=== PATIENT | female | born 1955 | race Caucasian/White ===

== ENCOUNTER 2016-03-04 11:29 | Inpatient (IN) | payer MEDICARE, OTHER ==
[~2016-03-04] VITALS: Ht 144.8 cm; Wt 62.1 kg
[2016-03-04 11:33] VITALS: BP 142/86; PULSE 102; RESP 16; TEMP 98.1; O2SAT 97
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
[2016-03-04 12:07] LABS: AUTOMATED NEUTROPHIL # 2.7 TH/MM3 (1.8-7.7); BASOPHIL % 0.4 % (0.0-2.0); HEMATOCRIT 38.4 % (35.0-46.0); HEMO FLAGS DIFF FINAL; LYMPH % 33.8 % (9.0-44.0); LYMPHOCYTE # 1.6 TH/MM3 (1.0-4.8); MEAN CELL VOLUME 91.9 FL (80.0-100.0); MEAN CORPUSCULAR HGB CONC 33.7 % (32.0-36.0); MONO % 7.6 % (0.0-8.0); NEUT % 58.2 % (16.0-70.0); PLATELET COUNT 196 TH/MM3 (150-450); RED BLOOD COUNT 4.17 MIL/MM3 (4.00-5.30); RED CELL DISTRIBUTION WIDTH 13.5 % (11.6-17.2); WHITE BLOOD COUNT 4.7 TH/MM3 (4.0-11.0)
[2016-03-04 12:24] LABS: ALKALINE PHOSPHATASE 87 U/L (45-117); TOTAL BILIRUBIN ADULT 0.2 MG/DL (0.2-1.0)
[2016-03-04 12:31] LABS: ALT (GPT) 26 U/L (10-53); ANION GAP 7 MEQ/L (5-15); AST (GOT) 25 U/L (15-37); BICARBONATE 27.6 MEQ/L (21.0-32.0); BLOOD UREA NITROGEN 15 MG/DL (7-18); CHLORIDE 107 MEQ/L (98-107); GLOMERULAR FILTRATION RATE 66 ML/MIN (>89); POTASSIUM 4.3 MEQ/L (3.5-5.1); SODIUM (NA) 142 MEQ/L (136-145)
[2016-03-04 12:53] LABS: BACTERIA, URINE RARE /hpf; BLOOD, URINE NEG (NEG); GLUCOSE,URINE NEG (NEG); KETONE, URINE TRACE mg/dL (NEG); MUCUS URINE FEW /lpf (OCC); NITRITE,URINE NEG (NEG); URINE COLOR YELLOW (YELLW/STRAW)
[2016-03-04 12:54] LABS: COMMENT (UR) CATH-CULTURE IND; CULTURE IF INDICATED CATH CULTURE IND
[2016-03-04 13:03] LABS: AMPHETAMINE, URINE NEG (NEG); BARBITURATES, URINE NEG (NEG); COCAINE, URINE NEG (NEG)
[2016-03-04] MEDS ORDERED: HALO100P IM (13:39)
[2016-03-04] MEDS ORDERED: [UNRECOGNIZED DRUG - CODE] PO (13:39)
[2016-03-04] MEDS ORDERED: ASPI81TA81 (13:39)
[2016-03-04] MEDS ORDERED: BUSP10TA PO (13:39)
[2016-03-04] MEDS ORDERED: BENZ1TAB PO (13:39)
[2016-03-04] MEDS ORDERED: CLOZ200T PO (13:39)
[2016-03-04] MEDS ORDERED: LEVO.1 PO (13:39)
[2016-03-04] MEDS ORDERED: FENO1TAB46 PO (13:39)
[2016-03-04] MEDS ORDERED: DUCO5TAB PO (13:39)
[2016-03-04] MEDS ORDERED: DILA100C PO (13:39)
[2016-03-04] MEDS ORDERED: VALP250S2 PO (13:39)
[2016-03-04] MEDS ORDERED: NAPR250T PO (13:39)
[2016-03-04] MEDS ORDERED: MIRA33504 PO (13:39)
[2016-03-04] MEDS ORDERED: CALC500T42 PO (13:39)
[2016-03-04] MEDS ORDERED: HALOPERIDOL LACTATE 5 MG/ML AMP IM PRN (16:00)
[2016-03-04] MEDS ORDERED: HALOPERIDOL 5 MG TAB PO ONE (16:00)
[2016-03-04] MEDS ORDERED: MAGNESIUM HYDROXIDE SUSP 30 ML CUP PO PRN (16:30)
[2016-03-04] MEDS ORDERED: ACETAMINOPHEN 325 MG TAB PO PRN (16:30)
[2016-03-04] MEDS ORDERED: ALUMINUM/MAGNESIUM/SIMETH 30 ML CUP PO PRN (16:30)
[2016-03-04 16:44] VITALS: BP 119/93; PULSE 100; RESP 18; TEMP 97.5; O2SAT 98
[2016-03-04] MEDS: LORazepam 2 MG/ML VIAL IM PRN (17:38)
[2016-03-05 05:41] VITALS: BP 103/55; PULSE 84; RESP 16; TEMP 97.4; O2SAT 95
[2016-03-05 07:57] LABS: ANION GAP 10 MEQ/L (5-15); BICARBONATE 26.2 MEQ/L (21.0-32.0); BLOOD UREA NITROGEN 10 MG/DL (7-18); CHLORIDE 103 MEQ/L (98-107); GLOMERULAR FILTRATION RATE 67 ML/MIN (>89); POTASSIUM 3.7 MEQ/L (3.5-5.1); SODIUM (NA) 139 MEQ/L (136-145)
[2016-03-05 07:59] LABS: HDL CHOLESTEROL 97.3 MG/DL (40.0-60.0); LDL CHOLESTEROL 62 MG/DL (0-99)
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
[2016-03-05] MEDS: NICOTINE 21 MG/24 HR PATCH T-DERMAL SCH (09:00)
[2016-03-05] MEDS ORDERED: INFLUENZA VIRUS VACCINE (QUADRIVALENT) 0.5 ML SYR IM ONE (10:00)
[2016-03-05 11:06] LABS: HEMOGLOBIN A1a 1.1 %; HEMOGLOBIN A1b 0.9 %; HEMOGLOBIN F 1.1 %; HEMOGLOBIN P3 3.7 %
[2016-03-05 17:47] VITALS: BP 124/60; PULSE 88; RESP 18; TEMP 97.6; O2SAT 96
[2016-03-06 05:49] VITALS: BP 112/61; PULSE 83; RESP 16; TEMP 97.6; O2SAT 97
[2016-03-06] MEDS: NICOTINE 21 MG/24 HR PATCH T-DERMAL SCH (09:00)
[2016-03-06] MEDS: LORazepam 1 MG TAB PO PRN (11:08)
[2016-03-06] MEDS ORDERED: MAGNESIUM HYDROXIDE SUSP 30 ML CUP PO PRN (12:00)
--- NOTE | 2016-03-06 12:07 | HHI.PYPN ---
Subjective Remarks Patient discussed with treatment team, patient seen on unit, with nurse Jamilah, chart reviewed, admitting orders reviewed and adjusted, med reconciliation adjusted. Patient continues anxious nervous somewhat vigilant and paranoid. Patient does deny suicidality, patient appears to be responding to internal stimuli, those vague about any auditory hallucinations. For now we'll continue medications as per the med reconciliation, will check Depakote and Dilantin blood levels in the a.m. Also have medical service consult with this patient Review of Systems Other No change since 03/04 Objective Alert: Yes [place]: Person, Place, Date Mood: Anxious, Depressed Affect: Labile, Restricted Memory Intact: Comment Hallucinations: Other Delusions: Yes Delusion Type: Paranoid (vague) Suicidal: Ideation (denies) Homicidal: Ideation (denies) Insight/Judgement poor Labs Date/Time Procedure Status Source Growth 03/04/16 12:45 Urine Culture - Final Complete Urine Catheterized Urine NO GROWTH IN 48 HOURS. Vitals/IOs Vital Signs Date Time Temp Pulse Resp B/P Pulse Ox O2 Delivery O2 Flow Rate FiO2 03/06/16 05:49 97.6 83 16 112/61 97 Intake and Output 03/05/16 03/05/16 03/06/16 08:00 16:00 00:00 Intake Total 360 ml Balance 360 ml Assessment & Plan Problem List: (1) Bipolar disorder ICD Code: F31.9 Assessment & Plan Estimated LOS: days patient continues depressed somewhat psychotic, compliant medications. At this time I feel patient continues to meet criteria for involuntary psychiatric hospitalization but also feel she has capacity to sign for medications Justification for Cont. Inpt. At this time patient was severely decompensate at a lower level of care Discharge Planning To be determine Request HC Surrog/Guard Advoc?: No Problem Qualifiers (1) Bipolar disorder: Qualified Code: F31.9 - Bipolar affective disorder, current episode manic, current episode severity unspecified Ezequiel Grayson MD Mar 06, 2016 12:07
[2016-03-06] MEDS ORDERED: HALOPERIDOL DECANOATE 50 MG/ML VIAL IM SCH (13:00)
[2016-03-06] MEDS ORDERED: BISACODYL EC 5 MG TABEC PO PRN (13:00)
[2016-03-06] MEDS: POLYETHYLENE GLYCOL 17 GM PKG PO SCH ×2 (15:07→15:23)
[2016-03-06] MEDS: CALCIUM CARBONATE 1.25 GM (CA 500 MG) TAB PO SCH ×2 (15:08→21:09)
[2016-03-06] MEDS: FENOFIBRATE 48 MG TAB PO SCH (15:08)
[2016-03-06] MEDS: VALPROIC ACID SYRUP 250 MG/5 ML UDC PO SCH ×2 (15:08→21:09)
[2016-03-06] MEDS: busPIRone HCL 10 MG TAB PO SCH ×2 (15:09→21:09)
[2016-03-06] MEDS: cloZAPine 100 MG TAB PO SCH ×2 (15:09→21:10)
[2016-03-06] MEDS: PHENYTOIN SODIUM 100 MG CAP PO SCH ×2 (15:20→18:51)
--- NOTE | 2016-03-06 16:07 | PD.CONS ---
[facility] By [facility] Reason for Consult Assist in management of medical condition including hypothyroidism and epilepsy Primary Care Physician Unknown Diagnoses: History of Present Illness This is a pleasant 60-year-old female patient with a past medical history which includes bipolar disorder, seizure disorder, hypothyroidism. Patient is currently inpatient psychiatric center. We have been consulted for assistance with medical management included hypothyroidism as well as epilepsy. Patient reports anxiety. Patient also reports nasal congestion. Patient feels as though it has possibly allergies has been present for 3-5 days reports it is worse when she is trying to eat. Denies fevers chills cough congestion shortness of breath chest pain nausea vomiting diarrhea or constipation. Review of Systems Constitutional: DENIES: Fever, Chills Respiratory: DENIES: Shortness of breath Cardiovascular: DENIES: Chest pain Gastrointestinal: DENIES: Abdominal pain Psychiatric: COMPLAINS OF: Anxiety Other All other systems reviewed and negative except as mentioned in history of present illness Past Family Social History Allergies: Coded Allergies: Codeine (Verified Allergy, Unknown, 03/04/16) Past Medical History bipolar disorder, seizure disorder, hypothyroidism Past Surgical History ALPHONSO/BSO, epilepsy, multiple eye operations to repair strabismus Reported Medications Naproxen 250 Mg Tab 250 Mg PO BID Dilantin (Phenytoin Extended) 100 Mg Cap 100 Mg PO TID Restoril (Temazepam) 22.5 Mg Cap 22.5 Mg PO HS PRN Haldol Decanoate Inj (Haloperidol Decanoate) 100 Mg/Ml Inj 100 Mg IM ONCE Miralax Powder (Polyethylene Glycol 3350 Powder) 17 Gm Powd 17 Gm PO DAILY Mix and dissolve one measuring cap-ful (17 grams) in water or juice. Ducodyl DR (Bisacodyl) 5 Mg Tabdr 5 Mg PO DAILY PRN Aspir-81 (Aspirin) 81 Mg Tabdr Benztropine (Benztropine Mesylate) 1 Mg Tab 1 Mg PO BID Clozapine 200 Mg Tab 200 Mg PO BID Calcium 500 Mg Tab 1,000 Mg PO BID Synthroid (Levothyroxine Sodium) 100 Mcg Tab 100 Mcg PO DAILY Valproic Acid Liq 250 Mg/5 Ml Syp 250 Mg PO BID Fenofibrate 40 Mg Tab 40 Mg PO DAILY Buspirone (Buspirone HCl) 10 Mg Tab 10 Mg PO BID Family History Mother had macular degeneration denies family medical history including hypertension diabetes mellitus CAD or cancer Social History Patient currently lives in a care home denies EtOH use or tobacco abuse Physical Exam Vital Signs Vital Signs Date Time Temp Pulse Resp B/P Pulse Ox O2 Delivery O2 Flow Rate FiO2 03/06/16 05:49 97.6 83 16 112/61 97 03/05/16 17:47 97.6 88 18 124/60 96 Physical Exam GENERAL: This is a well-nourished, well-developed patient, initially anxious but appears to be in no acute distress. SKIN: No rashes, ecchymoses or lesions. Cool and dry. Generalized thinning skin HEAD: Atraumatic. Normocephalic. No temporal or scalp tenderness. EYES: Extraocular motions intact. No scleral icterus. No injection or drainage. ENT: Right naris initially congested. Throat without erythema, tonsillar hypertrophy or exudate. Uvula midline. Airway patent. NECK: Trachea midline. No JVD or lymphadenopathy. Supple, nontender, no meningeal signs. CARDIOVASCULAR: Regular rate and rhythm without murmurs, gallops, or rubs. RESPIRATORY: Clear to auscultation. Breath sounds equal bilaterally. No wheezes , rales, or rhonchi. GASTROINTESTINAL: Abdomen soft, non-tender, nondistended. No hepato-splenomegaly , or palpable masses. No guarding. MUSCULOSKELETAL: Extremities without clubbing, cyanosis, or edema. No joint tenderness, effusion, or edema noted. No calf tenderness. Negative Homans sign bilaterally. NEUROLOGICAL: Awake and alert. Motor and sensory grossly within normal limits. 4 -5 out of 5 muscle strength in all muscle groups. Normal speech. Laboratory Date/Time Procedure Status Source Growth 03/04/16 12:45 Urine Culture - Final Complete Urine Catheterized Urine NO GROWTH IN 48 HOURS. Result Diagram: 03/04/16 1155 03/05/16 0704 Assessment and Plan Assessment and Plan This is a pleasant 60-year-old female patient with a past medical history which includes bipolar disorder, seizure disorder, hypothyroidism. Patient is currently inpatient psychiatric center. We have been consulted for assistance with medical management included hypothyroidism as well as epilepsy. Patient reports anxiety. Patient also reports nasal congestion. Patient feels as though it has possibly allergies has been present for 3-5 days reports it is worse when she is trying to eat. Bipolar disorder to be managed by psychiatric team Hypothyroidism continue her Synthroid will check TSH and T4 in a.m. Seizure disorder/epilepsy continue valproic acid level therapeutic at 66 Seizure precautions Nasal congestion possibly allergic Medrol Dosepak continue to monitor DVT prophylaxis patient is ambulatory Discussed with patient and RN Written by Bisi Koch, acting as scribe for Dr. Talavera on 03/06/16 at 16:05. The documentation accurately reflects the work performed [id number] by me on 03/06/16 at 16:05. Bisi Koch Mar 06, 2016 16:07 Altagracia Talavera MD Mar 06, 2016 16:54
[2016-03-06 18:52] VITALS: BP_SYST 147; BP_SYST 151; BP_SYST 172; BP_DIAS 73; BP_DIAS 75; PULSE 67
[2016-03-06 19:55] VITALS: BP 105/53; PULSE 90; RESP 16; TEMP 98; O2SAT 95
[2016-03-06] MEDS ORDERED: methylPREDNISolone 4 MG TAB PO SCH (21:00)
[2016-03-06] MEDS: BENZTROPINE MESYLATE 1 MG TAB PO SCH (21:09)
[2016-03-07 05:45] VITALS: BP 106/66; PULSE 87; RESP 16; TEMP 98.3; O2SAT 97
[2016-03-07] MEDS: LEVOTHYROXINE SODIUM 100 MCG TAB PO SCH (06:50)
[2016-03-07 08:47] LABS: ALT (GPT) 27 U/L (10-53); ANION GAP 7 MEQ/L (5-15); AST (GOT) 20 U/L (15-37); BICARBONATE 28.9 MEQ/L (21.0-32.0); BLOOD UREA NITROGEN 17 MG/DL (7-18); CHLORIDE 106 MEQ/L (98-107); GLOMERULAR FILTRATION RATE 87 ML/MIN (>89); POTASSIUM 4.3 MEQ/L (3.5-5.1); SODIUM (NA) 142 MEQ/L (136-145)
[2016-03-07 08:56] LABS: ALKALINE PHOSPHATASE 94 U/L (45-117); FREE T4 0.73 NG/DL (0.76-1.46); TOTAL BILIRUBIN ADULT 0.2 MG/DL (0.2-1.0)
[2016-03-07] MEDS: VALPROIC ACID SYRUP 250 MG/5 ML UDC PO SCH ×3 (09:00→20:51)
[2016-03-07] MEDS: NICOTINE 21 MG/24 HR PATCH T-DERMAL SCH (09:00)
--- NOTE | 2016-03-07 11:05 | HHI.PYPN ---
Subjective Remarks Patient seen in day room with nurse Jamilah, patient markedly vigilant paranoid stating she feels staff and evening are "conspiring against me". Patient also quite somatic stating problems with her legs with her breathing with her appetite. She also is complaining about her roommate being irritable and wanting to be moved to another room. Dilantin level drawn this morning is 11.4, Depakote level is 11. Will increase Depakote to 250 mg a.m. 500 mg at bedtime check a blood level after 3 days Review of Systems Other No change since 03/04 Objective Alert: Yes [place]: Person, Place, Date Mood: Anxious, Depressed Affect: Labile, Restricted Memory Intact: Comment Hallucinations: Other Delusions: Yes Delusion Type: Paranoid (vague) Suicidal: Ideation (denies) Homicidal: Ideation (denies) Insight/Judgement Very poor Labs Test 03/06/16 03/07/16 18:05 06:53 Carbamazepine (Tegretol) Level LESS THAN 0.5 MCG/ML Sodium Level 142 MEQ/L Potassium Level 4.3 MEQ/L Chloride Level 106 MEQ/L Carbon Dioxide Level 28.9 MEQ/L Anion Gap 7 MEQ/L Blood Urea Nitrogen 17 MG/DL Creatinine 0.69 MG/DL Estimat Glomerular Filtration 87 ML/MIN Rate Random Glucose 78 MG/DL Calcium Level 9.5 MG/DL Total Bilirubin 0.2 MG/DL Aspartate Amino Transf 20 U/L (AST/SGOT) Alanine Aminotransferase 27 U/L (ALT/SGPT) Alkaline Phosphatase 94 U/L Total Protein 6.7 GM/DL Albumin 3.5 GM/DL Free Thyroxine 0.73 NG/DL Thyroid Stimulating Hormone 4.280 uIU/ML 3rd Gen Phenytoin (Dilantin) Level 11.4 MCG/ML Valproic Acid (Depakene) Level 11 MCG/ML Date/Time Procedure Status Source Growth 03/04/16 12:45 Urine Culture - Final Complete Urine Catheterized Urine NO GROWTH IN 48 HOURS. Vitals/IOs Vital Signs Date Time Temp Pulse Resp B/P Pulse Ox O2 Delivery O2 Flow Rate FiO2 03/07/16 05:45 98.3 87 16 106/66 97 Intake and Output 03/06/16 03/06/16 03/07/16 08:00 16:00 00:00 Intake Total 120 ml 1320 ml 1680 ml Balance 120 ml 1320 ml 1680 ml Assessment & Plan Problem List: (1) Bipolar disorder ICD Code: F31.9 Assessment & Plan Estimated LOS: days patient continues quite psychotic paranoid and delusional Along with pain quite somatic. Please see medication changes above Justification for Cont. Inpt. The continues to be in need for close observation to regulate higher risk psychotropic medications Discharge Planning To be determined Request HC Surrog/Guard Advoc?: No Problem Qualifiers (1) Bipolar disorder: Qualified Code: F31.9 - Bipolar affective disorder, current episode manic, current episode severity unspecified Ezequiel Grayson MD Mar 07, 2016 11:05
[2016-03-07] MEDS: FENOFIBRATE 48 MG TAB PO SCH (11:14)
[2016-03-07] MEDS: CALCIUM CARBONATE 1.25 GM (CA 500 MG) TAB PO SCH ×2 (11:15→20:50)
[2016-03-07] MEDS: busPIRone HCL 10 MG TAB PO SCH ×2 (11:16→20:51)
[2016-03-07] MEDS: BENZTROPINE MESYLATE 1 MG TAB PO SCH ×2 (11:16→20:50)
[2016-03-07] MEDS: PHENYTOIN SODIUM 100 MG CAP PO SCH ×3 (11:16→17:32)
[2016-03-07] MEDS: cloZAPine 100 MG TAB PO SCH ×2 (11:17→20:50)
[2016-03-07] MEDS: methylPREDNISolone 4 MG TAB PO SCH ×2 (11:17→12:00)
--- NOTE | 2016-03-07 14:27 | HHI.PR ---
Subjective Remarks Assist in management of medical condition including hypothyroidism and epilepsy Patient evaluated as inpatient psychiatric tear Patient offers no medical complaints. Patient appears paranoid. Does not appear to be in acute distress Objective Vitals Vital Signs Date Time Temp Pulse Resp B/P Pulse Ox O2 Delivery O2 Flow Rate FiO2 03/07/16 05:45 98.3 87 16 106/66 97 03/06/16 19:55 98.0 90 16 105/53 95 03/06/16 18:52 67 151/75 147/73 172/75 I/O 03/06/16 03/06/16 03/06/16 03/07/16 03/07/16 03/07/16 07:00 15:00 23:00 07:00 15:00 23:00 Intake Total 480 ml 1320 ml 1680 ml 0 ml 960 ml Balance 480 ml 1320 ml 1680 ml 0 ml 960 ml Intake Oral 480 ml 1320 ml 1680 ml 0 ml 960 ml # Voids 2 3 4 2 2 # Bowel Movements 0 0 Result Diagram: 03/04/16 1155 03/07/16 0653 Objective Remarks GENERAL: This is a well-nourished, well-developed patient, initially anxious but appears to be in no acute distress. SKIN: No rashes, ecchymoses or lesions. Cool and dry. Generalized thinning skin HEAD: Atraumatic. Normocephalic. No temporal or scalp tenderness. EYES: Extraocular motions intact. No scleral icterus. No injection or drainage. ENT: . Bilateral nares appear clear Throat without erythema, tonsillar hypertrophy or exudate. Uvula midline. Airway patent. NECK: Trachea midline. No JVD or lymphadenopathy. Supple, nontender, no meningeal signs. CARDIOVASCULAR: Regular rate and rhythm without murmurs, gallops, or rubs. RESPIRATORY: Clear to auscultation. Breath sounds equal bilaterally. No wheezes , rales, or rhonchi. GASTROINTESTINAL: Abdomen soft, non-tender, nondistended. No guarding. MUSCULOSKELETAL: Extremities without clubbing, cyanosis, or edema. No joint tenderness, effusion, or edema noted. No calf tenderness. Negative Homans sign bilaterally. NEUROLOGICAL: Awake and alert. Motor and sensory grossly within normal limits. 4 -5 out of 5 muscle strength in all muscle groups. Normal speech. Psychological: Patient does appear paranoid A/P Assessment and Plan This is a 60-year-old female patient with a past medical history which includes bipolar disorder, seizure disorder, hypothyroidism. Patient is currently inpatient psychiatric center. We have been consulted for assistance with medical management included hypothyroidism as well as epilepsy. Patient reports anxiety. Patient also reports nasal congestion. Patient feels as though it has possibly allergies has been present for 3-5 days reports it is worse when she is trying to eat. Bipolar disorder to be managed by psychiatric team Hypothyroidism continue her Synthroid Seizure disorder/epilepsy continue valproic acid and Dilantin Seizure precautions Nasal congestion possibly allergic- improved Medrol Dosepak started patient noted to have worsening psychosis today will DC Medrol DVT prophylaxis patient is ambulatory Discussed with patient and RN Patient does appear medically stable at this time we will sign off if patient's condition worsens or if further assistance is needed please reconsult. Written by Bisi Koch, acting as scribe for Dr. Duran on 03/07/16 at 14:26. The documentation accurately reflects the work performed [id number] by me on 03/07/16 at 1426 Bisi Koch Mar 07, 2016 14:27 Wagner Duran MD Mar 07, 2016 15:31
[2016-03-07] MEDS: LORazepam 1 MG TAB PO PRN (18:38)
[2016-03-07 19:40] VITALS: BP 148/98; PULSE 95; RESP 17; TEMP 98.1
[2016-03-07] MEDS ORDERED: methylPREDNISolone 4 MG TAB PO SCH (21:00)
[2016-03-08 06:02] VITALS: BP 105/59; PULSE 93; RESP 16; TEMP 98.1; O2SAT 95
[2016-03-08] MEDS: LEVOTHYROXINE SODIUM 100 MCG TAB PO SCH (06:33)
[2016-03-08] MEDS ORDERED: methylPREDNISolone 4 MG TAB PO SCH (08:00)
[2016-03-08] MEDS: POLYETHYLENE GLYCOL 17 GM PKG PO SCH (08:57)
[2016-03-08] MEDS: cloZAPine 100 MG TAB PO SCH ×2 (08:57→21:19)
[2016-03-08] MEDS: busPIRone HCL 10 MG TAB PO SCH ×2 (08:57→21:20)
[2016-03-08] MEDS: PHENYTOIN SODIUM 100 MG CAP PO SCH ×3 (08:57→17:00)
[2016-03-08] MEDS: BENZTROPINE MESYLATE 1 MG TAB PO SCH ×2 (08:57→21:20)
[2016-03-08] MEDS: FENOFIBRATE 48 MG TAB PO SCH (08:58)
[2016-03-08] MEDS: VALPROIC ACID SYRUP 250 MG/5 ML UDC PO SCH ×2 (08:58→21:20)
[2016-03-08] MEDS: CALCIUM CARBONATE 1.25 GM (CA 500 MG) TAB PO SCH ×2 (09:00→21:20)
[2016-03-08] MEDS: NICOTINE 21 MG/24 HR PATCH T-DERMAL SCH (09:00)
--- NOTE | 2016-03-08 13:16 | HHI.PYPN ---
Subjective Remarks Patient seen in day room today with floor staff, patient continues markedly disorganized and paranoid of focusing on her roommate and on staff plotting against her, and her unwillingness to use the commode in her room. Patient compliant medication Review of Systems Other No change since 03/04 Objective Alert: Yes [place]: Person, Place, Date Mood: Anxious, Depressed Affect: Labile, Restricted Memory Intact: Comment Hallucinations: Other Delusions: Yes Delusion Type: Paranoid (vague) Suicidal: Ideation (denies) Homicidal: Ideation (denies) Insight/Judgement Very poor Labs Date/Time Procedure Status Source Growth 03/04/16 12:45 Urine Culture - Final Complete Urine Catheterized Urine NO GROWTH IN 48 HOURS. Vitals/IOs Vital Signs Date Time Temp Pulse Resp B/P Pulse Ox O2 Delivery O2 Flow Rate FiO2 03/08/16 06:02 98.1 93 16 105/59 95 Intake and Output 03/07/16 03/07/16 03/08/16 08:00 16:00 00:00 Intake Total 0 ml 960 ml 600 ml Balance 0 ml 960 ml 600 ml Assessment & Plan Problem List: (1) Bipolar disorder ICD Code: F31.9 Assessment & Plan Estimated LOS: days is delusional, psychotic, and intrusive. For now continue treatment Justification for Cont. Inpt. Patient with severely decompensated at a lower level of care Discharge Planning To be determined Request HC Surrog/Guard Advoc?: No Problem Qualifiers (1) Bipolar disorder: Qualified Code: F31.9 - Bipolar affective disorder, current episode manic, current episode severity unspecified Ezequiel Grayson MD Mar 08, 2016 13:16
[2016-03-08] MEDS: LORazepam 1 MG TAB PO PRN (17:00)
[2016-03-08 18:00] VITALS: BP 123/69; PULSE 80; RESP 17; TEMP 98.3; O2SAT 96
[2016-03-09] MEDS: LORazepam 2 MG/ML VIAL IM PRN (00:50)
[2016-03-09] MEDS: LEVOTHYROXINE SODIUM 100 MCG TAB PO SCH (05:56)
[2016-03-09 06:00] VITALS: BP 129/65; PULSE 89; RESP 16; TEMP 97.6; O2SAT 99
[2016-03-09] MEDS ORDERED: methylPREDNISolone 4 MG TAB PO SCH (08:00)
[2016-03-09] MEDS: NICOTINE 21 MG/24 HR PATCH T-DERMAL SCH (09:00)
[2016-03-09] MEDS: POLYETHYLENE GLYCOL 17 GM PKG PO SCH (09:59)
[2016-03-09] MEDS: FENOFIBRATE 48 MG TAB PO SCH (09:59)
[2016-03-09] MEDS: VALPROIC ACID SYRUP 250 MG/5 ML UDC PO SCH ×2 (10:00→20:39)
[2016-03-09] MEDS: BENZTROPINE MESYLATE 1 MG TAB PO SCH ×2 (10:00→20:39)
[2016-03-09] MEDS: cloZAPine 100 MG TAB PO SCH ×2 (10:00→20:40)
[2016-03-09] MEDS: PHENYTOIN SODIUM 100 MG CAP PO SCH ×3 (10:01→17:11)
[2016-03-09] MEDS: busPIRone HCL 10 MG TAB PO SCH ×2 (10:01→20:39)
[2016-03-09] MEDS: CALCIUM CARBONATE 1.25 GM (CA 500 MG) TAB PO SCH ×2 (10:04→20:39)
--- NOTE | 2016-03-09 12:08 | HHI.PYPN ---
Subjective Remarks Patient seen in [employer] court with her [employer] act [employer], patient retained by Judge Marie, patient continues quite hyper verbal tangential circumstantial and disorganized. Showing very little insight into the whole process. Patient compliant medications. Awaiting Depakote blood level tomorrow. Patient compliant medications Review of Systems Other No change since 03/04 Objective Alert: Yes [place]: Person, Place, Date Mood: Anxious, Depressed Affect: Labile, Restricted Memory Intact: Comment Hallucinations: Other Delusions: Yes Delusion Type: Paranoid (vague) Suicidal: Ideation (denies) Homicidal: Ideation (denies) Insight/Judgement Very poor Labs Date/Time Procedure Status Source Growth 03/04/16 12:45 Urine Culture - Final Complete Urine Catheterized Urine NO GROWTH IN 48 HOURS. Vitals/IOs Vital Signs Date Time Temp Pulse Resp B/P Pulse Ox O2 Delivery O2 Flow Rate FiO2 03/09/16 06:00 97.6 89 16 129/65 99 Intake and Output 03/08/16 03/08/16 03/09/16 08:00 16:00 00:00 Intake Total 0 ml 1320 ml 1080 ml Balance 0 ml 1320 ml 1080 ml Assessment & Plan Problem List: (1) Bipolar disorder ICD Code: F31.9 Assessment & Plan Patient remains hyperverbal, manic with rapid pressured speech, retained by Jj Marie in [employer] court. Awaiting Depakote blood level tomorrow Justification for Cont. Inpt. At this time the patient would severely decompensated a lower level of care Discharge Planning To be determined Request HC Surrog/Guard Advoc?: No Problem Qualifiers (1) Bipolar disorder: Qualified Code: F31.9 - Bipolar affective disorder, current episode manic, current episode severity unspecified Ezequiel Grayson MD Mar 09, 2016 12:08
[2016-03-09] MEDS: LORazepam 1 MG TAB PO PRN (17:11)
[2016-03-09 18:22] VITALS: BP 116/67; PULSE 102; RESP 16; TEMP 98.1; O2SAT 97
[2016-03-09 21:40] VITALS: BP 128/64; PULSE 95; RESP 16; TEMP 98; O2SAT 98
[2016-03-09 22:40] VITALS: BP 100/54; PULSE 85; RESP 16; TEMP 98; O2SAT 97
[2016-03-10 02:33] VITALS: BP 100/62; PULSE 85; RESP 14; TEMP 98; O2SAT 97
[2016-03-10] MEDS: LEVOTHYROXINE SODIUM 100 MCG TAB PO SCH (05:20)
[2016-03-10 05:49] VITALS: BP 127/56; PULSE 85; RESP 16; TEMP 97.7; O2SAT 97
[2016-03-10] MEDS ORDERED: methylPREDNISolone 4 MG TAB PO SCH (08:00)
[2016-03-10] MEDS: NICOTINE 21 MG/24 HR PATCH T-DERMAL SCH (09:00)
[2016-03-10] MEDS: CALCIUM CARBONATE 1.25 GM (CA 500 MG) TAB PO SCH ×2 (09:16→21:19)
[2016-03-10] MEDS: VALPROIC ACID SYRUP 250 MG/5 ML UDC PO SCH ×2 (09:17→21:20)
[2016-03-10] MEDS: busPIRone HCL 10 MG TAB PO SCH ×2 (09:17→21:19)
[2016-03-10] MEDS: PHENYTOIN SODIUM 100 MG CAP PO SCH ×3 (09:17→18:23)
[2016-03-10] MEDS: cloZAPine 100 MG TAB PO SCH ×2 (09:17→21:19)
[2016-03-10] MEDS: BENZTROPINE MESYLATE 1 MG TAB PO SCH ×2 (09:17→21:19)
[2016-03-10] MEDS: FENOFIBRATE 48 MG TAB PO SCH (09:17)
[2016-03-10] MEDS: POLYETHYLENE GLYCOL 17 GM PKG PO SCH (09:18)
[2016-03-10 10:29] VITALS: BP 123/58; PULSE 94; RESP 17; TEMP 97.9; O2SAT 98
--- NOTE | 2016-03-10 13:18 | HHI.PYPN ---
Subjective Remarks Patient seen in [place] with nurse Naz, patient continues hyper verbal paranoid with conspiratorial content, also complains still of urinary frequency and incontinence. Is a negative urine with culture done approximately 03/04. Will repeat UA today. Patient is Depakote level this a.m. is 22 on 250 mg a.m. 500 mg at bedtime. Will increase Depakote to 52 mg a.m. 500 mg at bedtime get Depakote level on 03/14. She also continues to be intrusive with other patients following them down the [place] showed little respect for personal space Review of Systems Other No change since 03/04 Objective Alert: Yes [place]: Person, Place, Date Mood: Anxious, Depressed Affect: Labile, Restricted Memory Intact: Comment Hallucinations: Other Delusions: Yes Delusion Type: Paranoid (vague) Suicidal: Ideation (denies) Homicidal: Ideation (denies) Insight/Judgement Very poor Labs Test 03/10/16 05:49 Valproic Acid (Depakene) Level 22 MCG/ML Vitals/IOs Vital Signs Date Time Temp Pulse Resp B/P Pulse Ox O2 Delivery O2 Flow Rate FiO2 03/10/16 10:29 97.9 94 17 123/58 98 Intake and Output 03/09/16 03/09/16 03/09/16 07:59 15:59 23:59 Intake Total 1320 ml 240 ml Balance 1320 ml 240 ml Assessment & Plan Problem List: (1) Bipolar disorder ICD Code: F31.9 Assessment & Plan Estimated LOS: days patient continues somewhat manic intrusive paranoid, she medication changes above will also check UA Justification for Cont. Inpt. At this and the patient was originally decompensate at a lower level of care Discharge Planning To be determined Request HC Surrog/Guard Advoc?: No Problem Qualifiers (1) Bipolar disorder: Qualified Code: F31.9 - Bipolar affective disorder, current episode manic, current episode severity unspecified Ezequiel Grayson MD Mar 10, 2016 13:17
[2016-03-10 13:57] VITALS: BP 135/78; PULSE 102; RESP 18; O2SAT 97
[2016-03-10] MEDS: LORazepam 1 MG TAB PO PRN (15:08)
[2016-03-10] MEDS: HALOPERIDOL 5 MG TAB PO PRN (15:23)
[2016-03-10 19:35] VITALS: BP 121/64; PULSE 80; RESP 16; TEMP 98.3; O2SAT 100
[2016-03-11 05:42] VITALS: BP 140/75; PULSE 86; RESP 16; TEMP 97.5; O2SAT 97
[2016-03-11] MEDS: LEVOTHYROXINE SODIUM 100 MCG TAB PO SCH (05:51)
[2016-03-11] MEDS ORDERED: methylPREDNISolone 4 MG TAB PO SCH (08:00)
[2016-03-11] MEDS: VALPROIC ACID SYRUP 250 MG/5 ML UDC PO SCH ×2 (09:00→20:44)
[2016-03-11] MEDS: NICOTINE 21 MG/24 HR PATCH T-DERMAL SCH (09:00)
[2016-03-11] MEDS: BENZTROPINE MESYLATE 1 MG TAB PO SCH ×2 (09:01→20:45)
[2016-03-11] MEDS: CALCIUM CARBONATE 1.25 GM (CA 500 MG) TAB PO SCH ×2 (09:01→20:45)
[2016-03-11] MEDS: cloZAPine 100 MG TAB PO SCH ×2 (09:02→20:44)
[2016-03-11] MEDS: PHENYTOIN SODIUM 100 MG CAP PO SCH ×3 (09:03→17:24)
[2016-03-11] MEDS: busPIRone HCL 10 MG TAB PO SCH ×2 (09:03→20:45)
[2016-03-11] MEDS: POLYETHYLENE GLYCOL 17 GM PKG PO SCH (09:03)
[2016-03-11] MEDS: FENOFIBRATE 48 MG TAB PO SCH (09:03)
[2016-03-11] MEDS: HALOPERIDOL 5 MG TAB PO PRN (15:05)
--- NOTE | 2016-03-11 16:39 | HHI.PYPN ---
Subjective Remarks Patient seen in dayroom with floor staff, patient continues disorganized with delusions related to consider her conspiracy theories. Also some focus on cleanliness in her room and in the bathrooms in her need for a room change and possible admission to a medical floor. Patient compliant with her medication Review of Systems Other No somatic complaints today Objective Alert: Yes [place]: Person, Place, Date Mood: Anxious, Depressed Affect: Labile, Restricted Memory Intact: Comment Hallucinations: Other Delusions: Yes Delusion Type: Paranoid (vague) Suicidal: Ideation (denies) Homicidal: Ideation (denies) Insight/Judgement Very poor Vitals/IOs Vital Signs Date Time Temp Pulse Resp B/P Pulse Ox O2 Delivery O2 Flow Rate FiO2 03/11/16 05:42 97.5 86 16 140/75 97 Intake and Output 03/10/16 03/10/16 03/11/16 08:00 16:00 00:00 Intake Total 480 ml 1800 ml 840 ml Balance 480 ml 1800 ml 840 ml Assessment & Plan Problem List: (1) Bipolar disorder ICD Code: F31.9 Assessment & Plan Estimated LOS: days patient continues psychotic intrusive, compliant medications, for now continue treatment and observation Justification for Cont. Inpt. At this time patient would severely decompensate and placed in a lower level of care Discharge Planning To be determined Request HC Surrog/Guard Advoc?: No Problem Qualifiers (1) Bipolar disorder: Qualified Code: F31.9 - Bipolar affective disorder, current episode manic, current episode severity unspecified Ezequiel Grayson MD Mar 11, 2016 16:39
[2016-03-11 19:43] VITALS: BP 136/67; PULSE 105; RESP 16; TEMP 96.8; O2SAT 96
[2016-03-11] MEDS: LORazepam 1 MG TAB PO PRN (21:25)
[2016-03-11] MEDS: diphenhydrAMINE HCL 50 MG CAP PO PRN (23:33)
[2016-03-12] MEDS: LEVOTHYROXINE SODIUM 100 MCG TAB PO SCH (06:07)
[2016-03-12 06:24] VITALS: BP 117/58; PULSE 91; RESP 18; TEMP 96.9
[2016-03-12] MEDS: ACETAMINOPHEN 325 MG TAB PO PRN ×2 (06:40→16:50)
[2016-03-12] MEDS: VALPROIC ACID SYRUP 250 MG/5 ML UDC PO SCH ×3 (09:00→21:21)
[2016-03-12] MEDS: POLYETHYLENE GLYCOL 17 GM PKG PO SCH ×2 (09:00→09:31)
[2016-03-12] MEDS: NICOTINE 21 MG/24 HR PATCH T-DERMAL SCH (09:00)
[2016-03-12] MEDS: PHENYTOIN SODIUM 100 MG CAP PO SCH ×3 (09:30→18:36)
[2016-03-12] MEDS: CALCIUM CARBONATE 1.25 GM (CA 500 MG) TAB PO SCH ×2 (09:30→21:16)
[2016-03-12] MEDS: busPIRone HCL 10 MG TAB PO SCH ×2 (09:30→21:16)
[2016-03-12] MEDS: BENZTROPINE MESYLATE 1 MG TAB PO SCH ×2 (09:31→21:17)
[2016-03-12] MEDS: FENOFIBRATE 48 MG TAB PO SCH (09:31)
[2016-03-12] MEDS: cloZAPine 100 MG TAB PO SCH ×2 (09:31→21:16)
[2016-03-12] MEDS: LORazepam 1 MG TAB PO PRN (09:50)
[2016-03-12 11:09] VITALS: BP 117/59; PULSE 100
--- NOTE | 2016-03-12 13:07 | HHI.PYPN ---
Subjective Remarks Patient was seen and case discussed with nursing. Patient was hyperverbal and elevated this morning and got 1 mg of Ativan during this interview she is sleeping not a good historian. Per nursing she has been compliant with her medications. Objective Alert: Yes [employer]: Person, Place, Date Mood: Anxious, Depressed Affect: Labile, Restricted Memory Intact: Comment Hallucinations: Other Delusions: Yes Delusion Type: Paranoid (vague) Suicidal: Ideation (denies) Homicidal: Ideation (denies) Insight/Judgement poor Vitals/IOs Vital Signs Date Time Temp Pulse Resp B/P Pulse Ox O2 Delivery O2 Flow Rate FiO2 03/12/16 11:09 100 117/59 03/12/16 06:24 96.9 18 03/11/16 19:43 96 Intake and Output 03/11/16 03/11/16 03/12/16 08:00 16:00 00:00 Intake Total 360 ml 240 ml 720 ml Output Total 4 ml Balance 356 ml 240 ml 720 ml Assessment & Plan Problem List: (1) Bipolar disorder ICD Code: F31.9 Assessment & Plan Continue current treatment plan Justification for Cont. Inpt. Patient will decompensate in a less restrictive setting Request HC Surrog/Guard Advoc?: No Problem Qualifiers (1) Bipolar disorder: Qualified Code: F31.9 - Bipolar affective disorder, current episode manic, current episode severity unspecified Cuate Flynn DO Mar 12, 2016 13:07
[2016-03-12 19:19] VITALS: BP 120/61; PULSE 88; RESP 17; TEMP 97.4; O2SAT 96
[2016-03-13] MEDS: LEVOTHYROXINE SODIUM 100 MCG TAB PO SCH (06:00)
[2016-03-13 06:14] VITALS: BP 125/60; PULSE 60; RESP 18; TEMP 98; O2SAT 97
[2016-03-13] MEDS: POLYETHYLENE GLYCOL 17 GM PKG PO SCH (09:00)
[2016-03-13] MEDS: NICOTINE 21 MG/24 HR PATCH T-DERMAL SCH (09:00)
[2016-03-13] MEDS: FENOFIBRATE 48 MG TAB PO SCH (10:05)
[2016-03-13] MEDS: busPIRone HCL 10 MG TAB PO SCH ×2 (10:06→21:52)
[2016-03-13] MEDS: BENZTROPINE MESYLATE 1 MG TAB PO SCH ×2 (10:06→21:51)
[2016-03-13] MEDS: CALCIUM CARBONATE 1.25 GM (CA 500 MG) TAB PO SCH ×2 (10:06→21:52)
[2016-03-13] MEDS: VALPROIC ACID SYRUP 250 MG/5 ML UDC PO SCH ×2 (10:06→21:52)
[2016-03-13] MEDS: cloZAPine 100 MG TAB PO SCH ×2 (10:06→21:51)
[2016-03-13] MEDS: PHENYTOIN SODIUM 100 MG CAP PO SCH ×3 (10:07→18:00)
--- NOTE | 2016-03-13 15:15 | HHI.PYPN ---
Subjective Remarks Patient Chio discussed with treatment team, continue notices increased aggressive [id number] behaviors towards evening though she is compliant with medications. She continues with flight of ideas and markedly intrusive. Will add Haldol 5 mg by mouth twice a day to the regimen Review of Systems Other No symmetric complaints today Objective Alert: Yes [place]: Person, Place, Date Mood: Anxious, Depressed Affect: Labile, Restricted Memory Intact: Comment Hallucinations: Other Delusions: Yes Delusion Type: Paranoid (vague) Suicidal: Ideation (denies) Homicidal: Ideation (denies) Insight/Judgement Very poor Vitals/IOs Vital Signs Date Time Temp Pulse Resp B/P Pulse Ox O2 Delivery O2 Flow Rate FiO2 03/13/16 06:14 98.0 60 18 125/60 97 Intake and Output 03/12/16 03/12/16 03/13/16 08:00 16:00 00:00 Intake Total 120 ml 600 ml Balance 120 ml 600 ml Assessment & Plan Problem List: (1) Bipolar disorder ICD Code: F31.9 Assessment & Plan Estimated LOS: days patient remained psychotic manic intrusive quite labile will add oral Haldol to the regimen Justification for Cont. Inpt. Patient would significantly decompensated at a lower level of care Discharge Planning To be determined Request HC Surrog/Guard Advoc?: No Problem Qualifiers (1) Bipolar disorder: Qualified Code: F31.9 - Bipolar affective disorder, current episode manic, current episode severity unspecified Ezequiel Grayson MD Mar 13, 2016 15:15
[2016-03-13] MEDS: HALOPERIDOL 5 MG TAB PO PRN (15:22)
[2016-03-13] MEDS ORDERED: LORazepam 2 MG/ML VIAL IM ONE (18:30)
[2016-03-13 19:51] VITALS: BP 118/61; PULSE 102; RESP 18; TEMP 97.5; O2SAT 97
[2016-03-13] MEDS: HALOPERIDOL 5 MG TAB PO SCH (21:52)
[2016-03-14 04:23] VITALS: BP 111/67; PULSE 94; RESP 16; TEMP 97.5; O2SAT 94
[2016-03-14] MEDS: LEVOTHYROXINE SODIUM 100 MCG TAB PO SCH (06:10)
--- NOTE | 2016-03-14 08:33 | HHI.PYPN ---
Subjective Remarks Patient seen in day room with nurse aNz, chart review, Depakote level 23 drawn this a.m. on 500 mg twice a day. Will increase to 500 mg a.m. 750 mg p.m. check a blood level on 03/17. Patient continues markedly disorganized somewhat intrusive labile with pressured speech markedly tangential circumstantial. Review of Systems Other No somatic complaints today Objective Alert: Yes [place]: Person, Place, Date Mood: Anxious, Depressed Affect: Labile, Restricted Memory Intact: Comment Hallucinations: Other Delusions: Yes Delusion Type: Paranoid (vague) Suicidal: Ideation (denies) Homicidal: Ideation (denies) Insight/Judgement Very poor Labs Test 03/14/16 06:52 Valproic Acid (Depakene) Level 23 MCG/ML Vitals/IOs Vital Signs Date Time Temp Pulse Resp B/P Pulse Ox O2 Delivery O2 Flow Rate FiO2 03/14/16 04:23 97.5 94 16 111/67 94 Intake and Output 03/13/16 03/13/16 03/14/16 08:00 16:00 00:00 Intake Total 120 ml 960 ml Balance 120 ml 960 ml Assessment & Plan Problem List: (1) Bipolar disorder ICD Code: F31.9 Assessment & Plan Estimated LOS: days patient continues intrusive with rapid pressured speech markedly circumstantial. She Depakote adjustment above Justification for Cont. Inpt. At this time patient was severely decompensated placed a lower level of care Discharge Planning To be determined Request HC Surrog/Guard Advoc?: No Problem Qualifiers (1) Bipolar disorder: Qualified Code: F31.9 - Bipolar affective disorder, current episode manic, current episode severity unspecified Ezequiel Grayson MD Mar 14, 2016 08:33
[2016-03-14] MEDS: NICOTINE 21 MG/24 HR PATCH T-DERMAL SCH (09:00)
[2016-03-14] MEDS: POLYETHYLENE GLYCOL 17 GM PKG PO SCH (09:16)
[2016-03-14] MEDS: CALCIUM CARBONATE 1.25 GM (CA 500 MG) TAB PO SCH ×2 (09:17→20:43)
[2016-03-14] MEDS: PHENYTOIN SODIUM 100 MG CAP PO SCH ×3 (09:17→17:10)
[2016-03-14] MEDS: busPIRone HCL 10 MG TAB PO SCH ×2 (09:17→20:43)
[2016-03-14] MEDS: cloZAPine 100 MG TAB PO SCH ×2 (09:17→20:43)
[2016-03-14] MEDS: VALPROIC ACID SYRUP 250 MG/5 ML UDC PO SCH ×2 (09:17→20:43)
[2016-03-14] MEDS: LORazepam 1 MG TAB PO PRN (09:17)
[2016-03-14] MEDS: FENOFIBRATE 48 MG TAB PO SCH (09:17)
[2016-03-14] MEDS: hydrOXYzine HCL 50 MG TAB PO PRN (09:17)
[2016-03-14] MEDS: HALOPERIDOL 5 MG TAB PO SCH ×2 (09:17→20:43)
[2016-03-14] MEDS: BENZTROPINE MESYLATE 1 MG TAB PO SCH ×2 (09:18→20:43)
[2016-03-14 20:11] VITALS: BP 142/62; PULSE 106; RESP 17; TEMP 97.4; O2SAT 96
[2016-03-15] MEDS: LEVOTHYROXINE SODIUM 100 MCG TAB PO SCH (05:54)
[2016-03-15 06:27] VITALS: BP 121/70; PULSE 90; RESP 18; TEMP 97.9; O2SAT 98
--- NOTE | 2016-03-15 08:53 | HHI.PYPN ---
Subjective Remarks Patient seen in day room with nurse Jamilah, chart review, patient continues to ramble hyperverbal very disorganized tangential and circumstantial. Saying she wants to go back to [facility]. Patient compliant medication. For now continue treatment Review of Systems Other No new somatic complaints today Objective Alert: Yes [place]: Person, Place, Date Mood: Anxious, Depressed Affect: Labile, Restricted Memory Intact: Comment Hallucinations: Other Delusions: Yes Delusion Type: Paranoid (vague) Suicidal: Ideation (denies) Homicidal: Ideation (denies) Insight/Judgement Poor Vitals/IOs Vital Signs Date Time Temp Pulse Resp B/P Pulse Ox O2 Delivery O2 Flow Rate FiO2 03/15/16 06:27 97.9 90 18 121/70 98 Intake and Output 03/14/16 03/14/16 03/14/16 07:59 15:59 23:59 Intake Total 360 ml 840 ml 1200 ml Balance 360 ml 840 ml 1200 ml Assessment & Plan Problem List: (1) Bipolar disorder ICD Code: F31.9 Assessment & Plan Estimated LOS: days patient continues disorganized confused psychotic features , compliant medications, for now continue treatment Justification for Cont. Inpt. At this time the patient it's really decompensate if placed in a lower level of care Discharge Planning To be determined Request HC Surrog/Guard Advoc?: No Problem Qualifiers (1) Bipolar disorder: Qualified Code: F31.9 - Bipolar affective disorder, current episode manic, current episode severity unspecified Ezequiel Grayson MD Mar 15, 2016 08:53
[2016-03-15] MEDS: POLYETHYLENE GLYCOL 17 GM PKG PO SCH (09:00)
[2016-03-15] MEDS: NICOTINE 21 MG/24 HR PATCH T-DERMAL SCH (09:00)
[2016-03-15] MEDS: HALOPERIDOL 5 MG TAB PO SCH ×2 (10:12→21:32)
[2016-03-15] MEDS: BENZTROPINE MESYLATE 1 MG TAB PO SCH ×2 (10:12→21:32)
[2016-03-15] MEDS: PHENYTOIN SODIUM 100 MG CAP PO SCH ×3 (10:12→17:33)
[2016-03-15] MEDS: cloZAPine 100 MG TAB PO SCH ×2 (10:12→21:32)
[2016-03-15] MEDS: CALCIUM CARBONATE 1.25 GM (CA 500 MG) TAB PO SCH ×2 (10:12→21:32)
[2016-03-15] MEDS: VALPROIC ACID SYRUP 250 MG/5 ML UDC PO SCH ×2 (10:13→21:32)
[2016-03-15] MEDS: FENOFIBRATE 48 MG TAB PO SCH (10:13)
[2016-03-15] MEDS: busPIRone HCL 10 MG TAB PO SCH ×2 (10:13→21:32)
[2016-03-15] MEDS: LORazepam 2 MG/ML VIAL IM PRN (12:29)
[2016-03-15 19:46] VITALS: BP 139/72; PULSE 122; RESP 17; TEMP 98; O2SAT 100
[2016-03-16] MEDS: TEMAZEPAM 7.5 MG CAP PO PRN (02:01)
[2016-03-16 06:00] VITALS: BP 114/60; PULSE 96; RESP 16; TEMP 98.4; O2SAT 93
[2016-03-16] MEDS: LEVOTHYROXINE SODIUM 100 MCG TAB PO SCH (06:01)
[2016-03-16] MEDS: busPIRone HCL 10 MG TAB PO SCH ×2 (08:36→20:31)
[2016-03-16] MEDS: POLYETHYLENE GLYCOL 17 GM PKG PO SCH (08:36)
[2016-03-16] MEDS: BENZTROPINE MESYLATE 1 MG TAB PO SCH ×2 (08:36→20:00)
[2016-03-16] MEDS: VALPROIC ACID SYRUP 250 MG/5 ML UDC PO SCH ×2 (08:36→20:30)
[2016-03-16] MEDS: HALOPERIDOL 5 MG TAB PO SCH ×2 (08:36→20:31)
[2016-03-16] MEDS: FENOFIBRATE 48 MG TAB PO SCH (08:37)
[2016-03-16] MEDS: cloZAPine 100 MG TAB PO SCH ×2 (08:37→20:31)
[2016-03-16] MEDS: CALCIUM CARBONATE 1.25 GM (CA 500 MG) TAB PO SCH ×2 (08:37→20:31)
[2016-03-16] MEDS: PHENYTOIN SODIUM 100 MG CAP PO SCH ×3 (08:43→17:39)
[2016-03-16] MEDS: NICOTINE 21 MG/24 HR PATCH T-DERMAL SCH (09:00)
[2016-03-16 12:15] VITALS: BP 118/80; PULSE 99; RESP 20; TEMP 98.2; O2SAT 98
--- NOTE | 2016-03-16 12:30 | HHI.PYPN ---
Subjective Remarks Nurse Hardik and Rachel went to patient's room to see today, patient was in her room sitting in wheelchair naked, she got up complaining of her bed being soaked with urine. She then walked towards us slipped on what appears to be urine on the floor that we did not initially notice. Patient fell backward on her buttocks and hit her head. There is no loss of consciousness shins. We are ordering a CT of the head and x-rays of the pelvis and both further observe her per protocol patient otherwise compliant medications continues disorganized. Review of Systems Other No change in review of symptoms Objective Alert: Yes [place]: Person, Place, Date Mood: Anxious, Depressed Affect: Labile, Restricted Memory Intact: Comment Hallucinations: Other Delusions: Yes Delusion Type: Paranoid (vague) Suicidal: Ideation (denies) Homicidal: Ideation (denies) Insight/Judgement Very poor Vitals/IOs Vital Signs Date Time Temp Pulse Resp B/P Pulse Ox O2 Delivery O2 Flow Rate FiO2 03/16/16 06:00 98.4 96 16 114/60 93 Intake and Output 03/15/16 03/15/16 03/16/16 08:00 16:00 00:00 Intake Total 0 ml 720 ml 1080 ml Balance 0 ml 720 ml 1080 ml Assessment & Plan Problem List: (1) Bipolar disorder ICD Code: F31.9 Assessment & Plan Estimated LOS: days patient continues psychotic labile and disorganized. Did slip and fall in her room was no loss of consciousness. No lacerations. We are having CT of the head and neck to the pelvis them and will monitor Justification for Cont. Inpt. At this time patient with severely decompensated placed in a lower level of care Discharge Planning To be determined Request HC Surrog/Guard Advoc?: No Problem Qualifiers (1) Bipolar disorder: Qualified Code: F31.9 - Bipolar affective disorder, current episode manic, current episode severity unspecified Ezequiel Grayson MD Mar 16, 2016 12:29
--- NOTE | 2016-03-16 13:04 | RADRPT ---
EXAM DATE/TIME: 03/16/2016 12:47 [facility] COMPARISON: No previous studies available for comparison. INDICATIONS : Trauma; fell and hit back of head. RADIATION DOSE: 56.35 CTDIvol (mGy) MEDICAL HISTORY : None SURGICAL HISTORY : None. ENCOUNTER: Initial ACUITY: 1 day PAIN SCALE: 3/10 LOCATION: occipital TECHNIQUE: Multiple contiguous axial images were obtained of the head. Using automated exposure control and adj ustment of the mA and/or kV according to patient size, radiation dose was kept as low as reasonably a chievable to obtain optimal diagnostic quality images. FINDINGS: CEREBRUM: There is mild cerebral atrophy. Ventricles are normal in size with asymmetric enlargement of the righ t temporal horn. No evidence of midline shift, mass lesion, hemorrhage or acute infarction. No extr a-axial fluid collections are seen. POSTERIOR FOSSA: The cerebellum and brainstem demonstrate no acute finding. The 4th ventricle is midline. The cerebe llopontine angle is unremarkable. EXTRACRANIAL: Visualized sinuses are clear. SKULL: The calvaria is intact. No evidence of skull fracture. CONCLUSION: 1. No acute intracranial abnormality is identified. 2. Asymmetric enlargement of the right temporal horn from an uncertain etiology. However, this is not an acute finding. Ezequiel Bergeron MD on March 16, 2016 at 13:00 Board Certified Radiologist. This report was verified electronically.
[2016-03-16 13:29] VITALS: BP 124/74; PULSE 98; RESP 20; TEMP 98.2; O2SAT 97
--- NOTE | 2016-03-16 13:31 | RADRPT ---
EXAM DATE/TIME: 03/16/2016 12:58 [facility] COMPARISON: No previous studies available for comparison. INDICATIONS : Fell backwards and hit pelvis and head MEDICAL HISTORY : schizophrenia SURGICAL HISTORY : unobtainable ENCOUNTER: Initial ACUITY: 1 day PAIN SCORE: Non-responsive. LOCATION: Bilateral pelvis FINDINGS: A single frontal view of the pelvis demonstrates no evidence of fracture. The bony pelvic ring is in tact. Bony mineralization is normal. The soft tissues are intact. There is mild sclerosis and degen erative changes of the pubic symphysis. There is good alignment the SI joints and pubic symphysis. CONCLUSION: No acute fracture or joint dislocation. Korey Hendrix MD on March 16, 2016 at 13:29 Board Certified Radiologist. This report was verified electronically.
[2016-03-16 17:30] VITALS: BP 135/68; PULSE 104; RESP 16; TEMP 98.8; O2SAT 96
[2016-03-16 20:41] VITALS: BP 130/67; PULSE 97; RESP 18; TEMP 98.1; O2SAT 99
[2016-03-17 05:48] VITALS: BP 149/82; PULSE 100; RESP 18; TEMP 97.9; O2SAT 95
[2016-03-17] MEDS: LEVOTHYROXINE SODIUM 100 MCG TAB PO SCH (06:07)
[2016-03-17] MEDS: NICOTINE 21 MG/24 HR PATCH T-DERMAL SCH (09:00)
[2016-03-17] MEDS: CALCIUM CARBONATE 1.25 GM (CA 500 MG) TAB PO SCH ×2 (09:00→20:25)
[2016-03-17] MEDS: POLYETHYLENE GLYCOL 17 GM PKG PO SCH (09:00)
[2016-03-17] MEDS: BENZTROPINE MESYLATE 1 MG TAB PO SCH ×2 (09:50→20:25)
[2016-03-17] MEDS: busPIRone HCL 10 MG TAB PO SCH ×2 (09:50→20:25)
[2016-03-17] MEDS: PHENYTOIN SODIUM 100 MG CAP PO SCH ×3 (09:50→17:12)
[2016-03-17] MEDS: HALOPERIDOL 5 MG TAB PO SCH ×2 (09:50→20:25)
[2016-03-17] MEDS: cloZAPine 100 MG TAB PO SCH ×2 (09:51→20:25)
[2016-03-17] MEDS: VALPROIC ACID SYRUP 250 MG/5 ML UDC PO SCH ×2 (09:51→20:25)
[2016-03-17] MEDS: FENOFIBRATE 48 MG TAB PO SCH (09:51)
--- NOTE | 2016-03-17 13:39 | HHI.PYPN ---
Subjective Remarks Patient seen in day room the floor staff, patient continues hyper verbal quite disorganized tangential circumstantial with her speech all that of a somewhat paranoia flavor. Patient compliant medications. For now continue treatment Review of Systems Other No somatic complaints at this time Objective Alert: Yes [place]: Person, Place, Date Mood: Anxious, Depressed Affect: Labile, Restricted Memory Intact: Comment Hallucinations: Other Delusions: Yes Delusion Type: Paranoid (vague) Suicidal: Ideation (denies) Homicidal: Ideation (denies) Insight/Judgement Very poor Labs Test 03/17/16 06:23 Valproic Acid (Depakene) Level 24 MCG/ML Vitals/IOs Vital Signs Date Time Temp Pulse Resp B/P Pulse Ox O2 Delivery O2 Flow Rate FiO2 03/17/16 05:48 97.9 100 18 149/82 95 Intake and Output 03/16/16 03/16/16 03/17/16 08:00 16:00 00:00 Intake Total 120 ml 360 ml 240 ml Balance 120 ml 360 ml 240 ml Assessment & Plan Problem List: (1) Bipolar disorder ICD Code: F31.9 Assessment & Plan Patient continues markedly confused hyperverbal labile and disorganized Justification for Cont. Inpt. At this time patient with severely decompensated place to the lower level of care Discharge Planning To be determined Request HC Surrog/Guard Advoc?: No Problem Qualifiers (1) Bipolar disorder: Qualified Code: F31.9 - Bipolar affective disorder, current episode manic, current episode severity unspecified Ezequiel Grayson MD Mar 17, 2016 13:39
[2016-03-17] MEDS: LORazepam 1 MG TAB PO PRN (17:58)
[2016-03-17 19:36] VITALS: BP 123/78; PULSE 100; RESP 18; TEMP 99; O2SAT 97
[2016-03-18] MEDS: LEVOTHYROXINE SODIUM 100 MCG TAB PO SCH (05:30)
[2016-03-18 06:01] VITALS: BP 126/72; PULSE 106; RESP 16; TEMP 98.3; O2SAT 98
[2016-03-18] MEDS: LORazepam 1 MG TAB PO PRN ×2 (06:20→13:26)
[2016-03-18] MEDS: NICOTINE 21 MG/24 HR PATCH T-DERMAL SCH (09:00)
[2016-03-18] MEDS: HALOPERIDOL 5 MG TAB PO SCH ×2 (09:00→21:22)
[2016-03-18] MEDS: POLYETHYLENE GLYCOL 17 GM PKG PO SCH (09:00)
[2016-03-18] MEDS: busPIRone HCL 10 MG TAB PO SCH ×2 (09:55→21:22)
[2016-03-18] MEDS: PHENYTOIN SODIUM 100 MG CAP PO SCH ×3 (09:55→18:41)
[2016-03-18] MEDS: FENOFIBRATE 48 MG TAB PO SCH (09:55)
[2016-03-18] MEDS: cloZAPine 100 MG TAB PO SCH ×2 (09:55→21:22)
[2016-03-18] MEDS: BENZTROPINE MESYLATE 1 MG TAB PO SCH ×2 (09:55→21:21)
--- NOTE | 2016-03-18 09:56 | HHI.PYPN ---
Subjective Remarks Patient seen and examined with nursing staff. Chart reviewed. Case discussed with nursing staff reports patient is confused, hyperverbal. Hospitalists have been consulted for she and redness. On my examination today, patient is intrusive and hyperverbal with pressured speech. She says "I'm a rabble rouser. I knew it was my . I don't eat salad." This goes on for some time and continues after I have concluded my interview with the patient. Resting hand tremor on the right but otherwise no evident possible side effects from medications. Review of Systems Other No acute somatic complaints Objective Alert: Yes [place]: Person, Place Mood: Anxious Affect: Labile Memory Intact: Comment (not formally assessed) Hallucinations: Other (no AVH) Delusions: Yes Delusion Type: Paranoid Suicidal: Ideation (no SI) Homicidal: Ideation (no HI) Insight/Judgement Poor Remarks Right hand tremor but no cogwheeling, no dystonia, no dyskinesia noted. No other motoric abnormalities noted. Speech is pressured. Thought process disorganized with loosening of associations. Labs Labs reviewed. I note Depakote level was checked on 03/17 and was still low at this time, and the Depakote dose was adjusted. Vitals/IOs Vital Signs Date Time Temp Pulse Resp B/P Pulse Ox O2 Delivery O2 Flow Rate FiO2 03/18/16 06:01 98.3 106 16 126/72 98 Intake and Output 03/17/16 03/17/16 03/17/16 07:59 15:59 23:59 Intake Total 480 ml 960 ml 610 ml Output Total 400 ml Balance 80 ml 960 ml 610 ml Assessment & Plan Problem List: (1) Bipolar disorder ICD Code: F31.9 Assessment & Plan Continue current psychotropics as ordered. I have ordered a Depakote level for after the weekend. Hospitalist consultation pending. Continue other care as ordered. Justification for Cont. Inpt. Risk for decompensation. Impairment in reality testing. Discharge Planning Per Dr. Grayson Problem Qualifiers (1) Bipolar disorder: Qualified Code: F31.9 - Bipolar affective disorder, current episode manic, current episode severity unspecified Christian Waite MD Mar 18, 2016 09:56
[2016-03-18] MEDS: VALPROIC ACID SYRUP 250 MG/5 ML UDC PO SCH ×2 (09:57→21:21)
[2016-03-18] MEDS: CALCIUM CARBONATE 1.25 GM (CA 500 MG) TAB PO SCH ×2 (09:58→21:21)
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
[2016-03-18] MEDS ORDERED: IBUPROFEN 600 MG TAB PO PRN (16:00)
[2016-03-18 19:07] VITALS: BP 97/65; PULSE 72; RESP 16; TEMP 98.4; O2SAT 99
[2016-03-19 05:18] VITALS: BP 113/70; PULSE 88; RESP 16; TEMP 97.5; O2SAT 99
[2016-03-19 05:22] VITALS: BP 113/70; PULSE 88; RESP 16; TEMP 97.5; O2SAT 99
[2016-03-19] MEDS: LEVOTHYROXINE SODIUM 100 MCG TAB PO SCH (05:36)
[2016-03-19] MEDS: cloZAPine 100 MG TAB PO SCH ×2 (09:00→21:08)
[2016-03-19] MEDS: CALCIUM CARBONATE 1.25 GM (CA 500 MG) TAB PO SCH ×2 (09:00→21:08)
[2016-03-19] MEDS: busPIRone HCL 10 MG TAB PO SCH ×2 (09:00→21:08)
[2016-03-19] MEDS: VALPROIC ACID SYRUP 250 MG/5 ML UDC PO SCH ×2 (09:00→21:00)
[2016-03-19] MEDS: PHENYTOIN SODIUM 100 MG CAP PO SCH ×3 (09:00→18:00)
[2016-03-19] MEDS: BENZTROPINE MESYLATE 1 MG TAB PO SCH ×2 (09:00→21:08)
[2016-03-19] MEDS: NICOTINE 21 MG/24 HR PATCH T-DERMAL SCH (09:00)
[2016-03-19] MEDS: HALOPERIDOL 5 MG TAB PO SCH ×2 (09:00→21:08)
[2016-03-19] MEDS: POLYETHYLENE GLYCOL 17 GM PKG PO SCH (09:00)
[2016-03-19] MEDS: FENOFIBRATE 48 MG TAB PO SCH (09:00)
--- NOTE | 2016-03-19 10:48 | HHI.PYPN ---
Subjective Remarks Patient seen and examined with nursing staff. Chart reviewed. No recent PRNs that I can see. Case discussed with nursing staff who reports patient is medication compliant and no behavioral problem. On my examination this morning patient seems a little more sleepy today versus yesterday. She is able to awaken briefly and discuss her case. She is oriented to person and [place]. She offers no complaints and lapses back into sleep. Review of Systems ROS Limitations: Poor Historian Other No reported physical complaints Objective Alert: Yes [place]: Person, Place ([place]) Mood: Calm Affect: Flat Memory Intact: Comment (not formally assessed) Hallucinations: Other (none) Delusions: No Delusion Type: Other (no delusional material today) Suicidal: Ideation (no SI) Homicidal: Ideation (no HI) Insight/Judgement Poor Remarks No motoric abnormalities noted. Labs Labs reviewed. No new labs. Vitals/IOs Vital Signs Date Time Temp Pulse Resp B/P Pulse Ox O2 Delivery O2 Flow Rate FiO2 03/19/16 05:22 97.5 88 16 113/70 99 Intake and Output 03/18/16 03/18/16 03/19/16 08:00 16:00 00:00 Intake Total 240 ml 720 ml 1440 ml Balance 240 ml 720 ml 1440 ml Assessment & Plan Problem List: (1) Bipolar disorder ICD Code: F31.9 Assessment & Plan Patient seems more sleepy today versus yesterday. I will check an updated set of basic labs and also check a Depakote and ammonia level. Appreciate hospitalist taxation consultant input. Continue other medications and care as ordered, although we may elect to hold sedating psychotropics if sedation persists. Justification for Cont. Inpt. Risk for decompensation Discharge Planning Per Dr. Grayson Problem Qualifiers (1) Bipolar disorder: Qualified Code: F31.9 - Bipolar affective disorder, current episode manic, current episode severity unspecified Christian Waite MD Mar 19, 2016 10:48
[2016-03-19 11:36] LABS: AUTOMATED NEUTROPHIL # 4.3 TH/MM3 (1.8-7.7); BASOPHIL % 0.4 % (0.0-2.0); EOSINOPHIL % 0.1 % (0.0-4.0); HEMATOCRIT 32.4 % (35.0-46.0); HEMO FLAGS DIFF FINAL; LYMPH % 30.1 % (9.0-44.0); LYMPHOCYTE # 2.1 TH/MM3 (1.0-4.8); MEAN CELL VOLUME 91.4 FL (80.0-100.0); MEAN CORPUSCULAR HEMOGLOBIN 30.9 PG (27.0-34.0); MEAN CORPUSCULAR HGB CONC 33.8 % (32.0-36.0); MONO % 8.1 % (0.0-8.0); NEUT % 61.3 % (16.0-70.0); PLATELET COUNT 199 TH/MM3 (150-450); RED BLOOD COUNT 3.54 MIL/MM3 (4.00-5.30); RED CELL DISTRIBUTION WIDTH 13.2 % (11.6-17.2)
[2016-03-19 11:53] LABS: ALKALINE PHOSPHATASE 94 U/L (45-117); ALT (GPT) 23 U/L (10-53); ANION GAP 8 MEQ/L (5-15); AST (GOT) 17 U/L (15-37); BICARBONATE 28.9 MEQ/L (21.0-32.0); BLOOD UREA NITROGEN 17 MG/DL (7-18); CHLORIDE 102 MEQ/L (98-107); GLOMERULAR FILTRATION RATE 95 ML/MIN (>89); POTASSIUM 4.3 MEQ/L (3.5-5.1); SODIUM (NA) 139 MEQ/L (136-145); TOTAL BILIRUBIN ADULT 0.2 MG/DL (0.2-1.0)
--- NOTE | 2016-03-19 14:37 | HHI.PR ---
Subjective Remarks Follow-up for chin swelling Patient still concerned about her chin swelling but it looks better, poor historian. Wants an appointment Objective Vitals Vital Signs Date Time Temp Pulse Resp B/P Pulse Ox O2 Delivery O2 Flow Rate FiO2 03/19/16 05:22 97.5 88 16 113/70 99 03/19/16 05:18 97.5 88 16 113/70 99 03/18/16 19:07 98.4 72 16 97/65 99 I/O 03/18/16 03/18/16 03/18/16 03/19/16 03/19/16 03/19/16 07:00 15:00 23:00 07:00 15:00 23:00 Intake Total 0 ml 960 ml 720 ml 960 ml 360 ml Balance 0 ml 960 ml 720 ml 960 ml 360 ml Intake Oral 0 ml 960 ml 720 ml 960 ml 360 ml # Voids 2 3 2 # Bowel Movements 0 2 Result Diagram: 03/19/16 1122 03/19/16 1122 Objective Remarks GENERAL: This is a well-nourished, well-developed patient, anxious. Not in distress. SKIN: Superficial edema right-sided chin with traumatic excoriation , no induration HEAD: Atraumatic. Normocephalic. No temporal or scalp tenderness. EYES: Extraocular motions intact. No scleral icterus. No injection or drainage. ENT: . Bilateral nares appear clear Throat without erythema, tonsillar hypertrophy or exudate. Uvula midline. Airway patent. NECK: Trachea midline. No JVD or lymphadenopathy. Supple, nontender, no meningeal signs. CARDIOVASCULAR: Regular rate and rhythm without murmurs, gallops, or rubs. RESPIRATORY: Clear to auscultation. Breath sounds equal bilaterally. No wheezes , rales, or rhonchi. GASTROINTESTINAL: Abdomen soft, non-tender, nondistended. No guarding. MUSCULOSKELETAL: Extremities without clubbing, cyanosis, or edema. NEUROLOGICAL: Awake and alert. Motor and sensory grossly within normal limits. 4 -5 out of 5 muscle strength in all muscle groups. Normal speech. A/P Assessment and Plan This is a 60-year-old female patient with a past medical history which includes bipolar disorder, seizure disorder, hypothyroidism. Patient is currently inpatient psychiatric center. We have been consulted for assistance with medical management included hypothyroidism as well as epilepsy. We consulted 03/17/2016 for "some swelling of right-sided chin." Bipolar disorder to be managed by psychiatric team Hypothyroidism continue her Synthroid Seizure disorder/epilepsy continue valproic acid and Dilantin Seizure precautions Superficial edema with excoriation right-sided chin- likely secondary to minor trauma. Does not appear to be infected Warm compresses three times a day to promote healing and decrease edema, ibuprofen as needed for pain/edema Keep area clean and dry Continue to monitor for signs and symptoms of infection, no further treatment needed. DVT prophylaxis patient is ambulatory Discussed with patient and RN We will sign off. Her chin looks better Altagracia Talavera MD Mar 19, 2016 14:37
[2016-03-19] MEDS: LORazepam 1 MG TAB PO PRN (15:02)
[2016-03-19 18:00] VITALS: BP 113/62; PULSE 104; RESP 16; TEMP 98.3; O2SAT 98
[2016-03-19] MEDS: TEMAZEPAM 7.5 MG CAP PO PRN (21:08)
[2016-03-20 06:00] VITALS: BP 135/64; PULSE 92; RESP 18; TEMP 98; O2SAT 97
[2016-03-20] MEDS: LEVOTHYROXINE SODIUM 100 MCG TAB PO SCH (06:00)
[2016-03-20 07:40] LABS: HEMATOCRIT 34.2 % (35.0-46.0); REVIEW FLAG FINAL
[2016-03-20] MEDS: HALOPERIDOL 5 MG TAB PO SCH ×2 (09:00→20:34)
[2016-03-20] MEDS: CALCIUM CARBONATE 1.25 GM (CA 500 MG) TAB PO SCH ×2 (09:00→20:34)
[2016-03-20] MEDS: PHENYTOIN SODIUM 100 MG CAP PO SCH ×3 (09:00→17:43)
[2016-03-20] MEDS: NICOTINE 21 MG/24 HR PATCH T-DERMAL SCH (09:00)
[2016-03-20] MEDS: VALPROIC ACID SYRUP 250 MG/5 ML UDC PO SCH ×2 (09:00→20:33)
[2016-03-20] MEDS: POLYETHYLENE GLYCOL 17 GM PKG PO SCH (09:00)
[2016-03-20] MEDS: FENOFIBRATE 48 MG TAB PO SCH (09:00)
[2016-03-20] MEDS: BENZTROPINE MESYLATE 1 MG TAB PO SCH ×2 (09:00→20:33)
[2016-03-20] MEDS: cloZAPine 100 MG TAB PO SCH ×2 (09:00→20:34)
[2016-03-20] MEDS: busPIRone HCL 10 MG TAB PO SCH ×2 (09:00→20:33)
--- NOTE | 2016-03-20 13:21 | HHI.PYPN ---
Subjective Remarks Patient discussed with treatment team, also with phone conversation, speakerphone, with son Yash at [phone]. Yash to verify medications from discharge from the clinic to see if this can help us with her treatment. He otherwise continues to notice the confusion and irritability. Also though acknowledges the chronicity of this. Patient seen afterwards in dayroom she continues to show marked disorganization with her statements confused at times labile and intrusive. For now continue treatment Review of Systems Except as stated in HPI: all other systems reviewed are Neg Objective Alert: Yes [place]: Person, Place ([place]) Mood: Calm Affect: Flat Memory Intact: Comment (not formally assessed) Hallucinations: Other (none) Delusions: No Delusion Type: Other (no delusional material today) Suicidal: Ideation (no SI) Homicidal: Ideation (no HI) Insight/Judgement Very poor Labs Test 03/20/16 06:34 Hemoglobin 11.4 GM/DL Hematocrit 34.2 % Valproic Acid (Depakene) Level 22 MCG/ML Vitals/IOs Vital Signs Date Time Temp Pulse Resp B/P Pulse Ox O2 Delivery O2 Flow Rate FiO2 03/20/16 06:00 98.0 92 18 135/64 97 Intake and Output 03/19/16 03/19/16 03/20/16 08:00 16:00 00:00 Intake Total 360 ml 720 ml 720 ml Balance 360 ml 720 ml 720 ml Assessment & Plan Problem List: (1) Bipolar disorder ICD Code: F31.9 Assessment & Plan Estimated LOS: days continues confused disorganized, intrusive and somewhat labile Justification for Cont. Inpt. At this time patient would seriously decompensate placed a lower level of care Discharge Planning To be determined Problem Qualifiers (1) Bipolar disorder: Qualified Code: F31.9 - Bipolar affective disorder, current episode manic, current episode severity unspecified Ezequiel Grayson MD Mar 20, 2016 13:21
[2016-03-20] MEDS: LORazepam 1 MG TAB PO PRN (15:39)
[2016-03-20] MEDS: HALOPERIDOL 5 MG TAB PO PRN (17:43)
[2016-03-20 19:27] VITALS: BP 141/75; PULSE 101; RESP 18; TEMP 97.6
[2016-03-21 05:27] VITALS: BP 149/67; PULSE 110; RESP 17; TEMP 97.5; O2SAT 94
[2016-03-21] MEDS: LEVOTHYROXINE SODIUM 100 MCG TAB PO SCH (05:58)
[2016-03-21] MEDS: cloZAPine 100 MG TAB PO SCH ×2 (09:00→20:06)
[2016-03-21] MEDS: NICOTINE 21 MG/24 HR PATCH T-DERMAL SCH (09:00)
[2016-03-21] MEDS: PHENYTOIN SODIUM 100 MG CAP PO SCH ×3 (09:00→17:35)
[2016-03-21] MEDS: VALPROIC ACID SYRUP 250 MG/5 ML UDC PO SCH ×2 (09:00→20:06)
[2016-03-21] MEDS: busPIRone HCL 10 MG TAB PO SCH ×2 (09:00→20:06)
[2016-03-21] MEDS: FENOFIBRATE 48 MG TAB PO SCH (09:00)
[2016-03-21] MEDS: BENZTROPINE MESYLATE 1 MG TAB PO SCH ×2 (09:00→20:06)
[2016-03-21] MEDS: POLYETHYLENE GLYCOL 17 GM PKG PO SCH (09:00)
[2016-03-21] MEDS: HALOPERIDOL 5 MG TAB PO SCH ×2 (09:00→20:06)
[2016-03-21] MEDS: CALCIUM CARBONATE 1.25 GM (CA 500 MG) TAB PO SCH ×2 (09:00→20:07)
--- NOTE | 2016-03-21 11:24 | HHI.PYPN ---
Subjective Remarks Patient seen in day room with nurse Myron, patient continues with nonstop speech that is markedly disorganized tangential and circumstantial. There is a paranoid flavor to this also. Depakote level drawn on 03/20/16 is 22. Will increase at bedtime Depakote 1000 mg and recheck Depakote level on 03/24 Review of Systems Except as stated in HPI: all other systems reviewed are Neg Objective Alert: Yes [place]: Person, Place ([place]) Mood: Calm Affect: Flat Memory Intact: Comment (not formally assessed) Hallucinations: Other (none) Delusions: No Delusion Type: Other (no delusional material today) Suicidal: Ideation (no SI) Homicidal: Ideation (no HI) Insight/Judgement Very poor Vitals/IOs Vital Signs Date Time Temp Pulse Resp B/P Pulse Ox O2 Delivery O2 Flow Rate FiO2 03/21/16 05:27 97.5 110 17 149/67 94 Intake and Output 03/20/16 03/20/16 03/20/16 07:59 15:59 23:59 Intake Total 840 ml 1560 ml Balance 840 ml 1560 ml Assessment & Plan Problem List: (1) Bipolar disorder ICD Code: F31.9 Assessment & Plan Estimated LOS: days patient remained psychotic manic flavor, she medication adjustments above Justification for Cont. Inpt. With this time patient would significantly decompensated placed a lower level of care Discharge Planning To be determined Problem Qualifiers (1) Bipolar disorder: Qualified Code: F31.9 - Bipolar affective disorder, current episode manic, current episode severity unspecified Ezequiel Grayson MD Mar 21, 2016 11:24
[2016-03-21] MEDS: LORazepam 1 MG TAB PO PRN (17:35)
[2016-03-21 18:40] VITALS: BP 103/83; PULSE 100; RESP 19; TEMP 97.5; O2SAT 96
[2016-03-21] MEDS: HALOPERIDOL 5 MG TAB PO PRN (21:23)
[2016-03-21] MEDS: hydrOXYzine HCL 50 MG TAB PO PRN (21:23)
[2016-03-21] MEDS: diphenhydrAMINE HCL 50 MG CAP PO PRN (22:34)
[2016-03-22] MEDS: LEVOTHYROXINE SODIUM 100 MCG TAB PO SCH (05:06)
[2016-03-22 05:12] VITALS: BP 102/65; PULSE 96; RESP 16; TEMP 98.3; O2SAT 97
[2016-03-22] MEDS: cloZAPine 100 MG TAB PO SCH ×2 (09:00→20:21)
[2016-03-22] MEDS: NICOTINE 21 MG/24 HR PATCH T-DERMAL SCH (09:00)
[2016-03-22] MEDS: VALPROIC ACID SYRUP 250 MG/5 ML UDC PO SCH ×2 (09:56→21:00)
[2016-03-22] MEDS: CALCIUM CARBONATE 1.25 GM (CA 500 MG) TAB PO SCH ×2 (09:56→20:21)
[2016-03-22] MEDS: FENOFIBRATE 48 MG TAB PO SCH (09:56)
[2016-03-22] MEDS: POLYETHYLENE GLYCOL 17 GM PKG PO SCH (09:56)
[2016-03-22] MEDS: BENZTROPINE MESYLATE 1 MG TAB PO SCH ×2 (09:57→20:22)
[2016-03-22] MEDS: busPIRone HCL 10 MG TAB PO SCH ×2 (09:57→20:21)
[2016-03-22] MEDS: PHENYTOIN SODIUM 100 MG CAP PO SCH ×3 (09:57→17:17)
[2016-03-22] MEDS: HALOPERIDOL 5 MG TAB PO SCH ×2 (09:57→20:22)
--- NOTE | 2016-03-22 11:01 | HHI.PYPN ---
Subjective Remarks Patient seen in [facility] floor staff, continues intrusive loud hyper verbal markedly disorganized. Overall compliant medications Review of Systems Except as stated in HPI: all other systems reviewed are Neg Objective Alert: Yes [place]: Person, Place ([place]) Mood: Calm Affect: Flat Memory Intact: Comment (not formally assessed) Hallucinations: Other (none) Delusions: No Delusion Type: Other (no delusional material today) Suicidal: Ideation (no SI) Homicidal: Ideation (no HI) Insight/Judgement Very poor Vitals/IOs Vital Signs Date Time Temp Pulse Resp B/P Pulse Ox O2 Delivery O2 Flow Rate FiO2 03/22/16 05:12 98.3 96 16 102/65 97 Intake and Output 03/21/16 03/21/16 03/22/16 08:00 16:00 00:00 Intake Total 480 ml 1080 ml 120 ml Balance 480 ml 1080 ml 120 ml Assessment & Plan Problem List: (1) Bipolar disorder ICD Code: F31.9 Assessment & Plan Estimated LOS: days patient continue psychotic intrusive pressured speech markedly disorganized Justification for Cont. Inpt. With this time the patient would significantly decompensated placed in a lower level of care Discharge Planning To be determined Problem Qualifiers (1) Bipolar disorder: Qualified Code: F31.9 - Bipolar affective disorder, current episode manic, current episode severity unspecified Ezequiel Grayson MD Mar 22, 2016 11:01
[2016-03-22] MEDS: LORazepam 1 MG TAB PO PRN ×2 (11:26→23:25)
[2016-03-22 18:00] VITALS: BP 138/73; PULSE 100; RESP 17; TEMP 98.4; O2SAT 95
[2016-03-22] MEDS: hydrOXYzine HCL 50 MG TAB PO PRN (20:21)
[2016-03-22] MEDS: diphenhydrAMINE HCL 50 MG CAP PO PRN (23:25)
[2016-03-23 05:51] VITALS: BP 121/85; PULSE 90; RESP 18; TEMP 97.7
[2016-03-23] MEDS: LEVOTHYROXINE SODIUM 100 MCG TAB PO SCH (06:20)
[2016-03-23 06:23] VITALS: BP 121/85; PULSE 90; RESP 18; TEMP 97.7; O2SAT 98
[2016-03-23] MEDS: LORazepam 1 MG TAB PO PRN (08:52)
[2016-03-23] MEDS: VALPROIC ACID SYRUP 250 MG/5 ML UDC PO SCH ×2 (08:52→20:31)
[2016-03-23] MEDS: PHENYTOIN SODIUM 100 MG CAP PO SCH ×3 (08:52→17:18)
[2016-03-23] MEDS: HALOPERIDOL 5 MG TAB PO SCH ×2 (08:53→20:31)
[2016-03-23] MEDS: FENOFIBRATE 48 MG TAB PO SCH (08:53)
[2016-03-23] MEDS: cloZAPine 100 MG TAB PO SCH ×2 (08:53→20:31)
[2016-03-23] MEDS: BENZTROPINE MESYLATE 1 MG TAB PO SCH ×2 (08:53→20:32)
[2016-03-23] MEDS: busPIRone HCL 10 MG TAB PO SCH ×2 (08:53→20:31)
[2016-03-23] MEDS: CALCIUM CARBONATE 1.25 GM (CA 500 MG) TAB PO SCH ×2 (08:53→20:31)
[2016-03-23] MEDS: NICOTINE 21 MG/24 HR PATCH T-DERMAL SCH (09:00)
[2016-03-23] MEDS: POLYETHYLENE GLYCOL 17 GM PKG PO SCH (09:00)
--- NOTE | 2016-03-23 10:54 | HHI.PYPN ---
Subjective Remarks Patient seen in room with nurse Hardik, patient laying in bed napping, but arousable there is some decrease in the intensity of her speech the disorganization of it also patient compliant medications. For now continue treatment Review of Systems Except as stated in HPI: all other systems reviewed are Neg Objective Alert: Yes [place]: Person, Place ([place]) Mood: Calm Affect: Flat Memory Intact: Comment (not formally assessed) Hallucinations: Other (none) Delusions: No Delusion Type: Other (no delusional material today) Suicidal: Ideation (no SI) Homicidal: Ideation (no HI) Insight/Judgement Very poor Vitals/IOs Vital Signs Date Time Temp Pulse Resp B/P Pulse Ox O2 Delivery O2 Flow Rate FiO2 03/23/16 06:23 97.7 90 18 121/85 98 Intake and Output 03/22/16 03/22/16 03/22/16 07:59 15:59 23:59 Intake Total 960 ml 720 ml Balance 960 ml 720 ml Assessment & Plan Problem List: (1) Bipolar disorder ICD Code: F31.9 Assessment & Plan Estimated LOS: days patient slightly less intrusive with slight decrease in the rapid pressured speech and disorganization of it. Justification for Cont. Inpt. At this time patient would severely decompensate if placed on the lower level of care Discharge Planning To be determined Problem Qualifiers (1) Bipolar disorder: Qualified Code: F31.9 - Bipolar affective disorder, current episode manic, current episode severity unspecified Ezequiel Grayson MD Mar 23, 2016 10:54
[2016-03-23 18:30] VITALS: BP 109/5; PULSE 92; RESP 18; TEMP 98.1; O2SAT 96
[2016-03-23] MEDS: diphenhydrAMINE HCL 50 MG CAP PO PRN (20:31)
[2016-03-24] MEDS: LEVOTHYROXINE SODIUM 100 MCG TAB PO SCH (04:57)
[2016-03-24 05:18] VITALS: BP 120/74; PULSE 78; RESP 18; TEMP 98; O2SAT 97
[2016-03-24] MEDS: VALPROIC ACID SYRUP 250 MG/5 ML UDC PO SCH ×2 (08:49→21:06)
[2016-03-24] MEDS: cloZAPine 100 MG TAB PO SCH ×2 (08:49→21:06)
[2016-03-24] MEDS: CALCIUM CARBONATE 1.25 GM (CA 500 MG) TAB PO SCH ×2 (08:50→21:06)
[2016-03-24] MEDS: busPIRone HCL 10 MG TAB PO SCH ×2 (08:50→21:06)
[2016-03-24] MEDS: HALOPERIDOL 5 MG TAB PO SCH ×3 (08:50→18:05)
[2016-03-24] MEDS: PHENYTOIN SODIUM 100 MG CAP PO SCH ×3 (08:50→18:05)
[2016-03-24] MEDS: BENZTROPINE MESYLATE 1 MG TAB PO SCH ×2 (08:50→21:06)
[2016-03-24] MEDS: FENOFIBRATE 48 MG TAB PO SCH (08:50)
[2016-03-24] MEDS: POLYETHYLENE GLYCOL 17 GM PKG PO SCH (08:50)
[2016-03-24] MEDS: NICOTINE 21 MG/24 HR PATCH T-DERMAL SCH (08:50)
[2016-03-24] MEDS: LORazepam 1 MG TAB PO PRN (11:48)
--- NOTE | 2016-03-24 11:58 | HHI.PYPN ---
Subjective Remarks Patient seen in [facility], the floor staff, chart review, patient continues intrusive psychotic quite delusional and paranoid. Speech is disorganized. Patient has compliant medications. Will increase a.m. Clozaril to 250 mg continue at bedtime no change. Will increase oral Haldol to 5 mg 3 times a day. Depakote level drawn this a.m. is 30 on total daily dose of 1500 mg Depakote seems somewhat inappropriately low will recheck Depakote level in a.m. Review of Systems Except as stated in HPI: all other systems reviewed are Neg Objective Alert: Yes [place]: Person, Place ([place]) Mood: Calm Affect: Flat Memory Intact: Comment (not formally assessed) Hallucinations: Other (none) Delusions: No Delusion Type: Other (no delusional material today) Suicidal: Ideation (no SI) Homicidal: Ideation (no HI) Insight/Judgement Very poor Labs Test 03/24/16 07:13 Valproic Acid (Depakene) Level 30 MCG/ML Vitals/IOs Vital Signs Date Time Temp Pulse Resp B/P Pulse Ox O2 Delivery O2 Flow Rate FiO2 03/24/16 05:18 98.0 78 18 120/74 97 Intake and Output 03/23/16 03/23/16 03/24/16 08:00 16:00 00:00 Intake Total 480 ml 600 ml 1320 ml Balance 480 ml 600 ml 1320 ml Assessment & Plan Problem List: (1) Bipolar disorder ICD Code: F31.9 Assessment & Plan Estimated LOS: days patient remains quite psychotic manic, some medication changes and adjustments and measurements above Justification for Cont. Inpt. At this time patient would significantly decompensated if placed in the lower level of care Discharge Planning To be determined Problem Qualifiers (1) Bipolar disorder: Qualified Code: F31.9 - Bipolar affective disorder, current episode manic, current episode severity unspecified Ezequiel Grayson MD Mar 24, 2016 11:58
[2016-03-24 20:00] VITALS: BP 118/64; PULSE 101; RESP 18; TEMP 98.1
[2016-03-24] MEDS: ACETAMINOPHEN 325 MG TAB PO PRN (21:00)
[2016-03-24] MEDS: diphenhydrAMINE HCL 50 MG CAP PO PRN (21:06)
[2016-03-25] MEDS: LEVOTHYROXINE SODIUM 100 MCG TAB PO SCH (05:54)
[2016-03-25 06:29] VITALS: BP 143/82; PULSE 97; RESP 17; TEMP 97.8; O2SAT 98
[2016-03-25] MEDS: VALPROIC ACID SYRUP 250 MG/5 ML UDC PO SCH ×2 (08:40→20:31)
[2016-03-25] MEDS: CALCIUM CARBONATE 1.25 GM (CA 500 MG) TAB PO SCH ×2 (08:40→20:30)
[2016-03-25] MEDS: HALOPERIDOL 5 MG TAB PO SCH ×3 (08:41→17:29)
[2016-03-25] MEDS: POLYETHYLENE GLYCOL 17 GM PKG PO SCH (08:41)
[2016-03-25] MEDS: PHENYTOIN SODIUM 100 MG CAP PO SCH ×3 (08:41→17:29)
[2016-03-25] MEDS: cloZAPine 100 MG TAB PO SCH ×2 (08:41→20:31)
[2016-03-25] MEDS: FENOFIBRATE 48 MG TAB PO SCH (08:41)
[2016-03-25] MEDS: NICOTINE 21 MG/24 HR PATCH T-DERMAL SCH (09:00)
[2016-03-25] MEDS: busPIRone HCL 10 MG TAB PO SCH ×2 (09:00→20:31)
[2016-03-25] MEDS: BENZTROPINE MESYLATE 1 MG TAB PO SCH ×2 (09:00→20:30)
--- NOTE | 2016-03-25 17:33 | HHI.PYPN ---
Subjective Remarks Pt seen and discussed with staff. Pt is paranoid and has been stating that she will be killed if she uses the bathroom. Sleep is poor. She rambles on about conspiracies and believes that people are tampering with food.Compliant with medications. No SI/HI. Review of Systems Psychiatric: COMPLAINS OF: Delusions Objective Alert: Yes [place]: Person, Place ([place]) Mood: Calm Affect: Flat Memory Intact: Comment (not formally assessed) Hallucinations: Other (none) Delusions: Yes Delusion Type: Paranoid Suicidal: Ideation (no SI) Homicidal: Ideation (no HI) Insight/Judgement poor. Labs Test 03/25/16 07:01 Valproic Acid (Depakene) Level 37 MCG/ML Vitals/IOs Vital Signs Date Time Temp Pulse Resp B/P Pulse Ox O2 Delivery O2 Flow Rate FiO2 03/25/16 06:29 97.8 97 17 143/82 98 Intake and Output 03/24/16 03/24/16 03/25/16 08:00 16:00 00:00 Intake Total 820 ml 1300 ml 1440 ml Balance 820 ml 1300 ml 1440 ml Assessment & Plan Problem List: (1) Bipolar disorder ICD Code: F31.9 Assessment & Plan Continue current tx plan. Estimated LOS: days Justification for Cont. Inpt. impairments in reality construction due to psychosis. Problem Qualifiers (1) Bipolar disorder: Qualified Code: F31.9 - Bipolar affective disorder, current episode manic, current episode severity unspecified Marina Kessler MD Mar 25, 2016 17:33
[2016-03-25 19:23] VITALS: BP 98/65; PULSE 121; RESP 18; TEMP 98.9; O2SAT 96
[2016-03-26 05:27] VITALS: BP 130/80; PULSE 55; RESP 22; TEMP 98.2; O2SAT 99
[2016-03-26] MEDS: LEVOTHYROXINE SODIUM 100 MCG TAB PO SCH (06:01)
[2016-03-26] MEDS: LORazepam 1 MG TAB PO PRN ×2 (06:35→22:00)
[2016-03-26] MEDS: PHENYTOIN SODIUM 100 MG CAP PO SCH ×3 (08:33→17:35)
[2016-03-26] MEDS: BENZTROPINE MESYLATE 1 MG TAB PO SCH ×2 (08:34→20:13)
[2016-03-26] MEDS: busPIRone HCL 10 MG TAB PO SCH ×2 (08:34→20:14)
[2016-03-26] MEDS: CALCIUM CARBONATE 1.25 GM (CA 500 MG) TAB PO SCH ×2 (08:34→20:13)
[2016-03-26] MEDS: cloZAPine 100 MG TAB PO SCH ×2 (08:34→20:13)
[2016-03-26] MEDS: FENOFIBRATE 48 MG TAB PO SCH (08:34)
[2016-03-26] MEDS: hydrOXYzine HCL 50 MG TAB PO PRN (08:34)
[2016-03-26] MEDS: POLYETHYLENE GLYCOL 17 GM PKG PO SCH (08:35)
[2016-03-26] MEDS: HALOPERIDOL 5 MG TAB PO SCH ×3 (08:35→17:35)
[2016-03-26] MEDS: NICOTINE 21 MG/24 HR PATCH T-DERMAL SCH (08:45)
[2016-03-26] MEDS: VALPROIC ACID SYRUP 250 MG/5 ML UDC PO SCH ×2 (08:45→20:13)
--- NOTE | 2016-03-26 11:56 | HHI.PYPN ---
Subjective Remarks Pt seen and discussed with staff. P was agitated early this morning and received ativan IMx1. She remains delusional and paranoid. She is cooperative with medications and tolerating without side effects. No SI/HI. Review of Systems Psychiatric: COMPLAINS OF: Delusions Objective Alert: Yes [place]: Person, Place ([place]) Mood: Calm Affect: Flat Memory Intact: Comment (not formally assessed) Hallucinations: Other (none) Delusions: Yes Delusion Type: Paranoid Suicidal: Ideation (no SI) Homicidal: Ideation (no HI) Insight/Judgement poor Vitals/IOs Vital Signs Date Time Temp Pulse Resp B/P Pulse Ox O2 Delivery O2 Flow Rate FiO2 03/26/16 05:27 98.2 55 22 130/80 99 Intake and Output 03/25/16 03/25/16 03/26/16 08:00 16:00 00:00 Intake Total 840 ml 480 ml Balance 840 ml 480 ml Assessment & Plan Problem List: (1) Bipolar disorder ICD Code: F31.9 Assessment & Plan Continue current tx plan. Estimated LOS: days Justification for Cont. Inpt. impairments in reality construction Problem Qualifiers (1) Bipolar disorder: Qualified Code: F31.9 - Bipolar affective disorder, current episode manic, current episode severity unspecified Marina Kessler MD Mar 26, 2016 11:55
[2016-03-26 18:25] VITALS: BP 132/77; PULSE 108; RESP 18; TEMP 98.3; O2SAT 98
[2016-03-26] MEDS: diphenhydrAMINE HCL 50 MG CAP PO PRN (22:00)
[2016-03-26] MEDS: TEMAZEPAM 7.5 MG CAP PO PRN (23:21)
[2016-03-27] MEDS: LEVOTHYROXINE SODIUM 100 MCG TAB PO SCH (05:30)
[2016-03-27] MEDS: LORazepam 1 MG TAB PO PRN ×2 (06:33→21:15)
[2016-03-27] MEDS: PHENYTOIN SODIUM 100 MG CAP PO SCH ×4 (08:25→18:00)
[2016-03-27] MEDS: FENOFIBRATE 48 MG TAB PO SCH (08:25)
[2016-03-27] MEDS: BENZTROPINE MESYLATE 1 MG TAB PO SCH ×2 (08:25→20:32)
[2016-03-27] MEDS: busPIRone HCL 10 MG TAB PO SCH ×2 (08:25→20:32)
[2016-03-27] MEDS: CALCIUM CARBONATE 1.25 GM (CA 500 MG) TAB PO SCH ×2 (08:25→20:32)
[2016-03-27] MEDS: HALOPERIDOL 5 MG TAB PO SCH ×3 (08:25→18:00)
[2016-03-27] MEDS: POLYETHYLENE GLYCOL 17 GM PKG PO SCH (08:26)
[2016-03-27] MEDS: NICOTINE 21 MG/24 HR PATCH T-DERMAL SCH (08:26)
[2016-03-27] MEDS: VALPROIC ACID SYRUP 250 MG/5 ML UDC PO SCH ×2 (08:26→20:31)
[2016-03-27] MEDS: cloZAPine 100 MG TAB PO SCH (09:00)
--- NOTE | 2016-03-27 13:12 | HHI.PYPN ---
Subjective Remarks Patient discussed with treatment team, chart reviewed, patient seen on unit. Patient continues intrusive low markedly disorganized staying up more at night and becoming somewhat more aggressive.. Depakote l level 37 on 03/25 will increase a.m. Depakote 750 mg. We'll also increase Clazuril to 250 mg twice a day Review of Systems Except as stated in HPI: all other systems reviewed are Neg Objective Alert: Yes [place]: Person, Place ([place]) Mood: Calm Affect: Flat Memory Intact: Comment (not formally assessed) Hallucinations: Other (none) Delusions: Yes Delusion Type: Paranoid Suicidal: Ideation (no SI) Homicidal: Ideation (no HI) Insight/Judgement Very poor Vitals/IOs Vital Signs Date Time Temp Pulse Resp B/P Pulse Ox O2 Delivery O2 Flow Rate FiO2 03/26/16 18:25 98.3 108 18 132/77 98 Intake and Output 03/26/16 03/26/16 03/27/16 08:00 16:00 00:00 Intake Total 0 ml 480 ml Balance 0 ml 480 ml Assessment & Plan Problem List: (1) Bipolar disorder ICD Code: F31.9 Assessment & Plan Estimated LOS: days patient continue psychotic somewhat hyper active intrusive manic. Please see medication adjustments above Justification for Cont. Inpt. At this time patient was significantly decompensated if placed on the lower level of care Discharge Planning To be determined Problem Qualifiers (1) Bipolar disorder: Qualified Code: F31.9 - Bipolar affective disorder, current episode manic, current episode severity unspecified Ezequiel Grayson MD Mar 27, 2016 13:12
[2016-03-27] MEDS ORDERED: PILL SPLITTER OTHER PRN (13:15)
[2016-03-27 15:45] VITALS: BP 150/93; PULSE 99; RESP 17; TEMP 97.8; O2SAT 99
--- NOTE | 2016-03-27 16:23 | RADRPT ---
EXAM DATE/TIME: 03/27/2016 15:56 [facility] COMPARISON: No previous studies available for comparison. INDICATIONS : Right elbow pain, fell. MEDICAL HISTORY : None. SURGICAL HISTORY : None. ENCOUNTER: Initial ACUITY: 1 day PAIN SCORE: 1/10 LOCATION: Right elbow FINDINGS: There is no acute fracture or dislocation of the right elbow. No elbow joint effusion is noted. CONCLUSION: 1. No acute fracture or dislocation. 2. No elbow joint effusion. Bruce Valencia MD on March 27, 2016 at 16:18 Board Certified Radiologist. This report was verified electronically.
[2016-03-27 16:45] VITALS: BP 141/79; PULSE 78; RESP 18; TEMP 98.1; O2SAT 100
[2016-03-27 18:32] VITALS: BP 160/93; PULSE 99; RESP 17; TEMP 97.8; O2SAT 99
[2016-03-27] MEDS: diphenhydrAMINE HCL 50 MG CAP PO PRN (20:32)
[2016-03-27 20:45] VITALS: BP 142/73; PULSE 100; RESP 20; TEMP 99; O2SAT 97
[2016-03-27] MEDS ORDERED: cloZAPine 100 MG TAB PO SCH (21:00)
[2016-03-27] MEDS: TEMAZEPAM 7.5 MG CAP PO PRN (21:15)
[2016-03-28 00:48] VITALS: BP 119/73; PULSE 85; RESP 18; TEMP 97.6; O2SAT 100
[2016-03-28] MEDS: hydrOXYzine HCL 50 MG TAB PO PRN (01:28)
[2016-03-28 04:45] VITALS: BP 119/73; PULSE 82; RESP 18; TEMP 98.2; O2SAT 99
[2016-03-28] MEDS: LEVOTHYROXINE SODIUM 100 MCG TAB PO SCH (05:38)
--- NOTE | 2016-03-28 08:42 | HHI.PYPN ---
Subjective Remarks Patient seen in day room with nurse Theresa, patient alert continues somewhat hyperverbal and disorganized tangential circumstantial. Staff states patient also had very little sleep last night was intrusive attempting this of paper towels down the toilet. We'll do the following medication adjustments will lower a.m. clostridial increase at bedtime Klonopin 0 thus the dose will be 200 mg a.m. 300 mg at at bedtime. We'll also adjust Depakote dose so that the dose will be 250 mg a.m. 1500 mg at bedtime Review of Systems Except as stated in HPI: all other systems reviewed are Neg Objective Alert: Yes [place]: Person, Place ([place]) Mood: Calm Affect: Flat Memory Intact: Comment (not formally assessed) Hallucinations: Other (none) Delusions: Yes Delusion Type: Paranoid Suicidal: Ideation (no SI) Homicidal: Ideation (no HI) Insight/Judgement Very poor Vitals/IOs Vital Signs Date Time Temp Pulse Resp B/P Pulse Ox O2 Delivery O2 Flow Rate FiO2 03/28/16 04:45 98.2 82 18 119/73 99 Intake and Output 03/27/16 03/27/16 03/28/16 08:00 16:00 00:00 Intake Total 720 ml 1080 ml Balance 720 ml 1080 ml Assessment & Plan Problem List: (1) Bipolar disorder ICD Code: F31.9 Assessment & Plan Estimated LOS: days patient continues delusional intense with behavior problems increasing towards at bedtime and nighttime. Please see medication adjustments above Justification for Cont. Inpt. At this time patient would seriously decompensate if placed at a lower level of care Discharge Planning To be determined Problem Qualifiers (1) Bipolar disorder: Qualified Code: F31.9 - Bipolar affective disorder, current episode manic, current episode severity unspecified Ezequiel Grayson MD Mar 28, 2016 08:42
[2016-03-28] MEDS: VALPROIC ACID SYRUP 250 MG/5 ML UDC PO SCH ×2 (09:00→20:48)
[2016-03-28] MEDS: busPIRone HCL 10 MG TAB PO SCH ×2 (09:00→20:49)
[2016-03-28] MEDS: cloZAPine 100 MG TAB PO SCH ×2 (09:00→20:49)
[2016-03-28] MEDS: PHENYTOIN SODIUM 100 MG CAP PO SCH ×3 (09:00→17:36)
[2016-03-28] MEDS ORDERED: VALPROIC ACID SYRUP 250 MG/5 ML UDC PO SCH (09:00)
[2016-03-28] MEDS: CALCIUM CARBONATE 1.25 GM (CA 500 MG) TAB PO SCH ×2 (09:00→20:49)
[2016-03-28] MEDS: NICOTINE 21 MG/24 HR PATCH T-DERMAL SCH (09:00)
[2016-03-28] MEDS: BENZTROPINE MESYLATE 1 MG TAB PO SCH ×2 (09:00→20:49)
[2016-03-28] MEDS: POLYETHYLENE GLYCOL 17 GM PKG PO SCH (09:00)
[2016-03-28] MEDS: HALOPERIDOL 5 MG TAB PO SCH ×3 (09:00→17:36)
[2016-03-28] MEDS: FENOFIBRATE 48 MG TAB PO SCH (09:00)
[2016-03-28 16:54] VITALS: BP 125/70; PULSE 77; RESP 16; TEMP 97.4; O2SAT 78
--- NOTE | 2016-03-28 17:50 | RADRPT ---
EXAM DATE/TIME: 03/28/2016 17:19 [facility] COMPARISON: PELVIS AP ONLY, March 16, 2016, 12:58. INDICATIONS : Pain post fall today. MEDICAL HISTORY : Schizophrenia. SURGICAL HISTORY : None. ENCOUNTER: Initial ACUITY: 1 day PAIN SCORE: Non-responsive. LOCATION: Pelvis. FINDINGS: A single frontal view of the pelvis demonstrates no evidence of fracture. The bony pelvic ring is in tact. Bony mineralization is normal. The soft tissues are intact. CONCLUSION: No acute disease. Bruce Valencia MD on March 28, 2016 at 17:48 Board Certified Radiologist. This report was verified electronically.
[2016-03-28 19:40] VITALS: BP 142/78; PULSE 112; RESP 18; TEMP 96.1; O2SAT 94
[2016-03-28] MEDS: TEMAZEPAM 7.5 MG CAP PO PRN (20:49)
[2016-03-28 21:35] VITALS: BP 124/72; PULSE 86; RESP 16; TEMP 98.2; O2SAT 98
[2016-03-29 01:35] VITALS: BP 106/60; PULSE 90; RESP 16; TEMP 98; O2SAT 100
[2016-03-29] MEDS: LEVOTHYROXINE SODIUM 100 MCG TAB PO SCH (05:09)
[2016-03-29 05:22] VITALS: BP 124/71; PULSE 93; RESP 16; TEMP 97.5; O2SAT 99
--- NOTE | 2016-03-29 08:41 | HHI.PYPN ---
Subjective Remarks Patient seen in day room with nurse Jermaine, patient continues verbal disorganized somewhat rapid pressured speech. Though some slight decrease in intensity today. Reviewing medication records it appears the use of the BuSpar at 10 mg twice a day has not been very effective will decrease BuSpar to 5 mg twice a day and discontinue on 01/31 Review of Systems Except as stated in HPI: all other systems reviewed are Neg Objective Alert: Yes [place]: Person, Place ([place]) Mood: Calm Affect: Flat Memory Intact: Comment (not formally assessed) Hallucinations: Other (none) Delusions: Yes Delusion Type: Paranoid Suicidal: Ideation (no SI) Homicidal: Ideation (no HI) Insight/Judgement Very poor Vitals/IOs Vital Signs Date Time Temp Pulse Resp B/P Pulse Ox O2 Delivery O2 Flow Rate FiO2 03/29/16 05:22 97.5 93 16 124/71 99 Intake and Output 03/28/16 03/28/16 03/29/16 08:00 16:00 00:00 Intake Total 1220 ml Balance 1220 ml Assessment & Plan Problem List: (1) Bipolar disorder ICD Code: F31.9 Assessment & Plan Estimated LOS: days patient continues with pressured speech markedly disorganized tangential circumstantial. She medication adjustment above Justification for Cont. Inpt. At this time patient will decompensate if placed in a lower level of care Discharge Planning To be determined Problem Qualifiers (1) Bipolar disorder: Qualified Code: F31.9 - Bipolar affective disorder, current episode manic, current episode severity unspecified Ezequiel Grayson MD Mar 29, 2016 08:41
[2016-03-29] MEDS: PHENYTOIN SODIUM 100 MG CAP PO SCH ×3 (08:46→18:33)
[2016-03-29] MEDS: cloZAPine 100 MG TAB PO SCH ×2 (08:46→20:31)
[2016-03-29] MEDS: FENOFIBRATE 48 MG TAB PO SCH (08:46)
[2016-03-29] MEDS: CALCIUM CARBONATE 1.25 GM (CA 500 MG) TAB PO SCH ×2 (08:46→20:31)
[2016-03-29] MEDS: BENZTROPINE MESYLATE 1 MG TAB PO SCH ×2 (08:46→20:31)
[2016-03-29] MEDS: POLYETHYLENE GLYCOL 17 GM PKG PO SCH (08:47)
[2016-03-29] MEDS: HALOPERIDOL 5 MG TAB PO SCH ×3 (08:47→18:33)
[2016-03-29] MEDS: busPIRone HCL 10 MG TAB PO SCH ×2 (08:48→20:31)
[2016-03-29] MEDS: NICOTINE 21 MG/24 HR PATCH T-DERMAL SCH (08:48)
[2016-03-29] MEDS: VALPROIC ACID SYRUP 250 MG/5 ML UDC PO SCH ×2 (09:00→20:32)
[2016-03-29] MEDS: hydrOXYzine HCL 50 MG TAB PO PRN (14:50)
[2016-03-29 19:25] VITALS: BP 133/86; PULSE 107; RESP 18; TEMP 98.2; O2SAT 100
[2016-03-29] MEDS: TEMAZEPAM 7.5 MG CAP PO PRN (21:00)
[2016-03-29] MEDS: LORazepam 1 MG TAB PO PRN (21:01)
[2016-03-30 06:23] VITALS: BP 125/73; PULSE 93; RESP 16; TEMP 97.2; O2SAT 97
[2016-03-30] MEDS: LEVOTHYROXINE SODIUM 100 MCG TAB PO SCH (06:49)
[2016-03-30] MEDS: NICOTINE 21 MG/24 HR PATCH T-DERMAL SCH (09:00)
[2016-03-30] MEDS: VALPROIC ACID SYRUP 250 MG/5 ML UDC PO SCH ×2 (09:05→20:23)
[2016-03-30] MEDS: cloZAPine 100 MG TAB PO SCH ×2 (09:05→20:18)
[2016-03-30] MEDS: busPIRone HCL 10 MG TAB PO SCH ×2 (09:05→20:17)
[2016-03-30] MEDS: BENZTROPINE MESYLATE 1 MG TAB PO SCH ×2 (09:05→20:17)
[2016-03-30] MEDS: hydrOXYzine HCL 50 MG TAB PO PRN (09:05)
[2016-03-30] MEDS: POLYETHYLENE GLYCOL 17 GM PKG PO SCH (09:05)
[2016-03-30] MEDS: HALOPERIDOL 5 MG TAB PO SCH ×3 (09:06→17:22)
[2016-03-30] MEDS: FENOFIBRATE 48 MG TAB PO SCH (09:06)
[2016-03-30] MEDS: PHENYTOIN SODIUM 100 MG CAP PO SCH ×3 (09:06→17:22)
[2016-03-30] MEDS: CALCIUM CARBONATE 1.25 GM (CA 500 MG) TAB PO SCH ×2 (09:06→20:17)
--- NOTE | 2016-03-30 11:40 | HHI.PYPN ---
Subjective Remarks Patient seen in day room with nurse Jermaine, patient calm at this time though she did receive some Atarax this morning. Patient also continues confused disoriented though not as loud and intrusive this morning Review of Systems Except as stated in HPI: all other systems reviewed are Neg Objective Alert: Yes [place]: Person, Place ([place]) Mood: Calm Affect: Flat Memory Intact: Comment (not formally assessed) Hallucinations: Other (none) Delusions: Yes Delusion Type: Paranoid Suicidal: Ideation (no SI) Homicidal: Ideation (no HI) Insight/Judgement Very poor Vitals/IOs Vital Signs Date Time Temp Pulse Resp B/P Pulse Ox O2 Delivery O2 Flow Rate FiO2 03/30/16 06:23 97.2 93 16 125/73 97 Intake and Output 03/29/16 03/29/16 03/30/16 08:00 16:00 00:00 Intake Total 1440 ml 960 ml Balance 1440 ml 960 ml Assessment & Plan Problem List: (1) Bipolar disorder ICD Code: F31.9 Assessment & Plan Estimated LOS: days patient continues confused and demented, did need Atarax when necessary this morning Justification for Cont. Inpt. At this time patient was significantly decompensated placed on the lower level of care Discharge Planning To be determined Problem Qualifiers (1) Bipolar disorder: Qualified Code: F31.9 - Bipolar affective disorder, current episode manic, current episode severity unspecified Ezequiel Grayson MD Mar 30, 2016 11:40
[2016-03-30 19:22] VITALS: BP 145/79; PULSE 103; RESP 18; TEMP 97.8; O2SAT 100
[2016-03-30] MEDS: TEMAZEPAM 7.5 MG CAP PO PRN (20:17)
[2016-03-30] MEDS: LORazepam 1 MG TAB PO PRN (20:18)
[2016-03-31] MEDS: LORazepam 1 MG TAB PO PRN ×2 (04:05→17:46)
[2016-03-31] MEDS: diphenhydrAMINE HCL 50 MG CAP PO PRN (04:26)
[2016-03-31 06:00] VITALS: BP 108/58; PULSE 100; RESP 16; TEMP 99; O2SAT 96
[2016-03-31] MEDS: LEVOTHYROXINE SODIUM 100 MCG TAB PO SCH (06:06)
[2016-03-31] MEDS: NICOTINE 21 MG/24 HR PATCH T-DERMAL SCH (09:00)
[2016-03-31] MEDS: VALPROIC ACID SYRUP 250 MG/5 ML UDC PO SCH ×2 (09:00→20:23)
[2016-03-31] MEDS: busPIRone HCL 10 MG TAB PO SCH (09:29)
[2016-03-31] MEDS: CALCIUM CARBONATE 1.25 GM (CA 500 MG) TAB PO SCH ×2 (09:30→20:25)
[2016-03-31] MEDS: cloZAPine 100 MG TAB PO SCH ×2 (09:30→20:25)
[2016-03-31] MEDS: FENOFIBRATE 48 MG TAB PO SCH (09:30)
[2016-03-31] MEDS: PHENYTOIN SODIUM 100 MG CAP PO SCH ×3 (09:30→17:05)
[2016-03-31] MEDS: BENZTROPINE MESYLATE 1 MG TAB PO SCH ×2 (09:31→20:25)
[2016-03-31] MEDS: HALOPERIDOL 5 MG TAB PO SCH (09:31)
[2016-03-31] MEDS: POLYETHYLENE GLYCOL 17 GM PKG PO SCH (09:31)
--- NOTE | 2016-03-31 10:51 | HHI.PYPN ---
Subjective Remarks Patient seen in day room with medical student khalida, patient continues markedly disorganized intrusive very tangential and circumstantial. Upon review of medications we will discontinue the low dose of BuSpar, discontinue the scheduled Haldol, start Seroquel 25 mg 8 AM noon and 4 PM Review of Systems Except as stated in HPI: all other systems reviewed are Neg Objective Alert: Yes [place]: Person, Place ([place]) Mood: Calm Affect: Flat Memory Intact: Comment (not formally assessed) Hallucinations: Other (none) Delusions: Yes Delusion Type: Paranoid Suicidal: Ideation (no SI) Homicidal: Ideation (no HI) Insight/Judgement Very poor Labs Test 03/31/16 05:30 Valproic Acid (Depakene) Level 33 MCG/ML Vitals/IOs Vital Signs Date Time Temp Pulse Resp B/P Pulse Ox O2 Delivery O2 Flow Rate FiO2 03/31/16 06:00 99.0 100 16 108/58 96 Intake and Output 03/30/16 03/30/16 03/31/16 08:00 16:00 00:00 Intake Total 240 ml 720 ml Balance 240 ml 720 ml Assessment & Plan Problem List: (1) Bipolar disorder ICD Code: F31.9 Assessment & Plan Estimated LOS: days patient continues loud intrusive somewhat hypomanic and mildly psychotic, see medication changes above Justification for Cont. Inpt. At this time patient would significantly decompensate if placed in a lower level of care Discharge Planning To be determined Problem Qualifiers (1) Bipolar disorder: Qualified Code: F31.9 - Bipolar affective disorder, current episode manic, current episode severity unspecified Ezequiel Grayson MD Mar 31, 2016 10:50
[2016-03-31] MEDS: QUEtiapine FUMARATE 25 MG TAB PO SCH ×2 (12:00→17:05)
[2016-03-31 19:26] VITALS: BP 118/58; PULSE 101; RESP 18; TEMP 98.9; O2SAT 99
[2016-03-31] MEDS: TEMAZEPAM 7.5 MG CAP PO PRN (20:25)
[2016-04-01] MEDS: LEVOTHYROXINE SODIUM 100 MCG TAB PO SCH (05:57)
[2016-04-01 06:05] VITALS: BP 99/59; PULSE 93; RESP 16; TEMP 98.8; O2SAT 100
[2016-04-01] MEDS: NICOTINE 21 MG/24 HR PATCH T-DERMAL SCH (09:00)
[2016-04-01] MEDS: PHENYTOIN SODIUM 100 MG CAP PO SCH ×3 (09:39→16:38)
[2016-04-01] MEDS: CALCIUM CARBONATE 1.25 GM (CA 500 MG) TAB PO SCH ×2 (09:39→20:24)
[2016-04-01] MEDS: QUEtiapine FUMARATE 25 MG TAB PO SCH ×3 (09:39→16:37)
[2016-04-01] MEDS: FENOFIBRATE 48 MG TAB PO SCH (09:39)
[2016-04-01] MEDS: VALPROIC ACID SYRUP 250 MG/5 ML UDC PO SCH ×2 (09:39→20:25)
[2016-04-01] MEDS: POLYETHYLENE GLYCOL 17 GM PKG PO SCH (09:39)
[2016-04-01] MEDS: cloZAPine 100 MG TAB PO SCH ×2 (09:40→20:24)
[2016-04-01] MEDS: BENZTROPINE MESYLATE 1 MG TAB PO SCH ×2 (09:40→20:25)
--- NOTE | 2016-04-01 11:55 | HHI.PYPN ---
Subjective Remarks Patient was seen and case discussed with nursing. Per nursing, patient is responding to internal stimuli talking to self. She is alert and oriented 2. She is compliant with medications. Continues to have poor insight into her admission. Behaving well on the unit Objective Alert: Yes [place]: Person, Place ([place]) Mood: Calm Affect: Flat Memory Intact: Comment (not formally assessed) Hallucinations: Other (none) Delusions: Yes Delusion Type: Paranoid Suicidal: Ideation (no SI) Homicidal: Ideation (no HI) Insight/Judgement Poor Vitals/IOs Vital Signs Date Time Temp Pulse Resp B/P Pulse Ox O2 Delivery O2 Flow Rate FiO2 04/01/16 06:05 98.8 93 16 99/59 100 Intake and Output 03/31/16 03/31/16 04/01/16 08:00 16:00 00:00 Intake Total 720 ml 360 ml Balance 720 ml 360 ml Assessment & Plan Problem List: (1) Bipolar disorder ICD Code: F31.9 Assessment & Plan Continue current treatment plan Justification for Cont. Inpt. Patient will decompensate in a less restrictive setting Problem Qualifiers (1) Bipolar disorder: Qualified Code: F31.9 - Bipolar affective disorder, current episode manic, current episode severity unspecified Cuate Flynn DO Apr 01, 2016 11:55
[2016-04-01] MEDS: LORazepam 1 MG TAB PO PRN (16:37)
[2016-04-01 18:00] VITALS: BP 108/60; PULSE 100; RESP 16; TEMP 98.1; O2SAT 96
[2016-04-01] MEDS: TEMAZEPAM 7.5 MG CAP PO PRN (20:24)
[2016-04-02 05:43] VITALS: BP 109/57; PULSE 93; RESP 16; TEMP 97.5; O2SAT 97
[2016-04-02] MEDS: LEVOTHYROXINE SODIUM 100 MCG TAB PO SCH (06:00)
[2016-04-02] MEDS: PHENYTOIN SODIUM 100 MG CAP PO SCH ×3 (08:20→16:09)
[2016-04-02] MEDS: QUEtiapine FUMARATE 25 MG TAB PO SCH ×3 (08:20→16:09)
[2016-04-02] MEDS: CALCIUM CARBONATE 1.25 GM (CA 500 MG) TAB PO SCH ×2 (08:20→20:46)
[2016-04-02] MEDS: FENOFIBRATE 48 MG TAB PO SCH (08:20)
[2016-04-02] MEDS: VALPROIC ACID SYRUP 250 MG/5 ML UDC PO SCH ×2 (08:20→20:46)
[2016-04-02] MEDS: cloZAPine 100 MG TAB PO SCH ×2 (08:20→20:47)
[2016-04-02] MEDS: POLYETHYLENE GLYCOL 17 GM PKG PO SCH (08:20)
[2016-04-02] MEDS: BENZTROPINE MESYLATE 1 MG TAB PO SCH ×2 (08:20→20:46)
[2016-04-02] MEDS: NICOTINE 21 MG/24 HR PATCH T-DERMAL SCH (08:22)
--- NOTE | 2016-04-02 11:57 | HHI.PYPN ---
Subjective Remarks Patient was seen and case discussed with nursing. Per nursing patient is pacing the halls last night. Today patient remains confused and disorganized. She is hyperverbal. Alert and oriented 2. Objective Alert: Yes [place]: Person, Place ([place]) Mood: Calm Affect: Flat Memory Intact: Comment (not formally assessed) Hallucinations: Other (none) Delusions: Yes Delusion Type: Paranoid Suicidal: Ideation (no SI) Homicidal: Ideation (no HI) Insight/Judgement Poor Vitals/IOs Vital Signs Date Time Temp Pulse Resp B/P Pulse Ox O2 Delivery O2 Flow Rate FiO2 04/02/16 05:43 97.5 93 16 109/57 97 Intake and Output 04/01/16 04/01/16 04/02/16 08:00 16:00 00:00 Intake Total 0 ml 960 ml Balance 0 ml 960 ml Assessment & Plan Problem List: (1) Bipolar disorder ICD Code: F31.9 Assessment & Plan Continue current treatment plan Justification for Cont. Inpt. Patient will decompensate in a less restrictive setting Problem Qualifiers (1) Bipolar disorder: Qualified Code: F31.9 - Bipolar affective disorder, current episode manic, current episode severity unspecified Cuate Flynn DO Apr 02, 2016 11:57
[2016-04-02] MEDS: HALOPERIDOL 5 MG TAB PO PRN (12:57)
[2016-04-02] MEDS: LORazepam 2 MG/ML VIAL IM PRN (17:02)
[2016-04-02 18:00] VITALS: BP 144/73; PULSE 106; RESP 16; TEMP 98.4; O2SAT 97
[2016-04-02] MEDS: LORazepam 1 MG TAB PO PRN (20:46)
[2016-04-02] MEDS: TEMAZEPAM 7.5 MG CAP PO PRN (20:46)
[2016-04-03] MEDS: LEVOTHYROXINE SODIUM 100 MCG TAB PO SCH (05:30)
[2016-04-03 05:35] VITALS: BP 123/58; PULSE 97; RESP 17; TEMP 97.5; O2SAT 92
[2016-04-03] MEDS: POLYETHYLENE GLYCOL 17 GM PKG PO SCH (08:27)
[2016-04-03] MEDS: FENOFIBRATE 48 MG TAB PO SCH (08:28)
[2016-04-03] MEDS: CALCIUM CARBONATE 1.25 GM (CA 500 MG) TAB PO SCH ×2 (08:28→20:42)
[2016-04-03] MEDS: VALPROIC ACID SYRUP 250 MG/5 ML UDC PO SCH ×2 (08:28→20:42)
[2016-04-03] MEDS: cloZAPine 100 MG TAB PO SCH ×2 (08:28→20:41)
[2016-04-03] MEDS: QUEtiapine FUMARATE 25 MG TAB PO SCH ×3 (08:28→15:58)
[2016-04-03] MEDS: BENZTROPINE MESYLATE 1 MG TAB PO SCH ×2 (08:28→20:41)
[2016-04-03] MEDS: PHENYTOIN SODIUM 100 MG CAP PO SCH ×3 (08:32→17:13)
[2016-04-03] MEDS: NICOTINE 21 MG/24 HR PATCH T-DERMAL SCH (09:00)
--- NOTE | 2016-04-03 15:00 | HHI.PYPN ---
Subjective Remarks Patient discussed with treatment team, and medical student marily, chart review , seen on unit. Patient slept fairly well SI, though she continues quite intrusive labile with rapid pressured speech markedly disorganized Review of Systems Except as stated in HPI: all other systems reviewed are Neg Objective Alert: Yes [place]: Person, Place ([place]) Mood: Calm Affect: Flat Memory Intact: Comment (not formally assessed) Hallucinations: Other (none) Delusions: Yes Delusion Type: Paranoid Suicidal: Ideation (no SI) Homicidal: Ideation (no HI) Insight/Judgement Poor Vitals/IOs Vital Signs Date Time Temp Pulse Resp B/P Pulse Ox O2 Delivery O2 Flow Rate FiO2 04/03/16 05:35 97.5 97 17 123/58 92 Intake and Output 04/02/16 04/02/16 04/03/16 08:00 16:00 00:00 Intake Total 240 ml 1440 ml 240 ml Balance 240 ml 1440 ml 240 ml Assessment & Plan Problem List: (1) Bipolar disorder ICD Code: F31.9 Assessment & Plan Estimated LOS: days patient continues confused loud and intrusive, compliant medications Justification for Cont. Inpt. At this time patient would significantly decompensated placed in a lower level of care Discharge Planning To be determined Problem Qualifiers (1) Bipolar disorder: Qualified Code: F31.9 - Bipolar affective disorder, current episode manic, current episode severity unspecified Ezequiel Grayson MD Apr 03, 2016 15:00
[2016-04-03 18:24] VITALS: BP 133/89; PULSE 101; RESP 17; TEMP 98.4; O2SAT 95
[2016-04-04] MEDS: diphenhydrAMINE HCL 50 MG CAP PO PRN (00:16)
[2016-04-04] MEDS: LORazepam 1 MG TAB PO PRN ×3 (00:16→22:13)
[2016-04-04] MEDS: TEMAZEPAM 7.5 MG CAP PO PRN ×2 (01:27→22:13)
[2016-04-04] MEDS: hydrOXYzine HCL 50 MG TAB PO PRN (04:36)
[2016-04-04] MEDS: LEVOTHYROXINE SODIUM 100 MCG TAB PO SCH (05:43)
[2016-04-04] MEDS: FENOFIBRATE 48 MG TAB PO SCH (08:48)
[2016-04-04] MEDS: QUEtiapine FUMARATE 25 MG TAB PO SCH ×3 (08:48→16:00)
[2016-04-04] MEDS: BENZTROPINE MESYLATE 1 MG TAB PO SCH ×2 (08:49→20:33)
[2016-04-04] MEDS: cloZAPine 100 MG TAB PO SCH ×2 (08:49→20:34)
[2016-04-04] MEDS: POLYETHYLENE GLYCOL 17 GM PKG PO SCH (08:49)
[2016-04-04] MEDS: VALPROIC ACID SYRUP 250 MG/5 ML UDC PO SCH ×2 (08:49→20:32)
[2016-04-04] MEDS: PHENYTOIN SODIUM 100 MG CAP PO SCH ×3 (08:49→17:09)
[2016-04-04] MEDS: CALCIUM CARBONATE 1.25 GM (CA 500 MG) TAB PO SCH ×2 (08:51→20:33)
[2016-04-04] MEDS: NICOTINE 21 MG/24 HR PATCH T-DERMAL SCH (08:57)
--- NOTE | 2016-04-04 14:44 | PD.PN.STU ---
Subjective Remarks The patient has been worrying that "nobody likes [her]," especially her roommate. She has been asking for multiple wash cloths, extra toothpaste, and mouthwash because she "needs to take care of [her]self." Objective Vitals Vital Signs Date Time Temp Pulse Resp B/P Pulse Ox O2 Delivery O2 Flow Rate FiO2 04/03/16 18:24 98.4 101 17 133/89 95 I/O 04/03/16 04/03/16 04/03/16 04/04/16 04/04/16 04/04/16 07:00 15:00 23:00 07:00 15:00 23:00 Intake Total 0 ml 1200 ml 840 ml 720 ml Balance 0 ml 1200 ml 840 ml 720 ml Intake Oral 0 ml 1200 ml 840 ml 720 ml # Voids 2 2 4 4 # Bowel Movements 1 1 2 Objective Remarks The patient is a well-developed, well-nourished female who appears slightly older than her stated age. She is wearing her blue cheetah print pajamas and walks back and forth from her room to the day room, interacting with others. She was cooperative at times, but lashed out randomly throughout the morning. Her thought processing and content were abnormal with loose associations, paranoid delusions, hyper-advent, and disorganized thinking. Denies homicidal or suicidal ideation but believes that the staff and her roommate are after her. She lacks insight and has poor judgement. Pet therapy came by today and she insisted that none of the dogs touch her toenails and ended up leaving the therapy session. She told the owners of the therapy dogs that she just had a baby before she stormed out of the session. A/P Assessment and Plan The patient is schizophrenic with paranoid delusions. Continue clozaril for psychosis with routine monitoring with the goal of minimizing outbursts. Leonor Cespedes M3 Apr 04, 2016 14:44
--- NOTE | 2016-04-04 15:57 | HHI.PYPN ---
Subjective Remarks Patient seen in [place] with nurse Jermaine and medical student Jo-Ann, patient continues intrusive markedly disorganized markedly tangential and circumstantial. Sleep is also poor patient had a poor response to pick therapy today also with a small okay more over and smelled at her feet. It appears the role is not showing a good response with her Clozaril will decrease at bedtime dose to 200 mg we will add Seroquel 20 mg at at bedtime anticipation of weaning patient off the clozaril Review of Systems Except as stated in HPI: all other systems reviewed are Neg Objective Alert: Yes [place]: Person, Place ([place]) Mood: Calm Affect: Flat Memory Intact: Comment (not formally assessed) Hallucinations: Other (none) Delusions: Yes Delusion Type: Paranoid Suicidal: Ideation (no SI) Homicidal: Ideation (no HI) Insight/Judgement Poor Vitals/IOs Vital Signs Date Time Temp Pulse Resp B/P Pulse Ox O2 Delivery O2 Flow Rate FiO2 04/03/16 18:24 98.4 101 17 133/89 95 Intake and Output 04/03/16 04/03/16 04/04/16 08:00 16:00 00:00 Intake Total 0 ml 1200 ml 840 ml Balance 0 ml 1200 ml 840 ml Assessment & Plan Problem List: (1) Bipolar disorder ICD Code: F31.9 Assessment & Plan Estimated LOS: days patient continue psychotic intrusive markedly disorganized. Please see med changes above Justification for Cont. Inpt. At this time patient would significantly decompensate if placed in a lower level of care Discharge Planning To be determined Problem Qualifiers (1) Bipolar disorder: Qualified Code: F31.9 - Bipolar affective disorder, current episode manic, current episode severity unspecified Ezequiel Grayson MD Apr 04, 2016 15:57
[2016-04-04 19:20] VITALS: BP 126/76; PULSE 108; RESP 18; TEMP 98.6; O2SAT 96
[2016-04-04] MEDS: QUEtiapine FUMARATE 200 MG TAB PO SCH (20:34)
[2016-04-05] MEDS: diphenhydrAMINE HCL 50 MG CAP PO PRN ×2 (03:52→22:10)
[2016-04-05] MEDS: hydrOXYzine HCL 50 MG TAB PO PRN (03:52)
[2016-04-05 05:57] VITALS: BP 99/67; PULSE 89; RESP 16; TEMP 98.2
[2016-04-05] MEDS: LEVOTHYROXINE SODIUM 100 MCG TAB PO SCH (07:01)
[2016-04-05] MEDS: PHENYTOIN SODIUM 100 MG CAP PO SCH ×3 (08:27→17:22)
[2016-04-05] MEDS: QUEtiapine FUMARATE 25 MG TAB PO SCH ×3 (08:27→16:38)
[2016-04-05] MEDS: VALPROIC ACID SYRUP 250 MG/5 ML UDC PO SCH ×2 (08:27→20:38)
[2016-04-05] MEDS: FENOFIBRATE 48 MG TAB PO SCH (08:27)
[2016-04-05] MEDS: POLYETHYLENE GLYCOL 17 GM PKG PO SCH (08:28)
[2016-04-05] MEDS: cloZAPine 100 MG TAB PO SCH ×2 (08:28→20:39)
[2016-04-05] MEDS: BENZTROPINE MESYLATE 1 MG TAB PO SCH ×2 (09:00→20:38)
[2016-04-05] MEDS: CALCIUM CARBONATE 1.25 GM (CA 500 MG) TAB PO SCH ×2 (09:00→20:38)
[2016-04-05] MEDS: NICOTINE 21 MG/24 HR PATCH T-DERMAL SCH (09:00)
--- NOTE | 2016-04-05 10:31 | HHI.PYPN ---
Subjective Remarks Patient seen in [place] with nurse Teresita, chart reviewed, patient continues intrusive loud markedly disorganized. As of tomorrow will decrease morning Clozaril to 100 mg continue at bedtime dose no change. As of tomorrow will discontinue the 9 AM noon and 4 PM Seroquel and start 50 mg Seroquel 9 AM and 4 PM, continuing the at bedtime no change Review of Systems Except as stated in HPI: all other systems reviewed are Neg Objective Alert: Yes [place]: Person, Place ([place]) Mood: Calm Affect: Flat Memory Intact: Comment (not formally assessed) Hallucinations: Other (none) Delusions: Yes Delusion Type: Paranoid Suicidal: Ideation (no SI) Homicidal: Ideation (no HI) Insight/Judgement Very poor Vitals/IOs Vital Signs Date Time Temp Pulse Resp B/P Pulse Ox O2 Delivery O2 Flow Rate FiO2 04/05/16 05:57 98.2 89 16 99/67 04/04/16 19:20 96 Intake and Output 04/04/16 04/04/16 04/05/16 08:00 16:00 00:00 Intake Total 1440 ml 840 ml Balance 1440 ml 840 ml Assessment & Plan Problem List: (1) Bipolar disorder ICD Code: F31.9 Assessment & Plan Estimated LOS: days patient continues quite intrusive disorganized with pressured speech markedly tangential circumstantial. Please see medication adjustments above Justification for Cont. Inpt. At this time patient would significantly decompensate if placed in the lower level of care Discharge Planning To be determined Problem Qualifiers (1) Bipolar disorder: Qualified Code: F31.9 - Bipolar affective disorder, current episode manic, current episode severity unspecified Ezequiel Grayson MD Apr 05, 2016 10:31
[2016-04-05] MEDS: LORazepam 2 MG/ML VIAL IM PRN (17:53)
[2016-04-05 18:53] VITALS: BP 139/68; PULSE 110; RESP 20; TEMP 98.5; O2SAT 97
[2016-04-05] MEDS: QUEtiapine FUMARATE 200 MG TAB PO SCH (20:38)
[2016-04-05] MEDS: TEMAZEPAM 7.5 MG CAP PO PRN (22:10)
[2016-04-06] MEDS: LEVOTHYROXINE SODIUM 100 MCG TAB PO SCH (05:35)
[2016-04-06 06:23] VITALS: BP 123/85; PULSE 94; RESP 16; TEMP 97.6; O2SAT 96
--- NOTE | 2016-04-06 08:46 | HHI.PYPN ---
Subjective Remarks Patient seen in day room with nurse Johanna, chart reviewed, patient continues intrusive somewhat disorganized though slightly softer than previous, compliant medications. For now will increase a.m. Depakote to 500 mg recheck Depakote level on 04/10 Review of Systems Except as stated in HPI: all other systems reviewed are Neg Objective Alert: Yes [place]: Person, Place ([place]) Mood: Calm Affect: Flat Memory Intact: Comment (not formally assessed) Hallucinations: Other (none) Delusions: Yes Delusion Type: Paranoid Suicidal: Ideation (no SI) Homicidal: Ideation (no HI) Insight/Judgement Very poor Vitals/IOs Vital Signs Date Time Temp Pulse Resp B/P Pulse Ox O2 Delivery O2 Flow Rate FiO2 04/06/16 06:23 97.6 94 16 123/85 96 Intake and Output 04/05/16 04/05/16 04/06/16 08:00 16:00 00:00 Intake Total 600 ml 720 ml 1920 ml Balance 600 ml 720 ml 1920 ml Assessment & Plan Problem List: (1) Bipolar disorder ICD Code: F31.9 Assessment & Plan Estimated LOS: days patient remains somewhat loud and intrusive disorganized though softer than prior. Will increase a.m. Depakote to 500 mg check level on 04/10 Justification for Cont. Inpt. At this time patient was significantly decompensated if placed in a lower level of care Discharge Planning To be determined Problem Qualifiers (1) Bipolar disorder: Qualified Code: F31.9 - Bipolar affective disorder, current episode manic, current episode severity unspecified Ezequiel Grayson MD Apr 06, 2016 08:46
[2016-04-06] MEDS: PHENYTOIN SODIUM 100 MG CAP PO SCH ×3 (08:55→17:07)
[2016-04-06] MEDS: QUEtiapine FUMARATE 25 MG TAB PO SCH ×2 (08:55→16:00)
[2016-04-06] MEDS: BENZTROPINE MESYLATE 1 MG TAB PO SCH ×2 (08:55→20:01)
[2016-04-06] MEDS: CALCIUM CARBONATE 1.25 GM (CA 500 MG) TAB PO SCH ×2 (08:55→20:01)
[2016-04-06] MEDS: NICOTINE 21 MG/24 HR PATCH T-DERMAL SCH (08:56)
[2016-04-06] MEDS: POLYETHYLENE GLYCOL 17 GM PKG PO SCH (08:56)
[2016-04-06] MEDS: FENOFIBRATE 48 MG TAB PO SCH (08:56)
[2016-04-06] MEDS: cloZAPine 100 MG TAB PO SCH ×2 (08:56→20:01)
[2016-04-06] MEDS: VALPROIC ACID SYRUP 250 MG/5 ML UDC PO SCH ×2 (09:00→20:01)
[2016-04-06] MEDS: LORazepam 1 MG TAB PO PRN (12:56)
[2016-04-06 18:45] VITALS: BP 118/83; PULSE 96; RESP 16; TEMP 98.5; O2SAT 95
[2016-04-06 19:18] VITALS: BP 118/83; PULSE 96; RESP 16; TEMP 98.5; O2SAT 95
[2016-04-06] MEDS: TEMAZEPAM 7.5 MG CAP PO PRN (19:59)
[2016-04-06] MEDS: QUEtiapine FUMARATE 200 MG TAB PO SCH (20:02)
[2016-04-07] MEDS: diphenhydrAMINE HCL 50 MG CAP PO PRN (00:08)
[2016-04-07] MEDS: LORazepam 1 MG TAB PO PRN ×2 (03:14→16:30)
[2016-04-07] MEDS: LEVOTHYROXINE SODIUM 100 MCG TAB PO SCH (05:11)
[2016-04-07 06:10] VITALS: BP 102/58; PULSE 88; RESP 16; TEMP 97.9; O2SAT 96
[2016-04-07] MEDS: cloZAPine 100 MG TAB PO SCH ×2 (08:53→21:30)
[2016-04-07] MEDS: QUEtiapine FUMARATE 25 MG TAB PO SCH ×2 (08:54→15:15)
[2016-04-07] MEDS: CALCIUM CARBONATE 1.25 GM (CA 500 MG) TAB PO SCH ×2 (08:54→21:30)
[2016-04-07] MEDS: VALPROIC ACID SYRUP 250 MG/5 ML UDC PO SCH ×2 (08:54→21:28)
[2016-04-07] MEDS: NICOTINE 21 MG/24 HR PATCH T-DERMAL SCH (08:54)
[2016-04-07] MEDS: BENZTROPINE MESYLATE 1 MG TAB PO SCH ×2 (08:54→21:28)
[2016-04-07] MEDS: PHENYTOIN SODIUM 100 MG CAP PO SCH ×3 (08:54→17:43)
[2016-04-07] MEDS: FENOFIBRATE 48 MG TAB PO SCH (08:54)
[2016-04-07] MEDS: POLYETHYLENE GLYCOL 17 GM PKG PO SCH (08:57)
--- NOTE | 2016-04-07 09:42 | HHI.PYPN ---
Subjective Remarks Patient seen on unit with medical student Jo-Ann, patient continues to decrease in the intensity and frequency of her intrusions, she still remains quite confused and disoriented at times. She is compliant with her medications. Staff still most patient is having very poor sleep. For now will decrease at bedtime Clozaril to 100 mg. Increase at bedtime Seroquel to 300 mg Review of Systems Except as stated in HPI: all other systems reviewed are Neg Objective Alert: Yes [place]: Person, Place ([place]) Mood: Calm Affect: Flat Memory Intact: Comment (not formally assessed) Hallucinations: Other (none) Delusions: Yes Delusion Type: Paranoid Suicidal: Ideation (no SI) Homicidal: Ideation (no HI) Insight/Judgement Very poor Vitals/IOs Vital Signs Date Time Temp Pulse Resp B/P Pulse Ox O2 Delivery O2 Flow Rate FiO2 04/07/16 06:10 97.9 88 16 102/58 96 Intake and Output 04/06/16 04/06/16 04/07/16 08:00 16:00 00:00 Intake Total 600 ml 720 ml Balance 600 ml 720 ml Assessment & Plan Problem List: (1) Bipolar disorder ICD Code: F31.9 Assessment & Plan Estimated LOS: days patient showing some slight improvement in her mood and affect, decrease intrusiveness. Compliant medication. See medication adjustment above Justification for Cont. Inpt. At this time patient would decompensate and placed in a lower level of care Discharge Planning To be determined Problem Qualifiers (1) Bipolar disorder: Qualified Code: F31.9 - Bipolar affective disorder, current episode manic, current episode severity unspecified Ezequiel Grayson MD Apr 07, 2016 09:42
[2016-04-07 18:00] VITALS: BP 106/64; PULSE 100; RESP 17; TEMP 98.5; O2SAT 97
[2016-04-07] MEDS: TEMAZEPAM 7.5 MG CAP PO PRN (21:28)
[2016-04-07] MEDS: QUEtiapine FUMARATE 300 MG TAB PO SCH (21:30)
[2016-04-08 05:25] VITALS: BP 114/56; PULSE 93; RESP 16; TEMP 97.7; O2SAT 100
[2016-04-08] MEDS: LEVOTHYROXINE SODIUM 100 MCG TAB PO SCH (05:51)
[2016-04-08] MEDS: VALPROIC ACID SYRUP 250 MG/5 ML UDC PO SCH ×2 (08:19→21:19)
[2016-04-08] MEDS: FENOFIBRATE 48 MG TAB PO SCH (08:19)
[2016-04-08] MEDS: NICOTINE 21 MG/24 HR PATCH T-DERMAL SCH (08:19)
[2016-04-08] MEDS: CALCIUM CARBONATE 1.25 GM (CA 500 MG) TAB PO SCH ×2 (08:19→21:19)
[2016-04-08] MEDS: BENZTROPINE MESYLATE 1 MG TAB PO SCH ×2 (08:19→21:19)
[2016-04-08] MEDS: QUEtiapine FUMARATE 25 MG TAB PO SCH ×2 (08:19→17:15)
[2016-04-08] MEDS: cloZAPine 100 MG TAB PO SCH ×2 (08:25→21:19)
[2016-04-08] MEDS: POLYETHYLENE GLYCOL 17 GM PKG PO SCH (08:25)
[2016-04-08] MEDS: PHENYTOIN SODIUM 100 MG CAP PO SCH ×3 (08:25→17:15)
--- NOTE | 2016-04-08 14:25 | HHI.PYPN ---
Subjective Remarks Pt seen and discussed with staff. She slept poorly last night. Seroquel was increased to 300mg daily and pt is tolerating without side effects. She describes mood as "a panic day in the morning. I'm okay now." She remains highly paranoid and delusional and rambles on about germs and contamination of medications. No SI/HI. Review of Systems Psychiatric: COMPLAINS OF: Delusions Objective Alert: Yes [place]: Person, Place ([place]) Mood: Anxious Affect: Flat Memory Intact: Comment (not formally assessed) Hallucinations: Other (none) Delusions: Yes Delusion Type: Paranoid Suicidal: Ideation (no SI) Homicidal: Ideation (no HI) Insight/Judgement poor Vitals/IOs Vital Signs Date Time Temp Pulse Resp B/P Pulse Ox O2 Delivery O2 Flow Rate FiO2 04/08/16 05:25 97.7 93 16 114/56 100 Intake and Output 04/07/16 04/07/16 04/08/16 08:00 16:00 00:00 Intake Total 1080 ml 1800 ml 1200 ml Balance 1080 ml 1800 ml 1200 ml Assessment & Plan Problem List: (1) Bipolar disorder ICD Code: F31.9 Assessment & Plan Continue current tx plan. Estimated LOS: days Justification for Cont. Inpt. impairments in reality construction Problem Qualifiers (1) Bipolar disorder: Qualified Code: F31.9 - Bipolar affective disorder, current episode manic, current episode severity unspecified Marina Kessler MD Apr 08, 2016 14:25
[2016-04-08 19:54] VITALS: BP 122/71; PULSE 97; RESP 18; TEMP 98.3
[2016-04-08] MEDS: QUEtiapine FUMARATE 300 MG TAB PO SCH (21:19)
[2016-04-08] MEDS: TEMAZEPAM 7.5 MG CAP PO PRN (21:40)
[2016-04-09 05:31] VITALS: BP 110/59; PULSE 85; RESP 16; TEMP 97.9; O2SAT 97
[2016-04-09] MEDS: LEVOTHYROXINE SODIUM 100 MCG TAB PO SCH (05:51)
[2016-04-09] MEDS: PHENYTOIN SODIUM 100 MG CAP PO SCH ×3 (08:20→17:27)
[2016-04-09] MEDS: cloZAPine 100 MG TAB PO SCH ×2 (08:20→20:45)
[2016-04-09] MEDS: CALCIUM CARBONATE 1.25 GM (CA 500 MG) TAB PO SCH ×2 (08:20→20:45)
[2016-04-09] MEDS: QUEtiapine FUMARATE 25 MG TAB PO SCH ×2 (08:20→16:21)
[2016-04-09] MEDS: VALPROIC ACID SYRUP 250 MG/5 ML UDC PO SCH ×2 (08:20→20:45)
[2016-04-09] MEDS: FENOFIBRATE 48 MG TAB PO SCH (08:20)
[2016-04-09] MEDS: BENZTROPINE MESYLATE 1 MG TAB PO SCH ×2 (08:20→20:45)
[2016-04-09] MEDS: LORazepam 1 MG TAB PO PRN ×2 (08:52→17:27)
[2016-04-09] MEDS: POLYETHYLENE GLYCOL 17 GM PKG PO SCH (08:56)
[2016-04-09] MEDS: NICOTINE 21 MG/24 HR PATCH T-DERMAL SCH (08:57)
--- NOTE | 2016-04-09 14:37 | HHI.PYPN ---
Subjective Remarks Pt seen and discussed with stakar. She slept well last night. She was crying and anxious this morning. She remains very paranoid about medications. Thought process is loose. No SI/HI. Objective Alert: Yes [place]: Person, Place ([place]) Mood: Anxious Affect: Flat Memory Intact: Comment (not formally assessed) Hallucinations: Other (none) Delusions: Yes Delusion Type: Paranoid Suicidal: Ideation (no SI) Homicidal: Ideation (no HI) Insight/Judgement poor Vitals/IOs Vital Signs Date Time Temp Pulse Resp B/P Pulse Ox O2 Delivery O2 Flow Rate FiO2 04/09/16 05:31 97.9 85 16 110/59 97 Intake and Output 04/08/16 04/08/16 04/09/16 08:00 16:00 00:00 Intake Total 360 ml 720 ml 840 ml Balance 360 ml 720 ml 840 ml Assessment & Plan Problem List: (1) Bipolar disorder ICD Code: F31.9 Assessment & Plan Continue current tx plan. Estimated LOS: days Justification for Cont. Inpt. impairments in reality Problem Qualifiers (1) Bipolar disorder: Qualified Code: F31.9 - Bipolar affective disorder, current episode manic, current episode severity unspecified Marina Kessler MD Apr 09, 2016 14:37
[2016-04-09 19:53] VITALS: BP 117/66; PULSE 94; RESP 18; TEMP 98.2; O2SAT 98
[2016-04-09] MEDS: QUEtiapine FUMARATE 300 MG TAB PO SCH (20:45)
[2016-04-09] MEDS: diphenhydrAMINE HCL 50 MG CAP PO PRN (20:46)
[2016-04-09] MEDS: TEMAZEPAM 7.5 MG CAP PO PRN (20:46)
[2016-04-10 05:08] VITALS: BP 108/65; PULSE 80; RESP 18; TEMP 98.5; O2SAT 99
[2016-04-10] MEDS: LEVOTHYROXINE SODIUM 100 MCG TAB PO SCH (05:35)
[2016-04-10] MEDS: CALCIUM CARBONATE 1.25 GM (CA 500 MG) TAB PO SCH ×2 (08:44→20:57)
[2016-04-10] MEDS: VALPROIC ACID SYRUP 250 MG/5 ML UDC PO SCH ×2 (08:44→20:57)
[2016-04-10] MEDS: FENOFIBRATE 48 MG TAB PO SCH (08:44)
[2016-04-10] MEDS: BENZTROPINE MESYLATE 1 MG TAB PO SCH ×2 (08:44→20:57)
[2016-04-10] MEDS: NICOTINE 21 MG/24 HR PATCH T-DERMAL SCH (08:45)
[2016-04-10] MEDS: QUEtiapine FUMARATE 25 MG TAB PO SCH ×2 (08:45→16:40)
[2016-04-10] MEDS: PHENYTOIN SODIUM 100 MG CAP PO SCH ×3 (08:45→16:40)
[2016-04-10] MEDS: cloZAPine 100 MG TAB PO SCH ×2 (08:45→20:58)
[2016-04-10] MEDS: POLYETHYLENE GLYCOL 17 GM PKG PO SCH (08:45)
[2016-04-10] MEDS: HALOPERIDOL 5 MG TAB PO PRN (09:14)
[2016-04-10] MEDS: hydrOXYzine HCL 50 MG TAB PO PRN (12:17)
--- NOTE | 2016-04-10 13:52 | HHI.PYPN ---
Subjective Remarks Patient discussed with treatment team, patient seen on unit, chart reviewed. She still is markedly scattered delusional talking about [place] and [place]. Sleep appears to be improving. For now will discontinue a.m. dose of Clozaril , increase Seroquel to 75 mg 9 AM 4 PM, continue at bedtime dose no change. Depakote level drawn this a.m. came back at 43 on a total of 2000 mg Depakote per day. Will recheck Depakote level in a.m. also check Dilantin level in a.m. Review of Systems Except as stated in HPI: all other systems reviewed are Neg Objective Alert: Yes [place]: Person, Place ([place]) Mood: Anxious Affect: Flat Memory Intact: Comment (not formally assessed) Hallucinations: Other (none) Delusions: Yes Delusion Type: Paranoid Suicidal: Ideation (no SI) Homicidal: Ideation (no HI) Insight/Judgement Very poor Labs Test 04/10/16 06:38 Valproic Acid (Depakene) Level 43 MCG/ML Vitals/IOs Vital Signs Date Time Temp Pulse Resp B/P Pulse Ox O2 Delivery O2 Flow Rate FiO2 04/10/16 05:08 98.5 80 18 108/65 99 Intake and Output 04/09/16 04/09/16 04/10/16 08:00 16:00 00:00 Intake Total 0 ml 440 ml 600 ml Balance 0 ml 440 ml 600 ml Assessment & Plan Problem List: (1) Bipolar disorder ICD Code: F31.9 Assessment & Plan Estimated LOS: days patient remains delusional, with psychotic features, please see medication changes above Justification for Cont. Inpt. At this time patient would significantly decompensate if placed in a lower level of care Discharge Planning To be determined Problem Qualifiers (1) Bipolar disorder: Qualified Code: F31.9 - Bipolar affective disorder, current episode manic, current episode severity unspecified Ezequiel Grayson MD Apr 10, 2016 13:51
[2016-04-10] MEDS: QUEtiapine FUMARATE 300 MG TAB PO SCH (20:57)
[2016-04-10] MEDS: TEMAZEPAM 7.5 MG CAP PO PRN (20:57)
[2016-04-10] MEDS: diphenhydrAMINE HCL 50 MG CAP PO PRN (20:57)
[2016-04-11 04:57] VITALS: BP 132/66; PULSE 88; RESP 16; TEMP 97.7; O2SAT 98
[2016-04-11] MEDS: LEVOTHYROXINE SODIUM 100 MCG TAB PO SCH (05:50)
[2016-04-11] MEDS: PHENYTOIN SODIUM 100 MG CAP PO SCH ×3 (08:23→17:39)
[2016-04-11] MEDS: POLYETHYLENE GLYCOL 17 GM PKG PO SCH (08:23)
[2016-04-11] MEDS: QUEtiapine FUMARATE 25 MG TAB PO SCH ×2 (08:23→17:39)
[2016-04-11] MEDS: FENOFIBRATE 48 MG TAB PO SCH (08:24)
[2016-04-11] MEDS: BENZTROPINE MESYLATE 1 MG TAB PO SCH ×2 (08:24→20:59)
[2016-04-11] MEDS: CALCIUM CARBONATE 1.25 GM (CA 500 MG) TAB PO SCH ×2 (08:24→20:58)
[2016-04-11] MEDS: VALPROIC ACID SYRUP 250 MG/5 ML UDC PO SCH ×2 (08:24→20:59)
[2016-04-11] MEDS: NICOTINE 21 MG/24 HR PATCH T-DERMAL SCH (09:00)
--- NOTE | 2016-04-11 10:31 | HHI.PYPN ---
Subjective Remarks Patient seen in LTAC, located within [facility], she continues intrusive markedly disorganized with pressured speech, somewhat perseverative in nature. Patient compliant medications and medications adjusted yesterday we'll continue to observe Review of Systems Except as stated in HPI: all other systems reviewed are Neg Objective Alert: Yes [place]: Person, Place ([place]) Mood: Anxious Affect: Flat Memory Intact: Comment (not formally assessed) Hallucinations: Other (none) Delusions: Yes Delusion Type: Paranoid Suicidal: Ideation (no SI) Homicidal: Ideation (no HI) Insight/Judgement Very poor Labs Test 04/11/16 07:54 Phenytoin (Dilantin) Level 9.1 MCG/ML Valproic Acid (Depakene) Level 42 MCG/ML Vitals/IOs Vital Signs Date Time Temp Pulse Resp B/P Pulse Ox O2 Delivery O2 Flow Rate FiO2 04/11/16 04:57 97.7 88 16 132/66 98 Intake and Output 04/10/16 04/10/16 04/11/16 08:00 16:00 00:00 Intake Total 0 ml 1800 ml Balance 0 ml 1800 ml Assessment & Plan Problem List: (1) Bipolar disorder ICD Code: F31.9 Assessment & Plan Estimated LOS: days patient continues a pressured speech markedly disorganized and intrusive, compliant medications Justification for Cont. Inpt. At this time patient was significantly decompensate if placed at a lower level of care Discharge Planning To be determined Problem Qualifiers (1) Bipolar disorder: Qualified Code: F31.9 - Bipolar affective disorder, current episode manic, current episode severity unspecified Ezequiel Grayson MD Apr 11, 2016 10:31
[2016-04-11] MEDS: LORazepam 1 MG TAB PO PRN (11:44)
[2016-04-11 19:59] VITALS: BP 135/80; PULSE 93; RESP 18; TEMP 98.4; O2SAT 99
[2016-04-11] MEDS: QUEtiapine FUMARATE 300 MG TAB PO SCH (20:58)
[2016-04-11] MEDS: diphenhydrAMINE HCL 50 MG CAP PO PRN (20:58)
[2016-04-11] MEDS: cloZAPine 100 MG TAB PO SCH (20:59)
[2016-04-12 06:02] VITALS: BP 121/75; PULSE 86; RESP 16; TEMP 97.6; O2SAT 100
[2016-04-12] MEDS: LEVOTHYROXINE SODIUM 100 MCG TAB PO SCH (06:34)
[2016-04-12] MEDS: VALPROIC ACID SYRUP 250 MG/5 ML UDC PO SCH ×2 (08:34→21:10)
[2016-04-12] MEDS: CALCIUM CARBONATE 1.25 GM (CA 500 MG) TAB PO SCH ×2 (08:34→21:11)
[2016-04-12] MEDS: FENOFIBRATE 48 MG TAB PO SCH (08:34)
[2016-04-12] MEDS: BENZTROPINE MESYLATE 1 MG TAB PO SCH ×2 (08:34→21:11)
[2016-04-12] MEDS: QUEtiapine FUMARATE 25 MG TAB PO SCH ×2 (08:35→16:33)
[2016-04-12] MEDS: PHENYTOIN SODIUM 100 MG CAP PO SCH ×3 (08:35→16:33)
[2016-04-12] MEDS: NICOTINE 21 MG/24 HR PATCH T-DERMAL SCH (08:35)
[2016-04-12] MEDS: POLYETHYLENE GLYCOL 17 GM PKG PO SCH (08:36)
--- NOTE | 2016-04-12 11:56 | HHI.PYPN ---
Subjective Remarks Patient seen in her room with nurse Maria Antonia, chart review, patient compliant medication. Patient continues markedly disorganized vigilant somewhat paranoid with her remarks. No insight into her disease. Continue with titrating of her medications Review of Systems Except as stated in HPI: all other systems reviewed are Neg Objective Alert: Yes [place]: Person, Place ([place]) Mood: Anxious Affect: Flat Memory Intact: Comment (not formally assessed) Hallucinations: Other (none) Delusions: Yes Delusion Type: Paranoid Suicidal: Ideation (no SI) Homicidal: Ideation (no HI) Insight/Judgement Very poor Vitals/IOs Vital Signs Date Time Temp Pulse Resp B/P Pulse Ox O2 Delivery O2 Flow Rate FiO2 04/12/16 06:02 97.6 86 16 121/75 100 Intake and Output 04/11/16 04/11/16 04/12/16 08:00 16:00 00:00 Intake Total 0 ml 2400 ml 600 ml Balance 0 ml 2400 ml 600 ml Assessment & Plan Problem List: (1) Bipolar disorder ICD Code: F31.9 Assessment & Plan Estimated LOS: days patient continues psychotic delusional, compliant medications. Justification for Cont. Inpt. At this time patient was significantly decompensated if placed a lower level of care Discharge Planning To be determined Problem Qualifiers (1) Bipolar disorder: Qualified Code: F31.9 - Bipolar affective disorder, current episode manic, current episode severity unspecified Ezequiel Grayson MD Apr 12, 2016 11:56
[2016-04-12] MEDS: QUEtiapine FUMARATE 300 MG TAB PO SCH (21:11)
[2016-04-12] MEDS: cloZAPine 100 MG TAB PO SCH (21:11)
[2016-04-12 22:29] VITALS: BP 124/63; PULSE 99; RESP 16; TEMP 97.9; O2SAT 98
[2016-04-13] MEDS: LEVOTHYROXINE SODIUM 100 MCG TAB PO SCH (06:30)
[2016-04-13 06:35] VITALS: BP 127/62; PULSE 69; RESP 17; TEMP 96.9; O2SAT 96
--- NOTE | 2016-04-13 08:38 | HHI.PYPN ---
Subjective Remarks Patient seen in her room with nurse Jermaine, patient continues markedly disorganized paranoid with pressured speech that is tangential circumstantial. Is marked delusions related to staff of people in her room last night. She has been compliant with medications. Will discontinue Clozaril increase her daily dose of Seroquel to 100 mg the morning and 4 PM continue at bedtime dose no change Review of Systems Except as stated in HPI: all other systems reviewed are Neg Objective Alert: Yes [place]: Person, Place ([place]) Mood: Anxious Affect: Flat Memory Intact: Comment (not formally assessed) Hallucinations: Other (none) Delusions: Yes Delusion Type: Paranoid Suicidal: Ideation (no SI) Homicidal: Ideation (no HI) Insight/Judgement Very poor Vitals/IOs Vital Signs Date Time Temp Pulse Resp B/P Pulse Ox O2 Delivery O2 Flow Rate FiO2 04/13/16 06:35 96.9 69 17 127/62 96 Intake and Output 04/12/16 04/12/16 04/13/16 08:00 16:00 00:00 Intake Total 240 ml Balance 240 ml Assessment & Plan Problem List: (1) Bipolar disorder ICD Code: F31.9 Assessment & Plan Estimated LOS: days continues psychotic and disorganized please see medication changes above Justification for Cont. Inpt. This time patient would significantly decompensated placed in the lower level of care Discharge Planning To be determined Problem Qualifiers (1) Bipolar disorder: Qualified Code: F31.9 - Bipolar affective disorder, current episode manic, current episode severity unspecified Ezequiel Grayson MD Apr 13, 2016 08:38
[2016-04-13] MEDS: NICOTINE 21 MG/24 HR PATCH T-DERMAL SCH (09:00)
[2016-04-13] MEDS: POLYETHYLENE GLYCOL 17 GM PKG PO SCH (09:00)
[2016-04-13] MEDS: QUEtiapine FUMARATE 100 MG TAB PO SCH ×2 (09:00→16:00)
[2016-04-13] MEDS: VALPROIC ACID SYRUP 250 MG/5 ML UDC PO SCH ×2 (09:15→20:15)
[2016-04-13] MEDS: CALCIUM CARBONATE 1.25 GM (CA 500 MG) TAB PO SCH ×2 (09:15→20:15)
[2016-04-13] MEDS: BENZTROPINE MESYLATE 1 MG TAB PO SCH ×2 (09:16→20:15)
[2016-04-13] MEDS: FENOFIBRATE 48 MG TAB PO SCH (09:16)
[2016-04-13] MEDS: PHENYTOIN SODIUM 100 MG CAP PO SCH ×3 (09:16→18:00)
[2016-04-13] MEDS: hydrOXYzine HCL 50 MG TAB PO PRN (10:00)
[2016-04-13] MEDS: LORazepam 1 MG TAB PO PRN (10:00)
[2016-04-13 20:00] VITALS: BP 122/59; PULSE 100; RESP 16; TEMP 99.4; O2SAT 96
[2016-04-13] MEDS: QUEtiapine FUMARATE 300 MG TAB PO SCH (20:15)
[2016-04-13] MEDS: diphenhydrAMINE HCL 50 MG CAP PO PRN (22:11)
[2016-04-13] MEDS: TEMAZEPAM 7.5 MG CAP PO PRN (22:11)
[2016-04-14] MEDS: LORazepam 1 MG TAB PO PRN (02:52)
[2016-04-14] MEDS: ACETAMINOPHEN 325 MG TAB PO PRN (02:52)
[2016-04-14] MEDS: LEVOTHYROXINE SODIUM 100 MCG TAB PO SCH (06:25)
[2016-04-14 06:33] VITALS: BP 101/62; PULSE 81; RESP 18; TEMP 98; O2SAT 97
[2016-04-14] MEDS: FENOFIBRATE 48 MG TAB PO SCH (08:59)
[2016-04-14] MEDS: BENZTROPINE MESYLATE 1 MG TAB PO SCH ×2 (08:59→20:55)
[2016-04-14] MEDS: PHENYTOIN SODIUM 100 MG CAP PO SCH ×3 (08:59→17:31)
[2016-04-14] MEDS: CALCIUM CARBONATE 1.25 GM (CA 500 MG) TAB PO SCH ×2 (09:00→20:55)
[2016-04-14] MEDS: VALPROIC ACID SYRUP 250 MG/5 ML UDC PO SCH ×2 (09:00→20:55)
[2016-04-14] MEDS: QUEtiapine FUMARATE 100 MG TAB PO SCH ×2 (09:00→17:31)
[2016-04-14] MEDS: NICOTINE 21 MG/24 HR PATCH T-DERMAL SCH (09:00)
[2016-04-14] MEDS: POLYETHYLENE GLYCOL 17 GM PKG PO SCH (09:00)
--- NOTE | 2016-04-14 11:56 | HHI.PYPN ---
Subjective Remarks Patient seen in dayroom nurse Tierra, chart review, patient calmer more cooperative today less perseverative somatic. Compliant medication. For now continue treatment Review of Systems Except as stated in HPI: all other systems reviewed are Neg Objective Alert: Yes [place]: Person, Place ([place]) Mood: Anxious Affect: Flat Memory Intact: Comment (not formally assessed) Hallucinations: Other (none) Delusions: Yes Delusion Type: Paranoid Suicidal: Ideation (no SI) Homicidal: Ideation (no HI) Insight/Judgement Very poor Vitals/IOs Vital Signs Date Time Temp Pulse Resp B/P Pulse Ox O2 Delivery O2 Flow Rate FiO2 04/14/16 06:33 98.0 81 18 101/62 97 Intake and Output 04/13/16 04/13/16 04/14/16 08:00 16:00 00:00 Intake Total 480 ml 1080 ml Balance 480 ml 1080 ml Assessment & Plan Problem List: (1) Bipolar disorder ICD Code: F31.9 Assessment & Plan Estimated LOS: days patient continues somewhat intrusive and irritable but mild decrease intensity Justification for Cont. Inpt. At this time patient would decompensate if placed in a lower level of care Discharge Planning Be determined Problem Qualifiers (1) Bipolar disorder: Qualified Code: F31.9 - Bipolar affective disorder, current episode manic, current episode severity unspecified Ezequiel Grayson MD Apr 14, 2016 11:56
[2016-04-14 19:03] VITALS: BP 122/66; PULSE 85; RESP 18; TEMP 98; O2SAT 97
[2016-04-14] MEDS: QUEtiapine FUMARATE 300 MG TAB PO SCH (20:55)
[2016-04-15] MEDS: LEVOTHYROXINE SODIUM 100 MCG TAB PO SCH (05:00)
[2016-04-15 05:39] VITALS: BP 110/57; PULSE 79; RESP 18; TEMP 98.3; O2SAT 99
[2016-04-15] MEDS: NICOTINE 21 MG/24 HR PATCH T-DERMAL SCH (09:00)
[2016-04-15] MEDS: POLYETHYLENE GLYCOL 17 GM PKG PO SCH (09:00)
[2016-04-15] MEDS: VALPROIC ACID SYRUP 250 MG/5 ML UDC PO SCH ×2 (09:33→20:18)
[2016-04-15] MEDS: PHENYTOIN SODIUM 100 MG CAP PO SCH ×3 (09:34→18:01)
[2016-04-15] MEDS: CALCIUM CARBONATE 1.25 GM (CA 500 MG) TAB PO SCH ×2 (09:34→20:18)
[2016-04-15] MEDS: QUEtiapine FUMARATE 100 MG TAB PO SCH ×2 (09:34→16:18)
[2016-04-15] MEDS: FENOFIBRATE 48 MG TAB PO SCH (09:34)
[2016-04-15] MEDS: BENZTROPINE MESYLATE 1 MG TAB PO SCH ×2 (09:34→20:18)
--- NOTE | 2016-04-15 12:37 | HHI.PYPN ---
Subjective Remarks Patient was seen and case discussed with nursing. Patient remains grossly confused and disorganized. Hyperverbal. She is perseverative following me around the unit. Thought process is scattered, word salad. Compliant with medications. Objective Alert: Yes [place]: Person, Place ([place]) Mood: Anxious Affect: Flat Memory Intact: Comment (not formally assessed) Hallucinations: Other (none) Delusions: Yes Delusion Type: Paranoid Suicidal: Ideation (no SI) Homicidal: Ideation (no HI) Insight/Judgement Poor Vitals/IOs Vital Signs Date Time Temp Pulse Resp B/P Pulse Ox O2 Delivery O2 Flow Rate FiO2 04/15/16 05:39 98.3 79 18 110/57 99 Intake and Output 04/14/16 04/14/16 04/15/16 08:00 16:00 00:00 Intake Total 480 ml 360 ml 600 ml Balance 480 ml 360 ml 600 ml Assessment & Plan Problem List: (1) Bipolar disorder ICD Code: F31.9 Assessment & Plan Continue current treatment plan Justification for Cont. Inpt. Patient will decompensate outside of an inpatient setting Problem Qualifiers (1) Bipolar disorder: Qualified Code: F31.9 - Bipolar affective disorder, current episode manic, current episode severity unspecified Cuate Flynn DO Apr 15, 2016 12:37
[2016-04-15] MEDS: LORazepam 1 MG TAB PO PRN (13:02)
[2016-04-15 20:02] VITALS: BP 153/67; PULSE 84; RESP 16; TEMP 98.9; O2SAT 100
[2016-04-15] MEDS: QUEtiapine FUMARATE 300 MG TAB PO SCH (20:18)
[2016-04-15] MEDS: TEMAZEPAM 7.5 MG CAP PO PRN (23:44)
[2016-04-15] MEDS: diphenhydrAMINE HCL 50 MG CAP PO PRN (23:44)
[2016-04-16] MEDS: LORazepam 1 MG TAB PO PRN (03:43)
[2016-04-16] MEDS: LEVOTHYROXINE SODIUM 100 MCG TAB PO SCH (05:48)
[2016-04-16 06:16] VITALS: BP 102/66; PULSE 77; RESP 17; TEMP 96.9; O2SAT 98
[2016-04-16] MEDS: NICOTINE 21 MG/24 HR PATCH T-DERMAL SCH (09:00)
[2016-04-16] MEDS: CALCIUM CARBONATE 1.25 GM (CA 500 MG) TAB PO SCH ×2 (09:14→20:32)
[2016-04-16] MEDS: VALPROIC ACID SYRUP 250 MG/5 ML UDC PO SCH ×2 (09:14→20:32)
[2016-04-16] MEDS: POLYETHYLENE GLYCOL 17 GM PKG PO SCH (09:14)
[2016-04-16] MEDS: QUEtiapine FUMARATE 100 MG TAB PO SCH ×2 (09:15→15:35)
[2016-04-16] MEDS: FENOFIBRATE 48 MG TAB PO SCH (09:15)
[2016-04-16] MEDS: PHENYTOIN SODIUM 100 MG CAP PO SCH ×3 (09:15→17:37)
[2016-04-16] MEDS: BENZTROPINE MESYLATE 1 MG TAB PO SCH ×2 (09:15→20:32)
--- NOTE | 2016-04-16 12:26 | HHI.PYPN ---
Subjective Remarks Patient was seen and case discussed with nursing. Patient is less hyperactive and perseverative today. Slept 4 hours per nursing. Remains with flight of ideas and pressured speech. She is oriented 3 but then has bizarre delusions that the attacks are threatening the life of the patient's with Diet Coke. Objective Alert: Yes [place]: Person, Place ([place]) Mood: Anxious Affect: Flat Memory Intact: Comment (not formally assessed) Hallucinations: Other (none) Delusions: Yes Delusion Type: Paranoid Suicidal: Ideation (no SI) Homicidal: Ideation (no HI) Insight/Judgement poor Vitals/IOs Vital Signs Date Time Temp Pulse Resp B/P Pulse Ox O2 Delivery O2 Flow Rate FiO2 04/16/16 06:16 96.9 77 17 102/66 98 Intake and Output 04/15/16 04/15/16 04/16/16 08:00 16:00 00:00 Intake Total 360 ml 1560 ml Balance 360 ml 1560 ml Assessment & Plan Problem List: (1) Bipolar disorder ICD Code: F31.9 Assessment & Plan Continue current treatment plan Justification for Cont. Inpt. Patient will decompensate outside of a less restrictive setting Problem Qualifiers (1) Bipolar disorder: Qualified Code: F31.9 - Bipolar affective disorder, current episode manic, current episode severity unspecified Cuate Flynn DO Apr 16, 2016 12:26
[2016-04-16] MEDS: ACETAMINOPHEN 325 MG TAB PO PRN (17:43)
[2016-04-16 19:41] VITALS: BP 111/65; PULSE 77; RESP 18; TEMP 97.4; O2SAT 99
[2016-04-16] MEDS: QUEtiapine FUMARATE 300 MG TAB PO SCH (20:32)
[2016-04-17] MEDS: diphenhydrAMINE HCL 50 MG CAP PO PRN (00:17)
[2016-04-17] MEDS: TEMAZEPAM 7.5 MG CAP PO PRN (00:17)
[2016-04-17 05:26] VITALS: BP 101/55; PULSE 64; RESP 18; TEMP 97.5; O2SAT 98
[2016-04-17] MEDS: LEVOTHYROXINE SODIUM 100 MCG TAB PO SCH (06:16)
[2016-04-17] MEDS: NICOTINE 21 MG/24 HR PATCH T-DERMAL SCH (09:00)
[2016-04-17] MEDS: CALCIUM CARBONATE 1.25 GM (CA 500 MG) TAB PO SCH ×2 (09:20→21:08)
[2016-04-17] MEDS: POLYETHYLENE GLYCOL 17 GM PKG PO SCH (09:21)
[2016-04-17] MEDS: QUEtiapine FUMARATE 100 MG TAB PO SCH ×2 (09:21→15:56)
[2016-04-17] MEDS: PHENYTOIN SODIUM 100 MG CAP PO SCH ×3 (09:21→17:16)
[2016-04-17] MEDS: FENOFIBRATE 48 MG TAB PO SCH (09:21)
[2016-04-17] MEDS: BENZTROPINE MESYLATE 1 MG TAB PO SCH ×2 (09:21→21:08)
[2016-04-17] MEDS: VALPROIC ACID SYRUP 250 MG/5 ML UDC PO SCH ×2 (09:21→21:08)
[2016-04-17] MEDS: HALOPERIDOL 5 MG TAB PO PRN (16:41)
--- NOTE | 2016-04-17 16:44 | HHI.PYPN ---
Subjective Remarks Patient discussed with treatment team, chart review, seen on unit. Patient today showing some increased irritability lability loud rapid pressured speech sets markedly disorganized and confused area patient though continues compliant with medication Review of Systems Except as stated in HPI: all other systems reviewed are Neg Objective Alert: Yes [place]: Person, Place ([place]) Mood: Anxious Affect: Flat Memory Intact: Comment (not formally assessed) Hallucinations: Other (none) Delusions: Yes Delusion Type: Paranoid Suicidal: Ideation (no SI) Homicidal: Ideation (no HI) Insight/Judgement Very poor Vitals/IOs Vital Signs Date Time Temp Pulse Resp B/P Pulse Ox O2 Delivery O2 Flow Rate FiO2 04/17/16 05:26 97.5 64 18 101/55 98 Intake and Output 04/16/16 04/16/16 04/17/16 08:00 16:00 00:00 Intake Total 1200 ml 720 ml Balance 1200 ml 720 ml Assessment & Plan Problem List: (1) Bipolar disorder ICD Code: F31.9 Assessment & Plan Estimated LOS: days patient continues confused psychotic with manic flavor Justification for Cont. Inpt. At this time patient would significantly decompensate if placed in a lower level of care Discharge Planning To be determined Problem Qualifiers (1) Bipolar disorder: Qualified Code: F31.9 - Bipolar affective disorder, current episode manic, current episode severity unspecified Ezequiel Grayson MD Apr 17, 2016 16:44
[2016-04-17 19:36] VITALS: BP 127/62; PULSE 79; RESP 18; TEMP 98.3; O2SAT 95
[2016-04-17] MEDS: QUEtiapine FUMARATE 300 MG TAB PO SCH (21:08)
[2016-04-18 05:23] VITALS: BP 117/59; PULSE 88; RESP 16; TEMP 97.9; O2SAT 97
[2016-04-18 05:28] VITALS: BP 114/69; PULSE 85; RESP 16; TEMP 98.2; O2SAT 96
[2016-04-18] MEDS: LEVOTHYROXINE SODIUM 100 MCG TAB PO SCH (05:52)
[2016-04-18] MEDS: BENZTROPINE MESYLATE 1 MG TAB PO SCH ×2 (08:57→21:00)
[2016-04-18] MEDS: POLYETHYLENE GLYCOL 17 GM PKG PO SCH (08:57)
[2016-04-18] MEDS: CALCIUM CARBONATE 1.25 GM (CA 500 MG) TAB PO SCH ×2 (08:57→21:00)
[2016-04-18] MEDS: VALPROIC ACID SYRUP 250 MG/5 ML UDC PO SCH ×2 (08:57→21:00)
[2016-04-18] MEDS: QUEtiapine FUMARATE 100 MG TAB PO SCH ×2 (08:57→15:29)
[2016-04-18] MEDS: PHENYTOIN SODIUM 100 MG CAP PO SCH ×3 (08:57→17:58)
[2016-04-18] MEDS: FENOFIBRATE 48 MG TAB PO SCH (08:57)
[2016-04-18] MEDS: NICOTINE 21 MG/24 HR PATCH T-DERMAL SCH (08:58)
--- NOTE | 2016-04-18 11:30 | HHI.PYPN ---
Subjective Remarks Patient seen in day room with nurse Johanna, patient continues more intrusive than yesterday markedly disorganized in her speech quite scattered almost to a word salad. Also somewhat poor intimidating with the intensity of this. The patient is not showing any physical aggression. Will increase daytime Seroquel to 150 mg twice a day continue at bedtime dose no change Review of Systems Except as stated in HPI: all other systems reviewed are Neg Objective Alert: Yes [place]: Person, Place ([place]) Mood: Anxious Affect: Flat Memory Intact: Comment (not formally assessed) Hallucinations: Other (none) Delusions: Yes Delusion Type: Paranoid Suicidal: Ideation (no SI) Homicidal: Ideation (no HI) Insight/Judgement Very poor Vitals/IOs Vital Signs Date Time Temp Pulse Resp B/P Pulse Ox O2 Delivery O2 Flow Rate FiO2 04/18/16 05:28 98.2 85 16 114/69 96 Intake and Output 04/17/16 04/17/16 04/18/16 08:00 16:00 00:00 Intake Total 120 ml 960 ml 720 ml Balance 120 ml 960 ml 720 ml Assessment & Plan Problem List: (1) Bipolar disorder ICD Code: F31.9 Assessment & Plan Estimated LOS: days patient continues with rapid pressured speech markedly disorganized with a paranoid flavor. She medication adjustment above Justification for Cont. Inpt. At this time patient would significantly decompensate if placed in the lower level of care Discharge Planning To be determined Problem Qualifiers (1) Bipolar disorder: Qualified Code: F31.9 - Bipolar affective disorder, current episode manic, current episode severity unspecified Ezequiel Grayson MD Apr 18, 2016 11:30
[2016-04-18] MEDS: LORazepam 1 MG TAB PO PRN ×2 (11:42→21:00)
[2016-04-18] MEDS: HALOPERIDOL 5 MG TAB PO PRN (11:42)
[2016-04-18 19:00] VITALS: BP 102/57; PULSE 76; RESP 16; TEMP 98.4; O2SAT 95
[2016-04-18] MEDS: diphenhydrAMINE HCL 50 MG CAP PO PRN (21:00)
[2016-04-18] MEDS: QUEtiapine FUMARATE 300 MG TAB PO SCH (21:00)
[2016-04-19 06:14] VITALS: BP 100/53; PULSE 77; RESP 16; TEMP 97.6; O2SAT 97
[2016-04-19] MEDS: NICOTINE 21 MG/24 HR PATCH T-DERMAL SCH (09:00)
[2016-04-19] MEDS: VALPROIC ACID SYRUP 250 MG/5 ML UDC PO SCH ×2 (09:05→20:48)
[2016-04-19] MEDS: CALCIUM CARBONATE 1.25 GM (CA 500 MG) TAB PO SCH ×2 (09:05→20:48)
[2016-04-19] MEDS: BENZTROPINE MESYLATE 1 MG TAB PO SCH ×2 (09:06→20:48)
[2016-04-19] MEDS: POLYETHYLENE GLYCOL 17 GM PKG PO SCH (09:06)
[2016-04-19] MEDS: QUEtiapine FUMARATE 100 MG TAB PO SCH ×2 (09:06→16:17)
[2016-04-19] MEDS: FENOFIBRATE 48 MG TAB PO SCH (09:06)
[2016-04-19] MEDS: PHENYTOIN SODIUM 100 MG CAP PO SCH ×3 (09:08→18:25)
--- NOTE | 2016-04-19 14:13 | HHI.PYPN ---
Subjective Remarks Patient seen in room with nurse Naz, patient continues markedly disorganized though today her affect is softer calmer she is more appropriate with her responses though there disorganized. Patient compliant medications. For now continue treatment will recheck UA Review of Systems Except as stated in HPI: all other systems reviewed are Neg Objective Alert: Yes [place]: Person, Place ([place]) Mood: Anxious Affect: Flat Memory Intact: Comment (not formally assessed) Hallucinations: Other (none) Delusions: Yes Delusion Type: Paranoid Suicidal: Ideation (no SI) Homicidal: Ideation (no HI) Insight/Judgement Very poor Vitals/IOs Vital Signs Date Time Temp Pulse Resp B/P Pulse Ox O2 Delivery O2 Flow Rate FiO2 04/19/16 06:14 97.6 77 16 100/53 97 Intake and Output 04/18/16 04/18/16 04/19/16 08:00 16:00 00:00 Intake Total 120 ml 720 ml Balance 120 ml 720 ml Assessment & Plan Problem List: (1) Bipolar disorder ICD Code: F31.9 Assessment & Plan Estimated LOS: days patient continues markedly confused over lability and intensity have softened somewhat today. Will recheck UA Justification for Cont. Inpt. At this time patient would significantly decompensated if placed in a lower level of care Discharge Planning To be determined Problem Qualifiers (1) Bipolar disorder: Qualified Code: F31.9 - Bipolar affective disorder, current episode manic, current episode severity unspecified Ezequiel Grayson MD Apr 19, 2016 14:13
[2016-04-19 19:08] VITALS: BP 94/64; PULSE 83; RESP 16; TEMP 97.8; O2SAT 98
[2016-04-19] MEDS: QUEtiapine FUMARATE 300 MG TAB PO SCH (20:48)
[2016-04-20] MEDS: diphenhydrAMINE HCL 50 MG CAP PO PRN ×2 (01:08→22:01)
[2016-04-20] MEDS: TEMAZEPAM 7.5 MG CAP PO PRN ×2 (01:08→22:00)
[2016-04-20] MEDS: ACETAMINOPHEN 325 MG TAB PO PRN ×3 (04:34→22:09)
[2016-04-20 05:31] VITALS: BP 109/62; PULSE 78; RESP 18; TEMP 97.6
[2016-04-20] MEDS: LEVOTHYROXINE SODIUM 100 MCG TAB PO SCH (05:35)
[2016-04-20 07:33] LABS: BLOOD, URINE NEG (NEG); GLUCOSE,URINE NEG (NEG); KETONE, URINE NEG (NEG); NITRITE,URINE NEG (NEG); PH, URINE 6.5 (5.0-8.5); URINE COLOR LIGHT-YELLOW (YELLW/STRAW)
[2016-04-20 07:35] LABS: COMMENT (UR) CULT NOT INDICATED; CULTURE IF INDICATED CULT NOT INDICATED
[2016-04-20] MEDS: VALPROIC ACID SYRUP 250 MG/5 ML UDC PO SCH ×2 (08:55→21:07)
[2016-04-20] MEDS: BENZTROPINE MESYLATE 1 MG TAB PO SCH ×2 (08:56→21:06)
[2016-04-20] MEDS: QUEtiapine FUMARATE 100 MG TAB PO SCH ×2 (08:56→16:05)
[2016-04-20] MEDS: CALCIUM CARBONATE 1.25 GM (CA 500 MG) TAB PO SCH ×2 (08:56→21:07)
[2016-04-20] MEDS: FENOFIBRATE 48 MG TAB PO SCH (08:56)
[2016-04-20] MEDS: PHENYTOIN SODIUM 100 MG CAP PO SCH ×3 (08:56→18:19)
[2016-04-20] MEDS: NICOTINE 21 MG/24 HR PATCH T-DERMAL SCH (09:00)
[2016-04-20] MEDS: POLYETHYLENE GLYCOL 17 GM PKG PO SCH (09:00)
--- NOTE | 2016-04-20 10:51 | HHI.PYPN ---
Subjective Remarks Patient seen in activities room, with nurse Hardik, and counselor Ema, chart review, patient continues markedly disorganized tangential and circumstantial though the intensity is somewhat diminished the paranoia is softer, and the eye contact is somewhat improved Review of Systems Except as stated in HPI: all other systems reviewed are Neg Objective Alert: Yes [place]: Person, Place ([place]) Mood: Anxious Affect: Flat Memory Intact: Comment (not formally assessed) Hallucinations: Other (none) Delusions: Yes Delusion Type: Paranoid Suicidal: Ideation (no SI) Homicidal: Ideation (no HI) Insight/Judgement Very poor Labs Test 04/20/16 06:30 Urine Color LIGHT-YELLOW Urine Turbidity CLEAR Urine pH 6.5 Urine Specific [place] 1.008 Urine Protein NEG mg/dL Urine Glucose (UA) NEG mg/dL Urine Ketones NEG mg/dL Urine Occult Blood NEG Urine Nitrite NEG Urine Bilirubin NEG Urine Urobilinogen LESS THAN 2.0 MG/DL Urine Leukocyte Esterase TRACE Urine RBC 2 /hpf Urine WBC 1 /hpf Microscopic Urinalysis Comment CULT NOT INDICATED Vitals/IOs Vital Signs Date Time Temp Pulse Resp B/P Pulse Ox O2 Delivery O2 Flow Rate FiO2 04/20/16 05:31 97.6 78 18 109/62 04/19/16 19:08 98 Intake and Output 04/19/16 04/19/16 04/20/16 08:00 16:00 00:00 Intake Total 240 ml 1320 ml Balance 240 ml 1320 ml Assessment & Plan Problem List: (1) Bipolar disorder ICD Code: F31.9 Assessment & Plan Estimated LOS: days patient continues markedly disorganized, somewhat more relaxed and calm. Compliant medications. Justification for Cont. Inpt. At this time patient will decompensate if placed in a lower level of care Discharge Planning To be determined Problem Qualifiers (1) Bipolar disorder: Qualified Code: F31.9 - Bipolar affective disorder, current episode manic, current episode severity unspecified Ezequiel Grayson MD Apr 20, 2016 10:51
[2016-04-20 18:35] VITALS: BP 127/60; PULSE 79; RESP 16; TEMP 97.6; O2SAT 96
[2016-04-20] MEDS: QUEtiapine FUMARATE 300 MG TAB PO SCH (21:06)
[2016-04-20] MEDS: PADIMATE (CHAPSTICK) 4.5 GM TUBE TOP PRN (22:10)
[2016-04-21] MEDS: LORazepam 1 MG TAB PO PRN ×2 (03:39→09:38)
[2016-04-21 05:02] VITALS: BP 118/58; PULSE 74; RESP 15; TEMP 97.4
[2016-04-21] MEDS: LEVOTHYROXINE SODIUM 100 MCG TAB PO SCH (06:04)
[2016-04-21] MEDS: NICOTINE 21 MG/24 HR PATCH T-DERMAL SCH (09:00)
[2016-04-21] MEDS: POLYETHYLENE GLYCOL 17 GM PKG PO SCH (09:00)
[2016-04-21] MEDS: VALPROIC ACID SYRUP 250 MG/5 ML UDC PO SCH ×2 (09:38→20:37)
[2016-04-21] MEDS: FENOFIBRATE 48 MG TAB PO SCH (09:38)
[2016-04-21] MEDS: PHENYTOIN SODIUM 100 MG CAP PO SCH ×3 (09:38→17:10)
[2016-04-21] MEDS: BENZTROPINE MESYLATE 1 MG TAB PO SCH ×2 (09:38→20:37)
[2016-04-21] MEDS: CALCIUM CARBONATE 1.25 GM (CA 500 MG) TAB PO SCH ×2 (09:39→20:37)
[2016-04-21] MEDS: QUEtiapine FUMARATE 100 MG TAB PO SCH ×2 (09:39→16:24)
--- NOTE | 2016-04-21 11:58 | HHI.PYPN ---
Subjective Remarks Patient seen in dayroom with floor staff, chart reviewed, patient continue some arousable irritation occurred somewhat last night. Though she is calm with me today there is a marked disorganization confusion. Patient compliant medications. For now will recheck Depakote blood level in a.m. Review of Systems Except as stated in HPI: all other systems reviewed are Neg Objective Alert: Yes [place]: Person, Place ([place]) Mood: Anxious Affect: Flat Memory Intact: Comment (not formally assessed) Hallucinations: Other (none) Delusions: Yes Delusion Type: Paranoid Suicidal: Ideation (no SI) Homicidal: Ideation (no HI) Insight/Judgement Very poor Vitals/IOs Vital Signs Date Time Temp Pulse Resp B/P Pulse Ox O2 Delivery O2 Flow Rate FiO2 04/21/16 05:02 97.4 74 15 118/58 04/20/16 18:35 96 Intake and Output 04/20/16 04/20/16 04/21/16 08:00 16:00 00:00 Intake Total 240 ml 1800 ml Balance 240 ml 1800 ml Assessment & Plan Problem List: (1) Bipolar disorder ICD Code: F31.9 Assessment & Plan Estimated LOS: days patient continues confused somewhat psychotic, compliant medications, will recheck Depakote level tomorrow Justification for Cont. Inpt. At this and the patient was significantly decompensate if placed in the lower level of care Discharge Planning To be determined Problem Qualifiers (1) Bipolar disorder: Qualified Code: F31.9 - Bipolar affective disorder, current episode manic, current episode severity unspecified Ezequiel Grayson MD Apr 21, 2016 11:58
[2016-04-21] MEDS: ACETAMINOPHEN 325 MG TAB PO PRN ×2 (17:18→20:37)
[2016-04-21 19:25] VITALS: BP 108/51; PULSE 98; RESP 16; TEMP 97.5; O2SAT 97
[2016-04-21] MEDS: QUEtiapine FUMARATE 300 MG TAB PO SCH (20:37)
[2016-04-21] MEDS: diphenhydrAMINE HCL 50 MG CAP PO PRN (23:00)
[2016-04-21] MEDS: TEMAZEPAM 7.5 MG CAP PO PRN (23:01)
[2016-04-22] MEDS: LEVOTHYROXINE SODIUM 100 MCG TAB PO SCH (05:17)
[2016-04-22 05:52] VITALS: BP 101/52; PULSE 77; RESP 18; TEMP 98.2; O2SAT 100
[2016-04-22] MEDS: ACETAMINOPHEN 325 MG TAB PO PRN (06:15)
[2016-04-22] MEDS: BENZTROPINE MESYLATE 1 MG TAB PO SCH ×2 (09:00→20:32)
[2016-04-22] MEDS: POLYETHYLENE GLYCOL 17 GM PKG PO SCH (09:00)
[2016-04-22] MEDS: NICOTINE 21 MG/24 HR PATCH T-DERMAL SCH (09:00)
[2016-04-22] MEDS: CALCIUM CARBONATE 1.25 GM (CA 500 MG) TAB PO SCH ×2 (09:00→20:32)
[2016-04-22] MEDS: FENOFIBRATE 48 MG TAB PO SCH (09:00)
[2016-04-22] MEDS: PHENYTOIN SODIUM 100 MG CAP PO SCH ×3 (09:00→17:21)
[2016-04-22] MEDS: hydrOXYzine HCL 50 MG TAB PO PRN ×2 (09:01→17:45)
[2016-04-22] MEDS: QUEtiapine FUMARATE 100 MG TAB PO SCH ×2 (09:01→16:28)
[2016-04-22] MEDS: VALPROIC ACID SYRUP 250 MG/5 ML UDC PO SCH ×2 (09:01→20:31)
--- NOTE | 2016-04-22 14:39 | HHI.PYPN ---
Subjective Remarks Pt seen and discussed with staff. She remains paranoid and delusional. She was agitated this morning and balled up fist towards staff. Hygiene is poor. No SI/ HI Review of Systems Psychiatric: COMPLAINS OF: Delusions Objective Alert: Yes [place]: Person, Place ([place]) Mood: Anxious Affect: Flat Memory Intact: Comment (not formally assessed) Hallucinations: Other (none) Delusions: Yes Delusion Type: Paranoid Suicidal: Ideation (no SI) Homicidal: Ideation (no HI) Insight/Judgement poor Vitals/IOs Vital Signs Date Time Temp Pulse Resp B/P Pulse Ox O2 Delivery O2 Flow Rate FiO2 04/22/16 05:52 98.2 77 18 101/52 100 Intake and Output 04/21/16 04/21/16 04/22/16 08:00 16:00 00:00 Intake Total 240 ml 2400 ml 1440 ml Balance 240 ml 2400 ml 1440 ml Assessment & Plan Problem List: (1) Bipolar disorder ICD Code: F31.9 Assessment & Plan Continue current tx plan. Estimated LOS: days Justification for Cont. Inpt. impairments in reality construction. Problem Qualifiers (1) Bipolar disorder: Qualified Code: F31.9 - Bipolar affective disorder, current episode manic, current episode severity unspecified Marina Kessler MD Apr 22, 2016 14:39
[2016-04-22] MEDS: LORazepam 2 MG/ML VIAL IM PRN (16:50)
[2016-04-22] MEDS: LORazepam 1 MG TAB PO PRN ×2 (17:45→23:47)
[2016-04-22 19:00] VITALS: BP 132/67; PULSE 89; RESP 18; TEMP 98.1; O2SAT 95
[2016-04-22] MEDS: QUEtiapine FUMARATE 300 MG TAB PO SCH (20:31)
[2016-04-22] MEDS: TEMAZEPAM 7.5 MG CAP PO PRN (20:31)
[2016-04-23 05:03] VITALS: BP 112/70; PULSE 74; RESP 18; TEMP 98.2; O2SAT 100
[2016-04-23] MEDS: LEVOTHYROXINE SODIUM 100 MCG TAB PO SCH (05:40)
[2016-04-23] MEDS: POLYETHYLENE GLYCOL 17 GM PKG PO SCH (08:17)
[2016-04-23] MEDS: CALCIUM CARBONATE 1.25 GM (CA 500 MG) TAB PO SCH ×2 (08:17→20:42)
[2016-04-23] MEDS: VALPROIC ACID SYRUP 250 MG/5 ML UDC PO SCH ×2 (08:17→20:41)
[2016-04-23] MEDS: hydrOXYzine HCL 50 MG TAB PO PRN (08:18)
[2016-04-23] MEDS: PHENYTOIN SODIUM 100 MG CAP PO SCH ×3 (08:18→16:15)
[2016-04-23] MEDS: LORazepam 1 MG TAB PO PRN (08:18)
[2016-04-23] MEDS: QUEtiapine FUMARATE 100 MG TAB PO SCH ×2 (08:18→16:15)
[2016-04-23] MEDS: BENZTROPINE MESYLATE 1 MG TAB PO SCH ×2 (08:18→20:42)
[2016-04-23] MEDS: FENOFIBRATE 48 MG TAB PO SCH (08:23)
[2016-04-23] MEDS: NICOTINE 21 MG/24 HR PATCH T-DERMAL SCH (08:23)
--- NOTE | 2016-04-23 15:24 | HHI.PYPN ---
Subjective Remarks Pt seen and discussed with staff. She remains labile and disorganized. She states that she has been banned from [facility]. SHe is compliant with medications. No outbursts today. Objective Alert: Yes [place]: Person, Place ([place]) Mood: Anxious Affect: Flat Memory Intact: Comment (not formally assessed) Hallucinations: Other (none) Delusions: Yes Delusion Type: Paranoid Suicidal: Ideation (no SI) Homicidal: Ideation (no HI) Insight/Judgement poor Vitals/IOs Vital Signs Date Time Temp Pulse Resp B/P Pulse Ox O2 Delivery O2 Flow Rate FiO2 04/23/16 05:03 98.2 74 18 112/70 100 Intake and Output 04/22/16 04/22/16 04/23/16 08:00 16:00 00:00 Intake Total 480 ml 960 ml 840 ml Balance 480 ml 960 ml 840 ml Assessment & Plan Problem List: (1) Bipolar disorder ICD Code: F31.9 Assessment & Plan Continue current tx plan . Estimated LOS: days Justification for Cont. Inpt. impairments in reality testing and social functioning. Problem Qualifiers (1) Bipolar disorder: Qualified Code: F31.9 - Bipolar affective disorder, current episode manic, current episode severity unspecified Marina Kessler MD Apr 23, 2016 15:24
[2016-04-23 19:24] VITALS: BP 110/61; PULSE 94; RESP 16; TEMP 98.4
[2016-04-23] MEDS: QUEtiapine FUMARATE 300 MG TAB PO SCH (20:41)
[2016-04-23] MEDS: TEMAZEPAM 7.5 MG CAP PO PRN (20:41)
[2016-04-23] MEDS: ALUMINUM/MAGNESIUM/SIMETH 30 ML CUP PO PRN (20:52)
[2016-04-24 05:08] VITALS: BP 98/61; PULSE 71; RESP 18; TEMP 97.3; O2SAT 98
[2016-04-24] MEDS: LEVOTHYROXINE SODIUM 100 MCG TAB PO SCH (05:37)
[2016-04-24] MEDS: hydrOXYzine HCL 50 MG TAB PO PRN (05:48)
[2016-04-24] MEDS: LORazepam 1 MG TAB PO PRN (05:48)
[2016-04-24] MEDS: ACETAMINOPHEN 325 MG TAB PO PRN (05:48)
[2016-04-24] MEDS: VALPROIC ACID SYRUP 250 MG/5 ML UDC PO SCH ×2 (08:21→21:19)
[2016-04-24] MEDS: FENOFIBRATE 48 MG TAB PO SCH (08:21)
[2016-04-24] MEDS: QUEtiapine FUMARATE 100 MG TAB PO SCH ×2 (08:22→15:35)
[2016-04-24] MEDS: POLYETHYLENE GLYCOL 17 GM PKG PO SCH (08:23)
[2016-04-24] MEDS: CALCIUM CARBONATE 1.25 GM (CA 500 MG) TAB PO SCH ×2 (08:23→21:19)
[2016-04-24] MEDS: BENZTROPINE MESYLATE 1 MG TAB PO SCH ×2 (08:23→21:19)
[2016-04-24] MEDS: NICOTINE 21 MG/24 HR PATCH T-DERMAL SCH (08:24)
[2016-04-24] MEDS: PHENYTOIN SODIUM 100 MG CAP PO SCH ×3 (09:00→17:22)
[2016-04-24] MEDS: ALUMINUM/MAGNESIUM/SIMETH 30 ML CUP PO PRN (12:19)
--- NOTE | 2016-04-24 15:21 | HHI.PYPN ---
Subjective Remarks Patient discussed with treatment team and medical student Erica, chart reviewed, patient seen on unit. Patient continues intrusive wandering the unit markedly disorganized. Somewhat less intense Review of Systems Except as stated in HPI: all other systems reviewed are Neg Objective Alert: Yes [place]: Person, Place ([place]) Mood: Anxious Affect: Flat Memory Intact: Comment (not formally assessed) Hallucinations: Other (none) Delusions: Yes Delusion Type: Paranoid Suicidal: Ideation (no SI) Homicidal: Ideation (no HI) Insight/Judgement Very poor Vitals/IOs Vital Signs Date Time Temp Pulse Resp B/P Pulse Ox O2 Delivery O2 Flow Rate FiO2 04/24/16 05:08 97.3 71 18 98/61 98 Intake and Output 04/23/16 04/23/16 04/24/16 08:00 16:00 00:00 Intake Total 0 ml 480 ml 1440 ml Balance 0 ml 480 ml 1440 ml Assessment & Plan Problem List: (1) Bipolar disorder ICD Code: F31.9 Assessment & Plan Estimated LOS: days patient continues confused labile wandering and disorganized, compliant medications Justification for Cont. Inpt. At this time patient would significantly decompensate if placed at a lower level of care Discharge Planning To be determined Problem Qualifiers (1) Bipolar disorder: Qualified Code: F31.9 - Bipolar affective disorder, current episode manic, current episode severity unspecified Ezequiel Grayson MD Apr 24, 2016 15:21
[2016-04-24 18:11] VITALS: BP 108/59; PULSE 91; RESP 18; TEMP 97.3; O2SAT 100
[2016-04-24] MEDS: QUEtiapine FUMARATE 300 MG TAB PO SCH (21:19)
[2016-04-25] MEDS: TEMAZEPAM 7.5 MG CAP PO PRN (01:11)
[2016-04-25] MEDS: ACETAMINOPHEN 325 MG TAB PO PRN (01:12)
[2016-04-25] MEDS: LEVOTHYROXINE SODIUM 100 MCG TAB PO SCH (05:34)
[2016-04-25 06:04] VITALS: BP 93/62; PULSE 120; RESP 16; TEMP 97.9; O2SAT 97
[2016-04-25] MEDS: HALOPERIDOL 5 MG TAB PO PRN ×2 (08:35→21:26)
[2016-04-25] MEDS: LORazepam 1 MG TAB PO PRN ×2 (08:35→21:26)
[2016-04-25] MEDS: POLYETHYLENE GLYCOL 17 GM PKG PO SCH (08:35)
[2016-04-25] MEDS: VALPROIC ACID SYRUP 250 MG/5 ML UDC PO SCH ×2 (08:36→20:11)
[2016-04-25] MEDS: BENZTROPINE MESYLATE 1 MG TAB PO SCH ×2 (08:36→20:12)
[2016-04-25] MEDS: FENOFIBRATE 48 MG TAB PO SCH (08:36)
[2016-04-25] MEDS: PHENYTOIN SODIUM 100 MG CAP PO SCH ×3 (08:36→17:20)
[2016-04-25] MEDS: QUEtiapine FUMARATE 100 MG TAB PO SCH ×2 (08:36→17:21)
[2016-04-25] MEDS: hydrOXYzine HCL 50 MG TAB PO PRN (08:37)
[2016-04-25] MEDS: CALCIUM CARBONATE 1.25 GM (CA 500 MG) TAB PO SCH ×2 (08:42→20:12)
[2016-04-25] MEDS: NICOTINE 21 MG/24 HR PATCH T-DERMAL SCH (08:42)
--- NOTE | 2016-04-25 12:43 | HHI.PYPN ---
Subjective Remarks Patient seen in her room with nurse Jermaine and medical student Cari, chart reviewed. Urinalysis negative. Will recheck Depakote blood level tomorrow. Patient otherwise is clean neatly dressed in slacks and a sweater, calm less intensity less vigilant but still somewhat intrusive, markedly disorganized tangential circumstantial. With pressured speech though the rate is slow Review of Systems Except as stated in HPI: all other systems reviewed are Neg Objective Alert: Yes [place]: Person, Place ([place]) Mood: Anxious Affect: Flat Memory Intact: Comment (not formally assessed) Hallucinations: Other (none) Delusions: Yes Delusion Type: Paranoid Suicidal: Ideation (no SI) Homicidal: Ideation (no HI) Insight/Judgement Poor Vitals/IOs Vital Signs Date Time Temp Pulse Resp B/P Pulse Ox O2 Delivery O2 Flow Rate FiO2 04/25/16 06:04 97.9 120 16 93/62 97 Intake and Output 04/24/16 04/24/16 04/25/16 08:00 16:00 00:00 Intake Total 1580 ml 600 ml Balance 1580 ml 600 ml Assessment & Plan Problem List: (1) Bipolar disorder ICD Code: F31.9 Assessment & Plan Estimated LOS: days patient continues with pressured speech, markedly disorganized tangential circumstantial, urinalysis was negative, will recheck Depakote level in a.m. Justification for Cont. Inpt. At this time patient will decompensate if placed a lower level of care Discharge Planning To be determined Problem Qualifiers (1) Bipolar disorder: Qualified Code: F31.9 - Bipolar affective disorder, current episode manic, current episode severity unspecified Ezequiel Grayson MD Apr 25, 2016 12:43
[2016-04-25 19:23] VITALS: BP 92/67; PULSE 88; RESP 16; TEMP 97.9; O2SAT 98
[2016-04-25] MEDS: QUEtiapine FUMARATE 300 MG TAB PO SCH (20:12)
[2016-04-26] MEDS: hydrOXYzine HCL 50 MG TAB PO PRN (01:39)
[2016-04-26] MEDS: diphenhydrAMINE HCL 50 MG CAP PO PRN ×2 (01:39→20:12)
[2016-04-26] MEDS: ACETAMINOPHEN 325 MG TAB PO PRN (01:44)
[2016-04-26 05:38] VITALS: BP 129/66; PULSE 77; RESP 15; TEMP 97.6; O2SAT 98
[2016-04-26] MEDS: LEVOTHYROXINE SODIUM 100 MCG TAB PO SCH (05:49)
[2016-04-26] MEDS: CALCIUM CARBONATE 1.25 GM (CA 500 MG) TAB PO SCH ×2 (09:00→20:12)
[2016-04-26] MEDS: QUEtiapine FUMARATE 100 MG TAB PO SCH ×2 (09:00→17:14)
[2016-04-26] MEDS: FENOFIBRATE 48 MG TAB PO SCH (09:00)
[2016-04-26] MEDS: BENZTROPINE MESYLATE 1 MG TAB PO SCH ×2 (09:00→20:11)
[2016-04-26] MEDS: POLYETHYLENE GLYCOL 17 GM PKG PO SCH (09:00)
[2016-04-26] MEDS: NICOTINE 21 MG/24 HR PATCH T-DERMAL SCH (09:00)
[2016-04-26] MEDS: PHENYTOIN SODIUM 100 MG CAP PO SCH ×3 (09:00→17:14)
[2016-04-26] MEDS: VALPROIC ACID SYRUP 250 MG/5 ML UDC PO SCH ×2 (09:00→20:11)
--- NOTE | 2016-04-26 10:56 | HHI.PYPN ---
Subjective Remarks Patient seen in [place] with nurse Jermaine, chart reviewed, patient continues markedly confused and disoriented though no behavioral problems at this time. However list night patient and some serious behavioral issues needed multiple when necessary's. Depakote level drawn the same came back at 50. Refrain her medications patient does have Restoril ordered a chest that does not seem to be helping her with her sleep. We will discontinue the Restoril and add Elavil 50 mg at bedtime Review of Systems Except as stated in HPI: all other systems reviewed are Neg Objective Alert: Yes [place]: Person, Place ([place]) Mood: Anxious Affect: Flat Memory Intact: Comment (not formally assessed) Hallucinations: Other (none) Delusions: Yes Delusion Type: Paranoid Suicidal: Ideation (no SI) Homicidal: Ideation (no HI) Insight/Judgement Very poor Labs Test 04/26/16 07:07 Valproic Acid (Depakene) Level 50 MCG/ML Vitals/IOs Vital Signs Date Time Temp Pulse Resp B/P Pulse Ox O2 Delivery O2 Flow Rate FiO2 04/26/16 05:38 97.6 77 15 129/66 98 Intake and Output 04/25/16 04/25/16 04/26/16 08:00 16:00 00:00 Intake Total 480 ml 1800 ml Balance 480 ml 1800 ml Assessment & Plan Problem List: (1) Bipolar disorder ICD Code: F31.9 Assessment & Plan Estimated LOS: days patient continues confused with pressured speech markedly disorganized. There is also sleep issues that have not been addressed with the Restoril. We'll discontinue Restoril and Elavil 50 mg at at bedtime Justification for Cont. Inpt. At this time patient was significantly decompensate if placed on the lower level of care Discharge Planning To be determined Problem Qualifiers (1) Bipolar disorder: Qualified Code: F31.9 - Bipolar affective disorder, current episode manic, current episode severity unspecified Ezequiel Grayson MD Apr 26, 2016 10:56
[2016-04-26] MEDS: LORazepam 1 MG TAB PO PRN (12:16)
[2016-04-26 18:00] VITALS: BP 117/63; PULSE 88; RESP 16; TEMP 97.8; O2SAT 99
[2016-04-26 18:01] VITALS: BP 117/63; PULSE 88; RESP 16; TEMP 97.8; O2SAT 99
[2016-04-26] MEDS: AMITRIPTYLINE HCL 50 MG TAB PO SCH (20:12)
[2016-04-26] MEDS: QUEtiapine FUMARATE 300 MG TAB PO SCH (20:12)
[2016-04-27] MEDS: ACETAMINOPHEN 325 MG TAB PO PRN (03:46)
[2016-04-27 06:11] VITALS: BP 125/60; PULSE 96; RESP 18; TEMP 97.7; O2SAT 97
[2016-04-27] MEDS: LEVOTHYROXINE SODIUM 100 MCG TAB PO SCH (06:30)
[2016-04-27] MEDS: VALPROIC ACID SYRUP 250 MG/5 ML UDC PO SCH ×2 (08:32→20:41)
[2016-04-27] MEDS: QUEtiapine FUMARATE 100 MG TAB PO SCH ×2 (08:33→15:36)
[2016-04-27] MEDS: PHENYTOIN SODIUM 100 MG CAP PO SCH ×3 (08:33→17:40)
[2016-04-27] MEDS: FENOFIBRATE 48 MG TAB PO SCH (08:33)
[2016-04-27] MEDS: BENZTROPINE MESYLATE 1 MG TAB PO SCH ×2 (08:33→20:41)
[2016-04-27] MEDS: POLYETHYLENE GLYCOL 17 GM PKG PO SCH (08:34)
[2016-04-27] MEDS: CALCIUM CARBONATE 1.25 GM (CA 500 MG) TAB PO SCH ×2 (08:34→20:41)
[2016-04-27] MEDS: LORazepam 2 MG/ML VIAL IM PRN (11:44)
--- NOTE | 2016-04-27 14:36 | HHI.PYPN ---
Subjective Remarks Patient seen in day room with nurse Zarina and medical student Cari, patient calm seen with other patients having a somewhat normal conversation. However earlier today she became somewhat [id number] needed when necessary of Ativan which has helped. Patient also had six-hour sleep last night, this with first nite for the Elavil. For now continue treatment no change Review of Systems Except as stated in HPI: all other systems reviewed are Neg Objective Alert: Yes [place]: Person, Place ([place]) Mood: Anxious Affect: Flat Memory Intact: Comment (not formally assessed) Hallucinations: Other (none) Delusions: Yes Delusion Type: Paranoid Suicidal: Ideation (no SI) Homicidal: Ideation (no HI) Insight/Judgement Very poor Vitals/IOs Vital Signs Date Time Temp Pulse Resp B/P Pulse Ox O2 Delivery O2 Flow Rate FiO2 04/27/16 06:11 97.7 96 18 125/60 97 Intake and Output 04/26/16 04/26/16 04/27/16 08:00 16:00 00:00 Intake Total 480 ml 480 ml 1080 ml Balance 480 ml 480 ml 1080 ml Assessment & Plan Problem List: (1) Bipolar disorder ICD Code: F31.9 Assessment & Plan Estimated LOS: days patient continues confused psychotic though somewhat softening in intensity sleep somewhat improved with the Elavil Justification for Cont. Inpt. At this time the patient would significantly decompensate if placed in a lower level of care Discharge Planning To be determined Problem Qualifiers (1) Bipolar disorder: Qualified Code: F31.9 - Bipolar affective disorder, current episode manic, current episode severity unspecified Ezequiel Grayson MD Apr 27, 2016 14:36
[2016-04-27 19:14] VITALS: BP 122/70; PULSE 98; RESP 18; TEMP 98.5
[2016-04-27] MEDS: AMITRIPTYLINE HCL 50 MG TAB PO SCH (20:41)
[2016-04-27] MEDS: QUEtiapine FUMARATE 300 MG TAB PO SCH (20:41)
[2016-04-27] MEDS: hydrOXYzine HCL 50 MG TAB PO PRN (20:42)
[2016-04-27] MEDS: diphenhydrAMINE HCL 50 MG CAP PO PRN (20:42)
[2016-04-28] MEDS: HALOPERIDOL 5 MG TAB PO PRN (02:28)
[2016-04-28] MEDS: LORazepam 1 MG TAB PO PRN ×2 (02:28→12:31)
[2016-04-28 05:04] VITALS: BP 115/76; PULSE 78; RESP 18; TEMP 96.7; O2SAT 97
[2016-04-28] MEDS: LEVOTHYROXINE SODIUM 100 MCG TAB PO SCH (05:18)
[2016-04-28] MEDS: VALPROIC ACID SYRUP 250 MG/5 ML UDC PO SCH ×2 (09:00→20:20)
[2016-04-28] MEDS: POLYETHYLENE GLYCOL 17 GM PKG PO SCH (09:00)
[2016-04-28] MEDS: QUEtiapine FUMARATE 100 MG TAB PO SCH ×2 (09:35→16:00)
[2016-04-28] MEDS: CALCIUM CARBONATE 1.25 GM (CA 500 MG) TAB PO SCH ×2 (09:36→20:19)
[2016-04-28] MEDS: PHENYTOIN SODIUM 100 MG CAP PO SCH ×3 (09:36→17:50)
[2016-04-28] MEDS: BENZTROPINE MESYLATE 1 MG TAB PO SCH ×2 (09:36→20:19)
[2016-04-28] MEDS: FENOFIBRATE 48 MG TAB PO SCH (09:37)
--- NOTE | 2016-04-28 12:02 | HHI.PYPN ---
Subjective Remarks Patient seen in her room with the floor staff, chart review, patient remains disorganized at times with sleep difficulty related to some behavioral issues needing when necessary medications. Staff feels that patient responds well to the when necessary Ativan. We will order scheduled Ativan 0.5 mg 8 AM and 4 PM and 1 mg at bedtime continue other medications no change Review of Systems Except as stated in HPI: all other systems reviewed are Neg Objective Alert: Yes [place]: Person, Place ([place]) Mood: Anxious Affect: Flat Memory Intact: Comment (not formally assessed) Hallucinations: Other (none) Delusions: Yes Delusion Type: Paranoid Suicidal: Ideation (no SI) Homicidal: Ideation (no HI) Insight/Judgement Very poor Vitals/IOs Vital Signs Date Time Temp Pulse Resp B/P Pulse Ox O2 Delivery O2 Flow Rate FiO2 04/28/16 05:04 96.7 78 18 115/76 97 Intake and Output 04/27/16 04/27/16 04/28/16 08:00 16:00 00:00 Intake Total 240 ml 720 ml 720 ml Balance 240 ml 720 ml 720 ml Assessment & Plan Problem List: (1) Bipolar disorder ICD Code: F31.9 Assessment & Plan Estimated LOS: days patient remains somewhat confused intrusive disorganized behavioral issues towards late evening overnight. She medication adjustments above Justification for Cont. Inpt. At this time patient will decompensate and placed in a lower level of care Discharge Planning To be determined Problem Qualifiers (1) Bipolar disorder: Qualified Code: F31.9 - Bipolar affective disorder, current episode manic, current episode severity unspecified Ezequiel Grayson MD Apr 28, 2016 12:01
[2016-04-28] MEDS: ACETAMINOPHEN 325 MG TAB PO PRN ×2 (12:31→20:43)
[2016-04-28] MEDS: LORazepam 0.5 MG TAB PO SCH (16:00)
[2016-04-28 18:36] VITALS: BP 144/76; PULSE 91; RESP 17; TEMP 98.8; O2SAT 98
[2016-04-28] MEDS: LORazepam 1 MG TAB PO SCH (20:19)
[2016-04-28] MEDS: diphenhydrAMINE HCL 50 MG CAP PO PRN (20:19)
[2016-04-28] MEDS: QUEtiapine FUMARATE 300 MG TAB PO SCH (20:19)
[2016-04-28] MEDS: AMITRIPTYLINE HCL 75 MG TAB PO SCH (20:22)
[2016-04-29] MEDS: LORazepam 1 MG TAB PO PRN (02:54)
[2016-04-29] MEDS: ACETAMINOPHEN 325 MG TAB PO PRN (02:55)
[2016-04-29 05:39] VITALS: BP 115/60; PULSE 70; RESP 16; TEMP 98; O2SAT 99
[2016-04-29] MEDS: LEVOTHYROXINE SODIUM 100 MCG TAB PO SCH (06:32)
[2016-04-29] MEDS: LORazepam 0.5 MG TAB PO SCH ×2 (09:08→17:04)
[2016-04-29] MEDS: BENZTROPINE MESYLATE 1 MG TAB PO SCH ×2 (09:08→20:11)
[2016-04-29] MEDS: CALCIUM CARBONATE 1.25 GM (CA 500 MG) TAB PO SCH ×2 (09:08→20:11)
[2016-04-29] MEDS: PHENYTOIN SODIUM 100 MG CAP PO SCH ×3 (09:09→17:05)
[2016-04-29] MEDS: QUEtiapine FUMARATE 100 MG TAB PO SCH ×2 (09:09→17:05)
[2016-04-29] MEDS: FENOFIBRATE 48 MG TAB PO SCH (09:09)
[2016-04-29] MEDS: VALPROIC ACID SYRUP 250 MG/5 ML UDC PO SCH ×2 (09:10→20:11)
[2016-04-29] MEDS: POLYETHYLENE GLYCOL 17 GM PKG PO SCH (09:10)
--- NOTE | 2016-04-29 12:29 | HHI.PYPN ---
Subjective Remarks Patient was seen and case discussed with nursing. Patient is pleasant and cooperative with exam. She is alert and oriented 3 but with a disorganized and tangential thought process. She is hyperverbal with pressured speech. Per nursing she is cooperative and compliant with her medications. Mood is stable at this time. Denies suicidal ideations thought intent or plan Objective Alert: Yes [place]: Person, Place ([place]) Mood: Anxious Affect: Flat Memory Intact: Comment (not formally assessed) Hallucinations: Other (none) Delusions: Yes Delusion Type: Paranoid Suicidal: Ideation (no SI) Homicidal: Ideation (no HI) Insight/Judgement poor Vitals/IOs Vital Signs Date Time Temp Pulse Resp B/P Pulse Ox O2 Delivery O2 Flow Rate FiO2 04/29/16 05:39 98.0 70 16 115/60 99 Intake and Output 04/28/16 04/28/16 04/29/16 08:00 16:00 00:00 Intake Total 360 ml 480 ml 960 ml Balance 360 ml 480 ml 960 ml Assessment & Plan Problem List: (1) Bipolar disorder ICD Code: F31.9 Assessment & Plan Continue current treatment plan Justification for Cont. Inpt. Patient will decompensate in a less restrictive setting Problem Qualifiers (1) Bipolar disorder: Qualified Code: F31.9 - Bipolar affective disorder, current episode manic, current episode severity unspecified Cuate Flynn DO Apr 29, 2016 12:29
[2016-04-29 20:07] VITALS: BP 109/64; PULSE 86; RESP 18; TEMP 98; O2SAT 100
[2016-04-29] MEDS: hydrOXYzine HCL 50 MG TAB PO PRN (20:11)
[2016-04-29] MEDS: QUEtiapine FUMARATE 300 MG TAB PO SCH (20:11)
[2016-04-29] MEDS: AMITRIPTYLINE HCL 75 MG TAB PO SCH (20:11)
[2016-04-29] MEDS: LORazepam 1 MG TAB PO SCH (20:11)
[2016-04-30] MEDS: diphenhydrAMINE HCL 50 MG CAP PO PRN (02:20)
[2016-04-30] MEDS: LEVOTHYROXINE SODIUM 100 MCG TAB PO SCH (05:35)
[2016-04-30 05:48] VITALS: BP 108/53; PULSE 78; RESP 16; TEMP 97.6; O2SAT 99
[2016-04-30] MEDS: FENOFIBRATE 48 MG TAB PO SCH (08:30)
[2016-04-30] MEDS: PHENYTOIN SODIUM 100 MG CAP PO SCH ×3 (08:30→18:00)
[2016-04-30] MEDS: QUEtiapine FUMARATE 100 MG TAB PO SCH ×2 (08:30→16:00)
[2016-04-30] MEDS: LORazepam 0.5 MG TAB PO SCH ×2 (08:31→16:00)
[2016-04-30] MEDS: CALCIUM CARBONATE 1.25 GM (CA 500 MG) TAB PO SCH ×2 (08:31→20:11)
[2016-04-30] MEDS: BENZTROPINE MESYLATE 1 MG TAB PO SCH ×2 (08:31→20:11)
[2016-04-30] MEDS: VALPROIC ACID SYRUP 250 MG/5 ML UDC PO SCH ×2 (08:32→20:10)
[2016-04-30] MEDS: POLYETHYLENE GLYCOL 17 GM PKG PO SCH (08:32)
[2016-04-30 08:40] VITALS: BP 108/53; PULSE 78; RESP 16; TEMP 97.6; O2SAT 99
[2016-04-30] MEDS: HALOPERIDOL 5 MG TAB PO PRN (13:34)
--- NOTE | 2016-04-30 15:28 | HHI.PYPN ---
Subjective Remarks Patient was seen and case discussed with nursing. Patient is labile and disorganized. She shows me a business card for a assisted and is crying for unintelligible reason. She is compliant with her medications. Objective Alert: Yes [place]: Person, Place ([place]) Mood: Anxious Affect: Flat Memory Intact: Comment (not formally assessed) Hallucinations: Other (none) Delusions: Yes Delusion Type: Paranoid Suicidal: Ideation (no SI) Homicidal: Ideation (no HI) Insight/Judgement Poor Vitals/IOs Vital Signs Date Time Temp Pulse Resp B/P Pulse Ox O2 Delivery O2 Flow Rate FiO2 04/30/16 08:40 97.6 78 16 108/53 99 Intake and Output 04/29/16 04/29/16 04/30/16 08:00 16:00 00:00 Intake Total 480 ml 2040 ml 720 ml Balance 480 ml 2040 ml 720 ml Assessment & Plan Problem List: (1) Bipolar disorder ICD Code: F31.9 Assessment & Plan Continue current treatment plan Justification for Cont. Inpt. Patient will decompensate in a less restrictive setting Problem Qualifiers (1) Bipolar disorder: Qualified Code: F31.9 - Bipolar affective disorder, current episode manic, current episode severity unspecified Cuate Flynn DO Apr 30, 2016 15:28
[2016-04-30 18:24] VITALS: BP 115/56; PULSE 86; RESP 16; TEMP 99; O2SAT 98
[2016-04-30] MEDS: AMITRIPTYLINE HCL 75 MG TAB PO SCH (20:10)
[2016-04-30] MEDS: LORazepam 1 MG TAB PO SCH (20:10)
[2016-04-30] MEDS: QUEtiapine FUMARATE 300 MG TAB PO SCH (20:11)
[2016-05-01 05:49] VITALS: BP 121/61; PULSE 97; RESP 15; TEMP 98.3; O2SAT 94
[2016-05-01] MEDS: LEVOTHYROXINE SODIUM 100 MCG TAB PO SCH (06:09)
[2016-05-01] MEDS: VALPROIC ACID SYRUP 250 MG/5 ML UDC PO SCH ×2 (09:40→20:27)
[2016-05-01] MEDS: LORazepam 0.5 MG TAB PO SCH ×2 (09:40→15:33)
[2016-05-01] MEDS: FENOFIBRATE 48 MG TAB PO SCH (09:40)
[2016-05-01] MEDS: POLYETHYLENE GLYCOL 17 GM PKG PO SCH (09:40)
[2016-05-01] MEDS: BENZTROPINE MESYLATE 1 MG TAB PO SCH ×2 (09:40→20:27)
[2016-05-01] MEDS: CALCIUM CARBONATE 1.25 GM (CA 500 MG) TAB PO SCH ×2 (09:40→20:28)
[2016-05-01] MEDS: QUEtiapine FUMARATE 100 MG TAB PO SCH ×2 (09:40→15:33)
[2016-05-01] MEDS: PHENYTOIN SODIUM 100 MG CAP PO SCH ×3 (09:40→18:00)
[2016-05-01] MEDS: LORazepam 2 MG/ML VIAL IM PRN (13:23)
--- NOTE | 2016-05-01 17:05 | HHI.PYPN ---
Subjective Remarks Patient discussed with treatment team and medical student Cari, chart review , patient seen on unit. Patient continues disorganized wandering and somewhat intrusive though no significant behavioral problem. Placement remains quite problematic Review of Systems Except as stated in HPI: all other systems reviewed are Neg Objective Alert: Yes [place]: Person, Place ([place]) Mood: Anxious Affect: Flat Memory Intact: Comment (not formally assessed) Hallucinations: Other (none) Delusions: Yes Delusion Type: Paranoid Suicidal: Ideation (no SI) Homicidal: Ideation (no HI) Insight/Judgement Very poor Vitals/IOs Vital Signs Date Time Temp Pulse Resp B/P Pulse Ox O2 Delivery O2 Flow Rate FiO2 05/01/16 05:49 98.3 97 15 121/61 94 Intake and Output 04/30/16 04/30/16 05/01/16 08:00 16:00 00:00 Intake Total 360 ml 1060 ml 1110 ml Balance 360 ml 1060 ml 1110 ml Assessment & Plan Problem List: (1) Bipolar disorder ICD Code: F31.9 Assessment & Plan Estimated LOS: days patient remains confusion somewhat psychotic, with part disorganization. Justification for Cont. Inpt. At this time patient would decompensate placed in a lower level of care Discharge Planning To be determined Problem Qualifiers (1) Bipolar disorder: Qualified Code: F31.9 - Bipolar affective disorder, current episode manic, current episode severity unspecified Ezequiel Grayson MD May 01, 2016 17:05
[2016-05-01 18:00] VITALS: BP_SYST 108; BP_SYST 119; BP_DIAS 56; BP_DIAS 63; PULSE 78; PULSE 92; RESP 16; RESP 18; TEMP 98.1; TEMP 98.2; O2SAT 97; O2SAT 98
[2016-05-01] MEDS: AMITRIPTYLINE HCL 75 MG TAB PO SCH (20:27)
[2016-05-01] MEDS: LORazepam 1 MG TAB PO SCH (20:28)
[2016-05-01] MEDS: QUEtiapine FUMARATE 300 MG TAB PO SCH (20:28)
[2016-05-02] MEDS: LEVOTHYROXINE SODIUM 100 MCG TAB PO SCH (05:16)
[2016-05-02 05:28] VITALS: BP 104/56; PULSE 80; RESP 16; TEMP 97.4; O2SAT 98
[2016-05-02] MEDS: POLYETHYLENE GLYCOL 17 GM PKG PO SCH (09:32)
[2016-05-02] MEDS: VALPROIC ACID SYRUP 250 MG/5 ML UDC PO SCH ×2 (09:32→20:51)
[2016-05-02] MEDS: FENOFIBRATE 48 MG TAB PO SCH (09:32)
[2016-05-02] MEDS: BENZTROPINE MESYLATE 1 MG TAB PO SCH ×2 (09:33→20:52)
[2016-05-02] MEDS: PHENYTOIN SODIUM 100 MG CAP PO SCH ×3 (09:33→18:34)
[2016-05-02] MEDS: LORazepam 0.5 MG TAB PO SCH ×2 (09:33→15:45)
[2016-05-02] MEDS: CALCIUM CARBONATE 1.25 GM (CA 500 MG) TAB PO SCH ×2 (09:33→20:52)
[2016-05-02] MEDS: QUEtiapine FUMARATE 100 MG TAB PO SCH ×2 (09:33→16:00)
--- NOTE | 2016-05-02 10:20 | HHI.PYPN ---
Subjective Remarks Patient seen in her room with nurse Zarina and medical student Cari, chart review, patient compliant medications. Still diffusely confused and isolating. There is a delusional component with this. Intense patient seems somewhat obsessed with cleanliness washing her hands continuing washing rubbing her face especially around her oral area. Placement continues to remain problematic Review of Systems Except as stated in HPI: all other systems reviewed are Neg Objective Alert: Yes [place]: Person, Place ([place]) Mood: Anxious Affect: Flat Memory Intact: Comment (not formally assessed) Hallucinations: Other (none) Delusions: Yes Delusion Type: Paranoid Suicidal: Ideation (no SI) Homicidal: Ideation (no HI) Insight/Judgement Very poor Vitals/IOs Vital Signs Date Time Temp Pulse Resp B/P Pulse Ox O2 Delivery O2 Flow Rate FiO2 05/02/16 05:28 97.4 80 16 104/56 98 Intake and Output 05/01/16 05/01/16 05/02/16 08:00 16:00 00:00 Intake Total 240 ml 600 ml Balance 240 ml 600 ml Assessment & Plan Problem List: (1) Bipolar disorder ICD Code: F31.9 Assessment & Plan Estimated LOS: days patient remains somewhat confused and psychotic, with intrusiveness. Though no skin behavior problems except as mentioned above. For now continue treatment no change Justification for Cont. Inpt. At this time patient will decompensate if placed in a lower level of care Discharge Planning To be determined Problem Qualifiers (1) Bipolar disorder: Qualified Code: F31.9 - Bipolar affective disorder, current episode manic, current episode severity unspecified Ezequiel Grayson MD May 02, 2016 10:20
[2016-05-02 20:24] VITALS: BP 113/58; PULSE 82; RESP 16; TEMP 98; O2SAT 98
[2016-05-02] MEDS: QUEtiapine FUMARATE 300 MG TAB PO SCH (20:52)
[2016-05-02] MEDS: AMITRIPTYLINE HCL 75 MG TAB PO SCH (20:52)
[2016-05-02] MEDS: LORazepam 1 MG TAB PO SCH (20:52)
[2016-05-02 21:31] LABS: AMIT COMBINED TOTAL 90 ng/mL (80-200); NORTRIPTYLINE 48 ng/mL (70-170)
[2016-05-03 05:31] VITALS: BP 109/60; PULSE 95; RESP 16; TEMP 97.5; O2SAT 97
[2016-05-03] MEDS: LEVOTHYROXINE SODIUM 100 MCG TAB PO SCH (05:54)
[2016-05-03] MEDS: POLYETHYLENE GLYCOL 17 GM PKG PO SCH (08:13)
[2016-05-03] MEDS: VALPROIC ACID SYRUP 250 MG/5 ML UDC PO SCH ×2 (08:14→22:12)
[2016-05-03] MEDS: LORazepam 0.5 MG TAB PO SCH ×2 (08:14→17:23)
[2016-05-03] MEDS: FENOFIBRATE 48 MG TAB PO SCH (08:14)
[2016-05-03] MEDS: BENZTROPINE MESYLATE 1 MG TAB PO SCH ×2 (08:15→22:12)
[2016-05-03] MEDS: PHENYTOIN SODIUM 100 MG CAP PO SCH ×3 (08:15→17:25)
[2016-05-03] MEDS: CALCIUM CARBONATE 1.25 GM (CA 500 MG) TAB PO SCH ×2 (08:16→22:12)
[2016-05-03] MEDS: QUEtiapine FUMARATE 100 MG TAB PO SCH ×2 (08:30→16:00)
[2016-05-03] MEDS: EUCERIN CREAM 120 GM JAR TOPICAL PRN ×2 (14:05→22:18)
--- NOTE | 2016-05-03 14:14 | HHI.PYPN ---
Subjective Remarks Patient seen in her room with nurse Zarina, patient calm though still with pressured speech markedly disorganized though will increase paranoid flavor today. I question whether the scheduled daily Seroquel is sufficient. This is recommended by her son who stated she had done well on this in the past however may need to consider an alternative medication with her Review of Systems Except as stated in HPI: all other systems reviewed are Neg Objective Alert: Yes [place]: Person, Place ([place]) Mood: Anxious Affect: Flat Memory Intact: Comment (not formally assessed) Hallucinations: Other (none) Delusions: Yes Delusion Type: Paranoid Suicidal: Ideation (no SI) Homicidal: Ideation (no HI) Insight/Judgement Very poor Vitals/IOs Vital Signs Date Time Temp Pulse Resp B/P Pulse Ox O2 Delivery O2 Flow Rate FiO2 05/03/16 05:31 97.5 95 16 109/60 97 Intake and Output 05/02/16 05/02/16 05/03/16 08:00 16:00 00:00 Intake Total 240 ml 1200 ml 360 ml Balance 240 ml 1200 ml 360 ml Assessment & Plan Problem List: (1) Bipolar disorder ICD Code: F31.9 Assessment & Plan Estimated LOS: days patient continues confused with pressured speech psychotic features Justification for Cont. Inpt. At this time patient would decompensate if placed on the lower level of care Discharge Planning To be determined Problem Qualifiers (1) Bipolar disorder: Qualified Code: F31.9 - Bipolar affective disorder, current episode manic, current episode severity unspecified Ezequiel Grayson MD May 03, 2016 14:14
[2016-05-03] MEDS: LORazepam 1 MG TAB PO SCH ×2 (14:17→22:12)
[2016-05-03 18:00] VITALS: BP 131/75; PULSE 83; RESP 16; TEMP 98.1; O2SAT 96
[2016-05-03] MEDS: AMITRIPTYLINE HCL 75 MG TAB PO SCH (22:12)
[2016-05-03] MEDS: QUEtiapine FUMARATE 300 MG TAB PO SCH (22:12)
[2016-05-03] MEDS: PADIMATE (CHAPSTICK) 4.5 GM TUBE TOP PRN (22:17)
[2016-05-03] MEDS: ACETAMINOPHEN 325 MG TAB PO PRN (22:17)
[2016-05-04] MEDS: LEVOTHYROXINE SODIUM 100 MCG TAB PO SCH (05:27)
[2016-05-04 06:00] VITALS: BP 128/73; PULSE 76; RESP 16; TEMP 97.7; O2SAT 97
[2016-05-04] MEDS: ACETAMINOPHEN 325 MG TAB PO PRN ×2 (06:26→20:50)
[2016-05-04] MEDS: QUEtiapine FUMARATE 100 MG TAB PO SCH ×2 (09:14→16:24)
[2016-05-04] MEDS: CALCIUM CARBONATE 1.25 GM (CA 500 MG) TAB PO SCH ×2 (09:15→20:50)
[2016-05-04] MEDS: PHENYTOIN SODIUM 100 MG CAP PO SCH ×3 (09:15→17:59)
[2016-05-04] MEDS: FENOFIBRATE 48 MG TAB PO SCH (09:15)
[2016-05-04] MEDS: LORazepam 0.5 MG TAB PO SCH ×2 (09:15→16:24)
[2016-05-04] MEDS: BENZTROPINE MESYLATE 1 MG TAB PO SCH ×2 (09:15→20:49)
[2016-05-04] MEDS: VALPROIC ACID SYRUP 250 MG/5 ML UDC PO SCH ×2 (09:15→20:48)
[2016-05-04] MEDS: POLYETHYLENE GLYCOL 17 GM PKG PO SCH (09:15)
--- NOTE | 2016-05-04 15:01 | HHI.PYPN ---
Subjective Remarks Patient seen in her room with medical student Cari, chart review, he should somewhat sedated today calmer less intrusive speech somewhat slower also markedly disorganized. Compliant medication. For now continue treatment Review of Systems Except as stated in HPI: all other systems reviewed are Neg Objective Alert: Yes [place]: Person, Place ([place]) Mood: Anxious Affect: Flat Memory Intact: Comment (not formally assessed) Hallucinations: Other (none) Delusions: Yes Delusion Type: Paranoid Suicidal: Ideation (no SI) Homicidal: Ideation (no HI) Insight/Judgement Very poor Vitals/IOs Vital Signs Date Time Temp Pulse Resp B/P Pulse Ox O2 Delivery O2 Flow Rate FiO2 05/04/16 06:00 97.7 76 16 128/73 97 Intake and Output 05/03/16 05/03/16 05/04/16 08:00 16:00 00:00 Intake Total 1320 ml 720 ml Balance 1320 ml 720 ml Assessment & Plan Problem List: (1) Bipolar disorder, current episode mixed, moderate ICD Code: F31.62 Assessment & Plan Estimated LOS: days patient continues intrusive disorganized with rapid pressured speech upon consideration of patient's behaviors I feel her diagnosis may better be described as bipolar disorder current episode mixed moderate with an ICD code of F 31.62 Justification for Cont. Inpt. At this time patient would decompensate if placed in a lower level of care Discharge Planning To be determined Ezequiel Grayson MD May 04, 2016 15:01
[2016-05-04 19:41] VITALS: BP 147/90; PULSE 89; RESP 18; TEMP 97.9; O2SAT 97
[2016-05-04] MEDS: PADIMATE (CHAPSTICK) 4.5 GM TUBE TOP PRN (20:50)
[2016-05-04] MEDS: AMITRIPTYLINE HCL 75 MG TAB PO SCH (20:50)
[2016-05-04] MEDS: EUCERIN CREAM 120 GM JAR TOPICAL PRN (20:50)
[2016-05-04] MEDS: LORazepam 1 MG TAB PO SCH (20:50)
[2016-05-04] MEDS: QUEtiapine FUMARATE 300 MG TAB PO SCH (20:50)
[2016-05-05] MEDS: LEVOTHYROXINE SODIUM 100 MCG TAB PO SCH (05:47)
[2016-05-05 05:53] VITALS: BP 149/70; PULSE 75; RESP 16; TEMP 97.9; O2SAT 99
[2016-05-05] MEDS: QUEtiapine FUMARATE 100 MG TAB PO SCH ×2 (09:00→15:28)
[2016-05-05] MEDS: BENZTROPINE MESYLATE 1 MG TAB PO SCH ×2 (10:00→20:48)
[2016-05-05] MEDS: CALCIUM CARBONATE 1.25 GM (CA 500 MG) TAB PO SCH ×2 (10:00→20:47)
[2016-05-05] MEDS: POLYETHYLENE GLYCOL 17 GM PKG PO SCH (10:00)
[2016-05-05] MEDS: PHENYTOIN SODIUM 100 MG CAP PO SCH ×3 (10:01→18:15)
[2016-05-05] MEDS: LORazepam 0.5 MG TAB PO SCH ×2 (10:01→15:28)
[2016-05-05] MEDS: VALPROIC ACID SYRUP 250 MG/5 ML UDC PO SCH ×2 (10:01→20:47)
[2016-05-05] MEDS: FENOFIBRATE 48 MG TAB PO SCH (10:01)
--- NOTE | 2016-05-05 13:34 | HHI.PYPN ---
Subjective Remarks Patient seen in her room with medical student Cari, chart review, patient continues calm isolating the becoming somewhat more tearful and labile when expressing her paranoia focus on her perception of her relationship with other patients on the unit. Patient compliant medications. For now continue treatment. Placement continues quite problematic Review of Systems Except as stated in HPI: all other systems reviewed are Neg Objective Alert: Yes [place]: Person, Place ([place]) Mood: Anxious Affect: Flat Memory Intact: Comment (not formally assessed) Hallucinations: Other (none) Delusions: Yes Delusion Type: Paranoid Suicidal: Ideation (no SI) Homicidal: Ideation (no HI) Insight/Judgement Very poor Vitals/IOs Vital Signs Date Time Temp Pulse Resp B/P Pulse Ox O2 Delivery O2 Flow Rate FiO2 05/05/16 05:53 97.9 75 16 149/70 99 Intake and Output 05/04/16 05/04/16 05/05/16 08:00 16:00 00:00 Intake Total 1560 ml 720 ml Balance 1560 ml 720 ml Assessment & Plan Problem List: (1) Bipolar disorder, current episode mixed, moderate ICD Code: F31.62 Assessment & Plan Estimated LOS: days patient continues labile irritable tearful isolating, compliant medications Justification for Cont. Inpt. At this time patient will decompensate if placed in the lower level of care Discharge Planning To be determined Ezequiel Grayson MD May 05, 2016 13:34
[2016-05-05 18:03] VITALS: BP 128/76; PULSE 89; RESP 16; TEMP 98.2; O2SAT 98
[2016-05-05] MEDS: ACETAMINOPHEN 325 MG TAB PO PRN (18:16)
[2016-05-05] MEDS: EUCERIN CREAM 120 GM JAR TOPICAL PRN (20:47)
[2016-05-05] MEDS: PADIMATE (CHAPSTICK) 4.5 GM TUBE TOP PRN (20:47)
[2016-05-05] MEDS: AMITRIPTYLINE HCL 75 MG TAB PO SCH (20:48)
[2016-05-05] MEDS: LORazepam 1 MG TAB PO SCH (20:48)
[2016-05-05] MEDS: QUEtiapine FUMARATE 300 MG TAB PO SCH (20:48)
[2016-05-06] MEDS: LEVOTHYROXINE SODIUM 100 MCG TAB PO SCH (05:09)
[2016-05-06 05:59] VITALS: BP 122/67; PULSE 87; RESP 16; TEMP 97.8; O2SAT 95
[2016-05-06] MEDS: POLYETHYLENE GLYCOL 17 GM PKG PO SCH (08:26)
[2016-05-06] MEDS: VALPROIC ACID SYRUP 250 MG/5 ML UDC PO SCH ×2 (08:28→20:46)
[2016-05-06] MEDS: QUEtiapine FUMARATE 100 MG TAB PO SCH ×2 (08:30→15:50)
[2016-05-06] MEDS: ACETAMINOPHEN 325 MG TAB PO PRN ×2 (08:31→20:45)
[2016-05-06] MEDS: LORazepam 1 MG TAB PO SCH (08:31)
[2016-05-06] MEDS: FENOFIBRATE 48 MG TAB PO SCH (08:32)
[2016-05-06] MEDS: PHENYTOIN SODIUM 100 MG CAP PO SCH ×3 (08:32→17:53)
[2016-05-06] MEDS: CALCIUM CARBONATE 1.25 GM (CA 500 MG) TAB PO SCH ×2 (08:32→20:47)
[2016-05-06] MEDS: BENZTROPINE MESYLATE 1 MG TAB PO SCH ×2 (08:32→20:46)
[2016-05-06] MEDS: LORazepam 0.5 MG TAB PO SCH ×2 (08:32→15:50)
[2016-05-06] MEDS: EUCERIN CREAM 120 GM JAR TOPICAL PRN ×3 (09:00→20:47)
--- NOTE | 2016-05-06 17:22 | HHI.PYPN ---
Subjective Remarks Pt seen and discussed with staff. Pt remains paranoid and disorganized. No agitation or behavioral problems today. She is compliant with medications and denies SI/HI. Objective Alert: Yes [place]: Person, Place ([place]) Mood: Anxious Affect: Flat Memory Intact: Comment (not formally assessed) Hallucinations: Other (none) Delusions: Yes Delusion Type: Paranoid Suicidal: Ideation (no SI) Homicidal: Ideation (no HI) Insight/Judgement poor Vitals/IOs Vital Signs Date Time Temp Pulse Resp B/P Pulse Ox O2 Delivery O2 Flow Rate FiO2 05/06/16 05:59 97.8 87 16 122/67 95 Intake and Output 05/05/16 05/05/16 05/06/16 08:00 16:00 00:00 Intake Total 0 ml 1440 ml 480 ml Balance 0 ml 1440 ml 480 ml Assessment & Plan Problem List: (1) Bipolar disorder, current episode mixed, moderate ICD Code: F31.62 Assessment & Plan Continue current tx plan. Estimated LOS: days Justification for Cont. Inpt. impairments in reality construction. Marina Kessler MD May 06, 2016 17:22
[2016-05-06 18:00] VITALS: BP 153/89; PULSE 89; RESP 16; TEMP 97.9; O2SAT 100
[2016-05-06] MEDS: QUEtiapine FUMARATE 300 MG TAB PO SCH (20:46)
[2016-05-06] MEDS: AMITRIPTYLINE HCL 75 MG TAB PO SCH (20:46)
[2016-05-07 05:07] VITALS: BP 102/62; PULSE 83; RESP 16; TEMP 97.4; O2SAT 97
[2016-05-07] MEDS: ACETAMINOPHEN 325 MG TAB PO PRN (05:38)
[2016-05-07] MEDS: LEVOTHYROXINE SODIUM 100 MCG TAB PO SCH (05:39)
[2016-05-07] MEDS: VALPROIC ACID SYRUP 250 MG/5 ML UDC PO SCH ×2 (08:33→20:45)
[2016-05-07] MEDS: POLYETHYLENE GLYCOL 17 GM PKG PO SCH (08:33)
[2016-05-07] MEDS: PHENYTOIN SODIUM 100 MG CAP PO SCH ×3 (08:34→17:52)
[2016-05-07] MEDS: CALCIUM CARBONATE 1.25 GM (CA 500 MG) TAB PO SCH ×2 (08:34→20:45)
[2016-05-07] MEDS: LORazepam 0.5 MG TAB PO SCH ×2 (08:35→16:40)
[2016-05-07] MEDS: BENZTROPINE MESYLATE 1 MG TAB PO SCH ×2 (08:36→20:44)
[2016-05-07] MEDS: EUCERIN CREAM 120 GM JAR TOPICAL PRN ×2 (08:37→14:40)
[2016-05-07] MEDS: QUEtiapine FUMARATE 100 MG TAB PO SCH ×2 (08:41→16:00)
[2016-05-07] MEDS: FENOFIBRATE 48 MG TAB PO SCH (08:41)
[2016-05-07 15:16] VITALS: BP 102/62; PULSE 83; RESP 16; TEMP 97.9; O2SAT 97
--- NOTE | 2016-05-07 18:47 | HHI.PYPN ---
Subjective Remarks Pt seen and discussed with staff. She states that she heard a page instructing her to return to the ER today to pay her bills. She has been less anxious today. No medication side effects. No SI/HI. Objective Alert: Yes [place]: Person, Place ([place]) Mood: Anxious (decreased) Affect: Flat Memory Intact: Comment (not formally assessed) Hallucinations: Other (none) Delusions: Yes Delusion Type: Paranoid Suicidal: Ideation (no SI) Homicidal: Ideation (no HI) Insight/Judgement poor Vitals/IOs Vital Signs Date Time Temp Pulse Resp B/P Pulse Ox O2 Delivery O2 Flow Rate FiO2 05/07/16 15:16 97.9 83 16 102/62 97 Intake and Output 05/06/16 05/06/16 05/07/16 08:00 16:00 00:00 Intake Total 480 ml 960 ml 960 ml Balance 480 ml 960 ml 960 ml Assessment & Plan Problem List: (1) Bipolar disorder, current episode mixed, moderate ICD Code: F31.62 Assessment & Plan Continue current tx plan. Estimated LOS: days Justification for Cont. Inpt. impairments in reality construction Marina Kessler MD May 07, 2016 18:47
[2016-05-07 20:31] VITALS: BP 133/64; PULSE 88; RESP 20; TEMP 98.7; O2SAT 98
[2016-05-07] MEDS: QUEtiapine FUMARATE 300 MG TAB PO SCH (20:44)
[2016-05-07] MEDS: LORazepam 1 MG TAB PO SCH (20:44)
[2016-05-07] MEDS: AMITRIPTYLINE HCL 75 MG TAB PO SCH (20:44)
[2016-05-07] MEDS: diphenhydrAMINE HCL 50 MG CAP PO PRN (20:44)
[2016-05-08 05:36] VITALS: BP 121/84; PULSE 82; RESP 16; TEMP 98; O2SAT 97
[2016-05-08] MEDS: LEVOTHYROXINE SODIUM 100 MCG TAB PO SCH (05:58)
[2016-05-08] MEDS: PHENYTOIN SODIUM 100 MG CAP PO SCH ×3 (09:00→16:52)
[2016-05-08] MEDS: POLYETHYLENE GLYCOL 17 GM PKG PO SCH (09:00)
[2016-05-08] MEDS: LORazepam 0.5 MG TAB PO SCH ×2 (10:29→16:00)
[2016-05-08] MEDS: FENOFIBRATE 48 MG TAB PO SCH (10:30)
[2016-05-08] MEDS: CALCIUM CARBONATE 1.25 GM (CA 500 MG) TAB PO SCH ×2 (10:30→20:38)
[2016-05-08] MEDS: QUEtiapine FUMARATE 100 MG TAB PO SCH ×2 (10:30→16:00)
[2016-05-08] MEDS: BENZTROPINE MESYLATE 1 MG TAB PO SCH ×2 (10:30→20:37)
[2016-05-08] MEDS: VALPROIC ACID SYRUP 250 MG/5 ML UDC PO SCH ×2 (10:31→20:38)
--- NOTE | 2016-05-08 13:37 | HHI.PYPN ---
Subjective Remarks Patient discussed with treatment team and medical student Cari, chart review , patient seen on unit. Patient somewhat calmer though still disorganized and somewhat intrusive. That appear she is tending towards her baseline. Compliant medications. For now continue treatment Review of Systems Except as stated in HPI: all other systems reviewed are Neg Objective Alert: Yes [place]: Person, Place ([place]) Mood: Anxious (decreased) Affect: Flat Memory Intact: Comment (not formally assessed) Hallucinations: Other (none) Delusions: Yes Delusion Type: Paranoid Suicidal: Ideation (no SI) Homicidal: Ideation (no HI) Insight/Judgement Very poor Vitals/IOs Vital Signs Date Time Temp Pulse Resp B/P Pulse Ox O2 Delivery O2 Flow Rate FiO2 05/08/16 05:36 98.0 82 16 121/84 97 Intake and Output 05/07/16 05/07/16 05/08/16 08:00 16:00 00:00 Intake Total 360 ml 720 ml Balance 360 ml 720 ml Assessment & Plan Problem List: (1) Bipolar disorder, current episode mixed, moderate ICD Code: F31.62 Assessment & Plan Estimated LOS: days patient continue somewhat intense and intrusive, though softening. Compliant medications. It appears patient may be tending towards her baseline Justification for Cont. Inpt. At this time patient will decompensate if placed in the lower level of care Discharge Planning To be determined Ezequiel Grayson MD May 08, 2016 13:37
[2016-05-08 18:00] VITALS: BP 129/93; PULSE 92; RESP 16; TEMP 97.7; O2SAT 98
[2016-05-08] MEDS: AMITRIPTYLINE HCL 75 MG TAB PO SCH (20:38)
[2016-05-08] MEDS: LORazepam 1 MG TAB PO SCH (20:38)
[2016-05-08] MEDS: QUEtiapine FUMARATE 300 MG TAB PO SCH (20:38)
[2016-05-09] MEDS: LEVOTHYROXINE SODIUM 100 MCG TAB PO SCH (05:51)
[2016-05-09 06:05] VITALS: BP 98/62; PULSE 72; RESP 16; TEMP 97.6; O2SAT 95
[2016-05-09] MEDS: LORazepam 0.5 MG TAB PO SCH ×2 (08:51→15:55)
[2016-05-09] MEDS: PHENYTOIN SODIUM 100 MG CAP PO SCH ×3 (08:51→17:00)
[2016-05-09] MEDS: BENZTROPINE MESYLATE 1 MG TAB PO SCH ×2 (08:51→20:43)
[2016-05-09] MEDS: FENOFIBRATE 48 MG TAB PO SCH (08:51)
[2016-05-09] MEDS: POLYETHYLENE GLYCOL 17 GM PKG PO SCH (08:51)
[2016-05-09] MEDS: CALCIUM CARBONATE 1.25 GM (CA 500 MG) TAB PO SCH ×2 (08:52→20:43)
[2016-05-09] MEDS: VALPROIC ACID SYRUP 250 MG/5 ML UDC PO SCH ×2 (08:52→20:44)
[2016-05-09] MEDS: QUEtiapine FUMARATE 100 MG TAB PO SCH ×2 (08:52→15:55)
--- NOTE | 2016-05-09 10:14 | HHI.PYPN ---
Subjective Remarks Patient seen in her room with nurse and medical student Cari, patient somewhat more labile today focusing on her perceived issues related to her son. She continues quite apologetic continues focusing at times on her bladder control. Patient compliant with medications. Remains quite problematic Review of Systems Except as stated in HPI: all other systems reviewed are Neg Objective Alert: Yes [place]: Person, Place ([place]) Mood: Anxious (decreased) Affect: Flat Memory Intact: Comment (not formally assessed) Hallucinations: Other (none) Delusions: Yes Delusion Type: Paranoid Suicidal: Ideation (no SI) Homicidal: Ideation (no HI) Insight/Judgement Very poor Vitals/IOs Vital Signs Date Time Temp Pulse Resp B/P Pulse Ox O2 Delivery O2 Flow Rate FiO2 05/09/16 06:05 97.6 72 16 98/62 95 Intake and Output 05/08/16 05/08/16 05/08/16 07:59 15:59 23:59 Intake Total 0 ml 720 ml 990 ml Balance 0 ml 720 ml 990 ml Assessment & Plan Problem List: (1) Bipolar disorder, current episode mixed, moderate ICD Code: F31.62 Assessment & Plan Estimated LOS: days patient continue psychotic and labile though the intensive affect is somewhat from her. Compliant medications. Placement remains problematic Justification for Cont. Inpt. At this time patient will decompensate if placed in a lower level of care Discharge Planning To be determined Ezequiel Grayson MD May 09, 2016 10:14
[2016-05-09 18:05] VITALS: BP 120/59; PULSE 87; RESP 16; TEMP 98; O2SAT 100
[2016-05-09] MEDS: LORazepam 1 MG TAB PO SCH (20:43)
[2016-05-09] MEDS: AMITRIPTYLINE HCL 75 MG TAB PO SCH (20:43)
[2016-05-09] MEDS: QUEtiapine FUMARATE 300 MG TAB PO SCH (20:44)
[2016-05-09] MEDS: EUCERIN CREAM 120 GM JAR TOPICAL PRN (21:13)
[2016-05-09 21:15] VITALS: BP 120/59; PULSE 87; RESP 16; TEMP 98; O2SAT 100
[2016-05-10] MEDS: LEVOTHYROXINE SODIUM 100 MCG TAB PO SCH (05:44)
[2016-05-10 05:55] VITALS: BP 109/55; PULSE 77; RESP 18; TEMP 97.6; O2SAT 96
[2016-05-10] MEDS: BENZTROPINE MESYLATE 1 MG TAB PO SCH ×2 (08:45→20:41)
[2016-05-10] MEDS: VALPROIC ACID SYRUP 250 MG/5 ML UDC PO SCH ×2 (08:45→20:40)
[2016-05-10] MEDS: QUEtiapine FUMARATE 100 MG TAB PO SCH ×2 (08:47→16:31)
[2016-05-10] MEDS: LORazepam 1 MG TAB PO SCH (08:48)
[2016-05-10] MEDS: FENOFIBRATE 48 MG TAB PO SCH (08:48)
[2016-05-10] MEDS: POLYETHYLENE GLYCOL 17 GM PKG PO SCH (08:50)
[2016-05-10] MEDS: LORazepam 0.5 MG TAB PO SCH ×2 (08:50→16:30)
[2016-05-10] MEDS: CALCIUM CARBONATE 1.25 GM (CA 500 MG) TAB PO SCH ×2 (08:50→20:41)
[2016-05-10] MEDS: PHENYTOIN SODIUM 100 MG CAP PO SCH ×3 (08:53→16:30)
[2016-05-10] MEDS: EUCERIN CREAM 120 GM JAR TOPICAL PRN (09:03)
--- NOTE | 2016-05-10 09:29 | HHI.PYPN ---
Subjective Remarks Patient seen in her room with nurse Zarina, chart review, patient's intensity and intrusiveness have diminished somewhat though the marked disorganization paranoia perseveration persist. There remains no insight into her disease. There are no significant behavioral problems. Compliant medication. Placement remains problematic will recheck Depakote level in a.m. Review of Systems Except as stated in HPI: all other systems reviewed are Neg Objective Alert: Yes [place]: Person, Place ([place]) Mood: Anxious (decreased) Affect: Flat Memory Intact: Comment (not formally assessed) Hallucinations: Other (none) Delusions: Yes Delusion Type: Paranoid Suicidal: Ideation (no SI) Homicidal: Ideation (no HI) Insight/Judgement Very poor Vitals/IOs Vital Signs Date Time Temp Pulse Resp B/P Pulse Ox O2 Delivery O2 Flow Rate FiO2 05/10/16 05:55 97.6 77 18 109/55 96 Intake and Output 05/09/16 05/09/16 05/10/16 08:00 16:00 00:00 Intake Total 480 ml 360 ml 990 ml Balance 480 ml 360 ml 990 ml Assessment & Plan Problem List: (1) Bipolar disorder, current episode mixed, moderate ICD Code: F31.62 Assessment & Plan Estimated LOS: days patient remained psychotic, though less intrusive. Compliant medications. We'll check Depakote level in a.m. Placement remains problematic Justification for Cont. Inpt. At this time patient will decompensate if placed on a lower level of care Discharge Planning To be determined Ezequiel Grayson MD May 10, 2016 09:29
[2016-05-10 18:00] VITALS: BP 108/59; PULSE 89; RESP 16; TEMP 99.8; O2SAT 94
[2016-05-10] MEDS: AMITRIPTYLINE HCL 75 MG TAB PO SCH (20:41)
[2016-05-10] MEDS: QUEtiapine FUMARATE 300 MG TAB PO SCH (20:41)
[2016-05-10] MEDS: ACETAMINOPHEN 325 MG TAB PO PRN (23:28)
[2016-05-11] MEDS: LEVOTHYROXINE SODIUM 100 MCG TAB PO SCH (05:08)
[2016-05-11 05:31] VITALS: BP 117/59; PULSE 80; RESP 17; TEMP 97.6; O2SAT 97
[2016-05-11] MEDS: POLYETHYLENE GLYCOL 17 GM PKG PO SCH (09:00)
[2016-05-11] MEDS: CALCIUM CARBONATE 1.25 GM (CA 500 MG) TAB PO SCH ×2 (09:27→20:18)
[2016-05-11] MEDS: LORazepam 0.5 MG TAB PO SCH ×2 (09:27→14:34)
[2016-05-11] MEDS: BENZTROPINE MESYLATE 1 MG TAB PO SCH ×2 (09:27→20:18)
[2016-05-11] MEDS: FENOFIBRATE 48 MG TAB PO SCH (09:27)
[2016-05-11] MEDS: QUEtiapine FUMARATE 100 MG TAB PO SCH ×2 (09:28→14:34)
[2016-05-11] MEDS: PHENYTOIN SODIUM 100 MG CAP PO SCH ×3 (09:28→17:48)
[2016-05-11] MEDS: VALPROIC ACID SYRUP 250 MG/5 ML UDC PO SCH ×2 (09:29→20:18)
--- NOTE | 2016-05-11 09:38 | HHI.PYPN ---
Subjective Remarks Patient seen in day room with nurse Zarina and medical student Cari, chart reviewed, patient somewhat calmer today though still disorganized flighty noticing she wishes to be discharged to a friend but she is unable to identify to person further. For now continue treatment Review of Systems Except as stated in HPI: all other systems reviewed are Neg Objective Alert: Yes [place]: Person, Place ([place]) Mood: Anxious (decreased) Affect: Flat Memory Intact: Comment (not formally assessed) Hallucinations: Other (none) Delusions: Yes Delusion Type: Paranoid Suicidal: Ideation (no SI) Homicidal: Ideation (no HI) Insight/Judgement Very poor Labs Test 05/11/16 07:10 Valproic Acid (Depakene) Level 67 MCG/ML Vitals/IOs Vital Signs Date Time Temp Pulse Resp B/P Pulse Ox O2 Delivery O2 Flow Rate FiO2 05/11/16 05:31 97.6 80 17 117/59 97 Intake and Output 05/10/16 05/10/16 05/11/16 08:00 16:00 00:00 Intake Total 0 ml 1200 ml 1320 ml Balance 0 ml 1200 ml 1320 ml Assessment & Plan Problem List: (1) Bipolar disorder, current episode mixed, moderate ICD Code: F31.62 Assessment & Plan Estimated LOS: days patient remains somewhat disorganized intrusive irritable though not as behavioral as past few days. Compliant medications Justification for Cont. Inpt. At this time patient decompensate and placed a lower level of care Discharge Planning To be determined Ezequiel Grayson MD May 11, 2016 09:37
[2016-05-11] MEDS: LORazepam 1 MG TAB PO PRN (11:16)
[2016-05-11 18:32] VITALS: BP 107/59; PULSE 85; RESP 18; TEMP 97.6; O2SAT 100
[2016-05-11] MEDS: diphenhydrAMINE HCL 50 MG CAP PO PRN (20:18)
[2016-05-11] MEDS: AMITRIPTYLINE HCL 75 MG TAB PO SCH (20:18)
[2016-05-11] MEDS: LORazepam 1 MG TAB PO SCH (20:18)
[2016-05-11] MEDS: QUEtiapine FUMARATE 300 MG TAB PO SCH (20:18)
[2016-05-12] MEDS: ACETAMINOPHEN 325 MG TAB PO PRN (01:33)
[2016-05-12] MEDS: LEVOTHYROXINE SODIUM 100 MCG TAB PO SCH (05:39)
[2016-05-12 05:55] VITALS: BP 122/65; PULSE 87; RESP 16; TEMP 97.5; O2SAT 97
[2016-05-12] MEDS: VALPROIC ACID SYRUP 250 MG/5 ML UDC PO SCH ×2 (09:17→20:14)
[2016-05-12] MEDS: CALCIUM CARBONATE 1.25 GM (CA 500 MG) TAB PO SCH ×2 (09:17→20:13)
[2016-05-12] MEDS: POLYETHYLENE GLYCOL 17 GM PKG PO SCH (09:17)
[2016-05-12] MEDS: FENOFIBRATE 48 MG TAB PO SCH (09:17)
[2016-05-12] MEDS: BENZTROPINE MESYLATE 1 MG TAB PO SCH ×2 (09:17→20:13)
[2016-05-12] MEDS: PHENYTOIN SODIUM 100 MG CAP PO SCH ×3 (09:17→18:00)
[2016-05-12] MEDS: LORazepam 0.5 MG TAB PO SCH ×2 (09:17→17:00)
[2016-05-12] MEDS: QUEtiapine FUMARATE 100 MG TAB PO SCH ×2 (09:17→17:00)
--- NOTE | 2016-05-12 14:36 | HHI.PYPN ---
Subjective Remarks Patient was seen and case discussed with nursing. Patient is behaving well on the unit per nursing and cooperative for this interview. She remains hyperverbal and paranoid. Per nursing needs reassurance basic activities. Describes her mood as "happy." She is alert and oriented 2 and knows who her nurses and who I am Objective Alert: Yes [place]: Person, Place ([place]) Mood: Anxious (decreased) Affect: Flat Memory Intact: Comment (not formally assessed) Hallucinations: Other (none) Delusions: Yes Delusion Type: Paranoid Suicidal: Ideation (no SI) Homicidal: Ideation (no HI) Insight/Judgement Poor Vitals/IOs Vital Signs Date Time Temp Pulse Resp B/P Pulse Ox O2 Delivery O2 Flow Rate FiO2 05/12/16 05:55 97.5 87 16 122/65 97 Intake and Output 05/11/16 05/11/16 05/12/16 08:00 16:00 00:00 Intake Total 960 ml 1320 ml Balance 960 ml 1320 ml Assessment & Plan Problem List: (1) Bipolar disorder, current episode mixed, moderate ICD Code: F31.62 Assessment & Plan Continue current treatment plan Justification for Cont. Inpt. Patient will decompensate in a less restrictive setting Cuate Flynn DO May 12, 2016 14:36
[2016-05-12 17:56] VITALS: BP 126/71; PULSE 90; RESP 16; TEMP 98.2; O2SAT 95
[2016-05-12] MEDS: LORazepam 1 MG TAB PO SCH (20:13)
[2016-05-12] MEDS: QUEtiapine FUMARATE 300 MG TAB PO SCH (20:13)
[2016-05-12] MEDS: AMITRIPTYLINE HCL 75 MG TAB PO SCH (20:13)
[2016-05-12] MEDS: diphenhydrAMINE HCL 50 MG CAP PO PRN (20:13)
[2016-05-13] MEDS: LEVOTHYROXINE SODIUM 100 MCG TAB PO SCH (06:16)
[2016-05-13 06:38] VITALS: BP 133/63; PULSE 88; RESP 18; TEMP 97.6; O2SAT 99
[2016-05-13] MEDS: PHENYTOIN SODIUM 100 MG CAP PO SCH ×3 (08:58→17:21)
[2016-05-13] MEDS: BENZTROPINE MESYLATE 1 MG TAB PO SCH ×2 (08:58→20:32)
[2016-05-13] MEDS: VALPROIC ACID SYRUP 250 MG/5 ML UDC PO SCH ×2 (08:58→20:33)
[2016-05-13] MEDS: FENOFIBRATE 48 MG TAB PO SCH (08:58)
[2016-05-13] MEDS: LORazepam 0.5 MG TAB PO SCH ×2 (08:58→17:22)
[2016-05-13] MEDS: QUEtiapine FUMARATE 100 MG TAB PO SCH ×2 (08:58→17:22)
[2016-05-13] MEDS: POLYETHYLENE GLYCOL 17 GM PKG PO SCH (08:58)
[2016-05-13] MEDS: CALCIUM CARBONATE 1.25 GM (CA 500 MG) TAB PO SCH ×2 (08:58→20:32)
--- NOTE | 2016-05-13 11:44 | HHI.PYPN ---
Subjective Remarks Patient was seen and case discussed with nursing. Per nursing patient slept well and has been pleasant throughout the day. They note a decrease in suspicion. Patient remains delusional saying there has been a riot on the unit she needs to travel to [place]. Has plans of buying several grocery stores Objective Alert: Yes [place]: Person, Place ([place]) Mood: Anxious (decreased) Affect: Flat Memory Intact: Comment (not formally assessed) Hallucinations: Other (none) Delusions: Yes Delusion Type: Paranoid Suicidal: Ideation (no SI) Homicidal: Ideation (no HI) Insight/Judgement Poor Vitals/IOs Vital Signs Date Time Temp Pulse Resp B/P Pulse Ox O2 Delivery O2 Flow Rate FiO2 05/13/16 06:38 97.6 88 18 133/63 99 Intake and Output 05/12/16 05/12/16 05/13/16 08:00 16:00 00:00 Intake Total 360 ml 960 ml 840 ml Balance 360 ml 960 ml 840 ml Assessment & Plan Problem List: (1) Bipolar disorder, current episode mixed, moderate ICD Code: F31.62 Assessment & Plan Continue current treatment plan Justification for Cont. Inpt. Patient will decompensate in a less restrictive setting Cuate Flynn DO May 13, 2016 11:44
[2016-05-13] MEDS: AMITRIPTYLINE HCL 75 MG TAB PO SCH (20:32)
[2016-05-13] MEDS: diphenhydrAMINE HCL 50 MG CAP PO PRN (20:32)
[2016-05-13] MEDS: QUEtiapine FUMARATE 300 MG TAB PO SCH (20:32)
[2016-05-13] MEDS: LORazepam 1 MG TAB PO SCH (20:32)
[2016-05-14] MEDS: LEVOTHYROXINE SODIUM 100 MCG TAB PO SCH (05:38)
[2016-05-14 06:34] VITALS: BP 117/68; PULSE 80; RESP 17; TEMP 97.6; O2SAT 100
[2016-05-14] MEDS: PHENYTOIN SODIUM 100 MG CAP PO SCH ×3 (08:34→16:50)
[2016-05-14] MEDS: CALCIUM CARBONATE 1.25 GM (CA 500 MG) TAB PO SCH ×2 (08:34→20:33)
[2016-05-14] MEDS: VALPROIC ACID SYRUP 250 MG/5 ML UDC PO SCH ×2 (08:34→20:35)
[2016-05-14] MEDS: BENZTROPINE MESYLATE 1 MG TAB PO SCH ×2 (08:34→20:34)
[2016-05-14] MEDS: FENOFIBRATE 48 MG TAB PO SCH (08:34)
[2016-05-14] MEDS: LORazepam 0.5 MG TAB PO SCH ×2 (08:34→16:50)
[2016-05-14] MEDS: QUEtiapine FUMARATE 100 MG TAB PO SCH ×2 (08:34→16:50)
[2016-05-14] MEDS: POLYETHYLENE GLYCOL 17 GM PKG PO SCH (08:34)
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
[2016-05-14 16:29] VITALS: BP 110/61; PULSE 81; RESP 17; TEMP 96.9; O2SAT 99
[2016-05-14] MEDS: QUEtiapine FUMARATE 300 MG TAB PO SCH (20:33)
[2016-05-14] MEDS: LORazepam 1 MG TAB PO SCH (20:34)
[2016-05-14] MEDS: AMITRIPTYLINE HCL 75 MG TAB PO SCH (20:34)
[2016-05-14] MEDS: diphenhydrAMINE HCL 50 MG CAP PO PRN (20:34)
[2016-05-15 05:45] VITALS: BP 138/70; PULSE 86; RESP 16; TEMP 97.8; O2SAT 99
[2016-05-15] MEDS: LEVOTHYROXINE SODIUM 100 MCG TAB PO SCH (05:53)
[2016-05-15] MEDS: LORazepam 0.5 MG TAB PO SCH ×2 (08:28→15:45)
[2016-05-15] MEDS: FENOFIBRATE 48 MG TAB PO SCH (08:28)
[2016-05-15] MEDS: BENZTROPINE MESYLATE 1 MG TAB PO SCH ×2 (08:28→20:30)
[2016-05-15] MEDS: QUEtiapine FUMARATE 100 MG TAB PO SCH ×2 (08:28→15:45)
[2016-05-15] MEDS: CALCIUM CARBONATE 1.25 GM (CA 500 MG) TAB PO SCH ×2 (08:28→20:30)
[2016-05-15] MEDS: PHENYTOIN SODIUM 100 MG CAP PO SCH ×3 (08:28→17:23)
[2016-05-15] MEDS: VALPROIC ACID SYRUP 250 MG/5 ML UDC PO SCH ×2 (08:28→20:30)
[2016-05-15] MEDS: POLYETHYLENE GLYCOL 17 GM PKG PO SCH (08:32)
[2016-05-15] MEDS: hydrOXYzine HCL 50 MG TAB PO PRN (12:00)
[2016-05-15] MEDS: LORazepam 1 MG TAB PO PRN (12:18)
--- NOTE | 2016-05-15 15:45 | HHI.PYPN ---
Subjective Remarks She discussed with treatment team and medical student Rae, chart review, patient seen on unit. Patient continues confused somewhat labile and perseverative but no significant behavioral problems. Compliant medications. Placement remains quite problematic Review of Systems Except as stated in HPI: all other systems reviewed are Neg Objective Alert: Yes [place]: Person, Place ([place]) Mood: Anxious (decreased) Affect: Flat Memory Intact: Comment (not formally assessed) Hallucinations: Other (none) Delusions: Yes Delusion Type: Paranoid Suicidal: Ideation (no SI) Homicidal: Ideation (no HI) Insight/Judgement Very poor Vitals/IOs Vital Signs Date Time Temp Pulse Resp B/P Pulse Ox O2 Delivery O2 Flow Rate FiO2 05/15/16 05:45 97.8 86 16 138/70 99 Intake and Output 05/14/16 05/14/16 05/15/16 08:00 16:00 00:00 Intake Total 960 ml 660 ml Balance 960 ml 660 ml Assessment & Plan Problem List: (1) Bipolar disorder, current episode mixed, moderate ICD Code: F31.62 Assessment & Plan Estimated LOS: days patient continues somewhat confused and intrusive though softer with no significant behavioral problems. Compliant medications. Placement remains problematic Justification for Cont. Inpt. At this time patient will decompensate to placed a lower level of care Discharge Planning To be determined Ezequiel Grayson MD May 15, 2016 15:45
[2016-05-15 19:05] VITALS: BP 123/58; PULSE 88; RESP 18; TEMP 97.8; O2SAT 98
[2016-05-15] MEDS: QUEtiapine FUMARATE 300 MG TAB PO SCH (20:29)
[2016-05-15] MEDS: diphenhydrAMINE HCL 50 MG CAP PO PRN (20:30)
[2016-05-15] MEDS: AMITRIPTYLINE HCL 75 MG TAB PO SCH (20:30)
[2016-05-15] MEDS: LORazepam 1 MG TAB PO SCH (20:30)
[2016-05-16 06:00] VITALS: BP 115/74; PULSE 84; RESP 16; TEMP 98.2; O2SAT 95
[2016-05-16] MEDS: LEVOTHYROXINE SODIUM 100 MCG TAB PO SCH (06:10)
[2016-05-16] MEDS: PADIMATE (CHAPSTICK) 4.5 GM TUBE TOP PRN (08:31)
[2016-05-16] MEDS: VALPROIC ACID SYRUP 250 MG/5 ML UDC PO SCH (08:33)
[2016-05-16] MEDS: QUEtiapine FUMARATE 100 MG TAB PO SCH (08:33)
[2016-05-16] MEDS: POLYETHYLENE GLYCOL 17 GM PKG PO SCH (08:34)
[2016-05-16] MEDS: PHENYTOIN SODIUM 100 MG CAP PO SCH ×2 (08:34→12:01)
[2016-05-16] MEDS: CALCIUM CARBONATE 1.25 GM (CA 500 MG) TAB PO SCH (08:34)
[2016-05-16] MEDS: BENZTROPINE MESYLATE 1 MG TAB PO SCH (08:34)
[2016-05-16] MEDS: LORazepam 0.5 MG TAB PO SCH (08:34)
[2016-05-16] MEDS: FENOFIBRATE 48 MG TAB PO SCH (08:38)
[2016-05-16] MEDS ORDERED: LORA-474 PO (11:13)
[2016-05-16] MEDS ORDERED: VALP250S2 PO ×2 (11:13)
[2016-05-16] MEDS ORDERED: BENZ1TAB PO (11:13)
[2016-05-16] MEDS ORDERED: QUET1TAB8 PO (11:13)
[2016-05-16] MEDS ORDERED: Amitriptyline PO (11:13)
[2016-05-16] MEDS ORDERED: QUET1TAB10 PO (11:13)
[2016-05-16] MEDS ORDERED: LORA-392 PO (11:13)
[2016-05-16] MEDS ORDERED: POLY17S PO (11:13)
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
== END 2016-05-16 15:20 | DRG 885 ==
LOC: NEPE 11:29 → NEDA 15:48 → H270 16:15 → H250 03-05 06:00
PROVIDERS: ADMIT Psychiatry & Neurology Psychiatry; ATTEND Psychiatry & Neurology Psychiatry
DX: F31.62 Bipolar disorder, current episode mixed, moderate (principal); F03.91 Unspecified dementia, unspecified severity, with behavioral disturbance; G40.909 Epilepsy, unspecified, not intractable, without status epilepticus; E03.9 Hypothyroidism, unspecified; F25.9 Schizoaffective disorder, unspecified; R45.86 Emotional lability; R09.81 Nasal congestion; Z88.5 Allergy status to narcotic agent; S00.83XA Contusion of other part of head, initial encounter; W01.0XXA Fall on same level from slipping, tripping and stumbling without subsequent striking against object, initial encounter; Y93.01 Activity, walking, marching and hiking; Y92.238 Other place in hospital as the place of occurrence of the external cause; R60.9 Edema, unspecified
CPT/HCPCS: 70450; 72170; 73070; 80048; 80053; 80061; 80156; 80164; 80185; 80301; 80320; 80335; 81001; 82140; 83036; 84439; 84443; 85014; 85018; 85025; 87086; 99285; G0479; G0480; J1631; J2060; J7509; Q0163

== ENCOUNTER 2016-10-02 11:51 | Inpatient (IN) | payer MEDICARE, MEDICAID ==
[2016-10-02] VITALS (10 sets, daily range): BP systolic 12–142; BP diastolic 59–79; PULSE 66–78; RESP 12–18; TEMP 97.8; O2SAT 95–100
[~2016-10-02] VITALS: Ht 160 cm; Wt 71.8 kg
[~2016-10-02 11:51] MED LIST: ASPI81TA81; Amitriptyline PO; BENZ1TAB PO; BUSP10TA PO; CALC500T42 PO; CLOZ200T PO; DILA100C PO; DUCO5TAB PO; FENO1TAB46 PO; HALO100P IM; LEVO.1 PO; LORA-392 PO; LORA-474 PO; NAPR250T PO; POLY17S PO; QUET1TAB10 PO; QUET1TAB8 PO; VALP250S2 PO; [UNRECOGNIZED DRUG - CODE] PO
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
[2016-10-02 13:42] LABS: AUTOMATED NEUTROPHIL # 2.4 TH/MM3 (1.8-7.7); BASOPHIL % 0.6 % (0.0-2.0); EOSINOPHIL % 0.8 % (0.0-4.0); HEMATOCRIT 34.9 % (35.0-46.0); HEMO FLAGS DIFF FINAL; LYMPH % 40.3 % (9.0-44.0); LYMPHOCYTE # 2.1 TH/MM3 (1.0-4.8); MEAN CELL VOLUME 93.1 FL (80.0-100.0); MEAN CORPUSCULAR HEMOGLOBIN 30.5 PG (27.0-34.0); MEAN CORPUSCULAR HGB CONC 32.8 % (32.0-36.0); MONO % 12.4 % (0.0-8.0); NEUT % 45.9 % (16.0-70.0); PLATELET COUNT 175 TH/MM3 (150-450); RED BLOOD COUNT 3.75 MIL/MM3 (4.00-5.30); RED CELL DISTRIBUTION WIDTH 13.9 % (11.6-17.2); WHITE BLOOD COUNT 5.1 TH/MM3 (4.0-11.0)
[2016-10-02 13:46] LABS: BLOOD, URINE NEG (NEG); GLUCOSE,URINE NEG (NEG); KETONE, URINE NEG (NEG); MUCUS URINE FEW /lpf (OCC); NITRITE,URINE NEG (NEG); PH, URINE 6.5 (5.0-8.5); SQUAMOUS EPITHELIAL CELL URINE <1 /hpf (0-5); URINE COLOR YELLOW (YELLW/STRAW)
[2016-10-02 13:47] LABS: COMMENT (UR) CULT NOT INDICATED; CULTURE IF INDICATED CULT NOT INDICATED
[2016-10-02 14:10] LABS: ALT (GPT) 46 U/L (10-53); ANION GAP 7 MEQ/L (5-15); AST (GOT) 86 U/L (15-37); BLOOD UREA NITROGEN 23 MG/DL (7-18); CHLORIDE 104 MEQ/L (98-107); GLOMERULAR FILTRATION RATE 52 ML/MIN (>89); POTASSIUM 4.5 MEQ/L (3.5-5.1); SODIUM (NA) 138 MEQ/L (136-145)
[2016-10-02 14:19] LABS: ALKALINE PHOSPHATASE 125 U/L (45-117); TOTAL BILIRUBIN ADULT 0.4 MG/DL (0.2-1.0)
--- NOTE | 2016-10-02 14:40 | RADRPT ---
EXAM DATE/TIME: 10/02/2016 12:55 [facility] COMPARISON: CT BRAIN W/O CONTRAST, March 16, 2016, 12:47. INDICATIONS : Altered mental status. RADIATION DOSE: 32.42 CTDIvol (mGy) MEDICAL HISTORY : None SURGICAL HISTORY : None. ENCOUNTER: Initial ACUITY: 1 day PAIN SCALE: 0/10 LOCATION: cranial TECHNIQUE: Multiple contiguous axial images were obtained of the head. Using automated exposure control and adj ustment of the mA and/or kV according to patient size, radiation dose was kept as low as reasonably a chievable to obtain optimal diagnostic quality images. DICOM format image data is available electro nically for review and comparison. FINDINGS: CEREBRUM: The ventricles are normal for age with continued enlargement of the right temporal horn identical to 2016. No evidence of midline shift, mass lesion, hemorrhage or acute infarction. No extra-axial flu id collections are seen. POSTERIOR FOSSA: The cerebellum and brainstem are intact. The 4th ventricle is midline. The cerebellopontine angle i s unremarkable. EXTRACRANIAL: The visualized portion of the orbits is intact. SKULL: The calvaria is intact. No evidence of skull fracture. CONCLUSION: Normal examination. Tyrone Carson MD on October 02, 2016 at 14:38 Board Certified Radiologist. This report was verified electronically.
[2016-10-02] MEDS ORDERED: BENZ0.5T PO (16:13)
[2016-10-02] MEDS ORDERED: AMIT150T PO (16:13)
[2016-10-02] MEDS ORDERED: OMEP40CA2 PO (16:13)
[2016-10-02] MEDS ORDERED: HALO10TA PO (16:14)
[2016-10-02] MEDS ORDERED: HALO2TAB PO (16:17)
[2016-10-02] MEDS ORDERED: CALC1TAB87 PO (16:17)
[2016-10-02] MEDS ORDERED: QUET1TAB9 PO (16:20)
[2016-10-02] MEDS ORDERED: ARIP1TAB13 PO (16:23)
[2016-10-03 02:32] VITALS: BP 124/68; PULSE 76; RESP 18; O2SAT 98
[2016-10-03 06:10] VITALS: BP 130/60; PULSE 82; RESP 18; O2SAT 97
[2016-10-03 12:30] VITALS: BP 118/58; PULSE 84; RESP 17; O2SAT 98
[2016-10-03] MEDS ORDERED: MAGNESIUM HYDROXIDE SUSP 30 ML CUP PO PRN (15:00)
[2016-10-03] MEDS ORDERED: BISACODYL EC 5 MG TABEC PO PRN (15:00)
[2016-10-03 18:00] VITALS: BP 103/58; PULSE 86; RESP 18; TEMP 98.1; O2SAT 98
[2016-10-03] MEDS: PHENYTOIN SODIUM 100 MG CAP PO SCH (18:00)
[2016-10-03] MEDS: QUEtiapine FUMARATE 200 MG TAB PO SCH (18:00)
[2016-10-03 18:11] VITALS: BP 103/58; PULSE 86; RESP 18; TEMP 98.1; O2SAT 98
[2016-10-03] MEDS: VALPROIC ACID SYRUP 250 MG/5 ML UDC PO SCH (21:00)
[2016-10-03] MEDS: HALOPERIDOL 10 MG TAB PO SCH (21:00)
[2016-10-03] MEDS: AMITRIPTYLINE HCL 75 MG TAB PO SCH (21:00)
[2016-10-03] MEDS ORDERED: CALCIUM/VITAMIN D 250 MG/125 U TAB PO SCH (21:00)
[2016-10-03] MEDS: BENZTROPINE MESYLATE 1 MG TAB PO SCH (21:00)
[2016-10-03] MEDS: diphenhydrAMINE HCL 50 MG CAP PO PRN (22:19)
[2016-10-04] MEDS: LEVOTHYROXINE SODIUM 100 MCG TAB PO SCH (05:36)
[2016-10-04 06:00] VITALS: BP 117/65; PULSE 79; RESP 17; TEMP 98
[2016-10-04] MEDS ORDERED: FENOFIBRATE 145 MG TAB PO SCH (09:00)
[2016-10-04] MEDS: QUEtiapine FUMARATE 200 MG TAB PO SCH ×2 (09:52→18:18)
[2016-10-04] MEDS: VALPROIC ACID SYRUP 250 MG/5 ML UDC PO SCH ×2 (09:52→21:28)
[2016-10-04] MEDS: HALOPERIDOL 10 MG TAB PO SCH ×2 (09:52→21:28)
[2016-10-04] MEDS: ARIPiprazole 15 MG TAB PO SCH (09:52)
[2016-10-04] MEDS: POLYETHYLENE GLYCOL 17 GM PKG PO SCH (09:55)
[2016-10-04] MEDS: CALCIUM/VITAMIN D 250 MG/125 U TAB PO SCH ×2 (09:56→21:28)
[2016-10-04] MEDS: PANTOPRAZOLE SOD 40 MG DELAYED RELEASE TAB PO SCH (09:58)
[2016-10-04] MEDS: PHENYTOIN SODIUM 100 MG CAP PO SCH ×3 (09:59→18:17)
[2016-10-04] MEDS: BENZTROPINE MESYLATE 1 MG TAB PO SCH ×2 (09:59→21:28)
[2016-10-04] MEDS: LORazepam 1 MG TAB PO PRN ×2 (10:09→21:28)
--- NOTE | 2016-10-04 10:18 | HHI.HP ---
Provisional Diagnosis Admission Date Oct 03, 2016 at 15:09 [place] I. Bipolar disorder current episode mixed moderate f 31.62 Certification of Person's Competence To Provide Express and Informed Consent I have personally examined Leticia Gaitan , a person being served at [facility] on, Oct 04, 2016 10:00. Express and informed consent means consent voluntarily given in writing, by a competent person, after sufficient explanation and disclosure of the subject matter involved to enable the person to make a knowing and willful decision without any element of force, fraud, deceit, duress, or other form of constraint or coercion. This person is 18 years of age or older, is not now known to be incompetent to consent to treatment with a guardian advocate, and does not have a health care surrogate or proxy currently making medical treatment decisions. I have found this person to be one of the following: [] Competent to provide express and informed consent, as defined above, for voluntary admission to this facility and is competent to provide express and informed consent for treatment. He/she has the consistent capacity to make well reasoned, willful, and knowing decisions concerning his or her medical or mental health treatment. The person fully and consistently understands the purpose of the admission for examination/placement and is fully capable of personally exercising all rights assured [place] [] Incompetent to provide express and informed consent to voluntary admission, and this is incompetent to provide express and informed consent to treatment. The person must be transferred to involuntary status and a petition for a guardian advocate filed with the Circuit Court. [xx] Refusing to provide express and informed consent to voluntary admission but is competent to provide express and informed consent for treatment. The person must be discharged or transferred to involuntary status. Form shall be completed within 24 hours of a person's arrival at the receiving facility and filed in the clinical record of each person: 1. Admitted on a voluntary basis 2. Permitted to provide express and informed consent to his/her own treatment 3. Allowed to transfer from involuntary to voluntary status 4. Prior to permitting a person to consent to his or her own treatment after having been previously found incompetent to consent to treatment. History of Present Illness Capacity: Lacks Capacity (patient lacks capacity to sign for admission patient has capacity to sign for medication) HPI Patient is a 61-year-old white female well-known to me from prior psychiatric hospitalization comes here under [place] act after patient was seen by me in the emergency department on 10/03/16 when I initiated a certificate of involuntary examination. It appears patient was brought from her intermediate because of increased psychosis delusions [id number] behaviors and ability to control in that facility. Patient was seen by our psychiatric screeners and medically cleared in the ED with a Depakote level of 50 and a Dilantin level of 14.6. Patient seen by me today for full psychiatric assessment. Of interest patient seen by me hospitalized here 03/04/16 through 05/16/16 visit [id number] that time was discharged to the [facility]. It appears there was no contact with her back here until this admission. This question about her compliance with her medications. At the present time patient sitting quietly in her room on 2500 with staff present through session. Patient is labile tearful, she did recognize me from prior contact. It appears she is responding to internal stimuli sitting she is hearing the voices were son in her ear is concerned about his well-being. There also somewhat paranoid delusions related to other family members and people whom she feels of disrespecting and insulting her. She denies suicidality at this time. Denies any alcohol or drug use. She is somewhat vague and ambiguous about the past psychiatric history. In any event at this time patient does meet criteria for involuntary psychiatric hospitalization under the [place] act I'll do first opinion request second opinion peripheral she does have capacity sign for medications we'll continue medication as per the EMR repeat Depakote and Dilantin blood levels in 3 days. Hospitalist consult will us considering her multiple medical issues. Hopefully 3 fairly short stay we do need to verify her residential facilities speak with them related to for the details about her behaviors Review of Systems Constitutional: DENIES: Diaphoretic episodes, Fatigue, Fever, Weight gain, Weight loss, Chills, Dizziness, Change in appetite, Night Sweats Endocrine: COMPLAINS OF: Heat/cold intolerance (history of hypothyroidism), DENIES: Abnorml menstrual pattern, Polydipsia, Polyuria, Polyphagia Eyes: DENIES: Blurred vision, Diplopia, Eye inflammation, Eye pain, Vision loss , Photosensitivity, Double Vision Ears, nose, mouth, throat: DENIES: Tinnitus, Hearing loss, Vertigo, Nasal discharge, Oral lesions, Throat pain, Hoarseness, Ear Pain, Running Nose, Epistaxis, Sinus Pain, Toothache, Odynophagia Respiratory: DENIES: Apneas, Cough, Snoring, Wheezing, Hemoptysis, Sputum production, Shortness of breath Cardiovascular: DENIES: Chest pain, Palpitations, Syncope, Dyspnea on Exertion , PND, Lower Extremity Edema, Orthopnea, Claudication Gastrointestinal: DENIES: Abdominal pain, Black stools, Bloody stools, Constipation, Diarrhea, Nausea, Vomiting, Difficulty Swallowing, Anorexia Genitourinary: DENIES: Abnormal vaginal bleeding, Dysmenorrhea, Dyspareunia, Sexual dysfunction, Urinary frequency, Urinary incontinence, Urgency, Hematuria , Dysuria, Nocturia, Vaginal discharge Musculoskeletal: DENIES: Joint pain, Muscle aches, Stiffness, Joint Swelling, Back pain, Neck pain Integumentary: DENIES: Abnormal pigmentation, Pruritus, Rash, Nail changes, Breast masses, Breast skin changes, Nipple discharge Hematologic/lymphatic: DENIES: Bruising, Lymphadenopathy Immunologic/allergic: DENIES: Eczema, Urticaria Neurologic: COMPLAINS OF: Seizures Psychiatric: COMPLAINS OF: Anxiety, Mood changes, Depression, Hallucinations, Agitation Past Psych History Psychological trauma history Difficult to ascertain due to patient psychosis Violence risk - others (6 mos) Patient somewhat aggressive at her intermediate Violence risk - self (6 mos) Denies with me at this time Substance Abuse History Drugs/Alcohol past 12 months Denies Past Family Social History Coded Allergies: Codeine (Verified Allergy, Unknown, 10/02/16) Past Medical History History hypothyroidism and seizure disorder Active Scripts Polyethylene Glycol 3350 Powder 17 Gm Pow17 Gm PO DAILY #30 PACK Ref 0 Prov:Ezequiel Grayson MD 05/16/16 Reported Medications Aripiprazole 15 Mg Tab15 Mg PO DAILY #30 TAB Ref 0 10/02/16 Quetiapine 200 Mg Lss118 Mg PO DIRECTED #60 TAB Ref 0 10/02/16 Calcium Carbonate-Cholecalciferol (Calcium 600 with Vitamin D)600-400 mg-Unit Tab1 Tab PO BID Ref 0 10/02/16 Haloperidol 2 Mg Tab2 Mg PO DIRECTED Ref 0 10/02/16 Haloperidol 10 Mg Tab10 Mg PO BID Ref 0 10/02/16 Amitriptyline 150 Mg Eef607 Mg PO HS #30 TAB Ref 0 10/02/16 Benztropine 0.5 Mg Tab1 Mg PO BID #60 TAB Ref 0 10/02/16 Omeprazole 40 Mg Cap40 Mg PO DAILY #30 CAP Ref 0 10/02/16 Naproxen 250 Mg Lpz342 Mg PO BID #60 TAB Ref 0 03/04/16 Phenytoin Extended (Dilantin)100 Mg Bdm648 Mg PO TID #90 CAP Ref 0 03/04/[address] (Ducodyl DR)5 Mg Tabdr5 Mg PO DAILY PRN (CONSTIPATION) 03/04/16 Levothyroxine (Synthroid)100 Mcg Zwe087 Mcg PO DAILY #30 TAB Ref 0 03/04/16 Valproic Acid Liq 250 Mg/5 Ml Syp30 Ml PO BID #300 ML Ref 0 03/04/16 Fenofibrate 40 Mg Lsd819 Mg PO DAILY #30 TAB Ref 0 03/04/16 Discontinued Reported Medications Temazepam (Restoril)22.5 Mg Cap22.5 Mg PO HS PRN (INSOMNIA) #30 CAP Ref 0 03/04/16 Haloperidol Decanoate Inj (Haldol Decanoate Inj)100 Mg/Ml Pxb266 Mg IM ONCE #1 VIAL Ref 0 03/04/[address] (Aspir-81)81 Mg Tabdr 03/04/16 Clozapine 200 Mg Qzk643 Mg PO BID Ref 0 03/04/16 Buspirone 10 Mg Tab10 Mg PO BID Ref 0 03/04/16 Discontinued Scripts Lorazepam (Ativan)1 Mg Tab1 Mg PO HS #30 TAB Ref 0 Prov:Ezequiel Grayson MD 05/16/16 Lorazepam (Ativan)0.5 Mg Tab0.5 Mg PO BID@08,16 #60 TAB Ref 0 Prov:Ezequiel Grayson MD 05/16/16 Current Medications Medications (Trade) Dose Ordered Sig/Melissa Route Start Time Stop Time Status Last Admin (Ativan) 1 mg Q6H PRN PO 10/03/16 15:00 (Ativan Inj) 1 mg Q6H PRN IM 10/03/16 15:00 (Benadryl) 50 mg HS PRN PO 10/03/16 15:00 10/03/16 22:19 (Tylenol) 650 mg Q4H PRN PO 10/03/16 15:00 (Milk Of Magnesia Liq) 30 ml DAILY PRN PO 7/18/17 15:00 (Mag-Al Plus Susp Liq) 30 ml Q6H PRN PO 10/03/16 15:00 (Elavil) 150 mg HS PO 10/03/16 21:00 (Abilify) 15 mg DAILY PO 10/04/16 09:00 10/04/16 09:52 (Cogentin) 1 mg BID PO 10/03/16 21:00 (Dulcolax Ec) 5 mg DAILY PRN PO 10/03/16 15:00 (Haldol) 10 mg BID PO 10/03/16 21:00 10/04/16 09:52 (Synthroid) 100 mcg DAILY@06 PO 10/04/16 06:00 10/04/16 05:36 (Dilantin) 100 mg TID PO 10/03/16 18:00 (Miralax) 17 gm DAILY PO 10/04/16 09:00 10/04/16 09:55 (SEROquel) 200 mg BID@08,18 PO 10/03/16 18:00 10/04/16 09:52 (Tricor) 145 mg DAILY PO 10/04/16 09:00 10/04/16 09:56 (Protonix) 40 mg DAILY PO 10/04/16 09:00 (Depakene Liq) 750 mg BID PO 10/03/16 21:00 10/04/16 09:52 (Oscal-D 250-125) 500 mg BID PO 10/04/16 09:00 10/04/16 09:56 Family History Difficult ascertain at this time due to patient psychosis Social History Patient lives in intermediate does have adult children Patient's Strengths (min. 2) Patient verbal cooperative able to access healthcare Physical Exam Patient seen screened in ED exam reviewed and agreed with patient seen in day room standing by sidewall. She is in no acute distress, patient is in no respiratory distress neck is supple no complaints of abdominal pain move all 4 extremities without difficulty nor abnormal motor movements noted Vital Signs Vital Signs Date Time Temp Pulse Resp B/P Pulse Ox O2 Delivery O2 Flow Rate FiO2 10/04/16 06:00 98.0 79 17 117/65 10/03/16 18:11 98 10/03/16 12:30 Room Air Mental Status Examination Alert vaguely oriented to time and place white female anxious somewhat nervous and guarded though cooperative with me Appearance Somewhat disheveled Speech: Rapid, Circumstantial, Tangential, Other (markedly disorganized) Orientation: Person, Place Memory: Impaired (describe) Thought Process: Linear, Loose Association Thought Content: Paranoid Language Poor Fund of Knowledge Poor Hallucination Type: Auditory Attention and Concentration: Other (poor) Suicidal Ideation: No (denies) Previous Suicide Attempts: No Homicidal Ideation: No (deny) Previous Homicide Attempts: No Insight: Poor Judgment: Poor Affect: Other (slight increase range intensity) Mood: Euthymic (to moderately dysphoric) Motor Activity: Normal gait (appears normal) Assessment & Plan Problem List: (1) Bipolar disorder, current episode mixed, moderate ICD Code: F31.62 Assessment & Plan Estimated LOS: 7 days patient meets criteria for involuntary psychiatric hospitalization of the [place] act I'll do first opinion requests second opinion they feel she has capacity to sign for medications. Will continue medications per the MAR repeat Depakote and Dilantin blood levels in 3 days to ascertain that consistency. With hospitals consult was also. We'll attempt to further information from her intermediate on behaviors leading to this hospitalization Discharge Planning To be determined Request HC Surrog/Guard Advoc?: No Ezequiel Grayson MD Oct 04, 2016 10:18
--- NOTE | 2016-10-04 13:02 | PD.PSY.CON ---
Provisional Diagnosis Admission Date Oct 03, 2016 at 15:09 [place] I. 1. Bipolar disorder, presently mixed [place] II. Deferred [place] V. GAF is 30 presently History of Present Illness Service Psychiatry Consult Requested By Dr. Grayson Reason for Consult Second opinion for involuntary psychiatric hospitalization Primary Care Physician Non-Staff HPI From Dr. Grayson's H&P: Patient is a 61-year-old white female well-known to me from prior psychiatric hospitalization comes here under [place] act after patient was seen by me in the emergency department on 10/03/16 when I initiated a certificate of involuntary examination. It appears patient was brought from her [facility] because of increased psychosis delusions [id number] behaviors and ability to control in that facility. Patient was seen by our psychiatric screeners and medically cleared in the ED with a Depakote level of 50 and a Dilantin level of 14.6. Patient seen by me today for full psychiatric assessment. Of interest patient seen by me hospitalized here 03/04/16 through 05/16/16 visit [id number] that [facility] It appears there was no contact with her back here until this admission. This question about her compliance with her medications. At the present time patient sitting quietly in her room on 2500 with staff present through session. Patient is labile tearful, she did recognize me from prior contact. It appears she is responding to internal stimuli sitting she is hearing the voices were son in her ear is concerned about his well-being. There also somewhat paranoid delusions related to other family members and people whom she feels of disrespecting and insulting her. She denies suicidality at this time. Denies any alcohol or drug use. She is somewhat vague and ambiguous about the past psychiatric history. In any event at this time patient does meet criteria for involuntary psychiatric hospitalization under the [place] act I'll do first opinion request second opinion peripheral she does have capacity sign for medications we'll continue medication as per the EMR repeat Depakote and Dilantin blood levels in 3 days. Hospitalist consult will us considering her multiple medical issues. Hopefully 3 fairly short stay we do need to verify her residential facilities speak with them related to for the details about her behaviors On my examination today: Patient seen and examined. Chart reviewed. I note the patient was admitted for an extended stay from February of last year through April of this year under Dr. Grayson. Case discussed with nursing staff. On my examination today , the patient is somewhat disorganized with loose associations. She tells me "hot seat when I answered the phone today. The man that cries out he's my baby boy." Mood described as depressed. Affect labile. She is fretful and somewhat paranoid regarding a missing business card. Denies audiovisual hallucinations but appears internally stimulated. When I inquire about suicidal or homicidal ideation, the patient changes the subject and talks about a shower. Remainder of the psychiatric ROS is negative. Past psychiatric history: Patient is likely an unreliable historian. Patient reports a history of bipolar disorder. She reportedly follows with a provider by the name of Madelyn. She was admitted earlier this year under Dr. Grayson as I said. Family history: Patient denies any family history of mental illness. Chemical dependency history: Patient endorses a history of cannabis use. 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 She is reportedly . Social history somewhat limited because of patient's degree of thought disorder. Review of Systems ROS Limitations: Poor Historian Except as stated in HPI: all other systems reviewed are Neg Past Family Social History Coded Allergies: Codeine (Verified Allergy, Unknown, 10/02/16) Past Medical History See electronic medical record Active Scripts Polyethylene Glycol 3350 Powder 17 Gm Pow17 Gm PO DAILY #30 PACK Ref 0 Prov:Ezequiel Grayson MD 05/16/16 Reported Medications Aripiprazole 15 Mg Tab15 Mg PO DAILY #30 TAB Ref 0 10/02/16 Quetiapine 200 Mg Fws672 Mg PO DIRECTED #60 TAB Ref 0 10/02/16 Calcium Carbonate-Cholecalciferol (Calcium 600 with Vitamin D)600-400 mg-Unit Tab1 Tab PO BID Ref 0 10/02/16 Haloperidol 2 Mg Tab2 Mg PO DIRECTED Ref 0 10/02/16 Haloperidol 10 Mg Tab10 Mg PO BID Ref 0 10/02/16 Amitriptyline 150 Mg Guf371 Mg PO HS #30 TAB Ref 0 10/02/16 Benztropine 0.5 Mg Tab1 Mg PO BID #60 TAB Ref 0 10/02/16 Omeprazole 40 Mg Cap40 Mg PO DAILY #30 CAP Ref 0 10/02/16 Naproxen 250 Mg Crj514 Mg PO BID #60 TAB Ref 0 03/04/16 Phenytoin Extended (Dilantin)100 Mg Cfp045 Mg PO TID #90 CAP Ref 0 03/04/16 Bisacodyl (Ducodyl DR)5 Mg Tabdr5 Mg PO DAILY PRN (CONSTIPATION) 03/04/16 Levothyroxine (Synthroid)100 Mcg Nio311 Mcg PO DAILY #30 TAB Ref 0 03/04/16 Valproic Acid Liq 250 Mg/5 Ml Syp30 Ml PO BID #300 ML Ref 0 03/04/16 Fenofibrate 40 Mg Zka654 Mg PO DAILY #30 TAB Ref 0 03/04/16 Discontinued Reported Medications Temazepam (Restoril)22.5 Mg Cap22.5 Mg PO HS PRN (INSOMNIA) #30 CAP Ref 0 03/04/16 Haloperidol Decanoate Inj (Haldol Decanoate Inj)100 Mg/Ml Wgv674 Mg IM ONCE #1 VIAL Ref 0 03/04/[address] (Aspir-81)81 Mg Tabdr 03/04/16 Clozapine 200 Mg Zvv217 Mg PO BID Ref 0 03/04/16 Buspirone 10 Mg Tab10 Mg PO BID Ref 0 03/04/16 Discontinued Scripts Lorazepam (Ativan)1 Mg Tab1 Mg PO HS #30 TAB Ref 0 Prov:Ezequiel Grayson MD 05/16/16 Lorazepam (Ativan)0.5 Mg Tab0.5 Mg PO BID@,16 #60 TAB Ref 0 Prov:Ezequiel Grayson MD 05/16/16 Current Medications Medications (Trade) Dose Ordered Sig/Melissa Route Start Time Stop Time Status Last Admin (Ativan) 1 mg Q6H PRN PO 10/03/16 15:00 10/04/16 10:09 (Ativan Inj) 1 mg Q6H PRN IM 10/03/16 15:00 (Benadryl) 50 mg HS PRN PO 10/03/16 15:00 10/03/16 22:19 (Tylenol) 650 mg Q4H PRN PO 10/03/16 15:00 (Milk Of Magnesia Liq) 30 ml DAILY PRN PO 10/03/16 15:00 (Mag-Al Plus Susp Liq) 30 ml Q6H PRN PO 10/03/16 15:00 (Elavil) 150 mg HS PO 10/03/16 21:00 (Abilify) 15 mg DAILY PO 10/04/16 09:00 10/04/16 09:52 (Cogentin) 1 mg BID PO 10/03/16 21:00 10/04/16 09:59 (Dulcolax Ec) 5 mg DAILY PRN PO 10/03/16 15:00 (Haldol) 10 mg BID PO 10/03/16 21:00 10/04/16 09:52 (Synthroid) 100 mcg DAILY@06 PO 10/04/16 06:00 10/04/16 05:36 (Dilantin) 100 mg TID PO 10/03/16 18:00 10/04/16 09:59 (Miralax) 17 gm DAILY PO 10/04/16 09:00 10/04/16 09:55 (SEROquel) 200 mg BID@08,18 PO 10/03/16 18:00 10/04/16 09:52 (Tricor) 145 mg DAILY PO 10/04/16 09:00 Hold 10/04/16 09:56 (Protonix) 40 mg DAILY PO 10/04/16 09:00 10/04/16 09:58 (Depakene Liq) 750 mg BID PO 10/03/16 21:00 10/04/16 09:52 (Oscal-D 250-125) 500 mg BID PO 10/04/16 09:00 10/04/16 09:56 Patient's Strengths (min. 2) In a monitored setting. Verbally fluent. Physical Exam Physical examination completed by ED provider. On my examination today, the patient appears to be in no acute physical distress. No motor abnormalities noted. Labs and vitals reviewed: Vital Signs Vital Signs Date Time Temp Pulse Resp B/P Pulse Ox O2 Delivery O2 Flow Rate FiO2 10/04/16 06:00 98.0 79 17 117/65 10/03/16 18:11 98 10/03/16 12:30 Room Air Lab Results Laboratory Tests Test 10/02/16 10/02/16 13:00 13:15 Urine Color YELLOW Urine Turbidity CLEAR Urine pH 6.5 Urine Specific Lynn 1.018 Urine Protein NEG mg/dL Urine Glucose (UA) NEG mg/dL Urine Ketones NEG mg/dL Urine Occult Blood NEG Urine Nitrite NEG Urine Bilirubin NEG Urine Urobilinogen LESS THAN 2.0 MG/DL Urine Leukocyte Esterase NEG Urine WBC LESS THAN 1 /hpf Urine Squamous Epithelial <1 /hpf Cells Urine Mucus FEW /lpf Microscopic Urinalysis Comment CULT NOT INDICATED White Blood Count 5.1 TH/MM3 Red Blood Count 3.75 MIL/MM3 Hemoglobin 11.5 GM/DL Hematocrit 34.9 % Mean Corpuscular Volume 93.1 FL Mean Corpuscular Hemoglobin 30.5 PG Mean Corpuscular Hemoglobin 32.8 % Concent Red Cell Distribution Width 13.9 % Platelet Count 175 TH/MM3 Mean Platelet Volume 9.0 FL Neutrophils (%) (Auto) 45.9 % Lymphocytes (%) (Auto) 40.3 % Monocytes (%) (Auto) 12.4 % Eosinophils (%) (Auto) 0.8 % Basophils (%) (Auto) 0.6 % Neutrophils # (Auto) 2.4 TH/MM3 Lymphocytes # (Auto) 2.1 TH/MM3 Monocytes # (Auto) 0.6 TH/MM3 Eosinophils # (Auto) 0.0 TH/MM3 Basophils # (Auto) 0.0 TH/MM3 CBC Comment DIFF FINAL Differential Comment Sodium Level 138 MEQ/L Potassium Level 4.5 MEQ/L Chloride Level 104 MEQ/L Carbon Dioxide Level 27.0 MEQ/L Anion Gap 7 MEQ/L Blood Urea Nitrogen 23 MG/DL Creatinine 1.07 MG/DL Estimat Glomerular Filtration 52 ML/MIN Rate Random Glucose 55 MG/DL Calcium Level 9.3 MG/DL Total Bilirubin 0.4 MG/DL Aspartate Amino Transf 86 U/L (AST/SGOT) Alanine Aminotransferase 46 U/L (ALT/SGPT) Alkaline Phosphatase 125 U/L Total Protein 7.1 GM/DL Albumin 3.6 GM/DL Thyroid Stimulating Hormone 1.460 uIU/ML 3rd Gen Phenytoin (Dilantin) Level 14.6 MCG/ML Valproic Acid (Depakene) Level 50 MCG/ML Mental Status Examination Speech: Rapid, Other (disorganized) Orientation: Person, Place Memory: Impaired (describe) Thought Process: Loose Association, Other (disorganized) Thought Content: Paranoid Hallucination Type: Auditory (int stim) Attention and Concentration: Other (poor) Suicidal Ideation: No (evasive) Previous Suicide Attempts: No Homicidal Ideation: No (evasive) Previous Homicide Attempts: No Insight: Poor Judgment: Poor Affect: Other (labile) Mood: Other (depressed) Assessment & Plan Problem List: (1) Bipolar disorder ICD Code: F31.9 Assessment & Plan Given the circumstances of the patient's presentation here and her presentation on my examination today, I concur with Dr. Grayson that the patient meets criteria for involuntary psychiatric hospitalization under the [place] act. I have completed the second opinion paperwork. Further care as per Dr. Grayson. Thank you very much for this consultation. Signing off. Problem Qualifiers (1) Bipolar disorder: Qualified Code: F31.64 - Bipolar disorder, current episode mixed, severe, with psychotic features Christian Waite MD Oct 04, 2016 13:02
--- NOTE | 2016-10-04 17:06 | PD.CONS ---
[facility] Reason for Consult Assistance in management of medical condition Primary Care Physician Non-Staff Diagnoses: History of Present Illness Written by Bisi Koch, acting as scribe for Dr. Pate on 10/04/16 at 16:56. Patient seen earlier today around 1300 This is a pleasant 61-year-old female patient with a past medical history which includes bipolar disorder, seizure disorder, hypothyroidism. Patient is currently inpatient psychiatric center. We have been consulted for assistance with medical management included hypothyroidism as well as epilepsy. Patient seen with caregiver present reports the patient has gotten increasingly more anxious and violent recently. Patient caregiver also concerned that she has had several falls and reports that patient's dizziness seems to be worse after taking psychiatric medications. Patient is confused tangential in speech and poor historian therefore information gathered from physical exam, review of prior records as well as patient's caregiver at bedside Denies fevers chills cough congestion shortness of breath chest pain nausea vomiting diarrhea or constipation. Review of Systems ROS Limitations: Poor Historian Past Family Social History Allergies: Coded Allergies: Codeine (Verified Allergy, Unknown, 10/02/16) Past Medical History bipolar disorder, seizure disorder, hypothyroidism Past Surgical History ALPHONSO/BSO, epilepsy, multiple eye operations to repair strabismus Reported Medications Polyethylene Glycol 3350 Powder (Polyethylene Glycol) 17 Gm Pow 17 Gm PO DAILY Aripiprazole 15 Mg Tab 15 Mg PO DAILY Quetiapine (Quetiapine Fumarate) 200 Mg Tab 200 Mg PO DIRECTED Calcium 600 with Vitamin D (Calcium Carbonate-Cholecalciferol) 600-400 mg-Unit Tab 1 Tab PO BID Haloperidol 2 Mg Tab 2 Mg PO DIRECTED Haloperidol 10 Mg Tab 10 Mg PO BID Amitriptyline (Amitriptyline HCl) 150 Mg Tab 150 Mg PO HS Benztropine (Benztropine Mesylate) 0.5 Mg Tab 1 Mg PO BID Omeprazole 40 Mg Cap 40 Mg PO DAILY Naproxen 250 Mg Tab 500 Mg PO BID Dilantin (Phenytoin Extended) 100 Mg Cap 100 Mg PO TID Ducodyl DR (Bisacodyl) 5 Mg Tabdr 5 Mg PO DAILY PRN Synthroid (Levothyroxine Sodium) 100 Mcg Tab 100 Mcg PO DAILY Valproic Acid Liq 250 Mg/5 Ml Syp 30 Ml PO BID Fenofibrate 40 Mg Tab 160 Mg PO DAILY Active Ordered Medications Current Medications Medications (Trade) Dose Ordered Sig/Melissa Route Start Time Stop Time Status Last Admin (Ativan) 1 mg Q6H PRN PO 10/03/16 15:00 10/04/16 10:09 (Ativan Inj) 1 mg Q6H PRN IM 10/03/16 15:00 (Benadryl) 50 mg HS PRN PO 10/03/16 15:00 10/03/16 22:19 (Tylenol) 650 mg Q4H PRN PO 10/03/16 15:00 (Milk Of Magnesia Liq) 30 ml DAILY PRN PO 10/03/16 15:00 (Mag-Al Plus Susp Liq) 30 ml Q6H PRN PO 10/03/16 15:00 (Elavil) 150 mg HS PO 10/03/16 21:00 (Abilify) 15 mg DAILY PO 10/04/16 09:00 10/04/16 09:52 (Cogentin) 1 mg BID PO 10/03/16 21:00 10/04/16 09:59 (Dulcolax Ec) 5 mg DAILY PRN PO 10/03/16 15:00 (Haldol) 10 mg BID PO 10/03/16 21:00 10/04/16 09:52 (Synthroid) 100 mcg DAILY@06 PO 10/04/16 06:00 10/04/16 05:36 (Dilantin) 100 mg TID PO 10/03/16 18:00 10/04/16 13:03 (Miralax) 17 gm DAILY PO 10/04/16 09:00 10/04/16 09:55 (SEROquel) 200 mg BID@08,18 PO 10/03/16 18:00 10/04/16 09:52 (Tricor) 145 mg DAILY PO 10/04/16 09:00 Hold 10/04/16 09:56 (Protonix) 40 mg DAILY PO 10/04/16 09:00 10/04/16 09:58 (Depakene Liq) 750 mg BID PO 10/03/16 21:00 10/04/16 09:52 (Oscal-D 250-125) 500 mg BID PO 10/04/16 09:00 10/04/16 09:56 Family History Mother had macular degeneration denies family medical history including hypertension diabetes mellitus CAD or cancer Social History Patient currently lives in a long-term denies EtOH use or tobacco abuse Physical Exam Vital Signs Vital Signs Date Time Temp Pulse Resp B/P Pulse Ox O2 Delivery O2 Flow Rate FiO2 10/04/16 06:00 98.0 79 17 117/65 10/03/16 18:11 98.1 86 18 103/58 98 10/03/16 18:00 98.1 86 18 103/58 98 Physical Exam GENERAL: This is a well-nourished, well-developed patient, in no acute distress SKIN: No rashes, ecchymoses or lesions. Cool and dry. Generalized thinning skin HEAD: Atraumatic. Normocephalic. No temporal or scalp tenderness. EYES: Extraocular motions intact. No scleral icterus. No injection or drainage. CARDIOVASCULAR: Regular rate and rhythm without murmurs, gallops, or rubs. RESPIRATORY: Clear to auscultation. Breath sounds equal bilaterally. No wheezes , rales, or rhonchi. GASTROINTESTINAL: Abdomen soft, non-tender, nondistended. No hepato-splenomegaly , or palpable masses. No guarding. MUSCULOSKELETAL: Extremities without clubbing, cyanosis, or edema. No joint tenderness, effusion, or edema noted. No calf tenderness. Negative Homans sign bilaterally. NEUROLOGICAL: Awake and alert. appears confused and tangental in speech. Motor and sensory grossly within normal limits. 4-5 out of 5 muscle strength in all muscle groups. Normal speech. Result Diagram: 10/02/16 1315 10/02/16 1315 Imaging Last Impressions Head CT 10/02/16 0000 Signed Impressions: Service Date/Time: Sunday, October 02, 2016 12:55 - CONCLUSION: Normal examination. Tyrone Carson MD Assessment and Plan Problem List: (1) Hypothyroidism ICD Code: E03.9 Status: Acute (2) Seizure disorder ICD Code: G40.909 Status: Acute Assessment and Plan This is a pleasant 61-year-old female patient with a past medical history which includes bipolar disorder, seizure disorder, hypothyroidism. Patient is currently inpatient psychiatric center. We have been consulted for assistance with medical management included hypothyroidism as well as epilepsy. It appears the patient has gotten increasingly more agitated and violent and her long-term. Patient's caregiver at bedside reports patient has had falling episodes which seem to be worse after psychiatric medication. Bipolar disorder to be managed by psychiatric team Hypothyroidism continue her Synthroid, TSH 1.460 Seizure disorder/epilepsy continue valproic acid level therapeutic at 50 continue Phenytoin level therapeutic at 14.6 Seizure precautions Dizziness/ unsteady gate check orthostatic vital signs PT eval Per care provider patient seems to be more dizzy after medications. Defer to psychiatry for medication adjustment DVT prophylaxis patient is ambulatory Discussed with patient, patient's caregiver and RN This note was transcribed by scribe [Bisi Koch]. I, Dr. Linda Pate personally performed the history, physical exam, and medical decision making; and confirmed the accuracy of the information in the transcribed note. Authenticated by Dr. Linda Pate on 10/04/16 at 1658. Bisi Koch Oct 04, 2016 17:05 Linda Pate MD Oct 04, 2016 21:42
[2016-10-04 18:00] VITALS: BP 138/60; PULSE 93; RESP 18; TEMP 97.7; O2SAT 95
[2016-10-04] MEDS: AMITRIPTYLINE HCL 75 MG TAB PO SCH (21:28)
[2016-10-04] MEDS: diphenhydrAMINE HCL 50 MG CAP PO PRN (21:28)
[2016-10-05 05:59] VITALS: BP 138/63; PULSE 94; RESP 16; TEMP 97.9
[2016-10-05] MEDS: LEVOTHYROXINE SODIUM 100 MCG TAB PO SCH (06:40)
[2016-10-05] MEDS: LORazepam 1 MG TAB PO PRN ×4 (06:40→23:47)
[2016-10-05] MEDS: POLYETHYLENE GLYCOL 17 GM PKG PO SCH (09:23)
[2016-10-05] MEDS: PANTOPRAZOLE SOD 40 MG DELAYED RELEASE TAB PO SCH (09:23)
[2016-10-05] MEDS: BENZTROPINE MESYLATE 1 MG TAB PO SCH ×2 (09:24→21:18)
[2016-10-05] MEDS: HALOPERIDOL 10 MG TAB PO SCH ×2 (09:24→21:18)
[2016-10-05] MEDS: CALCIUM/VITAMIN D 250 MG/125 U TAB PO SCH ×2 (09:24→21:18)
[2016-10-05] MEDS: VALPROIC ACID SYRUP 250 MG/5 ML UDC PO SCH ×2 (09:24→21:18)
[2016-10-05] MEDS: ARIPiprazole 15 MG TAB PO SCH (09:24)
[2016-10-05] MEDS: PHENYTOIN SODIUM 100 MG CAP PO SCH ×3 (09:27→18:12)
[2016-10-05] MEDS: QUEtiapine FUMARATE 200 MG TAB PO SCH ×2 (09:27→18:13)
[2016-10-05 10:00] VITALS: BP 159/59
[2016-10-05 10:01] VITALS: BP 119/82
[2016-10-05 10:02] VITALS: BP 134/62
--- NOTE | 2016-10-05 10:53 | HHI.PYPN ---
Subjective Remarks Patient seen in day room with nurse Zarina, chart review, patient compliant medications. Patient continues quite scattered and disorganized focusing today on her family and her son. She is labile with this at times with an i incongruent affect. For now continue treatment Review of Systems Except as stated in HPI: all other systems reviewed are Neg Objective Alert: Yes [place]: Person, Place Mood: Anxious, Depressed, Happy Affect: Labile Memory Intact: Comment (very poor) Hallucinations: Other (denies) Delusions: Yes Delusion Type: Paranoid Suicidal: Ideation (vaguely denies) Homicidal: Ideation (vaguely denies) Insight/Judgment Very poor Vitals/IOs Vital Signs Date Time Temp Pulse Resp B/P Pulse Ox O2 Delivery O2 Flow Rate FiO2 10/05/16 05:59 97.9 94 16 138/63 10/04/16 18:00 95 10/03/16 12:30 Room Air Intake and Output 10/04/16 10/04/16 10/05/16 08:00 16:00 00:00 Intake Total 360 ml 240 ml 720 ml Balance 360 ml 240 ml 720 ml Assessment & Plan Problem List: (1) Bipolar disorder ICD Code: F31.9 Assessment & Plan Estimated LOS: days patient remained psychotic somewhat labile and depressed. Compliant medications Justification for Cont. Inpt. At this time patient will decompensate if placed in a lower level of care Discharge Planning To be determined Problem Qualifiers (1) Bipolar disorder: Qualified Code: F31.64 - Bipolar disorder, current episode mixed, severe, with psychotic features Ezequiel Grayson MD Oct 05, 2016 10:53
[2016-10-05 17:40] VITALS: BP 135/68; PULSE 95; RESP 17; TEMP 97.8; O2SAT 97
[2016-10-05] MEDS: AMITRIPTYLINE HCL 75 MG TAB PO SCH (21:18)
[2016-10-05] MEDS: diphenhydrAMINE HCL 50 MG CAP PO PRN (21:18)
[2016-10-06] MEDS: LEVOTHYROXINE SODIUM 100 MCG TAB PO SCH (06:17)
[2016-10-06 07:00] VITALS: BP 117/71; PULSE 82; RESP 16; TEMP 97.8; O2SAT 98
[2016-10-06] MEDS: ARIPiprazole 15 MG TAB PO SCH (08:34)
[2016-10-06] MEDS: CALCIUM/VITAMIN D 250 MG/125 U TAB PO SCH ×2 (08:34→22:25)
[2016-10-06] MEDS: HALOPERIDOL 10 MG TAB PO SCH ×2 (08:35→22:25)
[2016-10-06] MEDS: POLYETHYLENE GLYCOL 17 GM PKG PO SCH (08:35)
[2016-10-06] MEDS: BENZTROPINE MESYLATE 1 MG TAB PO SCH ×2 (08:35→22:25)
[2016-10-06] MEDS: VALPROIC ACID SYRUP 250 MG/5 ML UDC PO SCH ×2 (08:35→22:26)
[2016-10-06] MEDS: PANTOPRAZOLE SOD 40 MG DELAYED RELEASE TAB PO SCH (08:35)
[2016-10-06] MEDS: PHENYTOIN SODIUM 100 MG CAP PO SCH ×3 (08:37→17:26)
[2016-10-06] MEDS: QUEtiapine FUMARATE 200 MG TAB PO SCH ×3 (08:37→22:26)
--- NOTE | 2016-10-06 09:49 | HHI.PR ---
Blank section for building Chart reviewed patient appears medically stable will sign off. If patient's condition changes or further assistance is needed please reconsult. Recommend patient follow up with PCP after DC. Bisi Koch Oct 06, 2016 09:49
--- NOTE | 2016-10-06 12:40 | HHI.PYPN ---
Subjective Remarks Patient seen in the [place] nurse Briseyda, chart review, patient compliant medication. Patient continues labile tearful with very little insight.. Staff states patient is having a difficult time with sleep. Both initial and mid. We will adjust Seroquel to 4 PM and at bedtime discontinuing the a.m. dose. With prior hospitalizations patient has taken a long time to stabilize will need to be cognizant of that Review of Systems Except as stated in HPI: all other systems reviewed are Neg Objective Alert: Yes [place]: Person, Place Mood: Anxious, Depressed, Happy Affect: Labile Memory Intact: Comment (very poor) Hallucinations: Other (denies) Delusions: Yes Delusion Type: Paranoid Suicidal: Ideation (vaguely denies) Homicidal: Ideation (vaguely denies) Insight/Judgment Poor Vitals/IOs Vital Signs Date Time Temp Pulse Resp B/P Pulse Ox O2 Delivery O2 Flow Rate FiO2 10/06/16 07:00 97.8 82 16 117/71 98 10/03/16 12:30 Room Air Intake and Output 10/05/16 10/05/16 10/06/16 08:00 16:00 00:00 Intake Total 240 ml 0 ml 480 ml Balance 240 ml 0 ml 480 ml Assessment & Plan Problem List: (1) Bipolar disorder ICD Code: F31.9 Assessment & Plan Estimated LOS: days a she continues labile somewhat depressed vigilant. See medication adjustment above Justification for Cont. Inpt. At this time patient will decompensate if placed in the lower level of care Discharge Planning To be determined Problem Qualifiers (1) Bipolar disorder: Qualified Code: F31.64 - Bipolar disorder, current episode mixed, severe, with psychotic features Ezequiel Grayson MD Oct 06, 2016 12:40
[2016-10-06] MEDS: LORazepam 1 MG TAB PO PRN ×2 (14:52→22:25)
[2016-10-06 16:14] VITALS: BP 127/89; PULSE 106; RESP 22; TEMP 98; O2SAT 98
[2016-10-06] MEDS: AMITRIPTYLINE HCL 75 MG TAB PO SCH (22:25)
[2016-10-06] MEDS: diphenhydrAMINE HCL 50 MG CAP PO PRN (22:25)
[2016-10-06] MEDS: ALUMINUM/MAGNESIUM/SIMETH 30 ML CUP PO PRN (23:07)
[2016-10-07] MEDS: LEVOTHYROXINE SODIUM 100 MCG TAB PO SCH (06:03)
[2016-10-07 06:05] VITALS: BP 120/87; PULSE 84; RESP 18; TEMP 97.6; O2SAT 98
[2016-10-07 08:10] LABS: BICARBONATE 32.2 MEQ/L (21.0-32.0); POTASSIUM 4.1 MEQ/L (3.5-5.1)
[2016-10-07] MEDS: POLYETHYLENE GLYCOL 17 GM PKG PO SCH (09:25)
[2016-10-07] MEDS: CALCIUM/VITAMIN D 250 MG/125 U TAB PO SCH ×2 (09:26→20:22)
[2016-10-07] MEDS: BENZTROPINE MESYLATE 1 MG TAB PO SCH ×2 (09:26→20:21)
[2016-10-07] MEDS: PHENYTOIN SODIUM 100 MG CAP PO SCH ×3 (09:26→18:00)
[2016-10-07] MEDS: VALPROIC ACID SYRUP 250 MG/5 ML UDC PO SCH ×2 (09:26→20:20)
[2016-10-07] MEDS: ARIPiprazole 15 MG TAB PO SCH (09:26)
[2016-10-07] MEDS: PANTOPRAZOLE SOD 40 MG DELAYED RELEASE TAB PO SCH (09:26)
[2016-10-07] MEDS: HALOPERIDOL 10 MG TAB PO SCH ×2 (09:26→20:21)
--- NOTE | 2016-10-07 12:31 | HHI.PYPN ---
Subjective Remarks Patient was seen and case discussed with nursing. Today, patient is a fixed delusion that her son Yash . Is tearful and distraught. Per nursing this is not accurate. Denies auditory visual hallucinations. However says that people were "forcing entry" into her room last night. Objective Alert: Yes [place]: Person, Place Mood: Anxious, Depressed Affect: Labile Memory Intact: Comment (very poor) Hallucinations: Other (denies) Delusions: Yes Delusion Type: Paranoid (at night), Other (bizarre that her son ) Suicidal: Ideation (denies) Homicidal: Ideation (denies) Insight/Judgment Poor Labs Test 10/07/16 06:38 Sodium Level 137 MEQ/L Potassium Level 4.1 MEQ/L Chloride Level 101 MEQ/L Carbon Dioxide Level 32.2 MEQ/L Anion Gap 4 MEQ/L Blood Urea Nitrogen 21 MG/DL Creatinine 0.82 MG/DL Estimat Glomerular Filtration 71 ML/MIN Rate Random Glucose 80 MG/DL Calcium Level 9.5 MG/DL Vitals/IOs Vital Signs Date Time Temp Pulse Resp B/P Pulse Ox O2 Delivery O2 Flow Rate FiO2 10/07/16 06:05 97.6 84 18 120/87 98 10/03/16 12:30 Room Air Intake and Output 10/06/16 10/06/16 10/07/16 08:00 16:00 00:00 Intake Total 120 ml 1080 ml Balance 120 ml 1080 ml Assessment & Plan Problem List: (1) Bipolar disorder ICD Code: F31.9 Assessment & Plan Continue current treatment plan Justification for Cont. Inpt. Patient will decompensate in a less restrictive setting Problem Qualifiers (1) Bipolar disorder: Qualified Code: F31.64 - Bipolar disorder, current episode mixed, severe, with psychotic features Cuate Flynn DO Oct 07, 2016 12:31
[2016-10-07] MEDS: QUEtiapine FUMARATE 200 MG TAB PO SCH ×2 (16:00→20:39)
[2016-10-07] MEDS: AMITRIPTYLINE HCL 75 MG TAB PO SCH (20:21)
[2016-10-07] MEDS: LORazepam 1 MG TAB PO PRN (20:39)
[2016-10-07] MEDS: diphenhydrAMINE HCL 50 MG CAP PO PRN (22:51)
[2016-10-08 06:00] VITALS: BP 114/55; PULSE 88; RESP 18; TEMP 97.8; O2SAT 96
[2016-10-08] MEDS: LEVOTHYROXINE SODIUM 100 MCG TAB PO SCH (06:38)
[2016-10-08] MEDS: HALOPERIDOL 10 MG TAB PO SCH ×2 (09:06→20:38)
[2016-10-08] MEDS: PANTOPRAZOLE SOD 40 MG DELAYED RELEASE TAB PO SCH (09:06)
[2016-10-08] MEDS: PHENYTOIN SODIUM 100 MG CAP PO SCH ×3 (09:07→17:10)
[2016-10-08] MEDS: BENZTROPINE MESYLATE 1 MG TAB PO SCH ×2 (09:07→21:00)
[2016-10-08] MEDS: CALCIUM/VITAMIN D 250 MG/125 U TAB PO SCH ×2 (09:08→20:38)
[2016-10-08] MEDS: ARIPiprazole 15 MG TAB PO SCH (09:08)
[2016-10-08] MEDS: VALPROIC ACID SYRUP 250 MG/5 ML UDC PO SCH ×2 (09:09→20:37)
[2016-10-08] MEDS: POLYETHYLENE GLYCOL 17 GM PKG PO SCH (09:09)
--- NOTE | 2016-10-08 11:11 | HHI.PYPN ---
Subjective Remarks Patient was seen and case discussed with nursing. Patient remains labile and grossly psychotic. Profound loose associations with various nonsensical statements. Such as "there is a hate crime on your face." Compliant with medications. Objective Alert: Yes [place]: Person Mood: Anxious Affect: Labile Memory Intact: Comment (very poor) Hallucinations: Other (denies) Delusions: Yes Delusion Type: Paranoid (at night), Other (various bizarre delusions) Suicidal: Ideation (denies) Homicidal: Ideation (denies) Insight/Judgment Poor Vitals/IOs Vital Signs Date Time Temp Pulse Resp B/P Pulse Ox O2 Delivery O2 Flow Rate FiO2 10/08/16 06:00 97.8 88 18 114/55 96 Intake and Output 10/07/16 10/07/16 10/08/16 08:00 16:00 00:00 Intake Total 0 ml 120 ml 480 ml Balance 0 ml 120 ml 480 ml Assessment & Plan Problem List: (1) Bipolar disorder ICD Code: F31.9 Assessment & Plan Continue current treatment plan Justification for Cont. Inpt. Patient would decompensate in a less restrictive setting Problem Qualifiers (1) Bipolar disorder: Qualified Code: F31.64 - Bipolar disorder, current episode mixed, severe, with psychotic features Cuate Flynn DO Oct 08, 2016 11:11
[2016-10-08] MEDS: LORazepam 1 MG TAB PO PRN ×2 (11:17→22:34)
[2016-10-08] MEDS: QUEtiapine FUMARATE 200 MG TAB PO SCH ×2 (15:38→22:00)
[2016-10-08] MEDS: LORazepam 2 MG/ML VIAL IM PRN (16:17)
[2016-10-08 20:31] VITALS: BP 122/91; PULSE 80; RESP 17; TEMP 96.8; O2SAT 97
[2016-10-08] MEDS: AMITRIPTYLINE HCL 75 MG TAB PO SCH (20:38)
[2016-10-08] MEDS: diphenhydrAMINE HCL 50 MG CAP PO PRN (21:19)
[2016-10-09] MEDS: LEVOTHYROXINE SODIUM 100 MCG TAB PO SCH (06:09)
[2016-10-09 06:19] VITALS: BP 125/64; PULSE 97; RESP 17; TEMP 97.4; O2SAT 98
[2016-10-09] MEDS: PANTOPRAZOLE SOD 40 MG DELAYED RELEASE TAB PO SCH (08:08)
[2016-10-09] MEDS: POLYETHYLENE GLYCOL 17 GM PKG PO SCH (08:08)
[2016-10-09] MEDS: PHENYTOIN SODIUM 100 MG CAP PO SCH ×3 (08:08→17:44)
[2016-10-09] MEDS: CALCIUM/VITAMIN D 250 MG/125 U TAB PO SCH ×2 (08:08→20:42)
[2016-10-09] MEDS: HALOPERIDOL 10 MG TAB PO SCH ×2 (08:08→20:42)
[2016-10-09] MEDS: VALPROIC ACID SYRUP 250 MG/5 ML UDC PO SCH ×2 (08:08→20:43)
[2016-10-09] MEDS: BENZTROPINE MESYLATE 1 MG TAB PO SCH ×2 (08:08→20:42)
[2016-10-09] MEDS: ARIPiprazole 15 MG TAB PO SCH (08:08)
--- NOTE | 2016-10-09 12:07 | PD.TTN ---
Present for Treatment Team Treatment Team Staff: Provider (Dr. Grayson), Nurse (Leda), Psych Therapist ( WICHO Zayas), Other Clinician (Ana, rec. therapy) Patient Problems 1. Discharge planning 2. Medication compliance 3. Knowledge deficit 4. Lack of coping skills Progress Toward Goals Provider Input: Dr. Grayson requested an update regarding patient's progress, medication management, treatment plan, and discharge plan. Nurse Input: Ana reported the patient remains intrusive and manic and babs up her peers. According to Leda, the patient was screaming all night that the techs were stripping her and attacking her. Psych Therapist Input: Counselor reported the patient remains intrusive and paranoid. Other Clinican Input: Ana reported the patient is not able to tolerate groups. Documentation Scribe: WICHO Zayas Date Resolved: Oct 09, 2016 Carlie Patel Oct 09, 2016 12:06
[2016-10-09] MEDS: QUEtiapine FUMARATE 200 MG TAB PO SCH ×2 (16:00→20:43)
--- NOTE | 2016-10-09 17:07 | HHI.PYPN ---
Subjective Remarks Patient seen in [place] with nurse vikram, chart review, patient overall compliant medications. The patient continues markedly delusional psychotic intrusive labile with no insight into her disease. Review of Systems Except as stated in HPI: all other systems reviewed are Neg Objective Alert: Yes [place]: Person Mood: Anxious Affect: Labile Memory Intact: Comment (very poor) Hallucinations: Other (denies) Delusions: Yes Delusion Type: Paranoid (at night), Other (various bizarre delusions) Suicidal: Ideation (denies) Homicidal: Ideation (denies) Insight/Judgment Very poor Vitals/IOs Vital Signs Date Time Temp Pulse Resp B/P Pulse Ox O2 Delivery O2 Flow Rate FiO2 10/09/16 06:19 97.4 97 17 125/64 98 Intake and Output 10/08/16 10/08/16 10/08/16 07:59 15:59 23:59 Intake Total 0 ml 360 ml Balance 0 ml 360 ml Assessment & Plan Problem List: (1) Bipolar disorder ICD Code: F31.9 Assessment & Plan Estimated LOS: days patient continues quite psychotic intrusive paranoid and delusional. Compliant medication. For now continue treatment Justification for Cont. Inpt. At this time patient will decompensate if placed in a lower level of care Problem Qualifiers (1) Bipolar disorder: Qualified Code: F31.64 - Bipolar disorder, current episode mixed, severe, with psychotic features Ezequiel Grayson MD Oct 09, 2016 17:07
[2016-10-09 18:00] VITALS: BP 124/56; PULSE 100; RESP 18; TEMP 98.9; O2SAT 96
[2016-10-09] MEDS: diphenhydrAMINE HCL 50 MG CAP PO PRN (20:42)
[2016-10-09] MEDS: AMITRIPTYLINE HCL 75 MG TAB PO SCH (20:42)
[2016-10-09] MEDS: LORazepam 1 MG TAB PO PRN (20:42)
[2016-10-10 06:00] VITALS: BP 105/57; PULSE 86; RESP 16; TEMP 97.4; O2SAT 96
[2016-10-10] MEDS: LEVOTHYROXINE SODIUM 100 MCG TAB PO SCH (06:00)
[2016-10-10] MEDS: LORazepam 1 MG TAB PO PRN ×2 (07:41→23:07)
[2016-10-10] MEDS: BENZTROPINE MESYLATE 1 MG TAB PO SCH ×2 (07:42→20:37)
[2016-10-10] MEDS: ARIPiprazole 15 MG TAB PO SCH (07:42)
[2016-10-10] MEDS: PHENYTOIN SODIUM 100 MG CAP PO SCH ×3 (07:43→17:21)
[2016-10-10] MEDS: VALPROIC ACID SYRUP 250 MG/5 ML UDC PO SCH ×2 (07:43→20:38)
[2016-10-10] MEDS: HALOPERIDOL 10 MG TAB PO SCH ×2 (07:43→17:21)
[2016-10-10] MEDS: CALCIUM/VITAMIN D 250 MG/125 U TAB PO SCH ×2 (07:44→20:38)
[2016-10-10] MEDS: POLYETHYLENE GLYCOL 17 GM PKG PO SCH (07:44)
[2016-10-10] MEDS: PANTOPRAZOLE SOD 40 MG DELAYED RELEASE TAB PO SCH (07:44)
[2016-10-10] MEDS ORDERED: HALOPERIDOL LACTATE 5 MG/ML AMP IM STA (10:21)
[2016-10-10] MEDS ORDERED: diphenhydrAMINE HCL 50 MG/ML VIAL IM STA (10:21)
[2016-10-10] MEDS ORDERED: LORazepam 2 MG/ML VIAL IM STA (10:21)
[2016-10-10] MEDS ORDERED: diphenhydrAMINE HCL 50 MG/ML VIAL ONE (10:22)
[2016-10-10] MEDS ORDERED: HALOPERIDOL LACTATE 5 MG/ML AMP ONE (10:22)
--- NOTE | 2016-10-10 10:25 | HHI.PYPN ---
Subjective Remarks Patient seen in day room with nurse Leda, patient is markedly intrusive psychotic and delusional sometimes somewhat aggressive with invading other people's personal space of being somewhat intimidating. Patient is compliant with medications. We will do the following medication adjustments condense the Seroquel to 400 mg at at bedtime, increase the Haldol to 10 mg a.m. 5 mg 2 PM 10 mg 6 PM, and discontinue the Abilify. Will also place patient of the state referral packet list Review of Systems Except as stated in HPI: all other systems reviewed are Neg Objective Alert: Yes [place]: Person Mood: Anxious Affect: Labile Memory Intact: Comment (very poor) Hallucinations: Other (denies) Delusions: Yes Delusion Type: Paranoid (at night), Other (various bizarre delusions) Suicidal: Ideation (denies) Homicidal: Ideation (denies) Insight/Judgment Very poor Vitals/IOs Vital Signs Date Time Temp Pulse Resp B/P Pulse Ox O2 Delivery O2 Flow Rate FiO2 10/10/16 06:00 97.4 86 16 105/57 96 Intake and Output 10/09/16 10/09/16 10/10/16 08:00 16:00 00:00 Intake Total 240 ml 240 ml 360 ml Balance 240 ml 240 ml 360 ml Assessment & Plan Problem List: (1) Bipolar disorder ICD Code: F31.9 Assessment & Plan Estimated LOS: days patient continues markedly psychotic disorganized intrusive and somewhat intimidating. She medication adjustments above. As this note is being dictated patient showing increased aggressive behavior becoming more physically threatening. I have just ordered a when necessary of Haldol 5 mg, Ativan 1 mg, Benadryl 25 mg all to given IM now medically necessary Justification for Cont. Inpt. At this time patient will decompensate to placed a lower level of care Discharge Planning To be determined state that referral has been ordered Problem Qualifiers (1) Bipolar disorder: Qualified Code: F31.64 - Bipolar disorder, current episode mixed, severe, with psychotic features Ezequiel Grayson MD Oct 10, 2016 10:25
[2016-10-10] MEDS: HALOPERIDOL 5 MG TAB PO SCH (12:53)
[2016-10-10 15:46] VITALS: BP 212/89; PULSE 99; RESP 22; TEMP 99.1
[2016-10-10 20:30] VITALS: BP 133/61; PULSE 94
[2016-10-10] MEDS: diphenhydrAMINE HCL 50 MG CAP PO PRN (20:37)
[2016-10-10] MEDS: QUEtiapine FUMARATE 200 MG TAB PO SCH (20:37)
[2016-10-10] MEDS: AMITRIPTYLINE HCL 75 MG TAB PO SCH (20:38)
[2016-10-11 06:00] VITALS: BP 116/65; PULSE 93; RESP 16; TEMP 98.7; O2SAT 94
[2016-10-11] MEDS: LEVOTHYROXINE SODIUM 100 MCG TAB PO SCH (06:23)
[2016-10-11] MEDS: HALOPERIDOL 10 MG TAB PO SCH ×2 (08:00→20:25)
[2016-10-11] MEDS: LORazepam 2 MG/ML VIAL IM PRN (08:00)
[2016-10-11] MEDS: VALPROIC ACID SYRUP 250 MG/5 ML UDC PO SCH ×2 (09:00→20:24)
[2016-10-11] MEDS: CALCIUM/VITAMIN D 250 MG/125 U TAB PO SCH ×2 (09:00→20:25)
[2016-10-11] MEDS: POLYETHYLENE GLYCOL 17 GM PKG PO SCH (09:00)
[2016-10-11] MEDS: PHENYTOIN SODIUM 100 MG CAP PO SCH ×3 (09:00→17:50)
[2016-10-11] MEDS: PANTOPRAZOLE SOD 40 MG DELAYED RELEASE TAB PO SCH (09:00)
[2016-10-11] MEDS: BENZTROPINE MESYLATE 1 MG TAB PO SCH ×2 (09:00→20:25)
[2016-10-11] MEDS: HALOPERIDOL 5 MG TAB PO SCH (14:00)
--- NOTE | 2016-10-11 15:24 | HHI.PYPN ---
Subjective Remarks Patient seen in [place] with nurse Rachel in counselor very in a, chart review, patient compliant medications. Patient continues intrusive loud delusional markedly disorganized speech. Needing constant redirection for her intrusiveness. Will increase Depakote to 750 mg a.m. 1000 mg at bedtime check blood level on 10/14 Review of Systems Except as stated in HPI: all other systems reviewed are Neg Objective Alert: Yes [place]: Person Mood: Anxious Affect: Labile Memory Intact: Comment (very poor) Hallucinations: Other (denies) Delusions: Yes Delusion Type: Paranoid (at night), Other (various bizarre delusions) Suicidal: Ideation (denies) Homicidal: Ideation (denies) Insight/Judgment Very poor Vitals/IOs Vital Signs Date Time Temp Pulse Resp B/P Pulse Ox O2 Delivery O2 Flow Rate FiO2 10/11/16 06:00 98.7 93 16 116/65 94 Intake and Output 10/10/16 10/10/16 10/11/16 08:00 16:00 00:00 Intake Total 1440 ml Balance 1440 ml Assessment & Plan Problem List: (1) Bipolar disorder ICD Code: F31.9 Assessment & Plan Estimated LOS: days patient is quite psychotic delusional intrusive with no insight. She medication adjustment above Justification for Cont. Inpt. At this time patient will decompensate if placed in a lower level of care Discharge Planning To be determined Problem Qualifiers (1) Bipolar disorder: Qualified Code: F31.64 - Bipolar disorder, current episode mixed, severe, with psychotic features Ezequiel Grayson MD Oct 11, 2016 15:24
[2016-10-11] MEDS ORDERED: diphenhydrAMINE HCL 50 MG/ML VIAL IM STA (15:31)
[2016-10-11] MEDS ORDERED: LORazepam 2 MG/ML VIAL IM STA (15:31)
[2016-10-11] MEDS ORDERED: HALOPERIDOL LACTATE 5 MG/ML AMP IM STA (15:31)
[2016-10-11 18:00] VITALS: BP 111/65; PULSE 93; RESP 16; TEMP 98.2; O2SAT 98
[2016-10-11] MEDS: QUEtiapine FUMARATE 200 MG TAB PO SCH (20:25)
[2016-10-11] MEDS: AMITRIPTYLINE HCL 75 MG TAB PO SCH (20:25)
[2016-10-12 05:31] VITALS: BP 129/66; PULSE 91; RESP 16; TEMP 98.3; O2SAT 98
[2016-10-12] MEDS: LEVOTHYROXINE SODIUM 100 MCG TAB PO SCH (06:17)
[2016-10-12] MEDS: POLYETHYLENE GLYCOL 17 GM PKG PO SCH (09:00)
[2016-10-12] MEDS: PANTOPRAZOLE SOD 40 MG DELAYED RELEASE TAB PO SCH (09:20)
[2016-10-12] MEDS: VALPROIC ACID SYRUP 250 MG/5 ML UDC PO SCH ×2 (09:20→22:07)
[2016-10-12] MEDS: CALCIUM/VITAMIN D 250 MG/125 U TAB PO SCH ×2 (09:20→23:39)
[2016-10-12] MEDS: HALOPERIDOL 10 MG TAB PO SCH ×3 (09:20→23:39)
[2016-10-12] MEDS: BENZTROPINE MESYLATE 1 MG TAB PO SCH ×2 (09:21→22:07)
[2016-10-12] MEDS: PHENYTOIN SODIUM 100 MG CAP PO SCH ×3 (09:21→18:30)
--- NOTE | 2016-10-12 10:35 | HHI.PYPN ---
Subjective Remarks Patient seen in [place] [address], retained by Char Filter Operator Frank. Chart reviewed. Patient compliant medication. Patient continues markedly delusional hyperverbal intrusive and labile. Basically speaking nonsense to the architectural draftsperson. For now continue treatment Review of Systems Except as stated in HPI: all other systems reviewed are Neg Objective Alert: Yes [place]: Person Mood: Anxious Affect: Labile Memory Intact: Comment (very poor) Hallucinations: Other (denies) Delusions: Yes Delusion Type: Paranoid (at night), Other (various bizarre delusions) Suicidal: Ideation (denies) Homicidal: Ideation (denies) Insight/Judgment Very poor Vitals/IOs Vital Signs Date Time Temp Pulse Resp B/P Pulse Ox O2 Delivery O2 Flow Rate FiO2 10/12/16 05:31 98.3 91 16 129/66 98 Intake and Output 10/11/16 10/11/16 10/11/16 07:59 15:59 23:59 Intake Total 0 ml 120 ml 720 ml Balance 0 ml 120 ml 720 ml Assessment & Plan Problem List: (1) Bipolar disorder ICD Code: F31.9 Assessment & Plan Estimated LOS: days patient continues diffusely confused psychotic labile irritating and intrusive, was retained in [place] [address] by Char Filter Operator Frank Justification for Cont. Inpt. Mica Paster patient will decompensate placed in a lower level of care Discharge Planning To be determined Problem Qualifiers (1) Bipolar disorder: Qualified Code: F31.64 - Bipolar disorder, current episode mixed, severe, with psychotic features Ezequiel Grayson MD Oct 12, 2016 10:35
[2016-10-12] MEDS: LORazepam 1 MG TAB PO PRN ×2 (12:08→18:30)
[2016-10-12 17:55] VITALS: PULSE 99; RESP 22; TEMP 99.1
[2016-10-12 18:04] VITALS: BP 110/78; PULSE 98
[2016-10-12] MEDS: diphenhydrAMINE HCL 50 MG CAP PO PRN (22:06)
[2016-10-12] MEDS: QUEtiapine FUMARATE 200 MG TAB PO SCH (22:06)
[2016-10-12] MEDS: AMITRIPTYLINE HCL 75 MG TAB PO SCH (22:07)
[2016-10-13 06:03] VITALS: BP 119/58; PULSE 89; RESP 16; TEMP 98.5; O2SAT 96
[2016-10-13] MEDS: LEVOTHYROXINE SODIUM 100 MCG TAB PO SCH (06:51)
[2016-10-13] MEDS: POLYETHYLENE GLYCOL 17 GM PKG PO SCH (09:00)
[2016-10-13] MEDS: HALOPERIDOL 10 MG TAB PO SCH ×3 (09:32→20:41)
[2016-10-13] MEDS: BENZTROPINE MESYLATE 1 MG TAB PO SCH ×2 (09:32→20:41)
[2016-10-13] MEDS: PHENYTOIN SODIUM 100 MG CAP PO SCH ×3 (09:32→18:24)
[2016-10-13] MEDS: PANTOPRAZOLE SOD 40 MG DELAYED RELEASE TAB PO SCH (09:32)
[2016-10-13] MEDS: CALCIUM/VITAMIN D 250 MG/125 U TAB PO SCH ×2 (09:32→20:42)
[2016-10-13] MEDS: LORazepam 1 MG TAB PO PRN ×2 (09:32→16:19)
[2016-10-13] MEDS: VALPROIC ACID SYRUP 250 MG/5 ML UDC PO SCH ×2 (09:33→20:50)
[2016-10-13] MEDS: PADIMATE (CHAPSTICK) 4.5 GM TUBE TOPICAL PRN ×2 (09:40→12:55)
--- NOTE | 2016-10-13 15:28 | HHI.PYPN ---
Subjective Remarks Patient seen in dayroom with forceps, patient continues intrusive perseverative somewhat irritating, continues delusional and times somewhat paranoid. Compliant medications. Review of Systems Except as stated in HPI: all other systems reviewed are Neg Objective Alert: Yes [place]: Person Mood: Anxious Affect: Labile Memory Intact: Comment (very poor) Hallucinations: Other (denies) Delusions: Yes Delusion Type: Paranoid (at night), Other (various bizarre delusions) Suicidal: Ideation (denies) Homicidal: Ideation (denies) Insight/Judgment Very poor Vitals/IOs Vital Signs Date Time Temp Pulse Resp B/P Pulse Ox O2 Delivery O2 Flow Rate FiO2 10/13/16 06:03 98.5 89 16 119/58 96 Intake and Output 10/12/16 10/12/16 10/13/16 08:00 16:00 00:00 Intake Total 240 ml 240 ml 120 ml Balance 240 ml 240 ml 120 ml Assessment & Plan Problem List: (1) Bipolar disorder ICD Code: F31.9 Assessment & Plan Estimated LOS: days patient continue psychotic and intrusive, compliant medications Justification for Cont. Inpt. At this time patient will decompensate placed in a lower level of care Discharge Planning To be determined Problem Qualifiers (1) Bipolar disorder: Qualified Code: F31.64 - Bipolar disorder, current episode mixed, severe, with psychotic features Ezequiel Grayson MD Oct 13, 2016 15:28
[2016-10-13 17:30] VITALS: BP 136/73; PULSE 101; RESP 18; TEMP 97.8; O2SAT 98
[2016-10-13] MEDS: AMITRIPTYLINE HCL 75 MG TAB PO SCH (20:42)
[2016-10-13] MEDS: diphenhydrAMINE HCL 50 MG CAP PO PRN (20:42)
[2016-10-13] MEDS: QUEtiapine FUMARATE 200 MG TAB PO SCH (20:42)
[2016-10-14] MEDS: LEVOTHYROXINE SODIUM 100 MCG TAB PO SCH (05:59)
[2016-10-14] MEDS: LORazepam 1 MG TAB PO PRN (06:43)
[2016-10-14 07:04] VITALS: BP 115/70; PULSE 90; RESP 15; TEMP 97.7; O2SAT 100
[2016-10-14] MEDS: POLYETHYLENE GLYCOL 17 GM PKG PO SCH (09:02)
[2016-10-14] MEDS: VALPROIC ACID SYRUP 250 MG/5 ML UDC PO SCH ×2 (09:02→21:30)
[2016-10-14] MEDS: PANTOPRAZOLE SOD 40 MG DELAYED RELEASE TAB PO SCH (09:04)
[2016-10-14] MEDS: PHENYTOIN SODIUM 100 MG CAP PO SCH ×3 (09:04→18:43)
[2016-10-14] MEDS: CALCIUM/VITAMIN D 250 MG/125 U TAB PO SCH ×2 (09:04→21:30)
[2016-10-14] MEDS: BENZTROPINE MESYLATE 1 MG TAB PO SCH ×2 (09:04→21:30)
[2016-10-14] MEDS: HALOPERIDOL 10 MG TAB PO SCH ×3 (09:06→21:30)
[2016-10-14] MEDS: LORazepam 2 MG/ML VIAL IM PRN (14:26)
--- NOTE | 2016-10-14 15:16 | HHI.PYPN ---
Subjective Remarks Pt seen and discussed with staff. Pt has been labile adn easily agitated on unit. Given ativan PO X1 dose after she became agitated in day room. Pt is floriidly delusional and thought process is loose. Objective Alert: Yes [place]: Person Mood: Agitated, Anxious Affect: Labile Memory Intact: Comment (very poor) Hallucinations: Other (denies) Delusions: Yes Delusion Type: Paranoid, Other (various bizarre delusions) Suicidal: Ideation (denies) Homicidal: Ideation (denies) Insight/Judgment poor Labs Test 10/14/16 09:55 Valproic Acid (Depakene) Level 60 MCG/ML Vitals/IOs Vital Signs Date Time Temp Pulse Resp B/P Pulse Ox O2 Delivery O2 Flow Rate FiO2 10/14/16 07:04 97.7 90 15 115/70 100 Intake and Output 10/13/16 10/13/16 10/14/16 08:00 16:00 00:00 Intake Total 480 ml 960 ml 1800 ml Balance 480 ml 960 ml 1800 ml Assessment & Plan Problem List: (1) Bipolar disorder ICD Code: F31.9 Assessment & Plan Continue current tx plan. Estimated LOS: days Justification for Cont. Inpt. impairments in safety and reality testing Problem Qualifiers (1) Bipolar disorder: Qualified Code: F31.64 - Bipolar disorder, current episode mixed, severe, with psychotic features Marina Kessler MD Oct 14, 2016 15:16
[2016-10-14 18:00] VITALS: BP 140/86; PULSE 88; RESP 17; TEMP 99.1; O2SAT 95
[2016-10-14] MEDS: AMITRIPTYLINE HCL 75 MG TAB PO SCH (21:30)
[2016-10-14] MEDS: QUEtiapine FUMARATE 200 MG TAB PO SCH (21:30)
[2016-10-15] MEDS: LEVOTHYROXINE SODIUM 100 MCG TAB PO SCH (04:31)
[2016-10-15] MEDS: diphenhydrAMINE HCL 50 MG CAP PO PRN (04:31)
[2016-10-15] MEDS: LORazepam 1 MG TAB PO PRN ×2 (04:31→16:25)
[2016-10-15 06:00] VITALS: BP 116/57; PULSE 82; RESP 16; TEMP 98.2; O2SAT 94
[2016-10-15] MEDS: HALOPERIDOL 10 MG TAB PO SCH ×3 (08:37→19:43)
[2016-10-15] MEDS: BENZTROPINE MESYLATE 1 MG TAB PO SCH ×2 (08:38→20:47)
[2016-10-15] MEDS: VALPROIC ACID SYRUP 250 MG/5 ML UDC PO SCH ×2 (08:38→20:47)
[2016-10-15] MEDS: PHENYTOIN SODIUM 100 MG CAP PO SCH ×3 (08:38→17:31)
[2016-10-15] MEDS: CALCIUM/VITAMIN D 250 MG/125 U TAB PO SCH ×2 (08:38→20:48)
[2016-10-15] MEDS: POLYETHYLENE GLYCOL 17 GM PKG PO SCH (08:38)
[2016-10-15] MEDS: PANTOPRAZOLE SOD 40 MG DELAYED RELEASE TAB PO SCH (08:38)
[2016-10-15] MEDS: PADIMATE (CHAPSTICK) 4.5 GM TUBE TOPICAL PRN (13:48)
--- NOTE | 2016-10-15 16:49 | HHI.PYPN ---
Subjective Remarks Pt seen and discusssed with staff. Mood remains labile and she is easily agitated but has been more redirectable today. She remains bizarre and implored MD to "please do not limon the next nursing shift". She told RNs that staff member had been arrested on the unit. Objective Alert: Yes [place]: Person, Place Mood: Anxious Affect: Labile Memory Intact: Comment (very poor) Hallucinations: Other (denies) Delusions: Yes Delusion Type: Paranoid, Other (various bizarre delusions) Suicidal: Ideation (denies) Homicidal: Ideation (denies) Insight/Judgment poor Vitals/IOs Vital Signs Date Time Temp Pulse Resp B/P Pulse Ox O2 Delivery O2 Flow Rate FiO2 10/15/16 06:00 98.2 82 16 116/57 94 Intake and Output 10/14/16 10/14/16 10/15/16 08:00 16:00 00:00 Intake Total 360 ml 1320 ml Balance 360 ml 1320 ml Assessment & Plan Problem List: (1) Bipolar disorder ICD Code: F31.9 Assessment & Plan Continue current tx plan. Estimated LOS: days Justification for Cont. Inpt. impairments in safety and reality testing Problem Qualifiers (1) Bipolar disorder: Qualified Code: F31.64 - Bipolar disorder, current episode mixed, severe, with psychotic features Marina Kessler MD Oct 15, 2016 16:49
[2016-10-15] MEDS: QUEtiapine FUMARATE 200 MG TAB PO SCH (20:48)
[2016-10-15] MEDS: AMITRIPTYLINE HCL 75 MG TAB PO SCH (20:48)
[2016-10-16] MEDS: LEVOTHYROXINE SODIUM 100 MCG TAB PO SCH (06:23)
[2016-10-16] MEDS: LORazepam 1 MG TAB PO PRN ×2 (06:23→12:50)
[2016-10-16 07:14] VITALS: BP 117/58; PULSE 88; RESP 17; TEMP 98.3; O2SAT 93
[2016-10-16] MEDS: HALOPERIDOL 10 MG TAB PO SCH ×3 (08:48→19:57)
[2016-10-16] MEDS: CALCIUM/VITAMIN D 250 MG/125 U TAB PO SCH ×2 (08:48→19:57)
[2016-10-16] MEDS: BENZTROPINE MESYLATE 1 MG TAB PO SCH ×2 (08:48→19:56)
[2016-10-16] MEDS: VALPROIC ACID SYRUP 250 MG/5 ML UDC PO SCH ×2 (08:48→19:56)
[2016-10-16] MEDS: PHENYTOIN SODIUM 100 MG CAP PO SCH ×3 (08:48→17:47)
[2016-10-16] MEDS: POLYETHYLENE GLYCOL 17 GM PKG PO SCH (08:49)
[2016-10-16] MEDS: PANTOPRAZOLE SOD 40 MG DELAYED RELEASE TAB PO SCH (08:49)
--- NOTE | 2016-10-16 11:26 | PD.TTN ---
Present for Treatment Team Treatment Team Staff: Provider (Dr. Grayson), Psych Therapist (WICHO Zayas), Other Clinician (Ana, marjorie. therapy) Patient Problems 1. Discharge planning 2. Medication compliance 3. Knowledge deficit 4. Lack of coping skills Progress Toward Goals Provider Input: Dr. Grayson requested an update regarding patient's mental status, medication compliance, progress, and plan for discharge. Psych Therapist Input: Counselor reported the patient presented hyperverbal with disorganized thoughts. Patient was more easily redirectable this morning than on previous days. She remains compliant with medications, though, her mood remains manic. Counselor reported the patient's [facility] packet has been mailed to [facility] as of Thursday, October 13, 2016. Counselor reported the patient's family halfway visited on Sunday and reported the patient may return to their facility if she is stabilized. Other Clinican Input: Ana reported the patient is participating in recreational groups and activities. Documentation Scribe: WICHO Zayas Date Resolved: Oct 16, 2016 Carlie Patel Oct 16, 2016 11:26
--- NOTE | 2016-10-16 15:05 | HHI.PYPN ---
Subjective Remarks Patient seen in [place] with nurse Jermaine and medical student Treri. Chart review. Patient compliant medication. Patient continues intrusive loud irritable markedly disorganized in her speech was the point word salad. Depakote level on 10/14 is 60 on 750 mg a.m. 1000 mg at bedtime. Will increase Depakote to thousand milligrams a.m. 1000 mg at bedtime and repeat level in 3 days Review of Systems Except as stated in HPI: all other systems reviewed are Neg Objective Alert: Yes [place]: Person, Place Mood: Anxious Affect: Labile Memory Intact: Comment (very poor) Hallucinations: Other (denies) Delusions: Yes Delusion Type: Paranoid, Other (various bizarre delusions) Suicidal: Ideation (denies) Homicidal: Ideation (denies) Insight/Judgment Very poor Vitals/IOs Vital Signs Date Time Temp Pulse Resp B/P Pulse Ox O2 Delivery O2 Flow Rate FiO2 10/16/16 07:14 98.3 88 17 117/58 93 Intake and Output 10/15/16 10/15/16 10/16/16 08:00 16:00 00:00 Intake Total 240 ml 480 ml 1801 ml Balance 240 ml 480 ml 1801 ml Assessment & Plan Problem List: (1) Bipolar disorder ICD Code: F31.9 Assessment & Plan Estimated LOS: days patient continue psychotic with rapid pressured markedly disorganized speech. Placement medication adjustments above Justification for Cont. Inpt. At this time patient will decompensate if placed in a lower level of care Discharge Planning To be determined Problem Qualifiers (1) Bipolar disorder: Qualified Code: F31.64 - Bipolar disorder, current episode mixed, severe, with psychotic features Ezequiel Grayson MD Oct 16, 2016 15:05
[2016-10-16] MEDS ORDERED: diphenhydrAMINE HCL 50 MG/ML VIAL IM ONE (16:20)
[2016-10-16] MEDS ORDERED: LORazepam 2 MG/ML VIAL IM ONE (16:20)
[2016-10-16] MEDS ORDERED: HALOPERIDOL LACTATE 5 MG/ML AMP IM ONE (16:20)
[2016-10-16] MEDS ORDERED: diphenhydrAMINE HCL 50 MG/ML VIAL ONE (16:22)
[2016-10-16] MEDS ORDERED: HALOPERIDOL LACTATE 5 MG/ML AMP ONE (16:22)
[2016-10-16 18:38] VITALS: BP 122/65; PULSE 102; RESP 17; TEMP 98.5; O2SAT 98
[2016-10-16] MEDS: QUEtiapine FUMARATE 200 MG TAB PO SCH (19:56)
[2016-10-16] MEDS: AMITRIPTYLINE HCL 75 MG TAB PO SCH (19:57)
[2016-10-17 05:41] VITALS: BP 96/52; PULSE 73; RESP 16; TEMP 97.6; O2SAT 93
[2016-10-17] MEDS: LEVOTHYROXINE SODIUM 100 MCG TAB PO SCH (06:21)
[2016-10-17] MEDS: PANTOPRAZOLE SOD 40 MG DELAYED RELEASE TAB PO SCH (09:00)
[2016-10-17] MEDS: VALPROIC ACID SYRUP 250 MG/5 ML UDC PO SCH ×2 (09:28→20:45)
[2016-10-17] MEDS: POLYETHYLENE GLYCOL 17 GM PKG PO SCH (09:29)
[2016-10-17] MEDS: PHENYTOIN SODIUM 100 MG CAP PO SCH ×3 (09:29→18:00)
[2016-10-17] MEDS: CALCIUM/VITAMIN D 250 MG/125 U TAB PO SCH ×2 (09:29→20:45)
[2016-10-17] MEDS: BENZTROPINE MESYLATE 1 MG TAB PO SCH ×2 (09:29→20:45)
[2016-10-17] MEDS: HALOPERIDOL 10 MG TAB PO SCH ×3 (09:29→20:00)
--- NOTE | 2016-10-17 12:56 | HHI.PYPN ---
Subjective Remarks Patient seen in [place] with medical student Terri, chart review, patient compliant medications. Patient continues intrusive loud markedly disorganized and confused. Showing no insight into her disease. Review of Systems Except as stated in HPI: all other systems reviewed are Neg Objective Alert: Yes [place]: Person, Place Mood: Anxious Affect: Labile Memory Intact: Comment (very poor) Hallucinations: Other (denies) Delusions: Yes Delusion Type: Paranoid, Other (various bizarre delusions) Suicidal: Ideation (denies) Homicidal: Ideation (denies) Insight/Judgment Fairly poor Vitals/IOs Vital Signs Date Time Temp Pulse Resp B/P Pulse Ox O2 Delivery O2 Flow Rate FiO2 10/17/16 05:41 97.6 73 16 96/52 93 Intake and Output 10/16/16 10/16/16 10/17/16 08:00 16:00 00:00 Intake Total 600 ml 1320 ml Balance 600 ml 1320 ml Assessment & Plan Problem List: (1) Bipolar disorder ICD Code: F31.9 Assessment & Plan Estimated LOS: days patient continues psychotic intrusive and irritating with no insight. Justification for Cont. Inpt. At this time patient will decompensate placed in a lower level of care Discharge Planning To be determined Problem Qualifiers (1) Bipolar disorder: Qualified Code: F31.64 - Bipolar disorder, current episode mixed, severe, with psychotic features Ezequiel Grayson MD Oct 17, 2016 12:56
[2016-10-17] MEDS: LORazepam 1 MG TAB PO PRN (19:30)
[2016-10-17 19:54] VITALS: BP 130/69; PULSE 72; RESP 16; TEMP 97.9; O2SAT 96
[2016-10-17] MEDS: QUEtiapine FUMARATE 200 MG TAB PO SCH (20:45)
[2016-10-17] MEDS: AMITRIPTYLINE HCL 75 MG TAB PO SCH (20:45)
[2016-10-17] MEDS ORDERED: ZIPRASIDONE MESYLATE 20 MG VIAL IM ONE (23:30)
[2016-10-17] MEDS ORDERED: diphenhydrAMINE HCL 50 MG/ML VIAL IM ONE (23:30)
[2016-10-18 05:09] VITALS: BP 139/74; PULSE 87; RESP 17; TEMP 98.6; O2SAT 96
[2016-10-18] MEDS: LEVOTHYROXINE SODIUM 100 MCG TAB PO SCH (06:00)
[2016-10-18] MEDS: POLYETHYLENE GLYCOL 17 GM PKG PO SCH (08:36)
[2016-10-18] MEDS: VALPROIC ACID SYRUP 250 MG/5 ML UDC PO SCH ×2 (08:36→20:37)
[2016-10-18] MEDS: PHENYTOIN SODIUM 100 MG CAP PO SCH ×3 (08:36→18:12)
[2016-10-18] MEDS: LORazepam 1 MG TAB PO PRN ×2 (08:36→23:54)
[2016-10-18] MEDS: CALCIUM/VITAMIN D 250 MG/125 U TAB PO SCH ×2 (08:36→20:37)
[2016-10-18] MEDS: BENZTROPINE MESYLATE 1 MG TAB PO SCH ×2 (08:36→20:37)
[2016-10-18] MEDS: HALOPERIDOL 10 MG TAB PO SCH ×3 (08:36→23:54)
[2016-10-18] MEDS: PANTOPRAZOLE SOD 40 MG DELAYED RELEASE TAB PO SCH (08:36)
[2016-10-18] MEDS: PADIMATE (CHAPSTICK) 4.5 GM TUBE TOPICAL PRN (09:07)
[2016-10-18] MEDS ORDERED: diphenhydrAMINE HCL 50 MG/ML VIAL ONE (11:31)
[2016-10-18] MEDS ORDERED: ZIPRASIDONE MESYLATE 20 MG VIAL IM ONE ×3 (11:37→12:00)
[2016-10-18] MEDS ORDERED: diphenhydrAMINE HCL 50 MG/ML VIAL IM ONE ×2 (12:00→17:00)
--- NOTE | 2016-10-18 16:16 | HHI.PYPN ---
Subjective Remarks Patient seen on unit with nurse Zarina, patient continues quite loud manic intrusive markedly disorganized in her speech. Intrusiveness at times gets quite aggressive and intimidating. I reviewed her medications she is on significant doses of multiple medications that do not seem to be helping this lady. Staff is talk to patient's caregiver. She stated patient did well on Clozaril. I will initiate the Clozaril protocol at this time continue other medications no change Review of Systems Except as stated in HPI: all other systems reviewed are Neg Objective Alert: Yes [place]: Person, Place Mood: Anxious Affect: Labile Memory Intact: Comment (very poor) Hallucinations: Other (denies) Delusions: Yes Delusion Type: Paranoid, Other (various bizarre delusions) Suicidal: Ideation (denies) Homicidal: Ideation (denies) Insight/Judgment Very poor Vitals/IOs Vital Signs Date Time Temp Pulse Resp B/P Pulse Ox O2 Delivery O2 Flow Rate FiO2 10/18/16 05:09 98.6 87 17 139/74 96 Intake and Output 10/17/16 10/17/16 10/18/16 08:00 16:00 00:00 Intake Total 720 ml 1560 ml Balance 720 ml 1560 ml Assessment & Plan Problem List: (1) Bipolar disorder ICD Code: F31.9 Assessment & Plan Estimated LOS: days patient continues quite manic psychotic intrusive intimidating and demanding. Will initiate Clozaril protocol Justification for Cont. Inpt. Distant patient will decompensate the placement low level of care Discharge Planning To be determined Problem Qualifiers (1) Bipolar disorder: Qualified Code: F31.64 - Bipolar disorder, current episode mixed, severe, with psychotic features Ezequiel Grayson MD Oct 18, 2016 16:16
[2016-10-18] MEDS ORDERED: LORazepam 2 MG/ML VIAL IM ONE (17:00)
[2016-10-18] MEDS ORDERED: HALOPERIDOL LACTATE 5 MG/ML AMP IM ONE (17:00)
[2016-10-18 18:00] VITALS: BP 124/66; PULSE 97; RESP 18; TEMP 98; O2SAT 98
[2016-10-18] MEDS: AMITRIPTYLINE HCL 75 MG TAB PO SCH (20:38)
[2016-10-18] MEDS: QUEtiapine FUMARATE 200 MG TAB PO SCH (20:38)
[2016-10-18] MEDS ORDERED: cloZAPine 25 MG TAB PO SCH (21:00)
[2016-10-18] MEDS: diphenhydrAMINE HCL 50 MG CAP PO PRN (23:54)
[2016-10-19] MEDS: LEVOTHYROXINE SODIUM 100 MCG TAB PO SCH (05:31)
[2016-10-19 06:00] VITALS: BP 94/56; PULSE 78; RESP 16; TEMP 97.5; O2SAT 97
[2016-10-19] MEDS: CALCIUM/VITAMIN D 250 MG/125 U TAB PO SCH ×2 (08:18→20:39)
[2016-10-19] MEDS: POLYETHYLENE GLYCOL 17 GM PKG PO SCH (08:18)
[2016-10-19] MEDS: PANTOPRAZOLE SOD 40 MG DELAYED RELEASE TAB PO SCH (08:19)
[2016-10-19] MEDS: BENZTROPINE MESYLATE 1 MG TAB PO SCH ×2 (08:19→20:38)
[2016-10-19] MEDS: PHENYTOIN SODIUM 100 MG CAP PO SCH ×3 (08:19→17:42)
[2016-10-19] MEDS: VALPROIC ACID SYRUP 250 MG/5 ML UDC PO SCH ×2 (08:19→20:39)
[2016-10-19] MEDS: HALOPERIDOL 10 MG TAB PO SCH ×3 (08:24→20:38)
[2016-10-19] MEDS: cloZAPine 25 MG TAB PO SCH ×2 (10:00→20:39)
[2016-10-19 10:13] LABS: AUTOMATED NEUTROPHIL # 2.8 TH/MM3 (1.8-7.7); BASOPHIL % 0.5 % (0.0-2.0); EOSINOPHIL # 0.1 TH/MM3 (0-0.4); EOSINOPHIL % 1.6 % (0.0-4.0); HEMATOCRIT 33.8 % (35.0-46.0); HEMO FLAGS DIFF FINAL; LYMPH % 41.9 % (9.0-44.0); LYMPHOCYTE # 2.5 TH/MM3 (1.0-4.8); MEAN CORPUSCULAR HEMOGLOBIN 30.6 PG (27.0-34.0); MEAN CORPUSCULAR HGB CONC 33.2 % (32.0-36.0); MONO % 8.6 % (0.0-8.0); NEUT % 47.4 % (16.0-70.0); PLATELET COUNT 250 TH/MM3 (150-450); RED BLOOD COUNT 3.67 MIL/MM3 (4.00-5.30); RED CELL DISTRIBUTION WIDTH 13.7 % (11.6-17.2); WHITE BLOOD COUNT 5.9 TH/MM3 (4.0-11.0)
--- NOTE | 2016-10-19 11:14 | HHI.PYPN ---
Subjective Remarks Patient seen in [place] with nurse Leda, chart review, patient compliant medications. continues intrusive deluded hyperverbal and irritating though somewhat softer than yesterday. The Clozaril protocol has started today. For now continue treatment Review of Systems Except as stated in HPI: all other systems reviewed are Neg Objective Alert: Yes [place]: Person, Place Mood: Anxious Affect: Labile Memory Intact: Comment (very poor) Hallucinations: Other (denies) Delusions: Yes Delusion Type: Paranoid, Other (various bizarre delusions) Suicidal: Ideation (denies) Homicidal: Ideation (denies) Insight/Judgment Poor Labs Test 10/19/16 08:41 White Blood Count 5.9 TH/MM3 Red Blood Count 3.67 MIL/MM3 Hemoglobin 11.2 GM/DL Hematocrit 33.8 % Mean Corpuscular Volume 92.0 FL Mean Corpuscular Hemoglobin 30.6 PG Mean Corpuscular Hemoglobin 33.2 % Concent Red Cell Distribution Width 13.7 % Platelet Count 250 TH/MM3 Mean Platelet Volume 9.1 FL Neutrophils (%) (Auto) 47.4 % Lymphocytes (%) (Auto) 41.9 % Monocytes (%) (Auto) 8.6 % Eosinophils (%) (Auto) 1.6 % Basophils (%) (Auto) 0.5 % Neutrophils # (Auto) 2.8 TH/MM3 Lymphocytes # (Auto) 2.5 TH/MM3 Monocytes # (Auto) 0.5 TH/MM3 Eosinophils # (Auto) 0.1 TH/MM3 Basophils # (Auto) 0.0 TH/MM3 CBC Comment DIFF FINAL Differential Comment Vitals/IOs Vital Signs Date Time Temp Pulse Resp B/P Pulse Ox O2 Delivery O2 Flow Rate FiO2 10/19/16 06:00 97.5 78 16 94/56 97 Intake and Output 10/18/16 10/18/16 10/19/16 08:00 16:00 00:00 Intake Total 240 ml 240 ml 720 ml Balance 240 ml 240 ml 720 ml Assessment & Plan Problem List: (1) Bipolar disorder ICD Code: F31.9 Assessment & Plan Estimated LOS: days patient continues morbidly psychotic delusional intrusive and manic. Is now started on the Clozaril protocol Justification for Cont. Inpt. At this time patient will decompensate if placed in a lower level of care Discharge Planning To be determined Problem Qualifiers (1) Bipolar disorder: Qualified Code: F31.64 - Bipolar disorder, current episode mixed, severe, with psychotic features Ezequiel Grayson MD Oct 19, 2016 11:14
[2016-10-19] MEDS ORDERED: diphenhydrAMINE HCL 50 MG/ML VIAL IM ONE (17:00)
[2016-10-19 20:15] VITALS: BP 159/78; PULSE 97; RESP 17; TEMP 98.5; O2SAT 95
[2016-10-19] MEDS: AMITRIPTYLINE HCL 75 MG TAB PO SCH (20:38)
[2016-10-19] MEDS: QUEtiapine FUMARATE 200 MG TAB PO SCH (20:39)
[2016-10-20] MEDS: diphenhydrAMINE HCL 50 MG CAP PO PRN (00:10)
[2016-10-20] MEDS: LORazepam 1 MG TAB PO PRN ×2 (00:10→16:22)
[2016-10-20] MEDS: LEVOTHYROXINE SODIUM 100 MCG TAB PO SCH (05:45)
[2016-10-20 06:00] VITALS: BP 107/55; PULSE 77; RESP 17; TEMP 96.7; O2SAT 97
[2016-10-20] MEDS: PANTOPRAZOLE SOD 40 MG DELAYED RELEASE TAB PO SCH (09:00)
[2016-10-20] MEDS: HALOPERIDOL 10 MG TAB PO SCH ×3 (09:08→20:00)
[2016-10-20] MEDS: BENZTROPINE MESYLATE 1 MG TAB PO SCH ×2 (09:08→21:00)
[2016-10-20] MEDS: cloZAPine 25 MG TAB PO SCH ×2 (09:08→21:00)
[2016-10-20] MEDS: CALCIUM/VITAMIN D 250 MG/125 U TAB PO SCH ×2 (09:09→21:00)
[2016-10-20] MEDS: POLYETHYLENE GLYCOL 17 GM PKG PO SCH (09:09)
[2016-10-20] MEDS: PHENYTOIN SODIUM 100 MG CAP PO SCH ×3 (09:09→16:35)
[2016-10-20] MEDS: VALPROIC ACID SYRUP 250 MG/5 ML UDC PO SCH ×2 (09:09→21:00)
--- NOTE | 2016-10-20 11:28 | HHI.PYPN ---
Subjective Remarks Patient seen in dayroom with floor staff, chart reviewed, patient compliant medications including Clozaril. Patient continues intrusive loud demanding psychotic and somewhat intimidating. For now continue treatment. Review of Systems Except as stated in HPI: all other systems reviewed are Neg Objective Alert: Yes [place]: Person, Place Mood: Anxious Affect: Labile Memory Intact: Comment (very poor) Hallucinations: Other (denies) Delusions: Yes Delusion Type: Paranoid, Other (various bizarre delusions) Suicidal: Ideation (denies) Homicidal: Ideation (denies) Insight/Judgment Very poor Vitals/IOs Vital Signs Date Time Temp Pulse Resp B/P Pulse Ox O2 Delivery O2 Flow Rate FiO2 10/20/16 06:00 96.7 77 17 107/55 97 Intake and Output 10/19/16 10/19/16 10/19/16 07:59 15:59 23:59 Intake Total 240 ml 840 ml Balance 240 ml 840 ml Assessment & Plan Problem List: (1) Bipolar disorder ICD Code: F31.9 Assessment & Plan Estimated LOS: days patient remains quite psychotic delusional manic with intrusive behavior. Compliant medications Justification for Cont. Inpt. At this time patient will decompensate if placed in a lower level of care Discharge Planning To be determined Problem Qualifiers (1) Bipolar disorder: Qualified Code: F31.64 - Bipolar disorder, current episode mixed, severe, with psychotic features Ezequiel Grayson MD Oct 20, 2016 11:28
[2016-10-20 17:30] VITALS: BP 141/68; PULSE 95; RESP 18; TEMP 99; O2SAT 97
[2016-10-20] MEDS: AMITRIPTYLINE HCL 75 MG TAB PO SCH (21:00)
[2016-10-20] MEDS: QUEtiapine FUMARATE 200 MG TAB PO SCH (21:00)
[2016-10-21 06:24] VITALS: BP 114/55; PULSE 82; RESP 18; TEMP 97.8; O2SAT 94
[2016-10-21] MEDS: CALCIUM/VITAMIN D 250 MG/125 U TAB PO SCH ×2 (08:07→20:18)
[2016-10-21] MEDS: BENZTROPINE MESYLATE 1 MG TAB PO SCH ×2 (08:07→20:18)
[2016-10-21] MEDS: VALPROIC ACID SYRUP 250 MG/5 ML UDC PO SCH ×2 (08:08→20:19)
[2016-10-21] MEDS: LORazepam 1 MG TAB PO PRN ×2 (08:08→17:19)
[2016-10-21] MEDS: PANTOPRAZOLE SOD 40 MG DELAYED RELEASE TAB PO SCH (08:08)
[2016-10-21] MEDS: PHENYTOIN SODIUM 100 MG CAP PO SCH ×3 (08:08→17:19)
[2016-10-21] MEDS: HALOPERIDOL 10 MG TAB PO SCH ×3 (08:10→20:20)
[2016-10-21] MEDS ORDERED: cloZAPine 25 MG TAB PO SCH ×2 (09:00→21:00)
[2016-10-21] MEDS: POLYETHYLENE GLYCOL 17 GM PKG PO SCH (09:00)
[2016-10-21] MEDS: PADIMATE (CHAPSTICK) 4.5 GM TUBE TOPICAL PRN (09:56)
--- NOTE | 2016-10-21 13:23 | HHI.PYPN ---
Subjective Remarks Patient was seen and case discussed with nursing. Patient remains alert and oriented 2. She is labile and disorganized. There is delusional thoughts. She is behaving well on the unit. No outbursts. Compliant with medications Objective Alert: Yes [place]: Person, Place Mood: Anxious Affect: Labile Memory Intact: Comment (very poor) Hallucinations: Other (denies) Delusions: Yes Delusion Type: Paranoid, Other (various bizarre delusions) Suicidal: Ideation (denies) Homicidal: Ideation (denies) Insight/Judgment Poor Labs Test 10/20/16 15:22 Valproic Acid (Depakene) Level 56 MCG/ML Vitals/IOs Vital Signs Date Time Temp Pulse Resp B/P Pulse Ox O2 Delivery O2 Flow Rate FiO2 10/21/16 06:24 97.8 82 18 114/55 94 Intake and Output 10/20/16 10/20/16 10/20/16 07:59 15:59 23:59 Intake Total 360 ml 600 ml Balance 360 ml 600 ml Assessment & Plan Problem List: (1) Bipolar disorder ICD Code: F31.9 Assessment & Plan Continue current treatment plan Justification for Cont. Inpt. Patient will decompensate in a less restrictive setting Problem Qualifiers (1) Bipolar disorder: Qualified Code: F31.64 - Bipolar disorder, current episode mixed, severe, with psychotic features Cuate Flynn DO Oct 21, 2016 13:23
[2016-10-21 20:00] VITALS: BP 122/63; PULSE 94; RESP 18; TEMP 97.5; O2SAT 98
[2016-10-21] MEDS: AMITRIPTYLINE HCL 75 MG TAB PO SCH (20:18)
[2016-10-21] MEDS: QUEtiapine FUMARATE 200 MG TAB PO SCH (20:19)
[2016-10-22 06:00] VITALS: BP 104/54; PULSE 88; RESP 20; TEMP 98; O2SAT 95
[2016-10-22] MEDS: LEVOTHYROXINE SODIUM 100 MCG TAB PO SCH (06:28)
[2016-10-22] MEDS: VALPROIC ACID SYRUP 250 MG/5 ML UDC PO SCH ×2 (08:52→21:21)
[2016-10-22] MEDS: PANTOPRAZOLE SOD 40 MG DELAYED RELEASE TAB PO SCH (08:54)
[2016-10-22] MEDS: HALOPERIDOL 10 MG TAB PO SCH ×3 (08:54→21:24)
[2016-10-22] MEDS: CALCIUM/VITAMIN D 250 MG/125 U TAB PO SCH ×2 (08:56→21:23)
[2016-10-22] MEDS: BENZTROPINE MESYLATE 1 MG TAB PO SCH ×2 (08:56→09:00)
[2016-10-22] MEDS: LORazepam 1 MG TAB PO PRN ×2 (08:57→15:06)
[2016-10-22] MEDS: PHENYTOIN SODIUM 100 MG CAP PO SCH ×3 (08:57→17:36)
[2016-10-22] MEDS: POLYETHYLENE GLYCOL 17 GM PKG PO SCH (09:00)
[2016-10-22] MEDS ORDERED: cloZAPine 25 MG TAB PO SCH ×2 (09:00→21:00)
[2016-10-22] MEDS: PADIMATE (CHAPSTICK) 4.5 GM TUBE TOPICAL PRN (10:04)
--- NOTE | 2016-10-22 11:34 | HHI.PYPN ---
Subjective Remarks Patient was seen and case discussed with nursing. Patient remains paranoid and elevated. Alert and oriented 2. Labile, loose associations. Various bizarre delusions. Occasionally loud on the unit. Compliant with medications Objective Alert: Yes [place]: Person, Place Mood: Anxious Affect: Labile Memory Intact: Comment (very poor) Hallucinations: Other (denies) Delusions: Yes Delusion Type: Paranoid (bizarre delusions) Suicidal: Ideation (denies) Homicidal: Ideation (denies) Insight/Judgment Poor Vitals/IOs Vital Signs Date Time Temp Pulse Resp B/P Pulse Ox O2 Delivery O2 Flow Rate FiO2 10/22/16 06:00 98.0 88 20 104/54 95 Intake and Output 10/21/16 10/21/16 10/22/16 08:00 16:00 00:00 Intake Total 240 ml 1960 ml Balance 240 ml 1960 ml Assessment & Plan Problem List: (1) Bipolar disorder ICD Code: F31.9 Assessment & Plan Continue current treatment plan Justification for Cont. Inpt. Patient will decompensate in a less restrictive setting Problem Qualifiers (1) Bipolar disorder: Qualified Code: F31.64 - Bipolar disorder, current episode mixed, severe, with psychotic features Cuate Flynn DO Oct 22, 2016 11:34
[2016-10-22 18:07] VITALS: BP 113/66; PULSE 89; TEMP 98.5; O2SAT 95
[2016-10-22] MEDS: ALUMINUM/MAGNESIUM/SIMETH 30 ML CUP PO PRN (18:45)
[2016-10-22] MEDS: QUEtiapine FUMARATE 200 MG TAB PO SCH (21:22)
[2016-10-22] MEDS: AMITRIPTYLINE HCL 75 MG TAB PO SCH (21:24)
[2016-10-23 05:28] VITALS: BP 109/63; PULSE 84; RESP 15; TEMP 97.7; O2SAT 95
[2016-10-23] MEDS: LEVOTHYROXINE SODIUM 100 MCG TAB PO SCH (05:57)
[2016-10-23] MEDS: VALPROIC ACID SYRUP 250 MG/5 ML UDC PO SCH ×2 (08:36→20:56)
[2016-10-23] MEDS: BENZTROPINE MESYLATE 1 MG TAB PO SCH ×2 (08:36→20:58)
[2016-10-23] MEDS: POLYETHYLENE GLYCOL 17 GM PKG PO SCH (08:36)
[2016-10-23] MEDS: PANTOPRAZOLE SOD 40 MG DELAYED RELEASE TAB PO SCH (08:36)
[2016-10-23] MEDS: cloZAPine 25 MG TAB PO SCH ×2 (08:36→21:01)
[2016-10-23] MEDS: HALOPERIDOL 10 MG TAB PO SCH ×3 (08:36→19:36)
[2016-10-23] MEDS: PHENYTOIN SODIUM 100 MG CAP PO SCH ×3 (08:37→16:42)
[2016-10-23] MEDS: CALCIUM/VITAMIN D 250 MG/125 U TAB PO SCH ×2 (08:37→21:00)
--- NOTE | 2016-10-23 13:53 | HHI.PYPN ---
Subjective Remarks Patient discussed with treatment team, patient seen in day room with nurse Tierra, and medical student Rianna Marcus and Reba. Patient continues labile tearful intrusive loud pressured speech and no insight. For now continue treatment Review of Systems Except as stated in HPI: all other systems reviewed are Neg Objective Alert: Yes [place]: Person, Place Mood: Anxious Affect: Labile Memory Intact: Comment (very poor) Hallucinations: Other (denies) Delusions: Yes Delusion Type: Paranoid (bizarre delusions) Suicidal: Ideation (denies) Homicidal: Ideation (denies) Insight/Judgment Very poor Vitals/IOs Vital Signs Date Time Temp Pulse Resp B/P Pulse Ox O2 Delivery O2 Flow Rate FiO2 10/23/16 05:28 97.7 84 15 109/63 95 Intake and Output 10/22/16 10/22/16 10/22/16 07:59 15:59 23:59 Intake Total 600 ml Balance 600 ml Assessment & Plan Problem List: (1) Bipolar disorder ICD Code: F31.9 Assessment & Plan Patient continues delusional manic psychotic and intrusive Estimated LOS: days Justification for Cont. Inpt. At this time patient will decompensate if placed in a lower level of care Discharge Planning To be determined Problem Qualifiers (1) Bipolar disorder: Qualified Code: F31.64 - Bipolar disorder, current episode mixed, severe, with psychotic features Ezequiel Grayson MD Oct 23, 2016 13:53
[2016-10-23] MEDS: LORazepam 1 MG TAB PO PRN ×2 (15:25→19:36)
--- NOTE | 2016-10-23 15:36 | PD.TTN ---
Present for Treatment Team Treatment Team Staff: Provider (Dr Grayson), Nurse (Tierra ), Psych Therapist (Pia ), Occupational Therapist (Lawanda ) Patient Problems 1. Discharge planning 2. Medication compliance 3. Knowledge deficit 4. Lack of coping skills Progress Toward Goals Provider Input: changed meds Nurse Input: no change continues labile Psych Therapist Input: still referred to [facility] if more stable facility / assisted can consider taking back Occupational Therapist Input: Pt attends groups needs constant redirection labile guarded Pia Cochran [employer]ER Oct 23, 2016 15:36
[2016-10-23 18:25] VITALS: BP 132/73; PULSE 95; RESP 17; TEMP 98; O2SAT 96
[2016-10-23] MEDS: QUEtiapine FUMARATE 200 MG TAB PO SCH (20:59)
[2016-10-23] MEDS: AMITRIPTYLINE HCL 75 MG TAB PO SCH (21:00)
[2016-10-23] MEDS: diphenhydrAMINE HCL 50 MG CAP PO PRN (21:03)
[2016-10-24 05:25] VITALS: BP 149/73; PULSE 100; RESP 18; TEMP 98.2
[2016-10-24] MEDS: LEVOTHYROXINE SODIUM 100 MCG TAB PO SCH (06:00)
[2016-10-24] MEDS: POLYETHYLENE GLYCOL 17 GM PKG PO SCH (09:07)
[2016-10-24] MEDS: CALCIUM/VITAMIN D 250 MG/125 U TAB PO SCH ×2 (09:07→20:34)
[2016-10-24] MEDS: BENZTROPINE MESYLATE 1 MG TAB PO SCH ×2 (09:07→20:35)
[2016-10-24] MEDS: PHENYTOIN SODIUM 100 MG CAP PO SCH ×3 (09:07→17:07)
[2016-10-24] MEDS: PANTOPRAZOLE SOD 40 MG DELAYED RELEASE TAB PO SCH (09:08)
[2016-10-24] MEDS: VALPROIC ACID SYRUP 250 MG/5 ML UDC PO SCH ×2 (09:08→20:38)
[2016-10-24] MEDS: cloZAPine 25 MG TAB PO SCH ×2 (09:08→20:35)
[2016-10-24] MEDS: HALOPERIDOL 10 MG TAB PO SCH ×3 (09:37→20:37)
[2016-10-24] MEDS: LORazepam 1 MG TAB PO PRN (09:37)
--- NOTE | 2016-10-24 15:39 | HHI.PYPN ---
Subjective Remarks Patient seen in day room with nurse Leda and medical student Terri. Chart review. Patient compliant medications. Patient continues intrusive labile somewhat aggravating. Patient showing no insight into her issues. Needs occasional significant redirection Review of Systems Except as stated in HPI: all other systems reviewed are Neg Objective Alert: Yes [place]: Person, Place Mood: Anxious Affect: Labile Memory Intact: Comment (very poor) Hallucinations: Other (denies) Delusions: Yes Delusion Type: Paranoid (bizarre delusions) Suicidal: Ideation (denies) Homicidal: Ideation (denies) Insight/Judgment Very poor Vitals/IOs Vital Signs Date Time Temp Pulse Resp B/P Pulse Ox O2 Delivery O2 Flow Rate FiO2 10/24/16 05:25 98.2 100 18 149/73 10/23/16 18:25 96 Intake and Output 10/23/16 10/23/16 10/24/16 08:00 16:00 00:00 Intake Total 840 ml 2160 ml 3120 ml Balance 840 ml 2160 ml 3120 ml Assessment & Plan Problem List: (1) Bipolar disorder ICD Code: F31.9 Assessment & Plan Estimated LOS: days patient remained psychotic labile somewhat manic and intrusive, compliant medication Justification for Cont. Inpt. At this time patient will decompensate if placed in a lower level of care Discharge Planning To be determined Problem Qualifiers (1) Bipolar disorder: Qualified Code: F31.64 - Bipolar disorder, current episode mixed, severe, with psychotic features Ezequiel Grayson MD Oct 24, 2016 15:39
[2016-10-24 16:03] VITALS: BP 122/60; PULSE 87; RESP 18; TEMP 98.2; O2SAT 94
[2016-10-24] MEDS: diphenhydrAMINE HCL 50 MG CAP PO PRN (20:00)
[2016-10-24] MEDS: LORazepam 2 MG/ML VIAL IM PRN (20:15)
[2016-10-24] MEDS: AMITRIPTYLINE HCL 75 MG TAB PO SCH (20:35)
[2016-10-24] MEDS: QUEtiapine FUMARATE 200 MG TAB PO SCH (20:35)
[2016-10-25] MEDS: LORazepam 1 MG TAB PO PRN ×2 (02:04→08:15)
[2016-10-25] MEDS: ACETAMINOPHEN 325 MG TAB PO PRN (02:05)
[2016-10-25 05:14] VITALS: BP 124/72; PULSE 97; RESP 17; TEMP 99.1; O2SAT 93
[2016-10-25] MEDS: LEVOTHYROXINE SODIUM 100 MCG TAB PO SCH (06:00)
[2016-10-25] MEDS: VALPROIC ACID SYRUP 250 MG/5 ML UDC PO SCH ×2 (08:14→21:23)
[2016-10-25] MEDS: CALCIUM/VITAMIN D 250 MG/125 U TAB PO SCH ×2 (08:14→21:33)
[2016-10-25] MEDS: POLYETHYLENE GLYCOL 17 GM PKG PO SCH (08:14)
[2016-10-25] MEDS: BENZTROPINE MESYLATE 1 MG TAB PO SCH ×2 (08:15→21:24)
[2016-10-25] MEDS: HALOPERIDOL 10 MG TAB PO SCH ×3 (08:15→21:33)
[2016-10-25] MEDS: PHENYTOIN SODIUM 100 MG CAP PO SCH ×3 (08:15→18:00)
[2016-10-25] MEDS: PANTOPRAZOLE SOD 40 MG DELAYED RELEASE TAB PO SCH (08:15)
[2016-10-25 08:32] LABS: AUTOMATED NEUTROPHIL # 3.3 TH/MM3 (1.8-7.7); BASOPHIL % 0.6 % (0.0-2.0); EOSINOPHIL # 0.2 TH/MM3 (0-0.4); EOSINOPHIL % 3.1 % (0.0-4.0); HEMATOCRIT 33.6 % (35.0-46.0); HEMO FLAGS DIFF FINAL; LYMPH % 36.4 % (9.0-44.0); LYMPHOCYTE # 2.3 TH/MM3 (1.0-4.8); MEAN CELL VOLUME 90.3 FL (80.0-100.0); MEAN CORPUSCULAR HGB CONC 34.3 % (32.0-36.0); MONO % 8.4 % (0.0-8.0); NEUT % 51.5 % (16.0-70.0); PLATELET COUNT 216 TH/MM3 (150-450); RED BLOOD COUNT 3.72 MIL/MM3 (4.00-5.30); RED CELL DISTRIBUTION WIDTH 13.5 % (11.6-17.2); WHITE BLOOD COUNT 6.4 TH/MM3 (4.0-11.0)
[2016-10-25] MEDS ORDERED: cloZAPine 25 MG TAB PO SCH ×2 (09:00→21:00)
--- NOTE | 2016-10-25 11:12 | HHI.PYPN ---
Subjective Remarks Patient seen in day room with family practice resident Charan. Chart reviewed. Patient compliant medication. Patient continues labile paranoid delusional intrusive somewhat threatening. She is compliant with the titration of the Clozaril. However she at times does need ETO still calm down behaviors that are becoming out of control. For now continue treatment Review of Systems Except as stated in HPI: all other systems reviewed are Neg Objective Alert: Yes [place]: Person, Place Mood: Anxious Affect: Labile Memory Intact: Comment (very poor) Hallucinations: Other (denies) Delusions: Yes Delusion Type: Paranoid (bizarre delusions) Suicidal: Ideation (denies) Homicidal: Ideation (denies) Insight/Judgment Very poor Labs Test 10/25/16 08:08 White Blood Count 6.4 TH/MM3 Red Blood Count 3.72 MIL/MM3 Hemoglobin 11.5 GM/DL Hematocrit 33.6 % Mean Corpuscular Volume 90.3 FL Mean Corpuscular Hemoglobin 31.0 PG Mean Corpuscular Hemoglobin 34.3 % Concent Red Cell Distribution Width 13.5 % Platelet Count 216 TH/MM3 Mean Platelet Volume 9.3 FL Neutrophils (%) (Auto) 51.5 % Lymphocytes (%) (Auto) 36.4 % Monocytes (%) (Auto) 8.4 % Eosinophils (%) (Auto) 3.1 % Basophils (%) (Auto) 0.6 % Neutrophils # (Auto) 3.3 TH/MM3 Lymphocytes # (Auto) 2.3 TH/MM3 Monocytes # (Auto) 0.5 TH/MM3 Eosinophils # (Auto) 0.2 TH/MM3 Basophils # (Auto) 0.0 TH/MM3 CBC Comment DIFF FINAL Differential Comment Vitals/IOs Vital Signs Date Time Temp Pulse Resp B/P Pulse Ox O2 Delivery O2 Flow Rate FiO2 10/25/16 05:14 99.1 97 17 124/72 93 Intake and Output 10/24/16 10/24/16 10/24/16 07:59 15:59 23:59 Intake Total 860 ml 1320 ml Balance 860 ml 1320 ml Assessment & Plan Problem List: (1) Bipolar disorder ICD Code: F31.9 Assessment & Plan Estimated LOS: days patient continue psychotic delusional loud intrusive labile and impulsive. For now continue treatment. Patient compliant with her Clozaril protocol. At times needing when necessary's to control her behaviors Justification for Cont. Inpt. At this time patient will decompensate if placed in a lower level of care Discharge Planning To be determined Problem Qualifiers (1) Bipolar disorder: Qualified Code: F31.64 - Bipolar disorder, current episode mixed, severe, with psychotic features Ezequiel Grayson MD Oct 25, 2016 11:12
[2016-10-25] MEDS: LORazepam 2 MG/ML VIAL IM PRN (17:10)
[2016-10-25] MEDS: AMITRIPTYLINE HCL 75 MG TAB PO SCH (21:24)
[2016-10-25] MEDS: QUEtiapine FUMARATE 200 MG TAB PO SCH (21:24)
[2016-10-25 21:57] VITALS: PULSE 101; RESP 18; TEMP 98
[2016-10-25 21:58] VITALS: BP 164/72; RESP 18
[2016-10-26] MEDS: LEVOTHYROXINE SODIUM 100 MCG TAB PO SCH (05:44)
[2016-10-26 05:55] VITALS: BP 103/51; PULSE 87; RESP 17; TEMP 97.8; O2SAT 95
[2016-10-26 06:00] VITALS: RESP 16
[2016-10-26] MEDS: POLYETHYLENE GLYCOL 17 GM PKG PO SCH (09:00)
[2016-10-26] MEDS ORDERED: cloZAPine 25 MG TAB PO SCH ×2 (09:00→21:00)
--- NOTE | 2016-10-26 09:56 | HHI.PYPN ---
Subjective Remarks Patient seen in her room with floor staff, patient mapping, though arousable. She is compliant with her medications. The may be some increased sedation secondary to the Clozaril protocol. However patient's basic behaviors change she is still intrusive manic somewhat delusional. For now continue treatment Review of Systems Except as stated in HPI: all other systems reviewed are Neg Objective Alert: Yes [place]: Person, Place Mood: Anxious Affect: Labile Memory Intact: Comment (very poor) Hallucinations: Other (denies) Delusions: Yes Delusion Type: Paranoid (bizarre delusions) Suicidal: Ideation (denies) Homicidal: Ideation (denies) Insight/Judgment Poor Vitals/IOs Vital Signs Date Time Temp Pulse Resp B/P Pulse Ox O2 Delivery O2 Flow Rate FiO2 10/26/16 06:00 16 10/26/16 05:55 97.8 87 103/51 95 Intake and Output 10/25/16 10/25/16 10/26/16 08:00 16:00 00:00 Intake Total 240 ml 480 ml Balance 240 ml 480 ml Assessment & Plan Problem List: (1) Bipolar disorder ICD Code: F31.9 Assessment & Plan Estimated LOS: days patient continues intrusive loud with manic flavor, it appears that may be some developing sedation secondary to the Clozaril protocol. For now continue treatment Justification for Cont. Inpt. This time patient will decompensate if placed in a lower level of care Discharge Planning To be determined Problem Qualifiers (1) Bipolar disorder: Qualified Code: F31.64 - Bipolar disorder, current episode mixed, severe, with psychotic features Ezequiel Grayson MD Oct 26, 2016 09:56
[2016-10-26] MEDS: LORazepam 1 MG TAB PO PRN ×2 (11:12→21:37)
[2016-10-26] MEDS: PHENYTOIN SODIUM 100 MG CAP PO SCH ×3 (11:12→17:33)
[2016-10-26] MEDS: BENZTROPINE MESYLATE 1 MG TAB PO SCH ×2 (11:12→21:36)
[2016-10-26] MEDS: CALCIUM/VITAMIN D 250 MG/125 U TAB PO SCH ×2 (11:12→21:37)
[2016-10-26] MEDS: VALPROIC ACID SYRUP 250 MG/5 ML UDC PO SCH ×2 (11:12→21:37)
[2016-10-26] MEDS: PANTOPRAZOLE SOD 40 MG DELAYED RELEASE TAB PO SCH (11:13)
[2016-10-26] MEDS: HALOPERIDOL 10 MG TAB PO SCH ×3 (11:13→21:37)
[2016-10-26 19:34] VITALS: BP 121/65; PULSE 83; RESP 18; TEMP 98.1; O2SAT 98
[2016-10-26] MEDS: QUEtiapine FUMARATE 200 MG TAB PO SCH (21:36)
[2016-10-26] MEDS: AMITRIPTYLINE HCL 75 MG TAB PO SCH (21:37)
[2016-10-26] MEDS: diphenhydrAMINE HCL 50 MG CAP PO PRN (21:37)
[2016-10-27 06:08] VITALS: BP 131/68; PULSE 95; RESP 18; TEMP 97.7; O2SAT 98
[2016-10-27] MEDS: LEVOTHYROXINE SODIUM 100 MCG TAB PO SCH (06:26)
[2016-10-27] MEDS: LORazepam 2 MG/ML VIAL IM PRN (07:37)
[2016-10-27] MEDS: POLYETHYLENE GLYCOL 17 GM PKG PO SCH (09:00)
[2016-10-27] MEDS: VALPROIC ACID SYRUP 250 MG/5 ML UDC PO SCH ×2 (10:54→21:23)
[2016-10-27] MEDS: CALCIUM/VITAMIN D 250 MG/125 U TAB PO SCH ×2 (10:54→21:23)
[2016-10-27] MEDS: cloZAPine 25 MG TAB PO SCH ×2 (10:55→21:23)
[2016-10-27] MEDS: PANTOPRAZOLE SOD 40 MG DELAYED RELEASE TAB PO SCH (10:55)
[2016-10-27] MEDS: BENZTROPINE MESYLATE 1 MG TAB PO SCH ×2 (10:55→21:23)
[2016-10-27] MEDS: PHENYTOIN SODIUM 100 MG CAP PO SCH ×3 (10:55→17:27)
[2016-10-27] MEDS: HALOPERIDOL 10 MG TAB PO SCH ×3 (10:56→21:25)
[2016-10-27] MEDS: LORazepam 1 MG TAB PO PRN ×2 (13:41→21:25)
--- NOTE | 2016-10-27 15:15 | HHI.PYPN ---
Subjective Remarks Patient seen in her room with medical student foster Murray, chart review, patient compliant medications. Patient arousable to calmer than past few days still intrusive somewhat loud but not as intense. For now continue treatment Review of Systems Except as stated in HPI: all other systems reviewed are Neg Objective Alert: Yes [place]: Person, Place Mood: Anxious Affect: Labile Memory Intact: Comment (very poor) Hallucinations: Other (denies) Delusions: Yes Delusion Type: Paranoid (bizarre delusions) Suicidal: Ideation (denies) Homicidal: Ideation (denies) Insight/Judgment Very poor Vitals/IOs Vital Signs Date Time Temp Pulse Resp B/P Pulse Ox O2 Delivery O2 Flow Rate FiO2 10/27/16 06:08 97.7 95 18 131/68 98 Intake and Output 10/26/16 10/26/16 10/27/16 08:00 16:00 00:00 Intake Total 240 ml 490 ml 480 ml Balance 240 ml 490 ml 480 ml Assessment & Plan Problem List: (1) Bipolar disorder ICD Code: F31.9 Assessment & Plan Estimated LOS: days patient continue psychotic delusional manic, though somewhat calmer and less intrusive. Compliant medications Justification for Cont. Inpt. At this time patient will decompensate if placed in a lower level of care Discharge Planning To be determined Problem Qualifiers (1) Bipolar disorder: Qualified Code: F31.64 - Bipolar disorder, current episode mixed, severe, with psychotic features Ezequiel Grayson MD Oct 27, 2016 15:15
[2016-10-27 16:27] VITALS: BP 112/67; PULSE 100; RESP 18; TEMP 97.9; O2SAT 95
[2016-10-27] MEDS: ACETAMINOPHEN 325 MG TAB PO PRN (17:39)
[2016-10-27] MEDS: QUEtiapine FUMARATE 200 MG TAB PO SCH (21:23)
[2016-10-27] MEDS: AMITRIPTYLINE HCL 75 MG TAB PO SCH (21:23)
[2016-10-27] MEDS: diphenhydrAMINE HCL 50 MG CAP PO PRN (21:25)
[2016-10-28 06:00] VITALS: BP 140/80; PULSE 84; RESP 17; TEMP 98.2; O2SAT 98
[2016-10-28] MEDS: LEVOTHYROXINE SODIUM 100 MCG TAB PO SCH (06:11)
[2016-10-28 08:00] VITALS: BP 122/71; PULSE 94; RESP 18; TEMP 98.1; O2SAT 95
[2016-10-28] MEDS: HALOPERIDOL 10 MG TAB PO SCH ×3 (08:00→20:00)
[2016-10-28 09:00] VITALS: BP 145/95; PULSE 87; RESP 18; TEMP 97.5; O2SAT 95
[2016-10-28] MEDS: POLYETHYLENE GLYCOL 17 GM PKG PO SCH (09:00)
[2016-10-28] MEDS: VALPROIC ACID SYRUP 250 MG/5 ML UDC PO SCH ×2 (09:33→22:27)
[2016-10-28] MEDS: PHENYTOIN SODIUM 100 MG CAP PO SCH ×3 (09:33→17:50)
[2016-10-28] MEDS: cloZAPine 25 MG TAB PO SCH ×2 (09:33→22:26)
[2016-10-28] MEDS: BENZTROPINE MESYLATE 1 MG TAB PO SCH ×2 (09:34→21:00)
[2016-10-28] MEDS: PANTOPRAZOLE SOD 40 MG DELAYED RELEASE TAB PO SCH (09:34)
[2016-10-28] MEDS: LORazepam 1 MG TAB PO PRN ×2 (09:34→22:27)
[2016-10-28] MEDS: CALCIUM/VITAMIN D 250 MG/125 U TAB PO SCH ×2 (09:34→22:26)
--- NOTE | 2016-10-28 10:15 | RADRPT ---
EXAM DATE/TIME: 10/28/2016 09:44 [place] COMPARISON: No previous studies available for comparison. INDICATIONS : Patient fell, Complains of right hip pain MEDICAL HISTORY : None. SURGICAL HISTORY : None. ENCOUNTER: Initial ACUITY: 1 day PAIN SCORE: 7/10 LOCATION: Right pelvis FINDINGS: Examination of the right hip was performed with AP Pelvis. The primary and secondary trabecular yuliana raudel of the femoral neck is intact. The hip joint is of normal width without significant sclerosis or bony hypertrophy. The acetabulum is grossly intact. CONCLUSION: Unremarkable exam. Yash Ricci MD on October 28, 2016 at 10:14 Board Certified Radiologist. This report was verified electronically.
[2016-10-28 13:00] VITALS: BP 131/71; PULSE 87; RESP 18; TEMP 97.6; O2SAT 98
[2016-10-28 17:00] VITALS: BP 128/59; PULSE 92; RESP 17; TEMP 98.1; O2SAT 100
--- NOTE | 2016-10-28 21:27 | HHI.PYPN ---
Subjective Remarks Pt seen and discussed with staff. She slept well last night. Some agitation early this morning but calmed with medication. She is anxious and asks if MD has located "the box with all of the secrets. I need you to open it quickly." She is compliant with medications and denies side effects. Objective Alert: Yes [place]: Person, Place Mood: Anxious Affect: Labile Memory Intact: Comment (very poor) Hallucinations: Other (none) Delusions: Yes Delusion Type: Paranoid (bizarre delusions) Suicidal: Ideation (denies) Homicidal: Ideation (denies) Insight/Judgment poor Vitals/IOs Vital Signs Date Time Temp Pulse Resp B/P Pulse Ox O2 Delivery O2 Flow Rate FiO2 10/28/16 17:00 98.1 92 17 128/59 100 Intake and Output 10/27/16 10/27/16 10/27/16 07:59 15:59 23:59 Intake Total 360 ml 1080 ml 720 ml Balance 360 ml 1080 ml 720 ml Assessment & Plan Problem List: (1) Bipolar disorder ICD Code: F31.9 Assessment & Plan Continue current tx plan. Estimated LOS: days Justification for Cont. Inpt. impairments in reality testing and social functionin Problem Qualifiers (1) Bipolar disorder: Qualified Code: F31.64 - Bipolar disorder, current episode mixed, severe, with psychotic features Marina Kessler MD Oct 28, 2016 21:26
[2016-10-28] MEDS: QUEtiapine FUMARATE 200 MG TAB PO SCH (22:26)
[2016-10-28] MEDS: AMITRIPTYLINE HCL 75 MG TAB PO SCH (22:27)
[2016-10-28] MEDS: diphenhydrAMINE HCL 50 MG CAP PO PRN (22:27)
[2016-10-29 06:00] VITALS: BP 126/65; PULSE 87; RESP 16; TEMP 97.7; O2SAT 97
[2016-10-29] MEDS: LEVOTHYROXINE SODIUM 100 MCG TAB PO SCH (06:19)
[2016-10-29] MEDS ORDERED: cloZAPine 25 MG TAB PO SCH (09:00)
[2016-10-29] MEDS: POLYETHYLENE GLYCOL 17 GM PKG PO SCH (09:00)
[2016-10-29] MEDS: VALPROIC ACID SYRUP 250 MG/5 ML UDC PO SCH ×2 (09:32→21:31)
[2016-10-29] MEDS: PHENYTOIN SODIUM 100 MG CAP PO SCH ×3 (09:32→17:59)
[2016-10-29] MEDS: CALCIUM/VITAMIN D 250 MG/125 U TAB PO SCH ×2 (09:32→21:30)
[2016-10-29] MEDS: BENZTROPINE MESYLATE 1 MG TAB PO SCH ×2 (09:33→21:30)
[2016-10-29] MEDS: PANTOPRAZOLE SOD 40 MG DELAYED RELEASE TAB PO SCH (09:33)
[2016-10-29] MEDS: HALOPERIDOL 10 MG TAB PO SCH ×3 (09:34→21:33)
[2016-10-29] MEDS: LORazepam 2 MG/ML VIAL IM PRN (11:06)
[2016-10-29 12:01] VITALS: BP 143/79; PULSE 90; RESP 20; O2SAT 94
--- NOTE | 2016-10-29 13:08 | RADRPT ---
EXAM DATE/TIME: 10/29/2016 12:42 [facility] COMPARISON: CT BRAIN W/O CONTRAST, October 02, 2016, 12:55. INDICATIONS : Fall. RADIATION DOSE: 55.39 CTDIvol (mGy) ; Patient motion MEDICAL HISTORY : Seizures. SURGICAL HISTORY : None. ENCOUNTER: Initial ACUITY: 1 day PAIN SCALE: 0/10 LOCATION: cranial TECHNIQUE: Multiple contiguous axial images were obtained of the head. Using automated exposure control and adj ustment of the mA and/or kV according to patient size, radiation dose was kept as low as reasonably a chievable to obtain optimal diagnostic quality images. DICOM format image data is available electro nically for review and comparison. FINDINGS: CEREBRUM: Right temporal encephalomalacia associated enlargement of the right temporal horn of the lateral vent ricle is noted and appears stable. No evidence of midline shift, mass lesion, hemorrhage or acute inf arction. No extra-axial fluid collections are seen. POSTERIOR FOSSA: The cerebellum and brainstem are intact. The 4th ventricle is midline. The cerebellopontine angle i s unremarkable. EXTRACRANIAL: The visualized portion of the orbits is intact. SKULL: The calvaria is intact. No evidence of skull fracture. CONCLUSION: No acute disease. Stable right temporal encephalomalacia with enlargement of the temporal horn of the lateral ventricle . Florian Hernandez MD on October 29, 2016 at 13:04 Board Certified Radiologist. This report was verified electronically.
--- NOTE | 2016-10-29 13:11 | RADRPT ---
EXAM DATE/TIME: 10/29/2016 12:46 [facility] COMPARISON: No previous studies available for comparison. INDICATIONS : Fall, bilateral hip pain. ORAL CONTRAST: No oral contrast ingested. RADIATION DOSE: 12.79 CTDIvol (mGy) MEDICAL HISTORY : Seizures. SURGICAL HISTORY : None. ENCOUNTER: Initial ACUITY: 1 day PAIN SCALE: 4/10 LOCATION: Bilateral pelvis TECHNIQUE: Volumetric scanning of the pelvis was performed. Using automated exposure control and adjustment of the mA and/or kV according to patient size, radiation dose was kept as low as reasonably achievable t o obtain optimal diagnostic quality images. DICOM format image data is available electronically for review and comparison. FINDINGS: BOWEL/MESENTERY: The visualized small and large bowel demonstrate no acute abnormality. There is no free fluid. BLADDER: There is no wall thickening or mass. RETROPERITONEUM: There is no aneurysm or lymphadenopathy. REPRODUCTIVE: Within normal limits. INGUINAL: There is no lymphadenopathy or hernia. MUSCULOSKELETAL: Osseous structures are intact without evidence of acute fracture. Advanced degenerative disease is ev ident at L5-S1. CONCLUSION: No acute disease. Advanced degenerative disc disease at L5-S1. Florian Hernandez MD on October 29, 2016 at 13:07 Board Certified Radiologist. This report was verified electronically.
[2016-10-29 13:13] VITALS: BP 151/94; PULSE 97; RESP 18; O2SAT 100
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
[2016-10-29] MEDS: LORazepam 1 MG TAB PO PRN (17:59)
[2016-10-29 18:56] VITALS: BP 129/84; PULSE 99; RESP 18; TEMP 97.4; O2SAT 96
[2016-10-29] MEDS ORDERED: cloZAPine 100 MG TAB PO SCH (21:00)
[2016-10-29] MEDS: QUEtiapine FUMARATE 200 MG TAB PO SCH (21:30)
[2016-10-29] MEDS: AMITRIPTYLINE HCL 75 MG TAB PO SCH (21:31)
[2016-10-29 22:28] VITALS: BP 139/73; PULSE 99; RESP 20; TEMP 97.7; O2SAT 98
[2016-10-30 02:35] VITALS: BP 126/76; PULSE 85; RESP 16; TEMP 97.6; O2SAT 97
[2016-10-30] MEDS: LEVOTHYROXINE SODIUM 100 MCG TAB PO SCH (05:37)
[2016-10-30 05:48] VITALS: BP 143/81; PULSE 95; RESP 18; TEMP 99.1
[2016-10-30 06:29] VITALS: BP 141/67; PULSE 93; RESP 18; TEMP 97.4; O2SAT 99
[2016-10-30] MEDS: LORazepam 2 MG/ML VIAL IM PRN (07:52)
[2016-10-30] MEDS: BENZTROPINE MESYLATE 1 MG TAB PO SCH ×2 (08:19→20:04)
[2016-10-30] MEDS: CALCIUM/VITAMIN D 250 MG/125 U TAB PO SCH ×2 (08:19→20:03)
[2016-10-30] MEDS: PHENYTOIN SODIUM 100 MG CAP PO SCH ×3 (08:20→18:11)
[2016-10-30] MEDS: PANTOPRAZOLE SOD 40 MG DELAYED RELEASE TAB PO SCH (08:20)
[2016-10-30] MEDS: HALOPERIDOL 10 MG TAB PO SCH ×3 (08:20→20:39)
[2016-10-30] MEDS: VALPROIC ACID SYRUP 250 MG/5 ML UDC PO SCH ×2 (08:21→20:06)
[2016-10-30] MEDS: POLYETHYLENE GLYCOL 17 GM PKG PO SCH (08:23)
[2016-10-30] MEDS ORDERED: cloZAPine 25 MG TAB PO SCH (09:00)
--- NOTE | 2016-10-30 12:27 | HHI.PYPN ---
Subjective Remarks Patient discussed with treatment team, patient seen on unit, chart reviewed. Appears patient has fallen twice over this weekend. Distally feel for her safety will place her on the one-to-one observation. Patient continues markedly confused disoriented delusional. Intrusive at times loud screaming needing intervention by staff. She has been compliant with the medication including the Clozaril. For now continue treatment Review of Systems Except as stated in HPI: all other systems reviewed are Neg Objective Alert: Yes [place]: Person, Place Mood: Anxious Affect: Labile Memory Intact: Comment (very poor) Hallucinations: Other Delusions: Yes Delusion Type: Paranoid (bizarre delusions) Suicidal: Ideation (denies) Homicidal: Ideation (denies) Insight/Judgment Poor Vitals/IOs Vital Signs Date Time Temp Pulse Resp B/P Pulse Ox O2 Delivery O2 Flow Rate FiO2 10/30/16 06:29 97.4 93 18 141/67 99 Intake and Output 10/29/16 10/29/16 10/30/16 08:00 16:00 00:00 Intake Total 3240 ml Balance 3240 ml Assessment & Plan Problem List: (1) Bipolar disorder ICD Code: F31.9 Assessment & Plan Estimated LOS: days patient continue psychotic anxious intrusive somewhat manic. She is also fallen twice over the weekend. The stomach feel she meets criteria for one-to-one observation to help prevent further falls and injury Justification for Cont. Inpt. At this time patient will decompensate if placed in a lower level of care Discharge Planning To be determined Problem Qualifiers (1) Bipolar disorder: Qualified Code: F31.64 - Bipolar disorder, current episode mixed, severe, with psychotic features Ezequiel Grayson MD Oct 30, 2016 12:27
[2016-10-30] MEDS: LORazepam 1 MG TAB PO PRN ×2 (13:59→21:30)
[2016-10-30 18:16] VITALS: BP 126/64; PULSE 99; RESP 20; TEMP 98.7; O2SAT 99
[2016-10-30] MEDS: QUEtiapine FUMARATE 200 MG TAB PO SCH (20:03)
[2016-10-30] MEDS: diphenhydrAMINE HCL 50 MG CAP PO PRN (20:04)
[2016-10-30] MEDS: AMITRIPTYLINE HCL 75 MG TAB PO SCH (20:05)
[2016-10-30] MEDS ORDERED: cloZAPine 100 MG TAB PO SCH (21:00)
[2016-10-30 23:45] VITALS: BP 120/57; PULSE 92; RESP 20; TEMP 98.9; O2SAT 96
[2016-10-31] MEDS: LEVOTHYROXINE SODIUM 100 MCG TAB PO SCH (06:24)
[2016-10-31 06:47] VITALS: BP 140/64; PULSE 96; RESP 20; TEMP 98; O2SAT 98
[2016-10-31] MEDS: CALCIUM/VITAMIN D 250 MG/125 U TAB PO SCH ×2 (08:52→21:03)
[2016-10-31] MEDS: PHENYTOIN SODIUM 100 MG CAP PO SCH ×3 (08:52→17:57)
[2016-10-31] MEDS: LORazepam 1 MG TAB PO PRN ×2 (08:52→21:04)
[2016-10-31] MEDS: BENZTROPINE MESYLATE 1 MG TAB PO SCH ×2 (08:52→21:04)
[2016-10-31] MEDS: HALOPERIDOL 10 MG TAB PO SCH ×3 (08:53→21:04)
[2016-10-31] MEDS: cloZAPine 100 MG TAB PO SCH ×2 (08:53→21:05)
[2016-10-31] MEDS: VALPROIC ACID SYRUP 250 MG/5 ML UDC PO SCH ×2 (08:54→21:04)
[2016-10-31] MEDS: POLYETHYLENE GLYCOL 17 GM PKG PO SCH (09:00)
[2016-10-31] MEDS: PANTOPRAZOLE SOD 40 MG DELAYED RELEASE TAB PO SCH (09:00)
--- NOTE | 2016-10-31 10:24 | HHI.PYPN ---
Subjective Remarks Patient seen in her room with sitter and medical student Terri. There is essentially no change in patient's verbal output she continues loud intrusive paranoid demanding. However is also noted that she is developing some increased redness and swelling in her right lower leg that is fairly tense there are no peripheral pulses palpated though the foot is warm. Will have hospitalists assess. We'll also recheck Depakote level Dilantin level and Elavil levels tomorrow morning Review of Systems Except as stated in HPI: all other systems reviewed are Neg Objective Alert: Yes [place]: Person, Place Mood: Anxious Affect: Labile Memory Intact: Comment (very poor) Hallucinations: Other Delusions: Yes Delusion Type: Paranoid (bizarre delusions) Suicidal: Ideation (denies) Homicidal: Ideation (denies) Insight/Judgment Very poor Vitals/IOs Vital Signs Date Time Temp Pulse Resp B/P Pulse Ox O2 Delivery O2 Flow Rate FiO2 10/31/16 06:47 98.0 96 20 140/64 98 Intake and Output 10/30/16 10/30/16 10/31/16 08:00 16:00 00:00 Intake Total 120 ml 120 ml 1680 ml Output Total 3 ml Balance 117 ml 120 ml 1680 ml Assessment & Plan Problem List: (1) Bipolar disorder ICD Code: F31.9 Assessment & Plan Estimated LOS: days patient continues psychotic delusional loud intrusive. There is also some swelling noted patient's right lower leg. Will have hospitalist check this will also check blood levels as mentioned above Justification for Cont. Inpt. At this time patient will decompensate placed in a lower level of care Discharge Planning To be determined Problem Qualifiers (1) Bipolar disorder: Qualified Code: F31.64 - Bipolar disorder, current episode mixed, severe, with psychotic features Ezequiel Grayson MD Oct 31, 2016 10:24
--- NOTE | 2016-10-31 15:54 | HHI.PR ---
Subjective Remarks Reconsult for RLE edema Patient continues to be confused unable to provide meaningful information Per nursing and sitter at bedside- patient had a fall on Sunday since then the RLE edema seems to be worse- patient continues to ambulate without difficulty nurse also reports occational nose bleed usually through the night believes patient is having nose bleeding after picking at nose Patient appears to be in no acute distress Objective Vitals Vital Signs Date Time Temp Pulse Resp B/P Pulse Ox O2 Delivery O2 Flow Rate FiO2 10/31/16 06:47 98.0 96 20 140/64 98 10/30/16 23:45 98.9 92 20 120/57 96 10/30/16 18:16 98.7 99 20 126/64 99 I/O 10/30/16 10/30/16 10/30/16 10/31/16 10/31/16 10/31/16 07:00 15:00 23:00 07:00 15:00 23:00 Intake Total 240 ml 1680 ml 1360 ml Output Total 3 ml Balance -3 ml 240 ml 1680 ml 1360 ml Intake Oral 240 ml 1680 ml 1360 ml Output Urine Total 3 ml # Voids 7 2 2 # Bowel Movements 0 Imaging Last Impressions Pelvis CT 10/29/16 0000 Signed Impressions: Service Date/Time: Saturday, October 29, 2016 12:46 - CONCLUSION: No acute disease. Advanced degenerative disc disease at L5-S1. Florian Hernandez MD Head CT 10/29/16 0000 Signed Impressions: Service Date/Time: Saturday, October 29, 2016 12:42 - CONCLUSION: No acute disease. Stable right temporal encephalomalacia with enlargement of the temporal horn of the lateral ventricle. Florian Hernandez MD Hip and Pelvis X-Ray 10/28/16 0000 Signed Impressions: Service Date/Time: Friday, October 28, 2016 09:44 - CONCLUSION: Unremarkable exam. Yash Ricci MD Objective Remarks GENERAL: This is a well-nourished, well-developed patient, in no acute distress SKIN: No rashes, ecchymoses or lesions. Cool and dry. Generalized thinning skin HEAD: Atraumatic. Normocephalic. No temporal or scalp tenderness. EYES: Extraocular motions intact. No scleral icterus. No injection or drainage. CARDIOVASCULAR: Regular rate and rhythm without murmurs, gallops, or rubs. 2+ pedal pulses bilaterally RESPIRATORY: diminished likely due to poor inspiratory effort GASTROINTESTINAL: Abdomen soft, non-tender, nondistended. No hepato-splenomegaly , or palpable masses. No guarding. MUSCULOSKELETAL: No calf tenderness. Negative Homans sign bilaterally. RLE more edematous than LLE RLE 2+ edema. tenderness with palpation of digits 2-5 on right foot. NEUROLOGICAL: Awake and alert. appears confused and tangental in speech. Motor and sensory grossly within normal limits. 4-5 out of 5 muscle strength in all muscle groups. A/P Problem List: (1) Hypothyroidism ICD Code: E03.9 Status: Acute (2) Seizure disorder ICD Code: G40.909 Status: Acute Assessment and Plan This is a pleasant 61-year-old female patient with a past medical history which includes bipolar disorder, seizure disorder, hypothyroidism. Patient is currently inpatient psychiatric center. We have been consulted for assistance with medical management included hypothyroidism as well as epilepsy. It appears the patient has gotten increasingly more agitated and violent and her jail. Patient's caregiver at bedside reports patient has had falling episodes which seem to be worse after psychiatric medication. Bipolar disorder to be managed by psychiatric team Hypothyroidism continue her Synthroid, TSH 1.460 Seizure disorder/epilepsy continue valproic acid continue Phenytoin Seizure precautions Dizziness/ unsteady gate PT eval 10/05/16 recommends home with no further PT Fall Sunday10/29/[address] shows no acute changes CT pelvis no acute disease X-ray hip pelvis Unremarkable exam Right foot edematous and tender to palpation, X Ray Right foot ordered RLE edema US bilateral lower extremities Nose bleed- resolved Mupirocin BID x 7 days [place] nasal spray DVT prophylaxis patient is ambulatory Discussed with patient, nurse, sitting and Bisi Gomez Oct 31, 2016 15:53
--- NOTE | 2016-10-31 16:24 | RADRPT ---
EXAM DATE/TIME: 10/31/2016 15:08 [facility] COMPARISON: No previous studies available for comparison. INDICATIONS : Bilateral leg edema. MEDICAL HISTORY : Hypercholesterolemia. Seizures. GERD. Schizophrenia. Bipolar disorder. Hallucinations. Depression. Anxiety. SURGICAL HISTORY : Unknown surgical history. ENCOUNTER: Initial ACUITY: 1 day PAIN SCORE: 2/10 LOCATION: Bilateral leg. TECHNIQUE: Venous ultrasound of the left and right leg was performed from the inguinal ligament to the proximal calf. Real-time, color Doppler and spectral tracing, compression and augmentation techniques were us ed. FINDINGS: RIGHT LEG: There is normal compressibility of the deep venous system from the inguinal region to the proximal ca lf. No echogenic clot is seen in the lumen of the common femoral, femoral, popliteal, and posterior tibial veins. There is a normal response of the venous system to proximal and distal augmentation an d respiration. LEFT LEG: There is normal compressibility of the deep venous system from the inguinal region to the proximal ca lf. No echogenic clot is seen in the lumen of the common femoral, femoral, popliteal, and posterior tibial veins. There is a normal response of the venous system to proximal and distal augmentation an d respiration. CONCLUSION: No DVT. Ezequiel Frost MD on October 31, 2016 at 16:22 Board Certified Radiologist. This report was verified electronically.
--- NOTE | 2016-10-31 16:37 | RADRPT ---
EXAM DATE/TIME: 10/31/2016 16:11 [facility] COMPARISON: No previous studies available for comparison. INDICATIONS : Fell 2 days ago, pain and swelling entire right foot MEDICAL HISTORY : seizures SURGICAL HISTORY : None. ENCOUNTER: Initial ACUITY: 2 days PAIN SCORE: Non-responsive. LOCATION: Right foot FINDINGS: No fracture is seen. There is a mild hallux valgus deformity. The bones appear osteopenic. The bones and joints are normal aligned. CONCLUSION: No acute disease. Ezequiel Frost MD on October 31, 2016 at 16:31 Board Certified Radiologist. This report was verified electronically.
[2016-10-31 18:41] VITALS: BP 123/76; PULSE 97; RESP 18; TEMP 98.5; O2SAT 99
[2016-10-31] MEDS: MUPIROCIN 2% OINT 1 APPLIC/GM SYR EACH NARE SCH (21:00)
[2016-10-31] MEDS: AMITRIPTYLINE HCL 75 MG TAB PO SCH (21:02)
[2016-10-31] MEDS: diphenhydrAMINE HCL 50 MG CAP PO PRN (21:03)
[2016-10-31] MEDS: QUEtiapine FUMARATE 200 MG TAB PO SCH (21:03)
[2016-11-01 05:45] VITALS: BP 120/69; PULSE 91; RESP 18; TEMP 98.7
[2016-11-01] MEDS: LEVOTHYROXINE SODIUM 100 MCG TAB PO SCH (05:49)
[2016-11-01 06:39] VITALS: BP 120/69; PULSE 91; RESP 18; TEMP 98.7; O2SAT 97
[2016-11-01] MEDS: POLYETHYLENE GLYCOL 17 GM PKG PO SCH (08:24)
[2016-11-01] MEDS: HALOPERIDOL 10 MG TAB PO SCH ×3 (08:24→21:28)
[2016-11-01] MEDS: PHENYTOIN SODIUM 100 MG CAP PO SCH ×3 (08:27→17:51)
[2016-11-01] MEDS: LORazepam 1 MG TAB PO PRN (08:27)
[2016-11-01] MEDS: cloZAPine 100 MG TAB PO SCH ×2 (08:27→21:28)
[2016-11-01] MEDS: CALCIUM/VITAMIN D 250 MG/125 U TAB PO SCH ×2 (08:27→21:28)
[2016-11-01] MEDS: PANTOPRAZOLE SOD 40 MG DELAYED RELEASE TAB PO SCH (08:28)
[2016-11-01] MEDS: BENZTROPINE MESYLATE 1 MG TAB PO SCH ×2 (08:28→21:28)
[2016-11-01] MEDS: VALPROIC ACID SYRUP 250 MG/5 ML UDC PO SCH ×2 (08:33→21:29)
[2016-11-01] MEDS: MUPIROCIN 2% OINT 1 APPLIC/GM SYR EACH NARE SCH ×2 (08:34→22:09)
[2016-11-01] MEDS: PADIMATE (CHAPSTICK) 4.5 GM TUBE TOPICAL PRN (10:35)
--- NOTE | 2016-11-01 12:24 | RADRPT ---
EXAM DATE/TIME: 11/01/2016 00:00 [facility] COMPARISON: No previous studies available for comparison. INDICATIONS : Right Leg Edema TECHNIQUE: Four-cuff ankle and brachial pressures were obtained. Pulse cuff waveform tracings of the ankles were recorded, and ankle-brachial indices were calculated. PRESSURES (mmHg): Brachial (arm): Right 119 Left 113 Ankle: Right 126 Left 131 AR[place]OLD: Right 1.06 Left 1.10 TBI: Right 0.88 Left 0.71 There is diminished pulse wave tracings on the left with depressed TBI. There is no significant inflow stenosis. Proximal trifurcation the most part appear to be patent. CONCLUSION: Unremarkable ankle brachial indices with depressed TBI on the left Andrew Hay MD FACR on November 01, 2016 at 12:21 Board Certified Radiologist. This report was verified electronically.
--- NOTE | 2016-11-01 13:02 | HHI.PR ---
Subjective Remarks Patient c/o right leg swelling denies fevers/chills denies major pain Objective Vitals Vital Signs Date Time Temp Pulse Resp B/P Pulse Ox O2 Delivery O2 Flow Rate FiO2 11/01/16 06:39 98.7 91 18 120/69 97 11/01/16 05:45 98.7 91 18 120/69 10/31/16 18:41 98.5 97 18 123/76 99 I/O 10/31/16 10/31/16 10/31/16 11/01/16 11/01/16 11/01/16 06:59 14:59 22:59 06:59 14:59 22:59 Intake Total 840 ml 2120 ml 480 ml Balance 840 ml 2120 ml 480 ml Intake Oral 840 ml 2120 ml 480 ml # Voids 2 3 2 Imaging Last Impressions Lower Extremity Ultrasound 10/31/16 0000 Signed Impressions: Service Date/Time: Monday, October 31, 2016 15:08 - CONCLUSION: No DVT. Ezequiel Frost MD Foot X-Ray 10/31/16 0000 Signed Impressions: Service Date/Time: Monday, October 31, 2016 16:11 - CONCLUSION: No acute disease. Ezequiel Frost MD Pelvis CT 10/29/16 0000 Signed Impressions: Service Date/Time: Saturday, October 29, 2016 12:46 - CONCLUSION: No acute disease. Advanced degenerative disc disease at L5-S1. Florian Hernandez MD Head CT 10/29/16 0000 Signed Impressions: Service Date/Time: Saturday, October 29, 2016 12:42 - CONCLUSION: No acute disease. Stable right temporal encephalomalacia with enlargement of the temporal horn of the lateral ventricle. Florian Hernandez MD Hip and Pelvis X-Ray 10/28/16 0000 Signed Impressions: Service Date/Time: Friday, October 28, 2016 09:44 - CONCLUSION: Unremarkable exam. Yash Ricci MD Objective Remarks AAOx3 S1S2 RRR, no MRG abdomen soft, nt, ND right lower extremity has a purple discoloration of the foot, pulses are difficult to palpate and seem diminished pedal pulses. Medications and IVs Current Medications Medications (Trade) Dose Ordered Sig/Melissa Route Start Time Stop Time Status Last Admin (Ativan) 1 mg Q6H PRN PO 10/03/16 15:00 11/01/16 08:27 (Ativan Inj) 1 mg Q6H PRN IM 10/03/16 15:00 10/30/16 07:52 (Benadryl) 50 mg HS PRN PO 10/03/16 15:00 10/31/16 21:03 (Tylenol) 650 mg Q4H PRN PO 10/03/16 15:00 10/27/16 17:39 (Milk Of Magnesia Liq) 30 ml DAILY PRN PO 10/03/16 15:00 (Mag-Al Plus Susp Liq) 30 ml Q6H PRN PO 10/03/16 15:00 10/22/16 18:45 (Elavil) 150 mg HS PO 10/03/16 21:00 10/31/16 21:02 (Cogentin) 1 mg BID PO 10/03/16 21:00 11/01/16 08:28 (Dulcolax Ec) 5 mg DAILY PRN PO 10/03/16 15:00 (Synthroid) 100 mcg DAILY@06 PO 10/04/16 06:00 11/01/16 05:49 (Dilantin) 100 mg TID PO 10/03/16 18:00 11/01/16 08:27 (Miralax) 17 gm DAILY PO 10/04/16 09:00 11/01/16 08:24 (Tricor) 145 mg DAILY PO 10/04/16 09:00 Hold 10/04/16 09:56 (Protonix) 40 mg DAILY PO 10/04/16 09:00 11/01/16 08:28 (Oscal-D 250-125) 500 mg BID PO 10/04/16 09:00 11/01/16 08:27 (SEROquel) 400 mg HS PO 10/10/16 21:00 10/31/16 21:03 (Haldol) 10 mg DAILY@08,14,20 PO 10/11/16 20:00 11/01/16 08:24 ([place]stick) 1 applic UNSCH PRN TOPICAL 10/12/16 10:45 11/01/16 10:35 (Depakene Liq) 1,000 mg BID PO 10/16/16 21:00 11/01/16 08:33 (Clozaril) 100 mg BID PO 11/01/16 09:00 11/01/16 21:01 11/01/16 08:27 (Clozaril) 100 mg DAILY PO 11/02/16 09:00 11/02/16 09:01 (Clozaril) 100 mg HS PO 11/02/16 21:00 11/02/16 21:01 (Clozaril) 25 mg HS PO 11/02/16 21:00 11/02/16 21:01 (Clozaril) 100 mg DAILY PO 11/03/16 09:00 11/03/16 09:01 (Clozaril) 100 mg HS PO 11/03/16 21:00 11/03/16 21:01 (Clozaril) 25 mg HS PO 11/03/16 21:00 11/03/16 21:01 (Clozaril) 100 mg DAILY PO 11/04/16 09:00 11/04/16 09:01 (Clozaril) 100 mg HS PO 11/04/16 21:00 11/04/16 21:01 (Clozaril) 50 mg HS PO 11/04/16 21:00 11/04/16 21:01 (Clozaril) 100 mg DAILY PO 11/05/16 09:00 11/05/16 09:01 (Clozaril) 100 mg HS PO 11/05/16 21:00 11/05/16 21:01 (Clozaril) 50 mg HS PO 11/05/16 21:00 11/05/16 21:01 (Clozaril) 100 mg DAILY PO 11/06/16 09:00 11/06/16 09:01 (Clozaril) 100 mg HS PO 11/06/16 21:00 11/06/16 21:01 (Clozaril) 75 mg HS PO 11/06/16 21:00 11/06/16 21:01 (Clozaril) 100 mg DAILY PO 11/07/16 09:00 11/07/16 09:01 (Clozaril) 100 mg HS PO 11/07/16 21:00 11/07/16 21:01 (Clozaril) 75 mg HS PO 11/07/16 21:00 11/07/16 21:01 (Clozaril) 100 mg DAILY PO 11/08/16 09:00 (Clozaril) 200 mg HS PO 11/08/16 21:00 ([place] Tj Basye) 2 spray Q4H PRN EACH NARE 10/31/16 15:45 (Bactroban Nasal 2% Oint) 1 applic BID EACH NARE 10/31/16 21:00 11/07/16 20:59 11/01/16 08:34 A/P Problem List: (1) Hypothyroidism ICD Code: E03.9 Status: Acute (2) Seizure disorder ICD Code: G40.909 Status: Acute Assessment and Plan This is a pleasant 61-year-old female patient with a past medical history which includes bipolar disorder, seizure disorder, hypothyroidism. Patient is currently inpatient psychiatric center. We have been consulted for assistance with medical management included hypothyroidism as well as epilepsy. It appears the patient has gotten increasingly more agitated and violent and her snf. Patient's caregiver at bedside reports patient has had falling episodes which seem to be worse after psychiatric medication. Bipolar disorder to be managed by psychiatric team Hypothyroidism continue her Synthroid, TSH 1.460 Seizure disorder/epilepsy continue valproic acid continue Phenytoin Seizure precautions 11/01 no evidence of seizures. Dizziness/ unsteady gate PT eval 10/05/16 recommends home with no further PT Dizziness seem resolved Fall Sunday10/29/[address] shows no acute changes CT pelvis no acute disease X-ray hip pelvis Unremarkable exam Right foot edematous and tender to palpation, X Ray Right foot ordered 11/01 X ray of the right foot reviewed by me shows no fracture. Doppler studies ruled out DVT. Ordered Segmental doppler studies which showed diminished TBI on the left. Will order CTA of the lower extremities with runoff. RLE edema Doppler US negative for DVT. Nose bleed- resolved Mupirocin BID x 7 days [place] nasal spray DVT prophylaxis patient is ambulatory Paul Nathan MD Nov 01, 2016 13:02
--- NOTE | 2016-11-01 14:43 | HHI.PYPN ---
Subjective Remarks Patient seen in her room with nurse Zarina and one-to-one sitter. Medical workup continues it appears the been negative Doppler studies or labs are being requested monitor creatinine and GFR which I will order. It appears patient behaviors have softened somewhat. She is now on 100 mg twice a day of Clozaril for now continue treatment Review of Systems Except as stated in HPI: all other systems reviewed are Neg Objective Alert: Yes [place]: Person, Place Mood: Anxious Affect: Labile Memory Intact: Comment (very poor) Hallucinations: Other Delusions: Yes Delusion Type: Paranoid (bizarre delusions) Suicidal: Ideation (denies) Homicidal: Ideation (denies) Insight/Judgment Very poor Vitals/IOs Vital Signs Date Time Temp Pulse Resp B/P Pulse Ox O2 Delivery O2 Flow Rate FiO2 11/01/16 06:39 98.7 91 18 120/69 97 Intake and Output 10/31/16 10/31/16 10/31/16 07:59 15:59 23:59 Intake Total 360 ml 1000 ml 1600 ml Balance 360 ml 1000 ml 1600 ml Assessment & Plan Problem List: (1) Bipolar disorder ICD Code: F31.9 Assessment & Plan Estimated LOS: days patient continue psychotic and intrusive though it appears to be softening somewhat. She is also the process of a examined and treated for her peripheral edema. Repeat labs will be ordered Justification for Cont. Inpt. At this time patient will decompensate and placed in a lower level of care Discharge Planning To be determined patient on state wait list Problem Qualifiers (1) Bipolar disorder: Qualified Code: F31.64 - Bipolar disorder, current episode mixed, severe, with psychotic features Ezequiel Grayson MD Nov 01, 2016 14:43
[2016-11-01 18:00] VITALS: BP 115/66; PULSE 97; TEMP 91.8; O2SAT 97
[2016-11-01] MEDS: SODIUM CHLORIDE 0.65% NASAL SPRAY 45 ML BTL EACH NARE PRN (21:27)
[2016-11-01] MEDS: QUEtiapine FUMARATE 200 MG TAB PO SCH (21:28)
[2016-11-01] MEDS: AMITRIPTYLINE HCL 75 MG TAB PO SCH (21:28)
[2016-11-01] MEDS: diphenhydrAMINE HCL 50 MG CAP PO PRN (21:28)
[2016-11-02] MEDS: LEVOTHYROXINE SODIUM 100 MCG TAB PO SCH (05:55)
[2016-11-02 06:00] VITALS: BP 124/65; PULSE 91; RESP 18; TEMP 98.6
[2016-11-02] MEDS: POLYETHYLENE GLYCOL 17 GM PKG PO SCH (08:18)
[2016-11-02] MEDS: VALPROIC ACID SYRUP 250 MG/5 ML UDC PO SCH ×2 (08:21→21:40)
[2016-11-02] MEDS: PANTOPRAZOLE SOD 40 MG DELAYED RELEASE TAB PO SCH (08:22)
[2016-11-02] MEDS: PHENYTOIN SODIUM 100 MG CAP PO SCH ×3 (08:22→17:50)
[2016-11-02] MEDS: MUPIROCIN 2% OINT 1 APPLIC/GM SYR EACH NARE SCH ×2 (08:22→21:39)
[2016-11-02] MEDS: CALCIUM/VITAMIN D 250 MG/125 U TAB PO SCH ×2 (08:22→21:41)
[2016-11-02] MEDS: HALOPERIDOL 10 MG TAB PO SCH ×3 (08:22→21:41)
[2016-11-02] MEDS: BENZTROPINE MESYLATE 1 MG TAB PO SCH ×2 (08:22→21:40)
[2016-11-02] MEDS ORDERED: cloZAPine 100 MG TAB PO SCH ×2 (09:00→21:00)
--- NOTE | 2016-11-02 09:19 | EKG ---
Date Performed: 11/01/2016 Time Performed: 13:42:59 PTAGE: 61 years EKG: Sinus rhythm NORMAL ECG NO PREVIOUS TRACING DOCTOR: Quoc Soler Interpretating Date/Time 11/02/2016 09:07:50
[2016-11-02] MEDS: LORazepam 1 MG TAB PO PRN (10:08)
[2016-11-02 11:01] LABS: AUTOMATED NEUTROPHIL # 2.3 TH/MM3 (1.8-7.7); BASOPHIL % 0.6 % (0.0-2.0); EOSINOPHIL # 0.1 TH/MM3 (0-0.4); EOSINOPHIL % 2.3 % (0.0-4.0); HEMO FLAGS DIFF FINAL; LYMPH % 44.4 % (9.0-44.0); LYMPHOCYTE # 2.3 TH/MM3 (1.0-4.8); MEAN CELL VOLUME 91.9 FL (80.0-100.0); MEAN CORPUSCULAR HEMOGLOBIN 30.7 PG (27.0-34.0); MEAN CORPUSCULAR HGB CONC 33.4 % (32.0-36.0); MONO % 8.5 % (0.0-8.0); NEUT % 44.2 % (16.0-70.0); PLATELET COUNT 209 TH/MM3 (150-450); RED BLOOD COUNT 3.81 MIL/MM3 (4.00-5.30); RED CELL DISTRIBUTION WIDTH 13.6 % (11.6-17.2); WHITE BLOOD COUNT 5.2 TH/MM3 (4.0-11.0)
[2016-11-02 11:30] LABS: ALT (GPT) 31 U/L (10-53); ANION GAP 5 MEQ/L (5-15); AST (GOT) 25 U/L (15-37); BICARBONATE 32.1 MEQ/L (21.0-32.0); BLOOD UREA NITROGEN 15 MG/DL (7-18); CHLORIDE 99 MEQ/L (98-107); GLOMERULAR FILTRATION RATE 85 ML/MIN (>89); POTASSIUM 4.5 MEQ/L (3.5-5.1); SODIUM (NA) 136 MEQ/L (136-145)
[2016-11-02 11:32] LABS: ALKALINE PHOSPHATASE 114 U/L (45-117); TOTAL BILIRUBIN ADULT 0.1 MG/DL (0.2-1.0)
[2016-11-02] MEDS ORDERED: IOHEXOL 350 MG/ML 10 ML VIAL (for RAD DIAG) IV ONE (13:06)
--- NOTE | 2016-11-02 13:26 | HHI.PYPN ---
Subjective Remarks Patient seen in day room, with floor staff, chart reviewed. Patient compliant medication. Continues labile outbursts at times when interventions are needed. Though she did do well with going of foreign radiological test Review of Systems Except as stated in HPI: all other systems reviewed are Neg Objective Alert: Yes [place]: Person, Place Mood: Anxious Affect: Labile Memory Intact: Comment (very poor) Hallucinations: Other Delusions: Yes Delusion Type: Paranoid (bizarre delusions) Suicidal: Ideation (denies) Homicidal: Ideation (denies) Insight/Judgment Very poor Labs Test 11/02/16 10:16 White Blood Count 5.2 TH/MM3 Red Blood Count 3.81 MIL/MM3 Hemoglobin 11.7 GM/DL Hematocrit 35.0 % Mean Corpuscular Volume 91.9 FL Mean Corpuscular Hemoglobin 30.7 PG Mean Corpuscular Hemoglobin 33.4 % Concent Red Cell Distribution Width 13.6 % Platelet Count 209 TH/MM3 Mean Platelet Volume 9.0 FL Neutrophils (%) (Auto) 44.2 % Lymphocytes (%) (Auto) 44.4 % Monocytes (%) (Auto) 8.5 % Eosinophils (%) (Auto) 2.3 % Basophils (%) (Auto) 0.6 % Neutrophils # (Auto) 2.3 TH/MM3 Lymphocytes # (Auto) 2.3 TH/MM3 Monocytes # (Auto) 0.4 TH/MM3 Eosinophils # (Auto) 0.1 TH/MM3 Basophils # (Auto) 0.0 TH/MM3 CBC Comment DIFF FINAL Differential Comment Sodium Level 136 MEQ/L Potassium Level 4.5 MEQ/L Chloride Level 99 MEQ/L Carbon Dioxide Level 32.1 MEQ/L Anion Gap 5 MEQ/L Blood Urea Nitrogen 15 MG/DL Creatinine 0.70 MG/DL Estimat Glomerular Filtration 85 ML/MIN Rate Random Glucose 84 MG/DL Calcium Level 9.4 MG/DL Total Bilirubin 0.1 MG/DL Aspartate Amino Transf 25 U/L (AST/SGOT) Alanine Aminotransferase 31 U/L (ALT/SGPT) Alkaline Phosphatase 114 U/L Total Protein 6.7 GM/DL Albumin 3.3 GM/DL Phenytoin (Dilantin) Level 8.1 MCG/ML Valproic Acid (Depakene) Level 87 MCG/ML Vitals/IOs Vital Signs Date Time Temp Pulse Resp B/P Pulse Ox O2 Delivery O2 Flow Rate FiO2 8/17/17 06:00 98.6 91 18 124/65 11/01/16 18:00 97 Intake and Output 11/01/16 11/01/16 11/01/16 07:59 15:59 23:59 Intake Total 480 ml 960 ml Output Total 960 ml Balance -480 ml 960 ml Assessment & Plan Problem List: (1) Bipolar disorder ICD Code: F31.9 Assessment & Plan Estimated LOS: days patient continues psychotic delusional labile. Though she is compliant with medications Justification for Cont. Inpt. At this time patient decompensate if placed in a lower level of care Discharge Planning To be determined Problem Qualifiers (1) Bipolar disorder: Qualified Code: F31.64 - Bipolar disorder, current episode mixed, severe, with psychotic features Ezequiel Grayson MD Nov 02, 2016 13:26
--- NOTE | 2016-11-02 14:56 | RADRPT ---
EXAM DATE/TIME: 11/02/2016 12:38 [place] COMPARISON: [facility] ANKLE BRACHIAL INDEX, November 01, 2016, 0:00. CT PELVIS W/O CONTRAST, October 29, 2016, 12:46. INDICATIONS : Low TBI IV CONTRAST: 80 cc Omnipaque 350 (iohexol) IV RADIATION DOSE: 2.0 CTDIvol (mGy) MEDICAL HISTORY : Seizures. SURGICAL HISTORY : None. ENCOUNTER: Initial ACUITY: 1 day PAIN SCALE: 0/10 LOCATION: Bilateral extremity TECHNIQUE: Volumetric scanning was performed using a multi-row detector CT scanner. The data was post processed with a variety of visualization algorithms including full volume maximum intensity projection, multi -planar sliding thin slab reformation, curved planar reformation, and surface rendering techniques. Using automated exposure control and adjustment of the mA and/or kV according to patient size, radiat ion dose was kept as low as reasonably achievable to obtain optimal diagnostic quality images. DICO M format image data is available electronically for review and comparison. FINDINGS: Abdominal aorta: The celiac and SMA are widely patent. There are single renal arteries bilaterally. The renal arteries are widely patent. The infrarenal aorta is normal in caliber. The DIAMOND is patent. There is minimal at herosclerotic plaquing. Pelvis: The common iliac, internal iliac and external iliac circulation is widely patent. Right leg: The common femoral, profunda femoral, superficial femoral and popliteal are widely patent. All 3 trif urcation vessels are patent. They are somewhat difficult to visualize due to the phase of contrast. T here is contrast within the venous system as well. Left leg: The common femoral, profunda femoral, superficial femoral and popliteal are widely patent. All 3 trif urcation vessels are patent. They're best visualized on the axial source as the phase of contrast is somewhat delayed and there is venous contamination. CT source data: The solid organs of the abdomen are grossly intact. There is no retroperitoneal lymphadenopathy. No f ree air or free fluid is seen. CONCLUSION: 1. Adequate inflow and runoff to both lower extremities. Adam Hay MD on November 02, 2016 at 14:50 Board Certified Radiologist. This report was verified electronically.
[2016-11-02 17:10] VITALS: BP 119/78; PULSE 95; RESP 17; TEMP 97.9; O2SAT 96
[2016-11-02] MEDS ORDERED: cloZAPine 25 MG TAB PO SCH (21:00)
[2016-11-02] MEDS: SODIUM CHLORIDE 0.65% NASAL SPRAY 45 ML BTL EACH NARE PRN (21:39)
[2016-11-02] MEDS: QUEtiapine FUMARATE 200 MG TAB PO SCH (21:40)
[2016-11-02] MEDS: diphenhydrAMINE HCL 50 MG CAP PO PRN (21:40)
[2016-11-02] MEDS: AMITRIPTYLINE HCL 75 MG TAB PO SCH (21:40)
[2016-11-03] MEDS: LEVOTHYROXINE SODIUM 100 MCG TAB PO SCH (05:45)
[2016-11-03 06:10] VITALS: BP 110/69; PULSE 97; RESP 17; TEMP 98.5; O2SAT 95
[2016-11-03] MEDS ORDERED: cloZAPine 100 MG TAB PO SCH ×2 (09:00→21:00)
[2016-11-03] MEDS: PANTOPRAZOLE SOD 40 MG DELAYED RELEASE TAB PO SCH (09:20)
[2016-11-03] MEDS: PHENYTOIN SODIUM 100 MG CAP PO SCH ×3 (09:20→18:03)
[2016-11-03] MEDS: BENZTROPINE MESYLATE 1 MG TAB PO SCH ×2 (09:20→21:31)
[2016-11-03] MEDS: CALCIUM/VITAMIN D 250 MG/125 U TAB PO SCH ×2 (09:21→21:32)
[2016-11-03] MEDS: VALPROIC ACID SYRUP 250 MG/5 ML UDC PO SCH ×2 (09:22→21:31)
[2016-11-03] MEDS: POLYETHYLENE GLYCOL 17 GM PKG PO SCH (09:22)
[2016-11-03] MEDS: MUPIROCIN 2% OINT 1 APPLIC/GM SYR EACH NARE SCH ×2 (09:34→21:30)
[2016-11-03] MEDS: HALOPERIDOL 10 MG TAB PO SCH ×3 (09:34→21:31)
--- NOTE | 2016-11-03 12:20 | HHI.PYPN ---
Subjective Remarks Patient seen in the day room sitting in Claribel chair, with nurse Briseyda, chart reviewed. Patient compliant medications. All her delusions intrusiveness and irritability persists that is somewhat softened. The outbursts seem to be less frequent of less duration. For now continue treatment Review of Systems Except as stated in HPI: all other systems reviewed are Neg Objective Alert: Yes [place]: Person, Place Mood: Anxious Affect: Labile Memory Intact: Comment (very poor) Hallucinations: Other Delusions: Yes Delusion Type: Paranoid (bizarre delusions) Suicidal: Ideation (denies) Homicidal: Ideation (denies) Insight/Judgment Very poor Vitals/IOs Vital Signs Date Time Temp Pulse Resp B/P Pulse Ox O2 Delivery O2 Flow Rate FiO2 11/03/16 06:10 98.5 97 17 110/69 95 Intake and Output 11/02/16 11/02/16 11/03/16 08:00 16:00 00:00 Intake Total 120 ml 720 ml Balance 120 ml 720 ml Assessment & Plan Problem List: (1) Bipolar disorder ICD Code: F31.9 Assessment & Plan Estimated LOS: days patient continues psychotic delusional and irritable though somewhat softened Justification for Cont. Inpt. At the present time patient decompensate if placed in a lower level of care Discharge Planning To be determined Problem Qualifiers (1) Bipolar disorder: Qualified Code: F31.64 - Bipolar disorder, current episode mixed, severe, with psychotic features Ezequiel Grayson MD Nov 03, 2016 12:20
[2016-11-03 17:33] VITALS: BP 140/86; PULSE 95; RESP 17; TEMP 98.6; O2SAT 96
[2016-11-03] MEDS: LORazepam 1 MG TAB PO PRN (18:03)
--- NOTE | 2016-11-03 18:54 | HHI.PR ---
Subjective Remarks Patient denies cp/sob denies fevers/chills RLE still swollen but denies pain Objective Vitals Vital Signs Date Time Temp Pulse Resp B/P Pulse Ox O2 Delivery O2 Flow Rate FiO2 11/03/16 17:33 98.6 95 17 140/86 96 11/03/16 06:10 98.5 97 17 110/69 95 I/O 11/02/16 11/02/16 11/02/16 11/03/16 11/03/16 11/03/16 07:00 15:00 23:00 07:00 15:00 23:00 Intake Total 120 ml 720 ml Balance 120 ml 720 ml Intake Oral 120 ml 720 ml # Voids 1 2 Result Diagram: 11/02/16 1016 11/02/16 1016 Imaging Last Impressions Aorta w/Runoff CTA 11/02/16 0000 Signed Impressions: Service Date/Time: October 12:38 - CONCLUSION: 1. Adequate inflow and runoff to both lower extremities. Adam Hay MD Lower Extremity Ultrasound 10/31/16 0000 Signed Impressions: Service Date/Time: Monday, October 31, 2016 15:08 - CONCLUSION: No DVT. Ezequiel Frost MD Foot X-Ray 10/31/16 0000 Signed Impressions: Service Date/Time: Monday, October 31, 2016 16:11 - CONCLUSION: No acute disease. Ezequiel Frost MD Pelvis CT 10/29/16 0000 Signed Impressions: Service Date/Time: Saturday, October 29, 2016 12:46 - CONCLUSION: No acute disease. Advanced degenerative disc disease at L5-S1. Florian Hernandez MD Head CT 10/29/16 0000 Signed Impressions: Service Date/Time: Saturday, October 29, 2016 12:42 - CONCLUSION: No acute disease. Stable right temporal encephalomalacia with enlargement of the temporal horn of the lateral ventricle. Florian Hernandez MD Hip and Pelvis X-Ray 10/28/16 0000 Signed Impressions: Service Date/Time: Friday, October 28, 2016 09:44 - CONCLUSION: Unremarkable exam. Yash Ricci MD Objective Remarks AAOx3 S1S2 RRR, no MRG abdomen soft, nt, ND right lower extremity has a purple discoloration of the foot, pulses are difficult to palpate and seem diminished pedal pulses. Medications and IVs Current Medications Medications (Trade) Dose Ordered Sig/Melissa Route Start Time Stop Time Status Last Admin (Ativan) 1 mg Q6H PRN PO 10/03/16 15:00 11/03/16 18:03 (Ativan Inj) 1 mg Q6H PRN IM 10/03/16 15:00 10/30/16 07:52 (Benadryl) 50 mg HS PRN PO 10/03/16 15:00 11/02/16 21:40 (Tylenol) 650 mg Q4H PRN PO 10/03/16 15:00 10/27/16 17:39 (Milk Of Magnesia Liq) 30 ml DAILY PRN PO 10/03/16 15:00 11/02/16 21:39 (Mag-Al Plus Susp Liq) 30 ml Q6H PRN PO 10/03/16 15:00 10/22/16 18:45 (Elavil) 150 mg HS PO 10/03/16 21:00 11/02/16 21:40 (Cogentin) 1 mg BID PO 10/03/16 21:00 11/03/16 09:20 (Dulcolax Ec) 5 mg DAILY PRN PO 10/03/16 15:00 11/02/16 21:41 (Synthroid) 100 mcg DAILY@06 PO 10/04/16 06:00 11/03/16 05:45 (Dilantin) 100 mg TID PO 10/03/16 18:00 11/03/16 18:03 (Miralax) 17 gm DAILY PO 10/04/16 09:00 11/03/16 09:22 (Tricor) 145 mg DAILY PO 10/04/16 09:00 Hold 10/04/16 09:56 (Protonix) 40 mg DAILY PO 10/04/16 09:00 11/03/16 09:20 (Oscal-D 250-125) 500 mg BID PO 10/04/16 09:00 11/03/16 09:21 (SEROquel) 400 mg HS PO 10/10/16 21:00 11/02/16 21:40 (Haldol) 10 mg DAILY@08,14,20 PO 10/11/16 20:00 11/03/16 14:08 ([place]) 1 applic UNSCH PRN TOPICAL 10/12/16 10:45 11/01/16 10:35 (Depakene Liq) 1,000 mg BID PO 10/16/16 21:00 11/03/16 09:22 (Clozaril) 100 mg HS PO 11/03/16 21:00 11/03/16 21:01 (Clozaril) 25 mg HS PO 11/03/16 21:00 11/03/16 21:01 (Clozaril) 100 mg DAILY PO 11/04/16 09:00 11/04/16 09:01 (Clozaril) 100 mg HS PO 11/04/16 21:00 11/04/16 21:01 (Clozaril) 50 mg HS PO 11/04/16 21:00 11/04/16 21:01 (Clozaril) 100 mg DAILY PO 11/05/16 09:00 11/05/16 09:01 (Clozaril) 100 mg HS PO 11/05/16 21:00 11/05/16 21:01 (Clozaril) 50 mg HS PO 11/05/16 21:00 11/05/16 21:01 (Clozaril) 100 mg DAILY PO 11/06/16 09:00 11/06/16 09:01 (Clozaril) 100 mg HS PO 11/06/16 21:00 11/06/16 21:01 (Clozaril) 75 mg HS PO 11/06/16 21:00 11/06/16 21:01 (Clozaril) 100 mg DAILY PO 11/07/16 09:00 11/07/16 09:01 (Clozaril) 100 mg HS PO 11/07/16 21:00 11/07/16 21:01 (Clozaril) 75 mg HS PO 11/07/16 21:00 11/07/16 21:01 (Clozaril) 100 mg DAILY PO 11/08/16 09:00 (Clozaril) 200 mg HS PO 11/08/16 21:00 ([place]) 2 spray Q4H PRN EACH NARE 10/31/16 15:45 11/02/16 21:39 (Bactroban Nasal 2% Oint) 1 applic BID EACH NARE 10/31/16 21:00 11/07/16 20:59 11/03/16 09:34 Urinary Catheter: No Vascular Central Line Catheter: No A/P Problem List: (1) Hypothyroidism ICD Code: E03.9 Status: Acute (2) Seizure disorder ICD Code: G40.909 Status: Acute Assessment and Plan This is a pleasant 61-year-old female patient with a past medical history which includes bipolar disorder, seizure disorder, hypothyroidism. Patient is currently inpatient psychiatric center. We have been consulted for assistance with medical management included hypothyroidism as well as epilepsy. It appears the patient has gotten increasingly more agitated and violent and her mcc. Patient's caregiver at bedside reports patient has had falling episodes which seem to be worse after psychiatric medication. Bipolar disorder to be managed by psychiatric team Hypothyroidism continue her Synthroid, TSH 1.460 Seizure disorder/epilepsy continue valproic acid continue Phenytoin Seizure precautions 11/01 no evidence of seizures. Dizziness/ unsteady gate PT eval 10/05/16 recommends home with no further PT Dizziness seem resolved Fall Sunday10/29/[address] shows no acute changes CT pelvis no acute disease X-ray hip pelvis Unremarkable exam Right foot edematous and tender to palpation, X Ray Right foot ordered . RLE edema 11/01 X ray of the right foot reviewed by me shows no fracture. Doppler studies ruled out DVT. Ordered Segmental doppler studies which showed diminished TBI on the left. Will order CTA of the lower extremities with runoff. 11/03 CTA w runoff of lower extremities - Shows adequate inflow and runoff to both lower extremities. Will order Abdirizak stockings and leg elevation. Nose bleed- resolved Mupirocin BID x 7 days [place] nasal spray DVT prophylaxis patient is ambulatory I will sign off please reconsult as needed. Paul Nathan MD Nov 03, 2016 18:54
[2016-11-03] MEDS ORDERED: cloZAPine 25 MG TAB PO SCH (21:00)
[2016-11-03] MEDS: SODIUM CHLORIDE 0.65% NASAL SPRAY 45 ML BTL EACH NARE PRN (21:30)
[2016-11-03] MEDS: AMITRIPTYLINE HCL 75 MG TAB PO SCH (21:31)
[2016-11-03] MEDS: QUEtiapine FUMARATE 200 MG TAB PO SCH (21:32)
[2016-11-04] MEDS: LEVOTHYROXINE SODIUM 100 MCG TAB PO SCH (05:44)
[2016-11-04 06:02] VITALS: BP 142/86; PULSE 87; RESP 14; TEMP 98.9; O2SAT 93
[2016-11-04] MEDS: PHENYTOIN SODIUM 100 MG CAP PO SCH ×3 (08:46→18:32)
[2016-11-04] MEDS: VALPROIC ACID SYRUP 250 MG/5 ML UDC PO SCH ×2 (08:46→21:12)
[2016-11-04] MEDS: PANTOPRAZOLE SOD 40 MG DELAYED RELEASE TAB PO SCH (08:46)
[2016-11-04] MEDS: CALCIUM/VITAMIN D 250 MG/125 U TAB PO SCH ×2 (08:47→20:38)
[2016-11-04] MEDS: POLYETHYLENE GLYCOL 17 GM PKG PO SCH (08:47)
[2016-11-04] MEDS: BENZTROPINE MESYLATE 1 MG TAB PO SCH ×2 (08:47→20:34)
[2016-11-04] MEDS ORDERED: cloZAPine 100 MG TAB PO SCH ×2 (09:00→21:00)
[2016-11-04] MEDS: HALOPERIDOL 10 MG TAB PO SCH ×3 (10:26→20:34)
--- NOTE | 2016-11-04 12:41 | HHI.PYPN ---
Subjective Remarks Patient was seen and case discussed with nursing. Patient is labile, hyperverbal, hyperactive. She is compliant with her medications. Loose thought process. Eating and sleeping well per nursing. No outbursts today Objective Alert: Yes [place]: Person, Place Mood: Anxious Affect: Labile Memory Intact: Comment (very poor) Hallucinations: Other Delusions: Yes Delusion Type: Paranoid (grossly psychotic) Suicidal: Ideation (denies) Homicidal: Ideation (denies) Insight/Judgment Poor Vitals/IOs Vital Signs Date Time Temp Pulse Resp B/P Pulse Ox O2 Delivery O2 Flow Rate FiO2 11/04/16 06:02 98.9 87 14 142/86 93 Intake and Output 11/03/16 11/03/16 11/04/16 08:00 16:00 00:00 Intake Total 0 ml 580 ml Balance 0 ml 580 ml Assessment & Plan Problem List: (1) Bipolar disorder ICD Code: F31.9 Assessment & Plan Continue current treatment plan Justification for Cont. Inpt. Patient will decompensate in a less restrictive setting Problem Qualifiers (1) Bipolar disorder: Qualified Code: F31.64 - Bipolar disorder, current episode mixed, severe, with psychotic features Cuate Flynn DO Nov 04, 2016 12:41
[2016-11-04] MEDS: MUPIROCIN 2% OINT 1 APPLIC/GM SYR EACH NARE SCH ×2 (13:35→20:39)
[2016-11-04] MEDS: LORazepam 1 MG TAB PO PRN ×2 (15:38→21:12)
[2016-11-04] MEDS: AMITRIPTYLINE HCL 75 MG TAB PO SCH (20:34)
[2016-11-04] MEDS: QUEtiapine FUMARATE 200 MG TAB PO SCH (20:38)
[2016-11-04] MEDS: diphenhydrAMINE HCL 50 MG CAP PO PRN ×2 (20:39→21:12)
[2016-11-04] MEDS ORDERED: cloZAPine 25 MG TAB PO SCH (21:00)
[2016-11-05 05:55] VITALS: BP 136/82; PULSE 95; RESP 16; TEMP 97.8; O2SAT 96
[2016-11-05] MEDS: LEVOTHYROXINE SODIUM 100 MCG TAB PO SCH (06:00)
[2016-11-05] MEDS: LORazepam 1 MG TAB PO PRN ×3 (06:00→20:20)
[2016-11-05] MEDS: HALOPERIDOL 10 MG TAB PO SCH ×3 (08:00→21:03)
[2016-11-05] MEDS: BENZTROPINE MESYLATE 1 MG TAB PO SCH ×2 (09:00→20:20)
[2016-11-05] MEDS: PANTOPRAZOLE SOD 40 MG DELAYED RELEASE TAB PO SCH (09:00)
[2016-11-05] MEDS: CALCIUM/VITAMIN D 250 MG/125 U TAB PO SCH ×2 (09:00→20:20)
[2016-11-05] MEDS: PHENYTOIN SODIUM 100 MG CAP PO SCH ×3 (09:00→18:10)
[2016-11-05] MEDS ORDERED: cloZAPine 100 MG TAB PO SCH ×2 (09:00→21:00)
[2016-11-05] MEDS: POLYETHYLENE GLYCOL 17 GM PKG PO SCH (09:00)
[2016-11-05] MEDS: MUPIROCIN 2% OINT 1 APPLIC/GM SYR EACH NARE SCH ×2 (09:00→21:00)
[2016-11-05] MEDS: VALPROIC ACID SYRUP 250 MG/5 ML UDC PO SCH ×2 (09:00→20:21)
--- NOTE | 2016-11-05 15:08 | HHI.PYPN ---
Subjective Remarks Patient was seen and case discussed with nursing. Patient becomes labile and loud in the late afternoons and evenings per nursing. She remains nonsensical with a labile affect loose thought process. She is compliant with her medications. Responding to internal stimuli. Denies suicidal or homicidal ideation intent or plan Objective Alert: Yes [place]: Person, Place Mood: Anxious Affect: Labile Memory Intact: Comment (very poor) Hallucinations: Other Delusions: Yes Delusion Type: Paranoid (grossly psychotic) Suicidal: Ideation (denies) Homicidal: Ideation (denies) Insight/Judgment Poor Vitals/IOs Vital Signs Date Time Temp Pulse Resp B/P (MAP) Pulse Ox O2 Delivery O2 Flow Rate FiO2 11/05/16 05:55 97.8 95 16 136/82 (100) 96 Intake and Output 11/05/16 11/05/16 11/06/16 08:00 16:00 00:00 Intake Total 720 ml 240 ml Balance 720 ml 240 ml Assessment & Plan Problem List: (1) Bipolar disorder ICD Codes: F31.9 - Bipolar disorder, unspecified Status: Acute Assessment & Plan Continue current treatment plan Justification for Cont. Inpt. Patient would decompensate in a less restrictive setting Problem Qualifiers (1) Bipolar disorder: Cuate Flynn DO Nov 05, 2016 15:07
[2016-11-05 18:15] VITALS: BP 98/56; PULSE 82; RESP 17; TEMP 97.4; O2SAT 96
[2016-11-05] MEDS: QUEtiapine FUMARATE 200 MG TAB PO SCH (20:17)
[2016-11-05] MEDS: AMITRIPTYLINE HCL 75 MG TAB PO SCH (20:17)
[2016-11-05] MEDS: diphenhydrAMINE HCL 50 MG CAP PO PRN (20:20)
[2016-11-05] MEDS ORDERED: cloZAPine 25 MG TAB PO SCH (21:00)
[2016-11-06] MEDS: LEVOTHYROXINE SODIUM 100 MCG TAB PO SCH (05:44)
[2016-11-06 06:22] VITALS: BP 123/60; PULSE 88; RESP 17; TEMP 98.3
[2016-11-06] MEDS: LORazepam 1 MG TAB PO PRN ×2 (07:02→15:23)
[2016-11-06] MEDS: HALOPERIDOL 10 MG TAB PO SCH ×3 (08:00→20:56)
[2016-11-06] MEDS: VALPROIC ACID SYRUP 250 MG/5 ML UDC PO SCH ×2 (09:00→20:55)
[2016-11-06] MEDS: BENZTROPINE MESYLATE 1 MG TAB PO SCH ×2 (09:00→20:56)
[2016-11-06] MEDS: POLYETHYLENE GLYCOL 17 GM PKG PO SCH (09:00)
[2016-11-06] MEDS ORDERED: cloZAPine 100 MG TAB PO SCH ×2 (09:00→21:00)
[2016-11-06] MEDS: PANTOPRAZOLE SOD 40 MG DELAYED RELEASE TAB PO SCH (09:00)
[2016-11-06] MEDS: PHENYTOIN SODIUM 100 MG CAP PO SCH ×3 (09:00→17:07)
[2016-11-06] MEDS: MUPIROCIN 2% OINT 1 APPLIC/GM SYR EACH NARE SCH ×2 (09:00→20:56)
[2016-11-06] MEDS: CALCIUM/VITAMIN D 250 MG/125 U TAB PO SCH ×2 (09:00→20:56)
--- NOTE | 2016-11-06 11:02 | HHI.PYPN ---
Subjective Remarks Patient seen in day room with nurse Alma chart review,, patient quite is aroused start irritable as my previous visit last week continues confused and disorganized intrusive with intensity is somewhat less. For now continue treatment. Patient compliant medications Review of Systems Except as stated in HPI: all other systems reviewed are Neg Objective Alert: Yes [place]: Person, Place Mood: Anxious Affect: Labile Memory Intact: Comment (very poor) Hallucinations: Other Delusions: Yes Delusion Type: Paranoid (grossly psychotic) Suicidal: Ideation (denies) Homicidal: Ideation (denies) Insight/Judgment Very poor Vitals/IOs Vital Signs Date Time Temp Pulse Resp B/P (MAP) Pulse Ox O2 Delivery O2 Flow Rate FiO2 11/06/16 06:22 98.3 88 17 123/60 (81) 11/05/16 18:15 96 Assessment & Plan Problem List: (1) Bipolar disorder ICD Codes: F31.9 - Bipolar disorder, unspecified Status: Acute Assessment & Plan Estimated LOS: days patient continues psychotic delusional intrusive. Compliant medications. Justification for Cont. Inpt. At this time patient will decompensate the placed in a lower level of care Discharge Planning To be determined Problem Qualifiers (1) Bipolar disorder: Ezequiel Grayson MD Nov 06, 2016 11:02
[2016-11-06 18:16] VITALS: BP 107/59; PULSE 98; RESP 18; TEMP 98.3; O2SAT 94
[2016-11-06] MEDS: AMITRIPTYLINE HCL 75 MG TAB PO SCH (20:56)
[2016-11-06] MEDS: QUEtiapine FUMARATE 200 MG TAB PO SCH (20:56)
[2016-11-06] MEDS: diphenhydrAMINE HCL 50 MG CAP PO PRN (20:56)
[2016-11-06] MEDS ORDERED: cloZAPine 25 MG TAB PO SCH (21:00)
[2016-11-06 22:46] LABS: AMIT COMBINED TOTAL 313 ng/mL (80-200); NORTRIPTYLINE 192 ng/mL (70-170)
[2016-11-07] MEDS: LEVOTHYROXINE SODIUM 100 MCG TAB PO SCH (06:14)
[2016-11-07 06:21] VITALS: BP 137/80; PULSE 90; RESP 16; TEMP 98.1; O2SAT 96
[2016-11-07] MEDS ORDERED: cloZAPine 100 MG TAB PO SCH ×2 (09:00→21:00)
[2016-11-07] MEDS: VALPROIC ACID SYRUP 250 MG/5 ML UDC PO SCH ×2 (09:38→20:47)
[2016-11-07] MEDS: POLYETHYLENE GLYCOL 17 GM PKG PO SCH (09:38)
[2016-11-07] MEDS: PANTOPRAZOLE SOD 40 MG DELAYED RELEASE TAB PO SCH (09:38)
[2016-11-07] MEDS: BENZTROPINE MESYLATE 1 MG TAB PO SCH ×2 (09:38→20:46)
[2016-11-07] MEDS: CALCIUM/VITAMIN D 250 MG/125 U TAB PO SCH ×2 (09:38→20:46)
[2016-11-07] MEDS: PHENYTOIN SODIUM 100 MG CAP PO SCH ×3 (09:38→17:36)
[2016-11-07] MEDS: MUPIROCIN 2% OINT 1 APPLIC/GM SYR EACH NARE SCH (09:39)
[2016-11-07] MEDS: HALOPERIDOL 10 MG TAB PO SCH ×3 (09:40→20:44)
[2016-11-07] MEDS: LORazepam 1 MG TAB PO PRN (12:23)
--- NOTE | 2016-11-07 12:44 | HHI.PYPN ---
Subjective Remarks Patient seen in [place] with floor staff chart reviewed, patient compliant medications., she continues to be markedly disorganized at times labile confusing and intrusive. For now continue treatment Review of Systems Except as stated in HPI: all other systems reviewed are Neg Objective Alert: Yes [place]: Person, Place Mood: Anxious Affect: Labile Memory Intact: Comment (very poor) Hallucinations: Other Delusions: Yes Delusion Type: Paranoid (grossly psychotic) Suicidal: Ideation (denies) Homicidal: Ideation (denies) Insight/Judgment Very poor Vitals/IOs Vital Signs Date Time Temp Pulse Resp B/P (MAP) Pulse Ox O2 Delivery O2 Flow Rate FiO2 11/07/16 06:21 98.1 90 16 137/80 (99) 96 Intake and Output 11/07/16 11/07/16 11/07/16 07:59 15:59 23:59 Intake Total 480 ml 480 ml Balance 480 ml 480 ml Assessment & Plan Problem List: (1) Bipolar disorder ICD Codes: F31.9 - Bipolar disorder, unspecified Status: Acute Assessment & Plan Estimated LOS: days patient continue psychotic and delusional, also intrusive. Compliant medications. Placement continues to remain problematic Justification for Cont. Inpt. This time patient will decompensate the placed a lower level of care Discharge Planning To be determined Problem Qualifiers (1) Bipolar disorder: Ezequiel Grayson MD Nov 07, 2016 12:44
[2016-11-07] MEDS: PADIMATE (CHAPSTICK) 4.5 GM TUBE TOPICAL PRN (14:34)
[2016-11-07] MEDS: AMITRIPTYLINE HCL 75 MG TAB PO SCH (20:46)
[2016-11-07] MEDS: QUEtiapine FUMARATE 200 MG TAB PO SCH (20:46)
[2016-11-07] MEDS ORDERED: cloZAPine 25 MG TAB PO SCH (21:00)
[2016-11-08] MEDS: LEVOTHYROXINE SODIUM 100 MCG TAB PO SCH (05:40)
[2016-11-08 05:54] VITALS: BP 129/61; PULSE 85; RESP 16; TEMP 97.5; O2SAT 96
[2016-11-08] MEDS: HALOPERIDOL 10 MG TAB PO SCH ×3 (07:50→20:07)
[2016-11-08 08:00] LABS: AUTOMATED NEUTROPHIL # 2.3 TH/MM3 (1.8-7.7); BASOPHIL % 0.8 % (0.0-2.0); EOSINOPHIL # 0.2 TH/MM3 (0-0.4); EOSINOPHIL % 2.8 % (0.0-4.0); HEMATOCRIT 37.1 % (35.0-46.0); HEMO FLAGS DIFF FINAL; LYMPH % 48.3 % (9.0-44.0); LYMPHOCYTE # 2.7 TH/MM3 (1.0-4.8); MEAN CELL VOLUME 93.2 FL (80.0-100.0); MEAN CORPUSCULAR HEMOGLOBIN 30.3 PG (27.0-34.0); MEAN CORPUSCULAR HGB CONC 32.5 % (32.0-36.0); NEUT % 40.1 % (16.0-70.0); PLATELET COUNT 243 TH/MM3 (150-450); RED BLOOD COUNT 3.98 MIL/MM3 (4.00-5.30); RED CELL DISTRIBUTION WIDTH 13.9 % (11.6-17.2); WHITE BLOOD COUNT 5.7 TH/MM3 (4.0-11.0)
[2016-11-08] MEDS: POLYETHYLENE GLYCOL 17 GM PKG PO SCH (08:28)
[2016-11-08] MEDS: VALPROIC ACID SYRUP 250 MG/5 ML UDC PO SCH ×2 (08:29→20:07)
[2016-11-08] MEDS: PHENYTOIN SODIUM 100 MG CAP PO SCH ×3 (08:33→18:01)
[2016-11-08] MEDS: cloZAPine 100 MG TAB PO SCH ×2 (08:33→20:09)
[2016-11-08] MEDS: BENZTROPINE MESYLATE 1 MG TAB PO SCH ×2 (08:33→20:09)
[2016-11-08] MEDS: CALCIUM/VITAMIN D 250 MG/125 U TAB PO SCH ×2 (08:33→20:08)
[2016-11-08] MEDS: LORazepam 1 MG TAB PO PRN ×2 (08:35→20:09)
[2016-11-08] MEDS: PANTOPRAZOLE SOD 40 MG DELAYED RELEASE TAB PO SCH (08:42)
[2016-11-08] MEDS ORDERED: HALOPERIDOL LACTATE 5 MG/ML AMP IM STA (11:17)
[2016-11-08] MEDS ORDERED: diphenhydrAMINE HCL 50 MG/ML VIAL IM STA (11:17)
--- NOTE | 2016-11-08 11:27 | HHI.PYPN ---
Subjective Remarks Patient seen in day room with floor staff, chart review, patient somewhat loud intrusive today though with some added profanity. The point was becoming somewhat threatening. I have ordered medication of Haldol 5 mg and Benadryl 25 mg IM to help prevent any further escalation into unwanted behaviors. Patient did receive when necessary of Ativan about an hour to go with no success. Review of Systems Except as stated in HPI: all other systems reviewed are Neg Objective Alert: Yes [place]: Person, Place Mood: Anxious Affect: Labile Memory Intact: Comment (very poor) Hallucinations: Other Delusions: Yes Delusion Type: Paranoid (grossly psychotic) Suicidal: Ideation (denies) Homicidal: Ideation (denies) Insight/Judgment Very poor Labs Test 11/08/16 07:53 White Blood Count 5.7 TH/MM3 Red Blood Count 3.98 MIL/MM3 Hemoglobin 12.0 GM/DL Hematocrit 37.1 % Mean Corpuscular Volume 93.2 FL Mean Corpuscular Hemoglobin 30.3 PG Mean Corpuscular Hemoglobin Concent 32.5 % Red Cell Distribution Width 13.9 % Platelet Count 243 TH/MM3 Mean Platelet Volume 8.8 FL Neutrophils (%) (Auto) 40.1 % Lymphocytes (%) (Auto) 48.3 % Monocytes (%) (Auto) 8.0 % Eosinophils (%) (Auto) 2.8 % Basophils (%) (Auto) 0.8 % Neutrophils # (Auto) 2.3 TH/MM3 Lymphocytes # (Auto) 2.7 TH/MM3 Monocytes # (Auto) 0.5 TH/MM3 Eosinophils # (Auto) 0.2 TH/MM3 Basophils # (Auto) 0.0 TH/MM3 CBC Comment DIFF FINAL Differential Comment Vitals/IOs Vital Signs Date Time Temp Pulse Resp B/P (MAP) Pulse Ox O2 Delivery O2 Flow Rate FiO2 11/08/16 05:54 97.5 85 16 129/61 (83) 96 Intake and Output 11/08/16 11/08/16 11/09/16 08:00 16:00 00:00 Intake Total 360 ml Balance 360 ml Assessment & Plan Problem List: (1) Bipolar disorder, current episode mixed, severe, with psychotic features ICD Codes: F31.64 - Bipolar disorder, current episode mixed, severe, with psychotic features Assessment & Plan Estimated LOS: days patient continues psychotic delusional intrusive and at times threatening and profane. Compliant medications. Justification for Cont. Inpt. At this time patient will decompensate if placed in a lower level of care Discharge Planning To be determined Ezequiel Grayson MD Nov 08, 2016 11:27
[2016-11-08] MEDS: PADIMATE (CHAPSTICK) 4.5 GM TUBE TOPICAL PRN (14:29)
[2016-11-08 17:53] VITALS: BP 141/69; PULSE 77; RESP 18; TEMP 98.1; O2SAT 95
[2016-11-08] MEDS: AMITRIPTYLINE HCL 75 MG TAB PO SCH (20:08)
[2016-11-08] MEDS: QUEtiapine FUMARATE 200 MG TAB PO SCH (20:08)
[2016-11-08] MEDS: diphenhydrAMINE HCL 50 MG CAP PO PRN (20:09)
[2016-11-09] MEDS: LEVOTHYROXINE SODIUM 100 MCG TAB PO SCH (05:19)
[2016-11-09 05:52] VITALS: BP 129/73; PULSE 85; RESP 18; TEMP 98; O2SAT 98
[2016-11-09] MEDS: CALCIUM/VITAMIN D 250 MG/125 U TAB PO SCH ×2 (08:43→20:48)
[2016-11-09] MEDS: BENZTROPINE MESYLATE 1 MG TAB PO SCH ×2 (08:43→20:47)
[2016-11-09] MEDS: PANTOPRAZOLE SOD 40 MG DELAYED RELEASE TAB PO SCH (08:43)
[2016-11-09] MEDS: LORazepam 1 MG TAB PO PRN ×2 (08:43→17:43)
[2016-11-09] MEDS: VALPROIC ACID SYRUP 250 MG/5 ML UDC PO SCH ×2 (08:43→20:48)
[2016-11-09] MEDS: HALOPERIDOL 10 MG TAB PO SCH ×3 (08:44→20:47)
[2016-11-09] MEDS: PHENYTOIN SODIUM 100 MG CAP PO SCH ×3 (08:44→17:43)
[2016-11-09] MEDS: cloZAPine 100 MG TAB PO SCH ×2 (08:44→20:47)
[2016-11-09] MEDS: POLYETHYLENE GLYCOL 17 GM PKG PO SCH (09:00)
[2016-11-09 13:20] VITALS: BP 141/97; PULSE 65; RESP 17; TEMP 97.6
--- NOTE | 2016-11-09 14:08 | HHI.PYPN ---
Subjective Remarks Patient seen sitting in Claribel chair patient seen with nurse Jamilah, chart review, it appears patient slipped in day room today or with this low IVC injuries noted. Patient seen in Claribel chair calmly moving all 4 extremities without problems without complaints of pain. She still perseverates is quite disorganized in her speech. She is compliant with medications for now continue treatment Review of Systems Except as stated in HPI: all other systems reviewed are Neg Objective Alert: Yes [place]: Person, Place Mood: Anxious Affect: Labile Memory Intact: Comment (very poor) Hallucinations: Other Delusions: Yes Delusion Type: Paranoid (grossly psychotic) Suicidal: Ideation (denies) Homicidal: Ideation (denies) Insight/Judgment Very poor Vitals/IOs Vital Signs Date Time Temp Pulse Resp B/P (MAP) Pulse Ox O2 Delivery O2 Flow Rate FiO2 11/09/16 05:52 98.0 85 18 129/73 (91) 98 Intake and Output 11/09/16 11/09/16 11/09/16 07:59 15:59 23:59 Intake Total 0 ml Balance 0 ml Assessment & Plan Problem List: (1) Bipolar disorder, current episode mixed, severe, with psychotic features ICD Codes: F31.64 - Bipolar disorder, current episode mixed, severe, with psychotic features Assessment & Plan Estimated LOS: days patient continues psychotic delusional intense and intrusive Justification for Cont. Inpt. At this time patient will decompensate if placed in a lower level of care Discharge Planning To be determined Ezequiel Grayson MD Nov 09, 2016 14:08
[2016-11-09 14:09] VITALS: BP 129/62; PULSE 92
[2016-11-09 17:00] VITALS: BP 116/72; PULSE 81; RESP 19; TEMP 96.9
[2016-11-09] MEDS: QUEtiapine FUMARATE 200 MG TAB PO SCH (20:47)
[2016-11-09] MEDS: AMITRIPTYLINE HCL 75 MG TAB PO SCH (20:47)
[2016-11-09] MEDS: diphenhydrAMINE HCL 50 MG CAP PO PRN (20:48)
[2016-11-10 05:39] VITALS: BP 109/65; PULSE 81; RESP 17; TEMP 97.8
[2016-11-10] MEDS: LEVOTHYROXINE SODIUM 100 MCG TAB PO SCH (05:55)
[2016-11-10] MEDS: POLYETHYLENE GLYCOL 17 GM PKG PO SCH (08:49)
[2016-11-10] MEDS: VALPROIC ACID SYRUP 250 MG/5 ML UDC PO SCH ×2 (08:52→20:15)
[2016-11-10] MEDS: CALCIUM/VITAMIN D 250 MG/125 U TAB PO SCH ×2 (08:52→20:15)
[2016-11-10] MEDS: HALOPERIDOL 10 MG TAB PO SCH ×3 (08:53→20:00)
[2016-11-10] MEDS: BENZTROPINE MESYLATE 1 MG TAB PO SCH ×2 (08:53→20:14)
[2016-11-10] MEDS: cloZAPine 100 MG TAB PO SCH ×2 (08:53→20:14)
[2016-11-10] MEDS: PHENYTOIN SODIUM 100 MG CAP PO SCH ×3 (08:53→17:07)
[2016-11-10] MEDS: PANTOPRAZOLE SOD 40 MG DELAYED RELEASE TAB PO SCH (08:54)
[2016-11-10] MEDS: LORazepam 2 MG/ML VIAL IM PRN (10:00)
--- NOTE | 2016-11-10 14:14 | HHI.PYPN ---
Subjective Remarks Patient seen in room with floor staff, patient somewhat calmer today with me though still perseverates. And at times becomes loud and intrusive Compliant medications. Review of Systems Except as stated in HPI: all other systems reviewed are Neg Objective Alert: Yes [place]: Person, Place Mood: Anxious Affect: Labile Memory Intact: Comment (very poor) Hallucinations: Other Delusions: Yes Delusion Type: Paranoid (grossly psychotic) Suicidal: Ideation (denies) Homicidal: Ideation (denies) Insight/Judgment Very poor Vitals/IOs Vital Signs Date Time Temp Pulse Resp B/P (MAP) Pulse Ox O2 Delivery O2 Flow Rate FiO2 11/10/16 05:39 97.8 81 17 109/65 (80) 11/09/16 05:52 98 Intake and Output 11/10/16 11/10/16 11/11/16 08:00 16:00 00:00 Intake Total 1320 ml Balance 1320 ml Assessment & Plan Problem List: (1) Bipolar disorder, current episode mixed, severe, with psychotic features ICD Codes: F31.64 - Bipolar disorder, current episode mixed, severe, with psychotic features Assessment & Plan Estimated LOS: days patient continues delusional at times quite labile, compliant medications. For now continue treatment Justification for Cont. Inpt. At this time patient will decompensate to place a lower level of care Discharge Planning To be determined Ezequiel Grayson MD Nov 10, 2016 14:14
[2016-11-10] MEDS: LORazepam 1 MG TAB PO PRN (15:58)
[2016-11-10 16:00] VITALS: BP 134/64; RESP 17; TEMP 98.1; O2SAT 98
[2016-11-10 18:01] VITALS: BP 134/64; PULSE 103; RESP 17; TEMP 98.1; O2SAT 98
[2016-11-10] MEDS: AMITRIPTYLINE HCL 75 MG TAB PO SCH (20:16)
[2016-11-10] MEDS: QUEtiapine FUMARATE 200 MG TAB PO SCH (20:16)
[2016-11-11] MEDS: LEVOTHYROXINE SODIUM 100 MCG TAB PO SCH (06:36)
[2016-11-11 06:44] VITALS: BP 108/56; PULSE 82; RESP 15; TEMP 98.2; O2SAT 95
[2016-11-11] MEDS: HALOPERIDOL 10 MG TAB PO SCH ×3 (08:42→21:02)
[2016-11-11] MEDS: PHENYTOIN SODIUM 100 MG CAP PO SCH ×3 (08:43→14:25)
[2016-11-11] MEDS: LORazepam 1 MG TAB PO PRN ×2 (08:44→21:02)
[2016-11-11] MEDS: cloZAPine 100 MG TAB PO SCH ×2 (08:44→21:53)
[2016-11-11] MEDS: BENZTROPINE MESYLATE 1 MG TAB PO SCH ×2 (08:44→21:52)
[2016-11-11] MEDS: CALCIUM/VITAMIN D 250 MG/125 U TAB PO SCH ×2 (08:44→21:52)
[2016-11-11] MEDS: PANTOPRAZOLE SOD 40 MG DELAYED RELEASE TAB PO SCH (08:44)
[2016-11-11] MEDS: VALPROIC ACID SYRUP 250 MG/5 ML UDC PO SCH ×2 (08:53→21:52)
[2016-11-11] MEDS: POLYETHYLENE GLYCOL 17 GM PKG PO SCH (08:53)
--- NOTE | 2016-11-11 16:47 | HHI.PYPN ---
Subjective Remarks Pt seen and discussed with staff. She remains on 1:1 for falls risk. She remains labile and delusional. Compliant with medications and denies side effects. Objective Alert: Yes [place]: Person, Place Mood: Anxious Affect: Labile Memory Intact: Comment (very poor) Hallucinations: Other Delusions: Yes Delusion Type: Paranoid (grossly psychotic) Suicidal: Ideation (denies) Homicidal: Ideation (denies) Insight/Judgment poor Vitals/IOs Vital Signs Date Time Temp Pulse Resp B/P (MAP) Pulse Ox O2 Delivery O2 Flow Rate FiO2 11/11/16 06:44 98.2 82 15 108/56 (73) 95 Intake and Output 11/11/16 11/11/16 11/12/16 08:00 16:00 00:00 Intake Total 240 ml Balance 240 ml Assessment & Plan Problem List: (1) Bipolar disorder, current episode mixed, severe, with psychotic features ICD Codes: F31.64 - Bipolar disorder, current episode mixed, severe, with psychotic features Assessment & Plan Continue current tx plan. Estimated LOS: days Justification for Cont. Inpt. impairments in reality construction and social functioning Marina Kessler MD Nov 11, 2016 16:47
[2016-11-11 18:23] VITALS: BP 141/76; PULSE 90; RESP 19; TEMP 97; O2SAT 97
[2016-11-11] MEDS: SODIUM CHLORIDE 0.65% NASAL SPRAY 45 ML BTL EACH NARE PRN (21:01)
[2016-11-11] MEDS: QUEtiapine FUMARATE 200 MG TAB PO SCH (21:52)
[2016-11-11] MEDS: AMITRIPTYLINE HCL 75 MG TAB PO SCH (21:53)
[2016-11-12] MEDS: LEVOTHYROXINE SODIUM 100 MCG TAB PO SCH (05:36)
[2016-11-12 06:29] VITALS: BP 117/72; PULSE 83; RESP 17; TEMP 98.1; O2SAT 96
[2016-11-12] MEDS: CALCIUM/VITAMIN D 250 MG/125 U TAB PO SCH ×2 (08:36→20:30)
[2016-11-12] MEDS: POLYETHYLENE GLYCOL 17 GM PKG PO SCH (08:38)
[2016-11-12] MEDS: PANTOPRAZOLE SOD 40 MG DELAYED RELEASE TAB PO SCH (08:38)
[2016-11-12] MEDS: PHENYTOIN SODIUM 100 MG CAP PO SCH ×3 (08:38→17:43)
[2016-11-12] MEDS: cloZAPine 100 MG TAB PO SCH ×2 (08:38→20:30)
[2016-11-12] MEDS: VALPROIC ACID SYRUP 250 MG/5 ML UDC PO SCH ×2 (08:39→20:28)
[2016-11-12] MEDS: LORazepam 1 MG TAB PO PRN (08:54)
[2016-11-12] MEDS: HALOPERIDOL 10 MG TAB PO SCH ×3 (08:54→20:00)
[2016-11-12] MEDS: BENZTROPINE MESYLATE 1 MG TAB PO SCH ×2 (09:00→20:30)
--- NOTE | 2016-11-12 13:57 | HHI.PYPN ---
Subjective Remarks Pt seen and discussed with staff. Pt has been labile and volatile today. She has been compliant with medications with coaxing from staff. She states that staff is "running a operation right out of my room with my dogs who have become unraveled." Objective Alert: Yes [place]: Person, Place Mood: Anxious Affect: Labile Memory Intact: Comment (very poor) Hallucinations: Other Delusions: Yes Delusion Type: Paranoid (bizarre) Suicidal: Ideation (denies) Homicidal: Ideation (denies) Insight/Judgment poor Remarks disorganized Vitals/IOs Vital Signs Date Time Temp Pulse Resp B/P (MAP) Pulse Ox O2 Delivery O2 Flow Rate FiO2 11/12/16 06:29 98.1 83 17 117/72 (87) 96 Intake and Output 11/12/16 11/12/16 11/13/16 08:00 16:00 00:00 Intake Total 600 ml Balance 600 ml Assessment & Plan Problem List: (1) Bipolar disorder, current episode mixed, severe, with psychotic features ICD Codes: F31.64 - Bipolar disorder, current episode mixed, severe, with psychotic features Assessment & Plan Continue current tx plan. Estimated LOS: days Justification for Cont. Inpt. impairments in reality testing. Marina Kessler MD Nov 12, 2016 13:57
[2016-11-12 19:06] VITALS: BP 114/60; PULSE 96; RESP 16; TEMP 98.6; O2SAT 98
[2016-11-12] MEDS: diphenhydrAMINE HCL 50 MG CAP PO PRN (20:28)
[2016-11-12] MEDS: QUEtiapine FUMARATE 200 MG TAB PO SCH (20:29)
[2016-11-12] MEDS: AMITRIPTYLINE HCL 75 MG TAB PO SCH (20:30)
[2016-11-13] MEDS: LEVOTHYROXINE SODIUM 100 MCG TAB PO SCH (05:38)
[2016-11-13 06:06] VITALS: BP 100/55; PULSE 93; RESP 17; TEMP 97.7; O2SAT 94
[2016-11-13] MEDS: PHENYTOIN SODIUM 100 MG CAP PO SCH ×3 (08:36→18:16)
[2016-11-13] MEDS: CALCIUM/VITAMIN D 250 MG/125 U TAB PO SCH ×2 (08:36→21:07)
[2016-11-13] MEDS: HALOPERIDOL 10 MG TAB PO SCH ×3 (08:36→21:05)
[2016-11-13] MEDS: cloZAPine 100 MG TAB PO SCH ×2 (08:36→21:06)
[2016-11-13] MEDS: BENZTROPINE MESYLATE 1 MG TAB PO SCH ×2 (08:36→21:05)
[2016-11-13] MEDS: PANTOPRAZOLE SOD 40 MG DELAYED RELEASE TAB PO SCH (08:36)
[2016-11-13] MEDS: VALPROIC ACID SYRUP 250 MG/5 ML UDC PO SCH ×2 (08:37→21:01)
[2016-11-13] MEDS: POLYETHYLENE GLYCOL 17 GM PKG PO SCH (08:37)
[2016-11-13] MEDS: LORazepam 1 MG TAB PO PRN ×3 (08:44→23:04)
[2016-11-13] MEDS: ALUMINUM/MAGNESIUM/SIMETH 30 ML CUP PO PRN (08:45)
--- NOTE | 2016-11-13 12:46 | HHI.PYPN ---
Subjective Remarks Patient seen in [facility] floor staff, chart reviewed, patient compliant medications. Patient continues to be intrusive somewhat intimidating verbally. Though it appears there may be some mild improvement in that. For now continue treatment Review of Systems Except as stated in HPI: all other systems reviewed are Neg Objective Alert: Yes [place]: Person, Place Mood: Anxious Affect: Labile Memory Intact: Comment (very poor) Hallucinations: Other Delusions: Yes Delusion Type: Paranoid (bizarre) Suicidal: Ideation (denies) Homicidal: Ideation (denies) Insight/Judgment Poor Vitals/IOs Vital Signs Date Time Temp Pulse Resp B/P (MAP) Pulse Ox O2 Delivery O2 Flow Rate FiO2 11/13/16 06:06 97.7 93 17 100/55 (70) 94 Intake and Output 11/13/16 11/13/16 11/14/16 08:00 16:00 00:00 Intake Total 480 ml 360 ml Balance 480 ml 360 ml Assessment & Plan Problem List: (1) Bipolar disorder, current episode mixed, severe, with psychotic features ICD Codes: F31.64 - Bipolar disorder, current episode mixed, severe, with psychotic features Assessment & Plan Estimated LOS: days patient continues psychotic and delusional that appears the intensity is soft and somewhat Justification for Cont. Inpt. At this time patient will decompensate and placed in a lower level of care Discharge Planning To be determined Ezequiel Grayson MD Nov 13, 2016 12:46
[2016-11-13 18:00] VITALS: BP 117/67; PULSE 92; RESP 18; TEMP 97.6; O2SAT 95
[2016-11-13] MEDS: AMITRIPTYLINE HCL 75 MG TAB PO SCH (21:05)
[2016-11-13] MEDS: QUEtiapine FUMARATE 200 MG TAB PO SCH (21:05)
[2016-11-13] MEDS: diphenhydrAMINE HCL 50 MG CAP PO PRN (21:06)
[2016-11-13] MEDS: ACETAMINOPHEN 325 MG TAB PO PRN (22:51)
[2016-11-14 05:39] VITALS: BP 101/55; PULSE 81; RESP 16; TEMP 98.2; O2SAT 94
[2016-11-14] MEDS: LEVOTHYROXINE SODIUM 100 MCG TAB PO SCH (05:52)
[2016-11-14] MEDS: CALCIUM/VITAMIN D 250 MG/125 U TAB PO SCH ×2 (08:43→20:28)
[2016-11-14] MEDS: BENZTROPINE MESYLATE 1 MG TAB PO SCH ×2 (08:43→20:27)
[2016-11-14] MEDS: PANTOPRAZOLE SOD 40 MG DELAYED RELEASE TAB PO SCH (08:43)
[2016-11-14] MEDS: HALOPERIDOL 10 MG TAB PO SCH ×3 (08:43→20:28)
[2016-11-14] MEDS: cloZAPine 100 MG TAB PO SCH ×2 (08:43→20:26)
[2016-11-14] MEDS: PHENYTOIN SODIUM 100 MG CAP PO SCH ×3 (08:43→16:58)
[2016-11-14] MEDS: VALPROIC ACID SYRUP 250 MG/5 ML UDC PO SCH ×2 (08:43→20:28)
[2016-11-14] MEDS: POLYETHYLENE GLYCOL 17 GM PKG PO SCH (08:44)
[2016-11-14] MEDS: SODIUM CHLORIDE 0.65% NASAL SPRAY 45 ML BTL EACH NARE PRN (08:57)
[2016-11-14] MEDS: PADIMATE (CHAPSTICK) 4.5 GM TUBE TOPICAL PRN (08:57)
[2016-11-14] MEDS: LORazepam 1 MG TAB PO PRN ×2 (09:40→16:58)
--- NOTE | 2016-11-14 12:56 | HHI.PYPN ---
Subjective Remarks Patient seen in day room with floor staff, chart reviewed, patient compliant medication outpatient still quite disorganized somewhat intrusive and loud the intensity frequency has softened. She is compliant with her medications. For now continue treatment Review of Systems Except as stated in HPI: all other systems reviewed are Neg Objective Alert: Yes [place]: Person, Place Mood: Anxious Affect: Labile Memory Intact: Comment (very poor) Hallucinations: Other Delusions: Yes Delusion Type: Paranoid (bizarre) Suicidal: Ideation (denies) Homicidal: Ideation (denies) Insight/Judgment Very poor Vitals/IOs Vital Signs Date Time Temp Pulse Resp B/P (MAP) Pulse Ox O2 Delivery O2 Flow Rate FiO2 11/14/16 05:39 98.2 81 16 101/55 (65) 94 Assessment & Plan Problem List: (1) Bipolar disorder, current episode mixed, severe, with psychotic features ICD Codes: F31.64 - Bipolar disorder, current episode mixed, severe, with psychotic features Assessment & Plan Estimated LOS: days patient continues delusional somewhat psychotic though there is a softening of its presentation. Compliant medications Justification for Cont. Inpt. At this time patient will decompensate the placed in a lower level of care Discharge Planning To be determined Ezequiel Grayson MD Nov 14, 2016 12:56
[2016-11-14 19:00] VITALS: BP 116/57; PULSE 91; RESP 16; TEMP 97.7; O2SAT 95
[2016-11-14] MEDS: AMITRIPTYLINE HCL 75 MG TAB PO SCH (20:27)
[2016-11-14] MEDS: QUEtiapine FUMARATE 200 MG TAB PO SCH (20:27)
[2016-11-14] MEDS: diphenhydrAMINE HCL 50 MG CAP PO PRN (20:28)
[2016-11-15] MEDS: LEVOTHYROXINE SODIUM 100 MCG TAB PO SCH (05:18)
[2016-11-15] MEDS: LORazepam 1 MG TAB PO PRN ×2 (05:19→11:15)
[2016-11-15 06:15] VITALS: BP 110/54; PULSE 90; RESP 17; TEMP 98.6; O2SAT 95
[2016-11-15] MEDS: SODIUM CHLORIDE 0.65% NASAL SPRAY 45 ML BTL EACH NARE PRN ×3 (06:32→21:51)
[2016-11-15] MEDS: PHENYTOIN SODIUM 100 MG CAP PO SCH ×3 (08:29→19:11)
[2016-11-15] MEDS: BENZTROPINE MESYLATE 1 MG TAB PO SCH ×2 (08:29→21:52)
[2016-11-15] MEDS: VALPROIC ACID SYRUP 250 MG/5 ML UDC PO SCH ×2 (08:29→21:52)
[2016-11-15] MEDS: POLYETHYLENE GLYCOL 17 GM PKG PO SCH (08:29)
[2016-11-15] MEDS: cloZAPine 100 MG TAB PO SCH ×2 (08:30→21:53)
[2016-11-15] MEDS: CALCIUM/VITAMIN D 250 MG/125 U TAB PO SCH ×2 (08:30→21:52)
[2016-11-15] MEDS: HALOPERIDOL 10 MG TAB PO SCH ×3 (08:30→21:52)
[2016-11-15] MEDS: PANTOPRAZOLE SOD 40 MG DELAYED RELEASE TAB PO SCH (08:30)
[2016-11-15 10:11] LABS: AUTOMATED NEUTROPHIL # 2.8 TH/MM3 (1.8-7.7); BASOPHIL % 0.5 % (0.0-2.0); EOSINOPHIL # 0.1 TH/MM3 (0-0.4); EOSINOPHIL % 1.3 % (0.0-4.0); HEMO FLAGS DIFF FINAL; LYMPH % 44.3 % (9.0-44.0); LYMPHOCYTE # 2.7 TH/MM3 (1.0-4.8); MEAN CELL VOLUME 92.9 FL (80.0-100.0); MEAN CORPUSCULAR HEMOGLOBIN 30.6 PG (27.0-34.0); MONO % 8.4 % (0.0-8.0); NEUT % 45.5 % (16.0-70.0); PLATELET COUNT 221 TH/MM3 (150-450); RED BLOOD COUNT 3.87 MIL/MM3 (4.00-5.30); RED CELL DISTRIBUTION WIDTH 13.6 % (11.6-17.2); WHITE BLOOD COUNT 6.1 TH/MM3 (4.0-11.0)
--- NOTE | 2016-11-15 13:28 | HHI.PYPN ---
Subjective Remarks Patient seen by me in dayroom with floor staff, chart review, patient compliant medications. Patient initially calm though continues confused disorganized somewhat intrusive. However after I left floor patient became loud more irritable and intrusive. Review of Systems Except as stated in HPI: all other systems reviewed are Neg Objective Alert: Yes [place]: Person, Place Mood: Anxious Affect: Labile Memory Intact: Comment (very poor) Hallucinations: Other Delusions: Yes Delusion Type: Paranoid (bizarre) Suicidal: Ideation (denies) Homicidal: Ideation (denies) Insight/Judgment Very poor Labs Test 11/15/16 07:41 White Blood Count 6.1 TH/MM3 Red Blood Count 3.87 MIL/MM3 Hemoglobin 11.9 GM/DL Hematocrit 36.0 % Mean Corpuscular Volume 92.9 FL Mean Corpuscular Hemoglobin 30.6 PG Mean Corpuscular Hemoglobin Concent 33.0 % Red Cell Distribution Width 13.6 % Platelet Count 221 TH/MM3 Mean Platelet Volume 10.0 FL Neutrophils (%) (Auto) 45.5 % Lymphocytes (%) (Auto) 44.3 % Monocytes (%) (Auto) 8.4 % Eosinophils (%) (Auto) 1.3 % Basophils (%) (Auto) 0.5 % Neutrophils # (Auto) 2.8 TH/MM3 Lymphocytes # (Auto) 2.7 TH/MM3 Monocytes # (Auto) 0.5 TH/MM3 Eosinophils # (Auto) 0.1 TH/MM3 Basophils # (Auto) 0.0 TH/MM3 CBC Comment DIFF FINAL Differential Comment Vitals/IOs Vital Signs Date Time Temp Pulse Resp B/P (MAP) Pulse Ox O2 Delivery O2 Flow Rate FiO2 11/15/16 06:15 98.6 90 17 110/54 (72) 95 Intake and Output 11/15/16 11/15/16 11/16/16 08:00 16:00 00:00 Intake Total 240 ml 600 ml Balance 240 ml 600 ml Assessment & Plan Problem List: (1) Bipolar disorder, current episode mixed, severe, with psychotic features ICD Codes: F31.64 - Bipolar disorder, current episode mixed, severe, with psychotic features Assessment & Plan Estimated LOS: days patient continue psychotic confused labile and intrusive, compliant medications Justification for Cont. Inpt. At this time patient will decompensate if placed in a lower level of care Discharge Planning To be determined Ezequiel Grayson MD Nov 15, 2016 13:28
[2016-11-15 16:30] VITALS: BP 146/82; PULSE 91; RESP 17; TEMP 97.7; O2SAT 96
[2016-11-15] MEDS: QUEtiapine FUMARATE 200 MG TAB PO SCH (21:52)
[2016-11-15] MEDS: AMITRIPTYLINE HCL 75 MG TAB PO SCH (21:53)
[2016-11-16] MEDS: LEVOTHYROXINE SODIUM 100 MCG TAB PO SCH (06:09)
[2016-11-16] MEDS: PHENYTOIN SODIUM 100 MG CAP PO SCH ×3 (09:04→18:18)
[2016-11-16] MEDS: VALPROIC ACID SYRUP 250 MG/5 ML UDC PO SCH ×2 (09:04→20:57)
[2016-11-16] MEDS: CALCIUM/VITAMIN D 250 MG/125 U TAB PO SCH ×2 (09:04→20:56)
[2016-11-16] MEDS: PANTOPRAZOLE SOD 40 MG DELAYED RELEASE TAB PO SCH (09:08)
[2016-11-16] MEDS: cloZAPine 100 MG TAB PO SCH ×2 (09:08→20:56)
[2016-11-16] MEDS: BENZTROPINE MESYLATE 1 MG TAB PO SCH ×2 (09:08→20:56)
[2016-11-16] MEDS: HALOPERIDOL 10 MG TAB PO SCH ×3 (09:09→20:00)
[2016-11-16] MEDS: PADIMATE (CHAPSTICK) 4.5 GM TUBE TOPICAL PRN ×2 (09:09→17:05)
[2016-11-16] MEDS: POLYETHYLENE GLYCOL 17 GM PKG PO SCH (09:09)
[2016-11-16] MEDS: SODIUM CHLORIDE 0.65% NASAL SPRAY 45 ML BTL EACH NARE PRN ×2 (09:10→17:06)
--- NOTE | 2016-11-16 15:06 | HHI.PYPN ---
Subjective Remarks Patient seen in dayroom with counselor Pia. Chart reviewed. Patient compliant medications. While patient's delusions pressured speech and confusion continue the intensity of the paranoia and. She is somewhat slower not as aroused as in the past few days. For now continue treatment Review of Systems Except as stated in HPI: all other systems reviewed are Neg Objective Alert: Yes [place]: Person, Place Mood: Anxious Affect: Labile Memory Intact: Comment (very poor) Hallucinations: Other Delusions: Yes Delusion Type: Paranoid (bizarre) Suicidal: Ideation (denies) Homicidal: Ideation (denies) Insight/Judgment Very poor Vitals/IOs Vital Signs Date Time Temp Pulse Resp B/P (MAP) Pulse Ox O2 Delivery O2 Flow Rate FiO2 11/15/16 16:30 97.7 91 17 146/82 (103) 96 Intake and Output 11/16/16 11/16/16 11/17/16 08:00 16:00 00:00 Intake Total 480 ml Balance 480 ml Assessment & Plan Problem List: (1) Bipolar disorder, current episode mixed, severe, with psychotic features ICD Codes: F31.64 - Bipolar disorder, current episode mixed, severe, with psychotic features Assessment & Plan Estimated LOS: days patient continues psychotic delusional, though the intensity and the arousal has soft. Patient compliant medications Justification for Cont. Inpt. At the present time patient will decompensate if placed in a lower level of care Discharge Planning To be determined Ezequiel Grayson MD Nov 16, 2016 15:06
[2016-11-16 18:25] VITALS: BP 131/88; PULSE 92; RESP 18; TEMP 98.1; O2SAT 98
[2016-11-16] MEDS: AMITRIPTYLINE HCL 75 MG TAB PO SCH (20:55)
[2016-11-16] MEDS: QUEtiapine FUMARATE 200 MG TAB PO SCH (20:56)
[2016-11-17 05:35] VITALS: BP 127/60; PULSE 90; RESP 15; TEMP 98.3; O2SAT 96
[2016-11-17] MEDS: LEVOTHYROXINE SODIUM 100 MCG TAB PO SCH (05:39)
[2016-11-17] MEDS: CALCIUM/VITAMIN D 250 MG/125 U TAB PO SCH ×2 (09:17→21:43)
[2016-11-17] MEDS: cloZAPine 100 MG TAB PO SCH ×2 (09:18→21:42)
[2016-11-17] MEDS: POLYETHYLENE GLYCOL 17 GM PKG PO SCH (09:18)
[2016-11-17] MEDS: BENZTROPINE MESYLATE 1 MG TAB PO SCH ×2 (09:18→21:43)
[2016-11-17] MEDS: PHENYTOIN SODIUM 100 MG CAP PO SCH ×3 (09:18→18:01)
[2016-11-17] MEDS: PANTOPRAZOLE SOD 40 MG DELAYED RELEASE TAB PO SCH (09:21)
[2016-11-17] MEDS: VALPROIC ACID SYRUP 250 MG/5 ML UDC PO SCH ×2 (09:26→21:42)
[2016-11-17] MEDS: HALOPERIDOL 10 MG TAB PO SCH ×3 (09:47→20:14)
--- NOTE | 2016-11-17 11:27 | HHI.PYPN ---
Subjective Remarks Patient seen in her room of floor staff, patient napping. Though arousable to calm with me today. Patient continues cooperative with the medication she is now on 200 mg at bedtime 100 mg in the morning of Clozaril. Reviewing her weekly CBC and differential shows no significant problems in that arena either for now continue treatment Review of Systems Except as stated in HPI: all other systems reviewed are Neg Objective Alert: Yes [place]: Person, Place Mood: Anxious Affect: Labile Memory Intact: Comment (very poor) Hallucinations: Other Delusions: Yes Delusion Type: Paranoid (bizarre) Suicidal: Ideation (denies) Homicidal: Ideation (denies) Insight/Judgment Very poor Vitals/IOs Vital Signs Date Time Temp Pulse Resp B/P (MAP) Pulse Ox O2 Delivery O2 Flow Rate FiO2 11/17/16 05:35 98.3 90 15 127/60 (82) 96 Intake and Output 11/17/16 11/17/16 11/17/16 07:59 15:59 23:59 Intake Total 360 ml 720 ml Balance 360 ml 720 ml Assessment & Plan Problem List: (1) Bipolar disorder, current episode mixed, severe, with psychotic features ICD Codes: F31.64 - Bipolar disorder, current episode mixed, severe, with psychotic features Assessment & Plan Estimated LOS: days patient continue psychotic and delusional, though it appears the intensity of her affect is decreasing somewhat she is compliant medications, will continue treatment. Justification for Cont. Inpt. At this time patient decompensate if placed in a lower level of care Discharge Planning To be determined Ezequiel Grayson MD Nov 17, 2016 11:27
[2016-11-17] MEDS: LORazepam 1 MG TAB PO PRN ×3 (11:48→21:42)
[2016-11-17] MEDS: SODIUM CHLORIDE 0.65% NASAL SPRAY 45 ML BTL EACH NARE PRN (16:30)
[2016-11-17 17:22] VITALS: BP 174/68; PULSE 73; RESP 16; TEMP 98.1; O2SAT 96
[2016-11-17] MEDS: PADIMATE (CHAPSTICK) 4.5 GM TUBE TOPICAL PRN (20:14)
[2016-11-17] MEDS: QUEtiapine FUMARATE 200 MG TAB PO SCH (21:42)
[2016-11-17] MEDS: AMITRIPTYLINE HCL 75 MG TAB PO SCH (21:43)
[2016-11-18] MEDS: LEVOTHYROXINE SODIUM 100 MCG TAB PO SCH (05:29)
[2016-11-18 06:10] VITALS: BP 124/60; PULSE 92; RESP 18; TEMP 98.6; O2SAT 96
[2016-11-18] MEDS: HALOPERIDOL 10 MG TAB PO SCH ×3 (08:42→20:24)
[2016-11-18] MEDS: LORazepam 1 MG TAB PO PRN ×2 (08:43→17:06)
[2016-11-18] MEDS: BENZTROPINE MESYLATE 1 MG TAB PO SCH ×2 (08:43→20:25)
[2016-11-18] MEDS: PHENYTOIN SODIUM 100 MG CAP PO SCH ×3 (08:43→17:06)
[2016-11-18] MEDS: CALCIUM/VITAMIN D 250 MG/125 U TAB PO SCH ×2 (08:43→20:24)
[2016-11-18] MEDS: VALPROIC ACID SYRUP 250 MG/5 ML UDC PO SCH ×2 (08:43→20:25)
[2016-11-18] MEDS: cloZAPine 100 MG TAB PO SCH ×2 (08:44→20:25)
[2016-11-18] MEDS: PANTOPRAZOLE SOD 40 MG DELAYED RELEASE TAB PO SCH (08:44)
[2016-11-18] MEDS: SODIUM CHLORIDE 0.65% NASAL SPRAY 45 ML BTL EACH NARE PRN (08:45)
[2016-11-18] MEDS: PADIMATE (CHAPSTICK) 4.5 GM TUBE TOPICAL PRN (08:45)
[2016-11-18] MEDS: POLYETHYLENE GLYCOL 17 GM PKG PO SCH (08:49)
--- NOTE | 2016-11-18 14:01 | HHI.PYPN ---
Subjective Remarks Patient was seen and case discussed with nursing. Patient remains labile and disorganized. Loose associations. First question to me as if she is dying. Appears less labile compared to her visit 2 weeks ago. Compliant with her medications and behaving well on the unit Objective Alert: Yes [place]: Person, Place Mood: Anxious Affect: Labile Memory Intact: Comment (very poor) Hallucinations: Other Delusions: Yes Delusion Type: Paranoid (bizarre) Suicidal: Ideation (denies) Homicidal: Ideation (denies) Insight/Judgment Poor Vitals/IOs Vital Signs Date Time Temp Pulse Resp B/P (MAP) Pulse Ox O2 Delivery O2 Flow Rate FiO2 11/18/16 06:10 98.6 92 18 124/60 (81) 96 Intake and Output 11/18/16 11/18/16 11/19/16 08:00 16:00 00:00 Intake Total 360 ml Balance 360 ml Assessment & Plan Problem List: (1) Bipolar disorder, current episode mixed, severe, with psychotic features ICD Codes: F31.64 - Bipolar disorder, current episode mixed, severe, with psychotic features Assessment & Plan Continue current treatment plan Justification for Cont. Inpt. Patient will decompensate in a less restrictive setting Cuate Flynn DO Nov 18, 2016 14:01
[2016-11-18] MEDS: AMITRIPTYLINE HCL 75 MG TAB PO SCH (20:24)
[2016-11-18] MEDS: QUEtiapine FUMARATE 200 MG TAB PO SCH (20:24)
[2016-11-18] MEDS: diphenhydrAMINE HCL 50 MG CAP PO PRN (20:25)
[2016-11-19] MEDS: LORazepam 1 MG TAB PO PRN (05:13)
[2016-11-19] MEDS: LEVOTHYROXINE SODIUM 100 MCG TAB PO SCH (05:13)
[2016-11-19 05:54] VITALS: BP 116/66; PULSE 89; RESP 17; TEMP 97.4; O2SAT 93
[2016-11-19] MEDS: POLYETHYLENE GLYCOL 17 GM PKG PO SCH (09:01)
[2016-11-19] MEDS: CALCIUM/VITAMIN D 250 MG/125 U TAB PO SCH ×2 (09:03→20:30)
[2016-11-19] MEDS: PANTOPRAZOLE SOD 40 MG DELAYED RELEASE TAB PO SCH (09:04)
[2016-11-19] MEDS: PHENYTOIN SODIUM 100 MG CAP PO SCH ×3 (09:04→18:03)
[2016-11-19] MEDS: HALOPERIDOL 10 MG TAB PO SCH ×3 (09:04→20:28)
[2016-11-19] MEDS: BENZTROPINE MESYLATE 1 MG TAB PO SCH ×2 (09:04→20:29)
[2016-11-19] MEDS: cloZAPine 100 MG TAB PO SCH ×2 (09:05→20:29)
[2016-11-19] MEDS: VALPROIC ACID SYRUP 250 MG/5 ML UDC PO SCH ×2 (09:10→20:31)
[2016-11-19] MEDS: SODIUM CHLORIDE 0.65% NASAL SPRAY 45 ML BTL EACH NARE PRN ×2 (09:14→18:09)
[2016-11-19] MEDS: PADIMATE (CHAPSTICK) 4.5 GM TUBE TOPICAL PRN (09:14)
--- NOTE | 2016-11-19 11:42 | HHI.PYPN ---
Subjective Remarks Patient was seen and case discussed with nursing. Patient remains labile and disorganized. More of a irritable edge today. No physical or verbal outbursts. Remains internally preoccupied. Compliant with medications Objective Alert: Yes [place]: Person, Place Mood: Anxious Affect: Labile Memory Intact: Comment (very poor) Hallucinations: Other Delusions: Yes Delusion Type: Paranoid (bizarre) Suicidal: Ideation (denies) Homicidal: Ideation (denies) Insight/Judgment Poor Vitals/IOs Vital Signs Date Time Temp Pulse Resp B/P (MAP) Pulse Ox O2 Delivery O2 Flow Rate FiO2 11/19/16 05:54 97.4 89 17 116/66 (83) 93 Intake and Output 11/19/16 11/19/16 11/20/16 08:00 16:00 00:00 Intake Total 630 ml Balance 630 ml Assessment & Plan Problem List: (1) Bipolar disorder, current episode mixed, severe, with psychotic features ICD Codes: F31.64 - Bipolar disorder, current episode mixed, severe, with psychotic features Assessment & Plan Continue current treatment plan Justification for Cont. Inpt. Patient will decompensate in a less restrictive setting Cuate Flynn DO Nov 19, 2016 11:42
[2016-11-19 18:23] VITALS: BP 104/60; PULSE 74; RESP 18; TEMP 97.8; O2SAT 97
[2016-11-19] MEDS: AMITRIPTYLINE HCL 75 MG TAB PO SCH (20:29)
[2016-11-19] MEDS: diphenhydrAMINE HCL 50 MG CAP PO PRN (20:29)
[2016-11-19] MEDS: QUEtiapine FUMARATE 200 MG TAB PO SCH (20:30)
[2016-11-20 06:00] VITALS: BP 127/80; PULSE 87; RESP 17; TEMP 97.7
[2016-11-20] MEDS: LEVOTHYROXINE SODIUM 100 MCG TAB PO SCH (06:06)
[2016-11-20] MEDS: CALCIUM/VITAMIN D 250 MG/125 U TAB PO SCH ×2 (09:01→20:43)
[2016-11-20] MEDS: PANTOPRAZOLE SOD 40 MG DELAYED RELEASE TAB PO SCH (09:01)
[2016-11-20] MEDS: cloZAPine 100 MG TAB PO SCH ×2 (09:02→20:42)
[2016-11-20] MEDS: VALPROIC ACID SYRUP 250 MG/5 ML UDC PO SCH ×2 (09:02→20:43)
[2016-11-20] MEDS: HALOPERIDOL 10 MG TAB PO SCH ×3 (09:02→21:21)
[2016-11-20] MEDS: BENZTROPINE MESYLATE 1 MG TAB PO SCH ×2 (09:02→20:43)
[2016-11-20] MEDS: PHENYTOIN SODIUM 100 MG CAP PO SCH ×3 (09:03→17:48)
[2016-11-20] MEDS: POLYETHYLENE GLYCOL 17 GM PKG PO SCH (09:03)
[2016-11-20] MEDS: LORazepam 1 MG TAB PO PRN (11:25)
--- NOTE | 2016-11-20 13:33 | HHI.PYPN ---
Subjective Remarks Patient seen on unit with nurse Andree. Chart reviewed. Patient compliant medication. Patient continues intrusive at times somewhat loud, and delusional. Will increase a.m. Clozaril to 125 mg Review of Systems Except as stated in HPI: all other systems reviewed are Neg Objective Alert: Yes [place]: Person, Place Mood: Anxious Affect: Labile Memory Intact: Comment (very poor) Hallucinations: Other Delusions: Yes Delusion Type: Paranoid (bizarre) Suicidal: Ideation (denies) Homicidal: Ideation (denies) Insight/Judgment Very poor Vitals/IOs Vital Signs Date Time Temp Pulse Resp B/P (MAP) Pulse Ox O2 Delivery O2 Flow Rate FiO2 11/20/16 06:00 97.7 87 17 127/80 (96) 11/19/16 18:23 97 Assessment & Plan Problem List: (1) Bipolar disorder, current episode mixed, severe, with psychotic features ICD Codes: F31.64 - Bipolar disorder, current episode mixed, severe, with psychotic features Assessment & Plan Estimated LOS: days patient continue psychotic and delusional, at times intrusive and loud. See medication adjustment above Justification for Cont. Inpt. At this time patient will decompensate the placed a lower level of care Discharge Planning To be determined Ezequiel Grayson MD Nov 20, 2016 13:33
[2016-11-20] MEDS: QUEtiapine FUMARATE 200 MG TAB PO SCH (20:42)
[2016-11-20] MEDS: AMITRIPTYLINE HCL 75 MG TAB PO SCH (20:43)
[2016-11-20 21:15] VITALS: BP 142/87; PULSE 92; RESP 18; TEMP 98.1; O2SAT 98
[2016-11-21] MEDS: LEVOTHYROXINE SODIUM 100 MCG TAB PO SCH (05:48)
[2016-11-21 05:58] VITALS: BP 142/84; PULSE 85; RESP 16; TEMP 97.3; O2SAT 96
[2016-11-21] MEDS: VALPROIC ACID SYRUP 250 MG/5 ML UDC PO SCH ×2 (08:37→21:19)
[2016-11-21] MEDS: POLYETHYLENE GLYCOL 17 GM PKG PO SCH (08:37)
[2016-11-21] MEDS: CALCIUM/VITAMIN D 250 MG/125 U TAB PO SCH ×2 (08:38→21:20)
[2016-11-21] MEDS: BENZTROPINE MESYLATE 1 MG TAB PO SCH ×2 (08:38→21:22)
[2016-11-21] MEDS: PANTOPRAZOLE SOD 40 MG DELAYED RELEASE TAB PO SCH (08:38)
[2016-11-21] MEDS: cloZAPine 25 MG TAB PO SCH (08:38)
[2016-11-21] MEDS: PHENYTOIN SODIUM 100 MG CAP PO SCH ×3 (08:39→18:00)
[2016-11-21] MEDS: HALOPERIDOL 10 MG TAB PO SCH ×3 (08:41→21:22)
[2016-11-21] MEDS: PADIMATE (CHAPSTICK) 4.5 GM TUBE TOPICAL PRN (08:55)
[2016-11-21] MEDS: SODIUM CHLORIDE 0.65% NASAL SPRAY 45 ML BTL EACH NARE PRN (08:56)
--- NOTE | 2016-11-21 10:11 | HHI.PYPN ---
Subjective Remarks Patient seen in dayroom with counselor nguyễn chart review, patient compliant medications. It is noted that nortriptyline and amitriptyline blood levels drawn on 11/02 were above the reference range, the testing was night yet approved. The EKG done on 11/01 was normal. However patient continues to show behavioral issues. She continues intrusive loud delusional at times impulsively striking out at staff as has happened after i visited with her today. Will decrease patient's Elavil to 100 mg at at bedtime and recheck levels in a few days Review of Systems Except as stated in HPI: all other systems reviewed are Neg Objective Alert: Yes [place]: Person, Place Mood: Anxious Affect: Labile Memory Intact: Comment (very poor) Hallucinations: Other Delusions: Yes Delusion Type: Paranoid (bizarre) Suicidal: Ideation (denies) Homicidal: Ideation (denies) Insight/Judgment Very poor Vitals/IOs Vital Signs Date Time Temp Pulse Resp B/P (MAP) Pulse Ox O2 Delivery O2 Flow Rate FiO2 11/21/16 05:58 97.3 85 16 142/84 (103) 96 Assessment & Plan Problem List: (1) Bipolar disorder, current episode mixed, severe, with psychotic features ICD Codes: F31.64 - Bipolar disorder, current episode mixed, severe, with psychotic features Assessment & Plan Patient continues delusional psychotic intrusive with pressured speech and no insight. Continues infrequently aggressive also with staff. She medication adjustments above Estimated LOS: days Justification for Cont. Inpt. At this time patient will decompensate and placed in a lower level of care Discharge Planning To be determined Ezequiel Grayson MD Nov 21, 2016 10:11
[2016-11-21 17:06] VITALS: BP 158/79; PULSE 87; RESP 18; TEMP 97.5; O2SAT 96
[2016-11-21] MEDS: LORazepam 2 MG/ML VIAL IM PRN (20:58)
[2016-11-21] MEDS: QUEtiapine FUMARATE 200 MG TAB PO SCH (21:20)
[2016-11-21] MEDS: AMITRIPTYLINE HCL 100 MG TAB PO SCH (21:21)
[2016-11-21] MEDS: cloZAPine 100 MG TAB PO SCH (21:21)
[2016-11-22] MEDS: LEVOTHYROXINE SODIUM 100 MCG TAB PO SCH (06:22)
[2016-11-22 06:45] VITALS: BP 117/80; PULSE 86; RESP 18; TEMP 97.5; O2SAT 96
[2016-11-22] MEDS: LORazepam 2 MG/ML VIAL IM PRN (07:06)
[2016-11-22] MEDS: POLYETHYLENE GLYCOL 17 GM PKG PO SCH (08:19)
[2016-11-22] MEDS: VALPROIC ACID SYRUP 250 MG/5 ML UDC PO SCH ×2 (08:20→20:32)
[2016-11-22] MEDS: CALCIUM/VITAMIN D 250 MG/125 U TAB PO SCH ×2 (08:21→20:34)
[2016-11-22] MEDS: BENZTROPINE MESYLATE 1 MG TAB PO SCH ×2 (08:21→20:32)
[2016-11-22] MEDS: HALOPERIDOL 10 MG TAB PO SCH ×3 (08:21→20:35)
[2016-11-22] MEDS: PANTOPRAZOLE SOD 40 MG DELAYED RELEASE TAB PO SCH (08:21)
[2016-11-22] MEDS: cloZAPine 25 MG TAB PO SCH (08:24)
[2016-11-22] MEDS: PHENYTOIN SODIUM 100 MG CAP PO SCH ×3 (08:24→17:57)
[2016-11-22] MEDS: SODIUM CHLORIDE 0.65% NASAL SPRAY 45 ML BTL EACH NARE PRN (08:25)
[2016-11-22] MEDS: PADIMATE (CHAPSTICK) 4.5 GM TUBE TOPICAL PRN (08:26)
--- NOTE | 2016-11-22 11:32 | HHI.PYPN ---
Subjective Remarks Patient seen in her room with nurse Zarina and family practice residentalbert. Chart review, patient compliant medication. Patient continues intrusive demanding and delusional. disorganized in her thoughts. At times becomes loud and somewhat intimidating. However overall there is some softening of her affect For now will increase a.m. Clozaril to 150 mg Review of Systems Except as stated in HPI: all other systems reviewed are Neg Objective Alert: Yes [place]: Person, Place Mood: Anxious Affect: Labile Memory Intact: Comment (very poor) Hallucinations: Other Delusions: Yes Delusion Type: Paranoid (bizarre) Suicidal: Ideation (denies) Homicidal: Ideation (denies) Insight/Judgment Very poor Vitals/IOs Vital Signs Date Time Temp Pulse Resp B/P (MAP) Pulse Ox O2 Delivery O2 Flow Rate FiO2 11/22/16 06:45 97.5 86 18 117/80 (92) 96 Intake and Output 11/22/16 11/22/16 11/22/16 07:59 15:59 23:59 Intake Total 240 ml Balance 240 ml Assessment & Plan Problem List: (1) Bipolar disorder, current episode mixed, severe, with psychotic features ICD Codes: F31.64 - Bipolar disorder, current episode mixed, severe, with psychotic features Assessment & Plan Estimated LOS: days patient continues psychotic delusional intrusive loud and demanding. Though there appears to be some slight softening. She medication adjustment above Justification for Cont. Inpt. At this time patient will decompensate the placed a lower level of care Discharge Planning To be determined Ezequiel Grayson MD Nov 22, 2016 11:32
[2016-11-22 13:20] LABS: AUTOMATED NEUTROPHIL # 3.4 TH/MM3 (1.8-7.7); BASOPHIL % 0.5 % (0.0-2.0); EOSINOPHIL % 0.5 % (0.0-4.0); HEMATOCRIT 35.4 % (35.0-46.0); HEMO FLAGS DIFF FINAL; LYMPH % 42.9 % (9.0-44.0); MEAN CELL VOLUME 92.9 FL (80.0-100.0); MEAN CORPUSCULAR HEMOGLOBIN 30.3 PG (27.0-34.0); MEAN CORPUSCULAR HGB CONC 32.6 % (32.0-36.0); MONO % 7.6 % (0.0-8.0); NEUT % 48.5 % (16.0-70.0); PLATELET COUNT 195 TH/MM3 (150-450); RED BLOOD COUNT 3.81 MIL/MM3 (4.00-5.30); RED CELL DISTRIBUTION WIDTH 13.5 % (11.6-17.2)
[2016-11-22 18:00] VITALS: BP 142/77; PULSE 90; RESP 18; TEMP 97.6; O2SAT 96
[2016-11-22] MEDS: cloZAPine 100 MG TAB PO SCH (20:33)
[2016-11-22] MEDS: AMITRIPTYLINE HCL 100 MG TAB PO SCH (20:34)
[2016-11-22] MEDS: QUEtiapine FUMARATE 200 MG TAB PO SCH (20:34)
[2016-11-23] MEDS: LEVOTHYROXINE SODIUM 100 MCG TAB PO SCH (04:50)
[2016-11-23] MEDS: LORazepam 1 MG TAB PO PRN ×3 (04:50→17:37)
[2016-11-23 05:48] VITALS: BP 130/71; PULSE 100; RESP 18; TEMP 98.9; O2SAT 96
[2016-11-23] MEDS: POLYETHYLENE GLYCOL 17 GM PKG PO SCH (09:00)
[2016-11-23] MEDS: BENZTROPINE MESYLATE 1 MG TAB PO SCH ×2 (09:04→20:21)
[2016-11-23] MEDS: VALPROIC ACID SYRUP 250 MG/5 ML UDC PO SCH ×2 (09:04→20:22)
[2016-11-23] MEDS: CALCIUM/VITAMIN D 250 MG/125 U TAB PO SCH ×2 (09:05→20:21)
[2016-11-23] MEDS: PANTOPRAZOLE SOD 40 MG DELAYED RELEASE TAB PO SCH (09:05)
[2016-11-23] MEDS: HALOPERIDOL 10 MG TAB PO SCH ×3 (09:05→20:21)
[2016-11-23] MEDS: PHENYTOIN SODIUM 100 MG CAP PO SCH ×3 (09:05→17:27)
[2016-11-23] MEDS: cloZAPine 25 MG TAB PO SCH (09:08)
--- NOTE | 2016-11-23 10:50 | HHI.PYPN ---
Subjective Remarks Patient seen in dayroom with floor staff, chart review, patient compliant medications. Also remains disorganized confusing and somewhat intrusive the intensive her affect is somewhat softer today. For now continue treatment Review of Systems Except as stated in HPI: all other systems reviewed are Neg Objective Alert: Yes [place]: Person, Place Mood: Anxious Affect: Labile Memory Intact: Comment (very poor) Hallucinations: Other Delusions: Yes Delusion Type: Paranoid (bizarre) Suicidal: Ideation (denies) Homicidal: Ideation (denies) Insight/Judgment Very poor Labs Test 11/22/16 12:30 White Blood Count 7.0 TH/MM3 Red Blood Count 3.81 MIL/MM3 Hemoglobin 11.6 GM/DL Hematocrit 35.4 % Mean Corpuscular Volume 92.9 FL Mean Corpuscular Hemoglobin 30.3 PG Mean Corpuscular Hemoglobin Concent 32.6 % Red Cell Distribution Width 13.5 % Platelet Count 195 TH/MM3 Mean Platelet Volume 9.5 FL Neutrophils (%) (Auto) 48.5 % Lymphocytes (%) (Auto) 42.9 % Monocytes (%) (Auto) 7.6 % Eosinophils (%) (Auto) 0.5 % Basophils (%) (Auto) 0.5 % Neutrophils # (Auto) 3.4 TH/MM3 Lymphocytes # (Auto) 3.0 TH/MM3 Monocytes # (Auto) 0.5 TH/MM3 Eosinophils # (Auto) 0.0 TH/MM3 Basophils # (Auto) 0.0 TH/MM3 CBC Comment DIFF FINAL Differential Comment Vitals/IOs Vital Signs Date Time Temp Pulse Resp B/P (MAP) Pulse Ox O2 Delivery O2 Flow Rate FiO2 11/23/16 05:48 98.9 100 18 130/71 (90) 96 Intake and Output 11/23/16 11/23/16 11/23/16 07:59 15:59 23:59 Intake Total 0 ml Balance 0 ml Assessment & Plan Problem List: (1) Bipolar disorder, current episode mixed, severe, with psychotic features ICD Codes: F31.64 - Bipolar disorder, current episode mixed, severe, with psychotic features Assessment & Plan Estimated LOS: days patient continues intrusive labile demanding and. Though her affect is somewhat softer today Justification for Cont. Inpt. This time patient will decompensate placed in a lower level of care Discharge Planning To be determined Ezequiel Grayson MD Nov 23, 2016 10:49
[2016-11-23] MEDS: PADIMATE (CHAPSTICK) 4.5 GM TUBE TOPICAL PRN (11:41)
[2016-11-23] MEDS: SODIUM CHLORIDE 0.65% NASAL SPRAY 45 ML BTL EACH NARE PRN (11:41)
[2016-11-23] MEDS: cloZAPine 100 MG TAB PO SCH (20:21)
[2016-11-23] MEDS: QUEtiapine FUMARATE 200 MG TAB PO SCH (20:21)
[2016-11-23] MEDS: diphenhydrAMINE HCL 50 MG CAP PO PRN (20:21)
[2016-11-23] MEDS: AMITRIPTYLINE HCL 100 MG TAB PO SCH (20:22)
[2016-11-24] MEDS: LORazepam 1 MG TAB PO PRN ×2 (05:42→12:23)
[2016-11-24] MEDS: LEVOTHYROXINE SODIUM 100 MCG TAB PO SCH (05:42)
[2016-11-24 05:53] VITALS: BP 135/62; PULSE 92; RESP 16; TEMP 97.7; O2SAT 96
[2016-11-24] MEDS: VALPROIC ACID SYRUP 250 MG/5 ML UDC PO SCH ×2 (09:07→22:42)
[2016-11-24] MEDS: PANTOPRAZOLE SOD 40 MG DELAYED RELEASE TAB PO SCH (09:08)
[2016-11-24] MEDS: BENZTROPINE MESYLATE 1 MG TAB PO SCH ×2 (09:08→22:43)
[2016-11-24] MEDS: PHENYTOIN SODIUM 100 MG CAP PO SCH ×3 (09:08→17:48)
[2016-11-24] MEDS: cloZAPine 25 MG TAB PO SCH (09:08)
[2016-11-24] MEDS: CALCIUM/VITAMIN D 250 MG/125 U TAB PO SCH ×2 (09:08→22:43)
[2016-11-24] MEDS: HALOPERIDOL 10 MG TAB PO SCH ×3 (09:09→20:08)
[2016-11-24] MEDS: POLYETHYLENE GLYCOL 17 GM PKG PO SCH (09:09)
--- NOTE | 2016-11-24 10:13 | HHI.PYPN ---
Subjective Remarks Patient seen in her room with nurse Jamilah and counselor, chart review, patient compliant medication. Patient sitting in her chair sad face at times somewhat tearful. Patient has been showing obsessive type behaviors recently washing her face with soap when washing her orbital area with soap to the point where has irritated her eyes. Staff is being consistent with setting boundaries with this. This is what the patient is being upset about. I reinforced with the patient the need for the staff to be consistent with the monitoring of her. She showing very little insight. For now we'll continue staff's assistance with her. We will also increase the a.m. dose of Clozaril to 175 mg Review of Systems Except as stated in HPI: all other systems reviewed are Neg Objective Alert: Yes [place]: Person, Place Mood: Anxious Affect: Labile Memory Intact: Comment (very poor) Hallucinations: Other Delusions: Yes Delusion Type: Paranoid (bizarre) Suicidal: Ideation (denies) Homicidal: Ideation (denies) Insight/Judgment Very poor Vitals/IOs Vital Signs Date Time Temp Pulse Resp B/P (MAP) Pulse Ox O2 Delivery O2 Flow Rate FiO2 11/24/16 05:53 97.7 92 16 135/62 (86) 96 Intake and Output 11/24/16 11/24/16 11/24/16 07:59 15:59 23:59 Intake Total 0 ml Balance 0 ml Assessment & Plan Problem List: (1) Schizoaffective disorder, bipolar type ICD Codes: F25.0 - Schizoaffective disorder, bipolar type Assessment & Plan Estimated LOS: days patient today is somewhat tearful decrease in the range intensity of her affect related to her response to staff's interventions. There is still no insight into her issues. She medication adjustment above. At this time I feel patient's diagnosis be better described as schizoaffective disorder bipolar type then bipolar disorder Justification for Cont. Inpt. At this time patient would decompensate the placed in a lower level of care Discharge Planning To be determined Ezequiel Grayson MD Nov 24, 2016 10:13
[2016-11-24] MEDS ORDERED: HALOPERIDOL LACTATE 5 MG/ML AMP ONE (17:12)
[2016-11-24] MEDS ORDERED: HALOPERIDOL LACTATE 5 MG/ML AMP IM ONE (17:30)
[2016-11-24 18:10] VITALS: BP 151/72; PULSE 102; RESP 18; TEMP 98.3; O2SAT 94
[2016-11-24] MEDS: AMITRIPTYLINE HCL 100 MG TAB PO SCH (22:43)
[2016-11-24] MEDS: QUEtiapine FUMARATE 200 MG TAB PO SCH (22:43)
[2016-11-24] MEDS: cloZAPine 100 MG TAB PO SCH (22:44)
[2016-11-25] MEDS: LEVOTHYROXINE SODIUM 100 MCG TAB PO SCH (06:22)
[2016-11-25 07:09] VITALS: BP 138/66; PULSE 91; RESP 18; TEMP 97.3; O2SAT 97
[2016-11-25] MEDS: POLYETHYLENE GLYCOL 17 GM PKG PO SCH (09:00)
[2016-11-25] MEDS: BENZTROPINE MESYLATE 1 MG TAB PO SCH ×2 (09:59→22:08)
[2016-11-25] MEDS: HALOPERIDOL 10 MG TAB PO SCH ×3 (09:59→20:10)
[2016-11-25] MEDS: PANTOPRAZOLE SOD 40 MG DELAYED RELEASE TAB PO SCH (09:59)
[2016-11-25] MEDS: PHENYTOIN SODIUM 100 MG CAP PO SCH ×3 (09:59→18:40)
[2016-11-25] MEDS: CALCIUM/VITAMIN D 250 MG/125 U TAB PO SCH ×2 (09:59→22:08)
[2016-11-25] MEDS: VALPROIC ACID SYRUP 250 MG/5 ML UDC PO SCH ×2 (10:05→22:09)
--- NOTE | 2016-11-25 11:27 | HHI.PYPN ---
Subjective Remarks Patient remains easily upset and continues to be compulsive in her behaviors. Interviewed patient and discussed case with mental health tech. Reviewed labs. Review of Systems Except as stated in HPI: all other systems reviewed are Neg Objective Alert: Yes [place]: Person, Place Mood: Anxious Affect: Labile Memory Intact: Comment (very poor) Hallucinations: Other Delusions: Yes Delusion Type: Paranoid (bizarre) Suicidal: Ideation (denies) Homicidal: Ideation (denies) Insight/Judgment Impaired Vitals/IOs Vital Signs Date Time Temp Pulse Resp B/P (MAP) Pulse Ox O2 Delivery O2 Flow Rate FiO2 11/25/16 07:09 97.3 91 18 138/66 (90) 97 Intake and Output 11/25/16 11/25/16 11/26/16 08:00 16:00 00:00 Intake Total 120 ml Balance 120 ml Assessment & Plan Problem List: (1) Schizoaffective disorder, bipolar type ICD Codes: F25.0 - Schizoaffective disorder, bipolar type Assessment & Plan Estimated LOS: days continue to titrate Clozaril for efficacy and tolerability. Justification for Cont. Inpt. Unable to care for self. Ross Milner MD Nov 25, 2016 11:27
[2016-11-25] MEDS: LORazepam 1 MG TAB PO PRN (12:06)
[2016-11-25] MEDS: cloZAPine 25 MG TAB PO SCH (12:07)
[2016-11-25 18:22] VITALS: BP 133/78; PULSE 93; RESP 18; TEMP 98; O2SAT 97
[2016-11-25] MEDS: AMITRIPTYLINE HCL 100 MG TAB PO SCH (22:07)
[2016-11-25] MEDS: cloZAPine 100 MG TAB PO SCH (22:08)
[2016-11-25] MEDS: QUEtiapine FUMARATE 200 MG TAB PO SCH (22:08)
[2016-11-26] MEDS: LEVOTHYROXINE SODIUM 100 MCG TAB PO SCH (05:38)
[2016-11-26 06:46] VITALS: BP 135/83; PULSE 91; RESP 16; TEMP 97.8; O2SAT 96
[2016-11-26] MEDS: POLYETHYLENE GLYCOL 17 GM PKG PO SCH (09:00)
[2016-11-26] MEDS: PADIMATE (CHAPSTICK) 4.5 GM TUBE TOPICAL PRN (09:31)
[2016-11-26] MEDS: SODIUM CHLORIDE 0.65% NASAL SPRAY 45 ML BTL EACH NARE PRN (09:31)
[2016-11-26] MEDS: LORazepam 1 MG TAB PO PRN (09:32)
[2016-11-26] MEDS: cloZAPine 25 MG TAB PO SCH (09:32)
[2016-11-26] MEDS: BENZTROPINE MESYLATE 1 MG TAB PO SCH ×2 (09:32→20:58)
[2016-11-26] MEDS: VALPROIC ACID SYRUP 250 MG/5 ML UDC PO SCH ×2 (09:33→20:58)
[2016-11-26] MEDS: HALOPERIDOL 10 MG TAB PO SCH ×3 (09:33→21:01)
[2016-11-26] MEDS: CALCIUM/VITAMIN D 250 MG/125 U TAB PO SCH ×2 (09:33→20:58)
[2016-11-26] MEDS: PANTOPRAZOLE SOD 40 MG DELAYED RELEASE TAB PO SCH (09:33)
[2016-11-26] MEDS: PHENYTOIN SODIUM 100 MG CAP PO SCH ×3 (09:33→18:39)
--- NOTE | 2016-11-26 13:04 | HHI.PYPN ---
Subjective Remarks Patient seen and case discussed with staff. She remains paranoid and often times loose and disorganized. Review of Systems Except as stated in HPI: all other systems reviewed are Neg Objective Alert: Yes [place]: Person, Place Mood: Anxious Affect: Labile Memory Intact: Comment (very poor) Hallucinations: Other Delusions: Yes Delusion Type: Paranoid (bizarre) Suicidal: Ideation (denies) Homicidal: Ideation (denies) Insight/Judgment Impaired Vitals/IOs Vital Signs Date Time Temp Pulse Resp B/P (MAP) Pulse Ox O2 Delivery O2 Flow Rate FiO2 11/26/16 06:46 97.8 91 16 135/83 (100) 96 Assessment & Plan Problem List: (1) Schizoaffective disorder, bipolar type ICD Codes: F25.0 - Schizoaffective disorder, bipolar type Assessment & Plan Estimated LOS: days consider long-acting injectable medication for antipsychotic purposes. Justification for Cont. Inpt. Grossly psychotic and unable to care for herself. Ross Milner MD Nov 26, 2016 13:03
[2016-11-26 16:31] VITALS: PULSE 98; RESP 18; TEMP 97.3; O2SAT 99
[2016-11-26 16:32] VITALS: BP 141/72; PULSE 98; RESP 18; TEMP 97.5
[2016-11-26] MEDS: AMITRIPTYLINE HCL 100 MG TAB PO SCH (20:58)
[2016-11-26] MEDS: cloZAPine 100 MG TAB PO SCH (20:59)
[2016-11-26] MEDS: QUEtiapine FUMARATE 200 MG TAB PO SCH (21:01)
[2016-11-26] MEDS: LORazepam 2 MG/ML VIAL IM PRN (21:03)
[2016-11-27 06:00] VITALS: BP 126/76; PULSE 80; RESP 15; TEMP 98.4; O2SAT 96
[2016-11-27] MEDS: LEVOTHYROXINE SODIUM 100 MCG TAB PO SCH (06:08)
--- NOTE | 2016-11-27 07:07 | HHI.PYPN ---
Subjective Remarks Patient seen and examined. Chart reviewed. Case d/w RN: Kicked tech overnight. Received Ativan IM. Slept well thereafter. On my examination today , patient remains psychotic and somewhat disorganized. She rambles "I really blew it. That's why this whole hospital..." before trailing off into unintelligible speech. Points at items around her room, significance unclear. No side effects from medications. No physical complaints. Review of Systems ROS Limitations: Psychotic, Poor Historian Except as stated in HPI: all other systems reviewed are Neg Objective Alert: Yes [place]: Person, Place Mood: Anxious Affect: Labile (remains fairly labile) Memory Intact: Comment (not formally assessed) Hallucinations: Other (internally preoccupied) Delusions: Yes Delusion Type: Paranoid (ongoing bizarre) Suicidal: Ideation (no SI) Homicidal: Ideation (no HI) Insight/Judgment Poor Remarks No motor abnormalities noted. Thought process somewhat disorganized. Grooming and hygiene fair to poor. Labs Labs reviewed. ANC remains adequate for Clozaril therapy. Vitals/IOs Vital Signs Date Time Temp Pulse Resp B/P (MAP) Pulse Ox O2 Delivery O2 Flow Rate FiO2 11/27/16 06:00 98.4 80 15 126/76 (93) 96 Assessment & Plan Problem List: (1) Schizoaffective disorder, bipolar type ICD Codes: F25.0 - Schizoaffective disorder, bipolar type Assessment & Plan Titrate clozapine to 200 mg twice daily to target psychosis. Continue weekly monitoring of CBC on clozapine therapy. Continue to monitor on the geropsychiatric unit. Continue other medications and care as ordered. Justification for Cont. Inpt. Med changes. Risk for decompensation in less restrictive environment. Impairment in reality construction. Discharge Planning Per Dr. Grayson. Christian Waite MD Nov 27, 2016 07:07
[2016-11-27] MEDS: VALPROIC ACID SYRUP 250 MG/5 ML UDC PO SCH ×2 (10:18→21:01)
[2016-11-27] MEDS: CALCIUM/VITAMIN D 250 MG/125 U TAB PO SCH ×2 (10:18→21:00)
[2016-11-27] MEDS: PHENYTOIN SODIUM 100 MG CAP PO SCH ×3 (10:19→18:14)
[2016-11-27] MEDS: HALOPERIDOL 10 MG TAB PO SCH ×3 (10:19→21:00)
[2016-11-27] MEDS: BENZTROPINE MESYLATE 1 MG TAB PO SCH ×2 (10:20→21:00)
[2016-11-27] MEDS: PANTOPRAZOLE SOD 40 MG DELAYED RELEASE TAB PO SCH (10:20)
[2016-11-27] MEDS: POLYETHYLENE GLYCOL 17 GM PKG PO SCH (10:20)
[2016-11-27] MEDS: cloZAPine 100 MG TAB PO SCH ×2 (10:21→21:01)
[2016-11-27] MEDS: LORazepam 1 MG TAB PO PRN ×2 (10:40→21:00)
[2016-11-27] MEDS: SODIUM CHLORIDE 0.65% NASAL SPRAY 45 ML BTL EACH NARE PRN (13:59)
[2016-11-27] MEDS: diphenhydrAMINE HCL 50 MG CAP PO PRN (21:00)
[2016-11-27] MEDS: AMITRIPTYLINE HCL 100 MG TAB PO SCH (21:00)
[2016-11-27] MEDS: QUEtiapine FUMARATE 200 MG TAB PO SCH (21:02)
[2016-11-28 06:00] VITALS: BP 148/84; PULSE 94; RESP 16; TEMP 97; O2SAT 97
[2016-11-28] MEDS: LEVOTHYROXINE SODIUM 100 MCG TAB PO SCH (06:00)
[2016-11-28] MEDS: POLYETHYLENE GLYCOL 17 GM PKG PO SCH (09:09)
[2016-11-28] MEDS: VALPROIC ACID SYRUP 250 MG/5 ML UDC PO SCH ×2 (09:09→22:17)
[2016-11-28] MEDS: PHENYTOIN SODIUM 100 MG CAP PO SCH ×3 (09:09→17:58)
[2016-11-28] MEDS: BENZTROPINE MESYLATE 1 MG TAB PO SCH ×2 (09:09→22:16)
[2016-11-28] MEDS: PANTOPRAZOLE SOD 40 MG DELAYED RELEASE TAB PO SCH (09:09)
[2016-11-28] MEDS: CALCIUM/VITAMIN D 250 MG/125 U TAB PO SCH ×2 (09:10→22:15)
[2016-11-28] MEDS: HALOPERIDOL 10 MG TAB PO SCH ×3 (09:10→22:15)
[2016-11-28] MEDS: cloZAPine 100 MG TAB PO SCH ×2 (09:10→22:16)
[2016-11-28] MEDS: LORazepam 1 MG TAB PO PRN (12:48)
--- NOTE | 2016-11-28 13:45 | HHI.PYPN ---
Subjective Remarks Patient seen in her room with nurse Briseyda and counselor teri, chart review, patient compliant medication. Patient now on 20 mg Clozaril a.m. and at bedtime. Patient continues loud intrusive confusing. Does take redirection but with difficulty. For now continue treatment Review of Systems Except as stated in HPI: all other systems reviewed are Neg Objective Alert: Yes [place]: Person, Place Mood: Anxious Affect: Labile (remains fairly labile) Memory Intact: Comment (not formally assessed) Hallucinations: Other (internally preoccupied) Delusions: Yes Delusion Type: Paranoid (ongoing bizarre) Suicidal: Ideation (no SI) Homicidal: Ideation (no HI) Insight/Judgment Very poor Vitals/IOs Vital Signs Date Time Temp Pulse Resp B/P (MAP) Pulse Ox O2 Delivery O2 Flow Rate FiO2 11/28/16 06:00 97.0 94 16 148/84 (105) 97 Assessment & Plan Problem List: (1) Schizoaffective disorder, bipolar type ICD Codes: F25.0 - Schizoaffective disorder, bipolar type Assessment & Plan Estimated LOS: days patient continues quite psychotic delusional intrusive and somewhat intimidating. Compliant medications. Have her Clozaril increased yesterday to 20 mg a.m. 20 mg at bedtime Justification for Cont. Inpt. At this time patient will decompensate the placed in the lower level of care Discharge Planning To be determined Ezequiel Grayson MD Nov 28, 2016 13:45
[2016-11-28 18:05] VITALS: BP 141/72; PULSE 98; RESP 18; TEMP 97.8; O2SAT 98
[2016-11-28] MEDS: QUEtiapine FUMARATE 200 MG TAB PO SCH (22:16)
[2016-11-28] MEDS: AMITRIPTYLINE HCL 100 MG TAB PO SCH (22:16)
[2016-11-28] MEDS: SODIUM CHLORIDE 0.65% NASAL SPRAY 45 ML BTL EACH NARE PRN (23:30)
[2016-11-29] MEDS: LEVOTHYROXINE SODIUM 100 MCG TAB PO SCH (06:23)
[2016-11-29 06:27] VITALS: BP 134/80; PULSE 87; RESP 18; TEMP 97.5; O2SAT 97
[2016-11-29] MEDS: HALOPERIDOL 10 MG TAB PO SCH ×3 (08:00→20:29)
[2016-11-29] MEDS: POLYETHYLENE GLYCOL 17 GM PKG PO SCH (09:00)
[2016-11-29] MEDS: PHENYTOIN SODIUM 100 MG CAP PO SCH ×3 (09:12→17:27)
[2016-11-29] MEDS: BENZTROPINE MESYLATE 1 MG TAB PO SCH ×2 (09:12→21:52)
[2016-11-29] MEDS: PANTOPRAZOLE SOD 40 MG DELAYED RELEASE TAB PO SCH (09:13)
[2016-11-29] MEDS: CALCIUM/VITAMIN D 250 MG/125 U TAB PO SCH ×2 (09:13→21:52)
[2016-11-29] MEDS: cloZAPine 100 MG TAB PO SCH ×2 (09:15→21:52)
[2016-11-29] MEDS: VALPROIC ACID SYRUP 250 MG/5 ML UDC PO SCH ×2 (09:18→21:53)
--- NOTE | 2016-11-29 14:56 | HHI.PYPN ---
Subjective Remarks Patient seen in dayroom with floor staff, use loud confused delusional intimidating wandering the unit. Will increase a.m. Clozaril to 225 mg daily Review of Systems Except as stated in HPI: all other systems reviewed are Neg Objective Alert: Yes [place]: Person, Place Mood: Anxious Affect: Labile (remains fairly labile) Memory Intact: Comment (not formally assessed) Hallucinations: Other (internally preoccupied) Delusions: Yes Delusion Type: Paranoid (ongoing bizarre) Suicidal: Ideation (no SI) Homicidal: Ideation (no HI) Insight/Judgment Very poor Vitals/IOs Vital Signs Date Time Temp Pulse Resp B/P (MAP) Pulse Ox O2 Delivery O2 Flow Rate FiO2 11/29/16 06:27 97.5 87 18 134/80 (98) 97 Intake and Output 11/29/16 11/29/16 11/30/16 08:00 16:00 00:00 Intake Total 300 ml Balance 300 ml Assessment & Plan Problem List: (1) Schizoaffective disorder, bipolar type ICD Codes: F25.0 - Schizoaffective disorder, bipolar type Assessment & Plan Estimated LOS: days patient continues psychotic delusional the paranoid flavor , intrusive loud wandering the halls. She medication adjustment above Justification for Cont. Inpt. At this time patient decompensate then placed a lower level of care Discharge Planning To be determined Ezequiel Grayson MD Nov 29, 2016 14:56
[2016-11-29 17:36] VITALS: BP 145/80; PULSE 107; RESP 19; TEMP 98.5; O2SAT 95
[2016-11-29] MEDS: LORazepam 1 MG TAB PO PRN (20:29)
[2016-11-29] MEDS: AMITRIPTYLINE HCL 100 MG TAB PO SCH (21:52)
[2016-11-29] MEDS: QUEtiapine FUMARATE 200 MG TAB PO SCH (21:52)
[2016-11-30] MEDS: LEVOTHYROXINE SODIUM 100 MCG TAB PO SCH (05:55)
[2016-11-30 06:51] VITALS: BP 128/71; PULSE 96; RESP 20; TEMP 98.1; O2SAT 100
[2016-11-30] MEDS: HALOPERIDOL 10 MG TAB PO SCH ×3 (08:00→21:49)
[2016-11-30] MEDS: POLYETHYLENE GLYCOL 17 GM PKG PO SCH (08:21)
[2016-11-30] MEDS: cloZAPine 100 MG TAB PO SCH ×2 (08:23→21:50)
[2016-11-30] MEDS: PHENYTOIN SODIUM 100 MG CAP PO SCH ×3 (08:24→16:50)
[2016-11-30] MEDS: VALPROIC ACID SYRUP 250 MG/5 ML UDC PO SCH ×2 (08:24→21:49)
[2016-11-30] MEDS: CALCIUM/VITAMIN D 250 MG/125 U TAB PO SCH ×2 (08:24→21:50)
[2016-11-30] MEDS: PANTOPRAZOLE SOD 40 MG DELAYED RELEASE TAB PO SCH (08:25)
[2016-11-30] MEDS: cloZAPine 25 MG TAB PO SCH (08:25)
[2016-11-30] MEDS: BENZTROPINE MESYLATE 1 MG TAB PO SCH ×2 (08:26→21:50)
--- NOTE | 2016-11-30 15:27 | HHI.PYPN ---
Subjective Remarks He should seen in day room with floor staff, continues intrusive loud demanding and delusional. Compliant medications. For now continue treatment Review of Systems Except as stated in HPI: all other systems reviewed are Neg Objective Alert: Yes [place]: Person, Place Mood: Anxious Affect: Labile (remains fairly labile) Memory Intact: Comment (not formally assessed) Hallucinations: Other (internally preoccupied) Delusions: Yes Delusion Type: Paranoid (ongoing bizarre) Suicidal: Ideation (no SI) Homicidal: Ideation (no HI) Insight/Judgment Very poor Vitals/IOs Vital Signs Date Time Temp Pulse Resp B/P (MAP) Pulse Ox O2 Delivery O2 Flow Rate FiO2 11/30/16 06:51 98.1 96 20 128/71 (90) 100 Intake and Output 11/30/16 11/30/16 12/01/16 08:00 16:00 00:00 Intake Total 0 ml 140 ml Balance 0 ml 140 ml Assessment & Plan Problem List: (1) Schizoaffective disorder, bipolar type ICD Codes: F25.0 - Schizoaffective disorder, bipolar type Assessment & Plan Estimated LOS: days patient continues psychotic loud delusional and intrusive. Compliant medications. Justification for Cont. Inpt. At this time patient will decompensate if placed in a lower level of care Discharge Planning To be determined Ezequiel Grayson MD Nov 30, 2016 15:27
[2016-11-30 18:11] VITALS: BP 124/64; PULSE 85; RESP 20; TEMP 97.7; O2SAT 100
[2016-11-30] MEDS: ALUMINUM/MAGNESIUM/SIMETH 30 ML CUP PO PRN (19:33)
[2016-11-30] MEDS: AMITRIPTYLINE HCL 100 MG TAB PO SCH (21:49)
[2016-11-30] MEDS: diphenhydrAMINE HCL 50 MG CAP PO PRN (21:49)
[2016-11-30] MEDS: QUEtiapine FUMARATE 200 MG TAB PO SCH (21:50)
[2016-12-01 05:35] VITALS: BP 145/68; PULSE 89; RESP 17; TEMP 97.1
[2016-12-01] MEDS: LEVOTHYROXINE SODIUM 100 MCG TAB PO SCH (06:21)
[2016-12-01] MEDS: PHENYTOIN SODIUM 100 MG CAP PO SCH ×3 (09:00→18:00)
[2016-12-01] MEDS: PANTOPRAZOLE SOD 40 MG DELAYED RELEASE TAB PO SCH (09:00)
[2016-12-01] MEDS: BENZTROPINE MESYLATE 1 MG TAB PO SCH ×2 (09:00→22:04)
[2016-12-01] MEDS: cloZAPine 25 MG TAB PO SCH (09:00)
[2016-12-01] MEDS: VALPROIC ACID SYRUP 250 MG/5 ML UDC PO SCH ×2 (09:00→22:05)
[2016-12-01] MEDS: POLYETHYLENE GLYCOL 17 GM PKG PO SCH (09:00)
[2016-12-01] MEDS: cloZAPine 100 MG TAB PO SCH ×2 (09:00→22:05)
[2016-12-01] MEDS: HALOPERIDOL 10 MG TAB PO SCH ×3 (09:00→22:04)
[2016-12-01] MEDS: CALCIUM/VITAMIN D 250 MG/125 U TAB PO SCH ×2 (09:00→22:04)
--- NOTE | 2016-12-01 11:43 | HHI.PYPN ---
Subjective Remarks Patient seen in day room with nurse Jermaine, chart reviewed, patient compliant medication. The intensity of her outbursts is softer today. She is to markedly confused and disorganized. For now continue treatment Review of Systems Except as stated in HPI: all other systems reviewed are Neg Objective Alert: Yes [place]: Person, Place Mood: Anxious Affect: Labile (remains fairly labile) Memory Intact: Comment (not formally assessed) Hallucinations: Other (internally preoccupied) Delusions: Yes Delusion Type: Paranoid (ongoing bizarre) Suicidal: Ideation (no SI) Homicidal: Ideation (no HI) Insight/Judgment Very poor Vitals/IOs Vital Signs Date Time Temp Pulse Resp B/P (MAP) Pulse Ox O2 Delivery O2 Flow Rate FiO2 12/01/16 05:35 97.1 89 17 145/68 (93) 11/30/16 18:11 100 Assessment & Plan Problem List: (1) Schizoaffective disorder, bipolar type ICD Codes: F25.0 - Schizoaffective disorder, bipolar type Assessment & Plan Estimated LOS: days patient is psychotic and delusional with intensity somewhat softened, compliant medication Justification for Cont. Inpt. At this time patient decompensate placed on lower level of care Discharge Planning To be determined Ezequiel Grayson MD Dec 01, 2016 11:43
[2016-12-01 17:10] VITALS: BP 120/72; PULSE 102; RESP 17; TEMP 97.7; O2SAT 93
[2016-12-01] MEDS: LORazepam 1 MG TAB PO PRN (22:04)
[2016-12-01] MEDS: diphenhydrAMINE HCL 50 MG CAP PO PRN (22:04)
[2016-12-01] MEDS: AMITRIPTYLINE HCL 100 MG TAB PO SCH (22:04)
[2016-12-01] MEDS: QUEtiapine FUMARATE 200 MG TAB PO SCH (22:05)
[2016-12-02] MEDS: LEVOTHYROXINE SODIUM 100 MCG TAB PO SCH (05:54)
[2016-12-02 06:23] VITALS: BP 140/77; PULSE 85; RESP 16; TEMP 97.7; O2SAT 97
[2016-12-02] MEDS: HALOPERIDOL 10 MG TAB PO SCH ×3 (08:00→20:45)
[2016-12-02] MEDS: cloZAPine 100 MG TAB PO SCH ×2 (09:00→20:46)
[2016-12-02] MEDS: CALCIUM/VITAMIN D 250 MG/125 U TAB PO SCH ×2 (09:00→20:44)
[2016-12-02] MEDS: POLYETHYLENE GLYCOL 17 GM PKG PO SCH (09:00)
[2016-12-02] MEDS: BENZTROPINE MESYLATE 1 MG TAB PO SCH ×2 (09:00→20:46)
[2016-12-02] MEDS: PHENYTOIN SODIUM 100 MG CAP PO SCH ×3 (09:00→18:00)
[2016-12-02] MEDS: PANTOPRAZOLE SOD 40 MG DELAYED RELEASE TAB PO SCH (09:00)
[2016-12-02] MEDS: cloZAPine 25 MG TAB PO SCH (09:00)
[2016-12-02] MEDS: VALPROIC ACID SYRUP 250 MG/5 ML UDC PO SCH ×2 (09:00→20:47)
[2016-12-02 18:27] VITALS: BP 122/68; PULSE 84; RESP 17; TEMP 97.3; O2SAT 99
[2016-12-02] MEDS: diphenhydrAMINE HCL 50 MG CAP PO PRN (20:45)
[2016-12-02] MEDS: AMITRIPTYLINE HCL 100 MG TAB PO SCH (20:45)
[2016-12-02] MEDS: QUEtiapine FUMARATE 200 MG TAB PO SCH (20:45)
[2016-12-03 06:00] VITALS: BP 139/66; PULSE 83; RESP 18; TEMP 98; O2SAT 95
[2016-12-03] MEDS: LEVOTHYROXINE SODIUM 100 MCG TAB PO SCH (06:28)
[2016-12-03] MEDS: POLYETHYLENE GLYCOL 17 GM PKG PO SCH (09:00)
[2016-12-03] MEDS: VALPROIC ACID SYRUP 250 MG/5 ML UDC PO SCH ×2 (10:45→20:44)
[2016-12-03] MEDS: BENZTROPINE MESYLATE 1 MG TAB PO SCH ×2 (10:45→20:44)
[2016-12-03] MEDS: PANTOPRAZOLE SOD 40 MG DELAYED RELEASE TAB PO SCH (10:45)
[2016-12-03] MEDS: CALCIUM/VITAMIN D 250 MG/125 U TAB PO SCH ×2 (10:45→20:45)
[2016-12-03] MEDS: cloZAPine 25 MG TAB PO SCH (10:47)
[2016-12-03] MEDS: cloZAPine 100 MG TAB PO SCH ×2 (10:47→20:44)
[2016-12-03] MEDS: PHENYTOIN SODIUM 100 MG CAP PO SCH ×3 (10:48→18:32)
[2016-12-03] MEDS: HALOPERIDOL 10 MG TAB PO SCH ×3 (10:49→18:32)
--- NOTE | 2016-12-03 14:09 | HHI.PYPN ---
Subjective Remarks Patient was seen and case discussed with nursing. Patient remains labile and disorganized. She started the interview by taking all of her sheets and in throwing them in the floor crying. Continues to be upset about her son Yash that . Thought process is loose, has difficulty following conversation. Compliant with medications Objective Alert: Yes [place]: Person, Place Mood: Anxious Affect: Blunted Memory Intact: Comment (not formally assessed) Hallucinations: Other (internally preoccupied) Delusions: Yes Delusion Type: Paranoid (ongoing bizarre) Suicidal: Ideation (no SI) Homicidal: Ideation (no HI) Insight/Judgment Poor Vitals/IOs Vital Signs Date Time Temp Pulse Resp B/P (MAP) Pulse Ox O2 Delivery O2 Flow Rate FiO2 12/03/16 06:00 98.0 83 18 139/66 (90) 95 Intake and Output 12/03/16 12/03/16 12/04/16 08:00 16:00 00:00 Intake Total 480 ml Balance 480 ml Assessment & Plan Problem List: (1) Schizoaffective disorder, bipolar type ICD Codes: F25.0 - Schizoaffective disorder, bipolar type Assessment & Plan Continue current treatment plan Justification for Cont. Inpt. Patient will decompensate in a less restrictive setting Cuaet Flynn DO Dec 03, 2016 14:09
[2016-12-03] MEDS: QUEtiapine FUMARATE 200 MG TAB PO SCH (20:44)
[2016-12-03] MEDS: diphenhydrAMINE HCL 50 MG CAP PO PRN (20:44)
[2016-12-03] MEDS: AMITRIPTYLINE HCL 100 MG TAB PO SCH (20:45)
[2016-12-04 05:34] VITALS: BP 118/58; PULSE 84; RESP 18; TEMP 97.2; O2SAT 95
[2016-12-04 06:00] VITALS: RESP 18; TEMP 98
[2016-12-04] MEDS: LEVOTHYROXINE SODIUM 100 MCG TAB PO SCH (06:15)
[2016-12-04] MEDS: POLYETHYLENE GLYCOL 17 GM PKG PO SCH (08:51)
[2016-12-04] MEDS: CALCIUM/VITAMIN D 250 MG/125 U TAB PO SCH ×2 (08:52→20:56)
[2016-12-04] MEDS: cloZAPine 100 MG TAB PO SCH ×2 (08:52→20:55)
[2016-12-04] MEDS: HALOPERIDOL 10 MG TAB PO SCH ×3 (08:53→20:12)
[2016-12-04] MEDS: VALPROIC ACID SYRUP 250 MG/5 ML UDC PO SCH ×2 (08:53→20:55)
[2016-12-04] MEDS: PANTOPRAZOLE SOD 40 MG DELAYED RELEASE TAB PO SCH (08:53)
[2016-12-04] MEDS: PHENYTOIN SODIUM 100 MG CAP PO SCH ×3 (08:53→17:30)
[2016-12-04] MEDS: cloZAPine 25 MG TAB PO SCH (08:53)
[2016-12-04] MEDS: BENZTROPINE MESYLATE 1 MG TAB PO SCH ×2 (08:53→20:55)
[2016-12-04] MEDS: SODIUM CHLORIDE 0.65% NASAL SPRAY 45 ML BTL EACH NARE PRN (09:06)
--- NOTE | 2016-12-04 12:22 | HHI.PYPN ---
Subjective Remarks Patient was seen and case discussed with nursing. Patient is pleasant and cooperative with exam. Appears less confused today. However, remains grossly disorganized with poor insight into her admission. No verbal or physical outbursts today has not needed an ETO. Tolerating medications well Objective Alert: Yes [place]: Person, Place Mood: Anxious Affect: Restricted Memory Intact: Comment (not formally assessed) Hallucinations: Other (internally preoccupied) Delusions: Yes Delusion Type: Paranoid (ongoing bizarre) Suicidal: Ideation (no SI) Homicidal: Ideation (no HI) Insight/Judgment Poor Vitals/IOs Vital Signs Date Time Temp Pulse Resp B/P (MAP) Pulse Ox O2 Delivery O2 Flow Rate FiO2 12/04/16 05:34 97.2 84 18 118/58 (78) 95 Intake and Output 12/04/16 12/04/16 12/05/16 08:00 16:00 00:00 Intake Total 120 ml Balance 120 ml Assessment & Plan Problem List: (1) Schizoaffective disorder, bipolar type ICD Codes: F25.0 - Schizoaffective disorder, bipolar type Assessment & Plan Continue current treatment plan Justification for Cont. Inpt. Patient would decompensate in a less restrictive setting Cuate Flynn DO Dec 04, 2016 12:22
[2016-12-04] MEDS: LORazepam 1 MG TAB PO PRN (17:30)
[2016-12-04] MEDS: ALUMINUM/MAGNESIUM/SIMETH 30 ML CUP PO PRN (17:49)
[2016-12-04] MEDS: AMITRIPTYLINE HCL 100 MG TAB PO SCH (20:55)
[2016-12-04] MEDS: QUEtiapine FUMARATE 200 MG TAB PO SCH (20:55)
[2016-12-05 06:04] VITALS: BP 147/66; PULSE 89; RESP 18; TEMP 98.4; O2SAT 97
[2016-12-05] MEDS: LEVOTHYROXINE SODIUM 100 MCG TAB PO SCH (06:09)
[2016-12-05] MEDS: CALCIUM/VITAMIN D 250 MG/125 U TAB PO SCH ×2 (09:00→20:46)
[2016-12-05] MEDS: cloZAPine 100 MG TAB PO SCH ×2 (09:00→20:46)
[2016-12-05] MEDS: PHENYTOIN SODIUM 100 MG CAP PO SCH ×3 (09:00→18:35)
[2016-12-05] MEDS: BENZTROPINE MESYLATE 1 MG TAB PO SCH ×2 (09:00→20:45)
[2016-12-05] MEDS: PANTOPRAZOLE SOD 40 MG DELAYED RELEASE TAB PO SCH (09:00)
[2016-12-05] MEDS: cloZAPine 25 MG TAB PO SCH (09:00)
[2016-12-05] MEDS: HALOPERIDOL 10 MG TAB PO SCH ×3 (09:03→20:13)
[2016-12-05] MEDS: POLYETHYLENE GLYCOL 17 GM PKG PO SCH (09:03)
[2016-12-05] MEDS: VALPROIC ACID SYRUP 250 MG/5 ML UDC PO SCH ×2 (09:04→20:45)
--- NOTE | 2016-12-05 12:21 | HHI.PYPN ---
Subjective Remarks Patient seen and examined with nurse in coverage for Dr. Grayson. Chart reviewed. Case discussed with treatment team. Counselor notes that the patient has been going into male peers' rooms. No sexual acting out has been noted. On my exam, patient is calm. She remains quite disorganized. No side effects from medications. No physical complaints. Review of Systems ROS Limitations: Poor Historian Except as stated in HPI: all other systems reviewed are Neg Objective Alert: Yes [place]: Person, Place Mood: Calm Affect: Flat Memory Intact: Comment (not formally assessed) Hallucinations: Other (remains internally stimulated) Delusions: Yes Delusion Type: Paranoid (bizarre) Suicidal: Ideation (no SI) Homicidal: Ideation (no HI) Insight/Judgment Poor Remarks No motor abnormalities noted Labs Labs reviewed. Vitals/IOs Vital Signs Date Time Temp Pulse Resp B/P (MAP) Pulse Ox O2 Delivery O2 Flow Rate FiO2 12/05/16 06:04 98.4 89 18 147/66 (93) 97 Intake and Output 12/05/16 12/05/16 12/06/16 08:00 16:00 00:00 Intake Total 0 ml Balance 0 ml Assessment & Plan Problem List: (1) Schizoaffective disorder, bipolar type ICD Codes: F25.0 - Schizoaffective disorder, bipolar type Assessment & Plan Patient to remain in line of sight of staff when not sleeping in light of behavior observed by counselor. Continue current psychotropics as ordered. Continue to monitor on the geropsychiatric unit. Continue other medications and care as ordered. Justification for Cont. Inpt. Impairment in social function. Risk for decompensation in less restrictive environment. [facility] Case discussed with counselor. Christian Waite MD Dec 05, 2016 12:21
--- NOTE | 2016-12-05 13:25 | PD.TTN ---
Patient Problems 1. Discharge planning 2. Medication compliance 3. Knowledge deficit 4. Lack of coping skills Progress Toward Goals Provider Present: Dr. Erickson Waite Provider Input: changed meds 12/05/16 Dr. Waite's treatment team met to discuss treatment plan, discharge, and medication. Patient continues to be labile, and confused. Nurse(s) Input: no change continues labile 12/05/16 Patient's nurse Zarina RN has been labile as usual. She is redirectable. She slept well Psych Therapist Input: still referred [facility] can consider taking back 12/05/16 Patient presents restless, cooperative but constricted, intrusive, hyperverbal, childlike, dependent affect labile. Patient presents with delusional content along with being internally stimulated. Patient is eating, sleeping and is medication compliant. Patient's speech is clear, disorganized with pressure. Patient makes good eye contact. 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 Patient is not able to give, date/time, place or have insight into her situation. Patient is alert to person only. [facility] Group Spec/RT/OT/SANTIAGO Present: PAMELA Doll Group Spec/RT/OT/SANTIAGO Input: 12/05/16 Patient attends groups when she is able to tolerate it. Patient often hyperverbal, and aggressive Occupational Therapist Input: Pt attends groups needs constant redirection labile guarded Other Clinican Input: Ana reported the patient is participating in recreational groups and activities. Documentation Scribe: Carlie Patel [facility] Date Resolved: Oct 16, 2016 Ema Welsh [facility] Dec 05, 2016 13:25
[2016-12-05 18:49] VITALS: BP 147/71; PULSE 107; RESP 17; TEMP 99.2; O2SAT 99
[2016-12-05] MEDS: QUEtiapine FUMARATE 200 MG TAB PO SCH (20:45)
[2016-12-05] MEDS: AMITRIPTYLINE HCL 100 MG TAB PO SCH (20:46)
[2016-12-05] MEDS: diphenhydrAMINE HCL 50 MG CAP PO PRN (20:46)
[2016-12-06] MEDS: LORazepam 1 MG TAB PO PRN ×2 (01:02→10:23)
[2016-12-06] MEDS: SODIUM CHLORIDE 0.65% NASAL SPRAY 45 ML BTL EACH NARE PRN (05:05)
[2016-12-06] MEDS: LEVOTHYROXINE SODIUM 100 MCG TAB PO SCH (05:05)
[2016-12-06 06:05] VITALS: BP 145/84; PULSE 87; RESP 18; TEMP 97.2; O2SAT 99
[2016-12-06 06:49] VITALS: BP 128/65
[2016-12-06] MEDS: POLYETHYLENE GLYCOL 17 GM PKG PO SCH (09:01)
[2016-12-06] MEDS: VALPROIC ACID SYRUP 250 MG/5 ML UDC PO SCH ×2 (09:02→20:45)
[2016-12-06] MEDS: HALOPERIDOL 10 MG TAB PO SCH ×3 (09:03→20:42)
[2016-12-06] MEDS: PHENYTOIN SODIUM 100 MG CAP PO SCH ×3 (09:03→17:59)
[2016-12-06] MEDS: PANTOPRAZOLE SOD 40 MG DELAYED RELEASE TAB PO SCH (09:03)
[2016-12-06] MEDS: cloZAPine 25 MG TAB PO SCH (09:03)
[2016-12-06] MEDS: cloZAPine 100 MG TAB PO SCH ×2 (09:04→20:44)
[2016-12-06] MEDS: CALCIUM/VITAMIN D 250 MG/125 U TAB PO SCH ×2 (09:04→20:43)
[2016-12-06] MEDS: BENZTROPINE MESYLATE 1 MG TAB PO SCH ×2 (09:04→20:44)
[2016-12-06 16:45] VITALS: BP 101/55; PULSE 86; RESP 18; TEMP 98.3; O2SAT 95
--- NOTE | 2016-12-06 16:53 | HHI.PYPN ---
Subjective Remarks Patient seen for follow-up, chart reviewed. Patient found in the hallway screaming at us he staff and agitated as well as attempting to bang on glass of the nurse station. Patient had to be redirected back to her room and provided with lorazepam as a when necessary to help calm and relax her. Patient was able to take medication and urination back to her bed which she ends up falling asleep. After discussion with nursing staff patient occasionally has behavioral outbursts but is normally redirectable. Review of Systems Except as stated in HPI: all other systems reviewed are Neg Objective Alert: Yes [place]: Person, Place Mood: Agitated Affect: Other (congruent with mood) Memory Intact: Comment (not formally assessed) Hallucinations: Other (remains internally stimulated) Delusions: Yes Delusion Type: Paranoid (bizarre) Suicidal: Ideation (no SI) Homicidal: Ideation (no HI) Insight/Judgment Poor insight, impulse control and judgment Vitals/IOs Vital Signs Date Time Temp Pulse Resp B/P (MAP) Pulse Ox O2 Delivery O2 Flow Rate FiO2 12/06/16 06:49 128/65 (86) 12/06/16 06:05 97.2 87 18 99 Intake and Output 12/06/16 12/06/16 12/07/16 08:00 16:00 00:00 Intake Total 360 ml 720 ml Balance 360 ml 720 ml Assessment & Plan Problem List: (1) Schizoaffective disorder, bipolar type ICD Codes: F25.0 - Schizoaffective disorder, bipolar type Assessment & Plan Patient continues to have occasional verbal outbursts and requiring constant redirection during these episodes but at times requiring when necessary medication which she received earlier today. Patient appeared to have responded to medication and was found later asleep on her bed. Patient to continue current treatment for now I will continue to require redirection during his occasional outbursts. Discharge planning in progress patient continues to [facility] Justification for Cont. Inpt. Patient at risk for further decompensation if at a lower level of care Agustín Serna MD Dec 06, 2016 16:53
[2016-12-06] MEDS: QUEtiapine FUMARATE 200 MG TAB PO SCH (20:43)
[2016-12-06] MEDS: diphenhydrAMINE HCL 50 MG CAP PO PRN (20:43)
[2016-12-06] MEDS: AMITRIPTYLINE HCL 100 MG TAB PO SCH (20:44)
[2016-12-07 06:19] VITALS: BP 108/58; PULSE 84; RESP 17; TEMP 97.3; O2SAT 95
[2016-12-07] MEDS: LEVOTHYROXINE SODIUM 100 MCG TAB PO SCH (06:33)
[2016-12-07] MEDS: POLYETHYLENE GLYCOL 17 GM PKG PO SCH (09:00)
[2016-12-07] MEDS: CALCIUM/VITAMIN D 250 MG/125 U TAB PO SCH ×2 (09:56→21:49)
[2016-12-07] MEDS: cloZAPine 100 MG TAB PO SCH ×2 (09:56→21:48)
[2016-12-07] MEDS: PHENYTOIN SODIUM 100 MG CAP PO SCH ×3 (09:56→18:32)
[2016-12-07] MEDS: HALOPERIDOL 10 MG TAB PO SCH ×3 (09:57→21:47)
[2016-12-07] MEDS: PANTOPRAZOLE SOD 40 MG DELAYED RELEASE TAB PO SCH (09:57)
[2016-12-07] MEDS: BENZTROPINE MESYLATE 1 MG TAB PO SCH ×2 (09:57→21:47)
[2016-12-07] MEDS: cloZAPine 25 MG TAB PO SCH (09:57)
[2016-12-07] MEDS: VALPROIC ACID SYRUP 250 MG/5 ML UDC PO SCH ×2 (09:57→21:50)
[2016-12-07] MEDS: SODIUM CHLORIDE 0.65% NASAL SPRAY 45 ML BTL EACH NARE PRN (10:00)
[2016-12-07] MEDS: LORazepam 1 MG TAB PO PRN (15:07)
--- NOTE | 2016-12-07 18:22 | HHI.PYPN ---
Subjective Remarks Patient seen for follow up; chart reviewed. Patient found walking on the unit, calm and cooperative. Patient noted to be pleasant and engaging in interview. She states feeing "pretty good". She mentions that she was waiting for "Juan José the nurse" last night. Patient states feeling better being here, continues to endorse AH and noted to be tangiential during interview. Review of Systems Except as stated in HPI: all other systems reviewed are Neg Objective Alert: Yes [place]: Person, Place Mood: Calm Affect: Appropriate, Other (congruent with mood) Memory Intact: Comment (not formally assessed) Hallucinations: Other (remains internally stimulated) Delusions: Yes Delusion Type: Paranoid (bizarre) Suicidal: Ideation (no SI) Homicidal: Ideation (no HI) Insight/Judgment poor insight, limited impulse control and judgment Vitals/IOs Vital Signs Date Time Temp Pulse Resp B/P (MAP) Pulse Ox O2 Delivery O2 Flow Rate FiO2 12/07/16 06:19 97.3 84 17 108/58 (75) 95 Assessment & Plan Problem List: (1) Schizoaffective disorder, bipolar type ICD Codes: F25.0 - Schizoaffective disorder, bipolar type Assessment & Plan Patient continues to have AH with no episodes of agitation since yesterday. Continue current treatment. Discharge planning in progress. Patient continues to wait for [facility] Justification for Cont. Inpt. At risk for further decompensation if at lower level of care. Agustín Serna MD Dec 07, 2016 18:22
[2016-12-07] MEDS: QUEtiapine FUMARATE 200 MG TAB PO SCH (21:47)
[2016-12-07] MEDS: AMITRIPTYLINE HCL 100 MG TAB PO SCH (21:48)
[2016-12-07] MEDS: diphenhydrAMINE HCL 50 MG CAP PO PRN (21:48)
[2016-12-08] MEDS: LEVOTHYROXINE SODIUM 100 MCG TAB PO SCH (06:21)
[2016-12-08] MEDS: VALPROIC ACID SYRUP 250 MG/5 ML UDC PO SCH ×2 (09:26→21:46)
[2016-12-08] MEDS: HALOPERIDOL 10 MG TAB PO SCH ×3 (09:26→20:55)
[2016-12-08] MEDS: cloZAPine 100 MG TAB PO SCH ×2 (09:26→21:45)
[2016-12-08] MEDS: PANTOPRAZOLE SOD 40 MG DELAYED RELEASE TAB PO SCH (09:27)
[2016-12-08] MEDS: POLYETHYLENE GLYCOL 17 GM PKG PO SCH (09:27)
[2016-12-08] MEDS: BENZTROPINE MESYLATE 1 MG TAB PO SCH ×2 (09:27→21:45)
[2016-12-08] MEDS: CALCIUM/VITAMIN D 250 MG/125 U TAB PO SCH ×2 (09:40→21:45)
[2016-12-08] MEDS: PHENYTOIN SODIUM 100 MG CAP PO SCH ×3 (09:41→17:19)
[2016-12-08] MEDS: cloZAPine 25 MG TAB PO SCH (09:41)
--- NOTE | 2016-12-08 14:27 | HHI.PYPN ---
Subjective Remarks Patient seen for follow up; chart reviewed. Patient had verbal outburst earlier this morning and upon interview later in the day states not recalling the event. Patient was redirectable at that time. She is pleasant and cooperative during interview. She states that some people are trying to kill her and "afraid of [place]". Noted to be tangential at times. Review of Systems Except as stated in HPI: all other systems reviewed are Neg Objective Alert: Yes [place]: Person, Place Mood: Calm Affect: Appropriate, Other (congruent with mood) Memory Intact: Comment (not formally assessed) Hallucinations: Other (remains internally stimulated) Delusions: Yes Delusion Type: Paranoid (bizarre) Suicidal: Ideation (no SI) Homicidal: Ideation (no HI) Insight/Judgment poor insight, impulse control and judgement Vitals/IOs Vital Signs Date Time Temp Pulse Resp B/P (MAP) Pulse Ox O2 Delivery O2 Flow Rate FiO2 12/07/16 06:19 97.3 84 17 108/58 (75) 95 Intake and Output 12/08/16 12/08/16 12/09/16 08:00 16:00 00:00 Intake Total 240 ml Balance 240 ml Assessment & Plan Problem List: (1) Schizoaffective disorder, bipolar type ICD Codes: F25.0 - Schizoaffective disorder, bipolar type Assessment & Plan Patient continues to be paranoid, has occasional outbursts but redirectable. Continue current treatment. Discharge planning in progress. Justification for Cont. Inpt. At risk for further decompensation if at lower level of care. Agustín Serna MD Dec 08, 2016 14:27
[2016-12-08] MEDS: LORazepam 1 MG TAB PO PRN (20:54)
[2016-12-08] MEDS: AMITRIPTYLINE HCL 100 MG TAB PO SCH (21:45)
[2016-12-08] MEDS: diphenhydrAMINE HCL 50 MG CAP PO PRN (21:45)
[2016-12-08] MEDS: QUEtiapine FUMARATE 200 MG TAB PO SCH (21:45)
[2016-12-09] MEDS: LEVOTHYROXINE SODIUM 100 MCG TAB PO SCH (06:02)
[2016-12-09 06:19] VITALS: BP 118/63; PULSE 91; RESP 18; TEMP 98; O2SAT 95
[2016-12-09] MEDS: ALUMINUM/MAGNESIUM/SIMETH 30 ML CUP PO PRN (08:49)
[2016-12-09] MEDS: PANTOPRAZOLE SOD 40 MG DELAYED RELEASE TAB PO SCH (08:50)
[2016-12-09] MEDS: CALCIUM/VITAMIN D 250 MG/125 U TAB PO SCH ×2 (08:50→21:32)
[2016-12-09] MEDS: HALOPERIDOL 10 MG TAB PO SCH ×3 (08:50→21:46)
[2016-12-09] MEDS: PHENYTOIN SODIUM 100 MG CAP PO SCH ×3 (08:51→18:11)
[2016-12-09] MEDS: BENZTROPINE MESYLATE 1 MG TAB PO SCH ×2 (08:51→21:45)
[2016-12-09] MEDS: cloZAPine 100 MG TAB PO SCH ×2 (08:51→21:32)
[2016-12-09] MEDS: cloZAPine 25 MG TAB PO SCH (08:51)
[2016-12-09] MEDS: VALPROIC ACID SYRUP 250 MG/5 ML UDC PO SCH ×2 (08:52→21:00)
[2016-12-09] MEDS: POLYETHYLENE GLYCOL 17 GM PKG PO SCH (08:57)
--- NOTE | 2016-12-09 17:09 | HHI.PYPN ---
Subjective Remarks Pt seen and discussed with staff. She remains intrusive and disorganized. She is paranoid and suspicious. She is compliant with medications and tolerating them without side effects. Objective Alert: Yes [place]: Person, Place Mood: Calm Affect: Appropriate, Other (congruent with mood) Memory Intact: Comment (not formally assessed) Hallucinations: Other (remains internally stimulated) Delusions: Yes Delusion Type: Paranoid (bizarre) Suicidal: Ideation (no SI) Homicidal: Ideation (no HI) Insight/Judgment poor Vitals/IOs Vital Signs Date Time Temp Pulse Resp B/P (MAP) Pulse Ox O2 Delivery O2 Flow Rate FiO2 12/09/16 06:19 98.0 91 18 118/63 (81) 95 Intake and Output 12/09/16 12/09/16 12/10/16 08:00 16:00 00:00 Intake Total 120 ml Balance 120 ml Assessment & Plan Problem List: (1) Schizoaffective disorder, bipolar type ICD Codes: F25.0 - Schizoaffective disorder, bipolar type Assessment & Plan Continue current tx plan. Estimated LOS: days Justification for Cont. Inpt. psychosis Marina Kessler MD Dec 09, 2016 17:08
[2016-12-09 18:00] VITALS: BP 136/68; PULSE 99; RESP 18; TEMP 98; O2SAT 99
[2016-12-09] MEDS: AMITRIPTYLINE HCL 100 MG TAB PO SCH (21:32)
[2016-12-09] MEDS: diphenhydrAMINE HCL 50 MG CAP PO PRN (21:32)
[2016-12-09] MEDS: QUEtiapine FUMARATE 200 MG TAB PO SCH (21:32)
[2016-12-10] MEDS: LEVOTHYROXINE SODIUM 100 MCG TAB PO SCH (05:45)
[2016-12-10] MEDS: POLYETHYLENE GLYCOL 17 GM PKG PO SCH (09:00)
[2016-12-10] MEDS: VALPROIC ACID SYRUP 250 MG/5 ML UDC PO SCH ×2 (09:55→20:46)
[2016-12-10] MEDS: PHENYTOIN SODIUM 100 MG CAP PO SCH ×3 (09:56→18:38)
[2016-12-10] MEDS: cloZAPine 25 MG TAB PO SCH (09:56)
[2016-12-10] MEDS: CALCIUM/VITAMIN D 250 MG/125 U TAB PO SCH ×2 (09:57→20:46)
[2016-12-10] MEDS: cloZAPine 100 MG TAB PO SCH ×2 (09:58→20:46)
[2016-12-10] MEDS: BENZTROPINE MESYLATE 1 MG TAB PO SCH ×2 (09:58→20:54)
[2016-12-10] MEDS: PANTOPRAZOLE SOD 40 MG DELAYED RELEASE TAB PO SCH (09:58)
[2016-12-10] MEDS: HALOPERIDOL 10 MG TAB PO SCH ×3 (10:00→20:45)
--- NOTE | 2016-12-10 11:21 | HHI.PYPN ---
Subjective Remarks Pt seen and discussed with staff. She is intrusive and labile but did not require any prn agitation medications or ETOs yesterday. She remains paranoid and accuses RN of trying to kill her and told another RN that she would by friction tonight. She is able to deescalate with staff intervention. No SI/HI Objective Alert: Yes [place]: Person, Place Mood: Anxious Affect: Labile, Other (congruent with mood) Memory Intact: Comment (not formally assessed) Hallucinations: Other (remains internally stimulated) Delusions: Yes Delusion Type: Paranoid (bizarre) Suicidal: Ideation (no SI) Homicidal: Ideation (no HI) Insight/Judgment poor Vitals/IOs Vital Signs Date Time Temp Pulse Resp B/P (MAP) Pulse Ox O2 Delivery O2 Flow Rate FiO2 12/09/16 18:00 98.0 99 18 136/68 (90) 99 Intake and Output 12/10/16 12/10/16 12/11/16 08:00 16:00 00:00 Intake Total 0 ml Balance 0 ml Assessment & Plan Problem List: (1) Schizoaffective disorder, bipolar type ICD Codes: F25.0 - Schizoaffective disorder, bipolar type Assessment & Plan Continue current tx plan. State referral. Estimated LOS: days Justification for Cont. Inpt. impairments in reality testing and social functioning Marina Kessler MD Dec 10, 2016 11:21
[2016-12-10] MEDS: LORazepam 1 MG TAB PO PRN (16:03)
[2016-12-10] MEDS: AMITRIPTYLINE HCL 100 MG TAB PO SCH (20:45)
[2016-12-10] MEDS: QUEtiapine FUMARATE 200 MG TAB PO SCH (20:45)
[2016-12-11] MEDS: LEVOTHYROXINE SODIUM 100 MCG TAB PO SCH (06:11)
[2016-12-11 07:10] VITALS: BP 110/56; PULSE 84; RESP 16; TEMP 97.8
[2016-12-11] MEDS: cloZAPine 100 MG TAB PO SCH ×2 (08:42→21:00)
[2016-12-11] MEDS: POLYETHYLENE GLYCOL 17 GM PKG PO SCH (08:43)
[2016-12-11] MEDS: cloZAPine 25 MG TAB PO SCH (08:43)
[2016-12-11] MEDS: VALPROIC ACID SYRUP 250 MG/5 ML UDC PO SCH ×2 (08:43→21:00)
[2016-12-11] MEDS: BENZTROPINE MESYLATE 1 MG TAB PO SCH ×2 (08:43→21:00)
[2016-12-11] MEDS: PANTOPRAZOLE SOD 40 MG DELAYED RELEASE TAB PO SCH (08:44)
[2016-12-11] MEDS: PHENYTOIN SODIUM 100 MG CAP PO SCH ×3 (08:44→17:41)
[2016-12-11] MEDS: CALCIUM/VITAMIN D 250 MG/125 U TAB PO SCH ×2 (08:44→21:00)
[2016-12-11] MEDS: HALOPERIDOL 10 MG TAB PO SCH ×3 (08:47→20:00)
--- NOTE | 2016-12-11 17:21 | HHI.PYPN ---
Subjective Remarks Patient seen for follow-up, chart reviewed. Patient earlier in the morning was noted to be upset and required re-direction as she was upset of not having shoes that were her size. Patient was interviewed later and stated that she would like some shoes that fit her. She was noted to be calm and cooperative, denies any physical complaints but continues with paranoia. Review of Systems Except as stated in HPI: all other systems reviewed are Neg Objective Alert: Yes [place]: Person, Place Mood: Calm Affect: Labile, Other (congruent with mood) Memory Intact: Comment (not formally assessed) Hallucinations: Other (remains internally stimulated) Delusions: Yes Delusion Type: Paranoid (bizarre) Suicidal: Ideation (no SI) Homicidal: Ideation (no HI) Insight/Judgment poor insight, impulse control and judgment Vitals/IOs Vital Signs Date Time Temp Pulse Resp B/P (MAP) Pulse Ox O2 Delivery O2 Flow Rate FiO2 12/11/16 07:10 97.8 84 16 110/56 (74) 12/09/16 18:00 99 Intake and Output 12/11/16 12/11/16 12/12/16 08:00 16:00 00:00 Intake Total 240 ml 120 ml Balance 240 ml 120 ml Assessment & Plan Problem List: (1) Schizoaffective disorder, bipolar type ICD Codes: F25.0 - Schizoaffective disorder, bipolar type Assessment & Plan Patient continues to be intrusive at times and requires re-direction but has not been aggressive. Patient also continues to internal preoccupation and paranoia. Continue current treatment. Patient [facility]. Discharge planning in progress. Justification for Cont. Inpt. At risk for further decompensation if at lower level of care. Agustín Serna MD Dec 11, 2016 17:21
[2016-12-11 17:22] VITALS: BP 115/58; PULSE 97; RESP 18; TEMP 98; O2SAT 97
[2016-12-11] MEDS: QUEtiapine FUMARATE 200 MG TAB PO SCH (21:00)
[2016-12-11] MEDS: AMITRIPTYLINE HCL 100 MG TAB PO SCH (21:00)
[2016-12-11] MEDS: diphenhydrAMINE HCL 50 MG CAP PO PRN (21:00)
[2016-12-11] MEDS: LORazepam 1 MG TAB PO PRN (21:00)
[2016-12-12 06:00] VITALS: BP 147/80; PULSE 84; RESP 18; TEMP 97.3; O2SAT 96
[2016-12-12] MEDS: LEVOTHYROXINE SODIUM 100 MCG TAB PO SCH (06:00)
[2016-12-12] MEDS: HALOPERIDOL 10 MG TAB PO SCH ×3 (06:57→21:40)
[2016-12-12] MEDS: CALCIUM/VITAMIN D 250 MG/125 U TAB PO SCH ×2 (09:00→21:36)
[2016-12-12] MEDS: cloZAPine 100 MG TAB PO SCH ×2 (09:24→21:37)
[2016-12-12] MEDS: VALPROIC ACID SYRUP 250 MG/5 ML UDC PO SCH ×2 (09:24→21:37)
[2016-12-12] MEDS: cloZAPine 25 MG TAB PO SCH (09:24)
[2016-12-12] MEDS: BENZTROPINE MESYLATE 1 MG TAB PO SCH ×2 (09:25→21:37)
[2016-12-12] MEDS: LORazepam 1 MG TAB PO PRN (09:25)
[2016-12-12] MEDS: POLYETHYLENE GLYCOL 17 GM PKG PO SCH (09:25)
[2016-12-12] MEDS: PHENYTOIN SODIUM 100 MG CAP PO SCH ×3 (09:25→17:32)
[2016-12-12] MEDS: PANTOPRAZOLE SOD 40 MG DELAYED RELEASE TAB PO SCH (09:25)
--- NOTE | 2016-12-12 16:22 | HHI.PYPN ---
Subjective Remarks Patient seen for follow-up, chart reviewed. Patient found in the hallway taking her daily medications with nurse. She states feeling upset that she has not been given shoes. She is noted to somewhat confused with flight of ideas. Patient reports feeling "fine" denies any physical complaints, tolerating medications well. Review of Systems Except as stated in HPI: all other systems reviewed are Neg Objective Alert: Yes [place]: Person, Place Mood: Calm Affect: Other (congruent with mood) Memory Intact: Comment (not formally assessed) Hallucinations: Other (remains internally stimulated) Delusions: Yes Delusion Type: Paranoid (bizarre) Suicidal: Ideation (no SI) Homicidal: Ideation (no HI) Insight/Judgment poor insight, impulse control and judgment Vitals/IOs Vital Signs Date Time Temp Pulse Resp B/P (MAP) Pulse Ox O2 Delivery O2 Flow Rate FiO2 12/12/16 06:00 97.3 84 18 147/80 (102) 96 Intake and Output 12/12/16 12/12/16 12/13/16 08:00 16:00 00:00 Intake Total 240 ml Balance 240 ml Assessment & Plan Problem List: (1) Schizoaffective disorder, bipolar type ICD Codes: F25.0 - Schizoaffective disorder, bipolar type Assessment & Plan Patient with no recent behavioral dyscontrol, redirectible, cooperative with staff. Continue current treatment. Will continue to attempt to acquire shoes for patient. 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 Justification for Cont. Inpt. At risk for further decompensation if at lower level of care. Agustín Serna MD Dec 12, 2016 16:22
[2016-12-12 18:18] VITALS: BP 104/58; PULSE 63; RESP 18; TEMP 97.9; O2SAT 94
[2016-12-12] MEDS: AMITRIPTYLINE HCL 100 MG TAB PO SCH (21:37)
[2016-12-12] MEDS: QUEtiapine FUMARATE 200 MG TAB PO SCH (21:37)
[2016-12-13 04:00] VITALS: BP 113/66; PULSE 78; RESP 18; TEMP 98; O2SAT 96
[2016-12-13 07:05] VITALS: BP 135/72; PULSE 101; RESP 18; TEMP 97.5; O2SAT 95
[2016-12-13] MEDS: LEVOTHYROXINE SODIUM 100 MCG TAB PO SCH (07:09)
[2016-12-13] MEDS: VALPROIC ACID SYRUP 250 MG/5 ML UDC PO SCH ×2 (08:57→20:50)
[2016-12-13] MEDS: cloZAPine 25 MG TAB PO SCH (08:57)
[2016-12-13] MEDS: PHENYTOIN SODIUM 100 MG CAP PO SCH ×3 (08:58→18:21)
[2016-12-13] MEDS: CALCIUM/VITAMIN D 250 MG/125 U TAB PO SCH ×2 (08:58→20:51)
[2016-12-13] MEDS: PANTOPRAZOLE SOD 40 MG DELAYED RELEASE TAB PO SCH (08:58)
[2016-12-13] MEDS: HALOPERIDOL 10 MG TAB PO SCH ×3 (08:59→20:51)
[2016-12-13] MEDS: BENZTROPINE MESYLATE 1 MG TAB PO SCH ×2 (08:59→20:51)
[2016-12-13] MEDS: POLYETHYLENE GLYCOL 17 GM PKG PO SCH (08:59)
[2016-12-13] MEDS: cloZAPine 100 MG TAB PO SCH ×2 (08:59→20:50)
--- NOTE | 2016-12-13 15:28 | PD.TTN ---
Patient Problems 1. Discharge planning 2. Medication compliance 3. Knowledge deficit 4. Lack of coping skills Progress Toward Goals Provider Present: Dr. Erickson Waite, Dr. Margot Serna Provider Input: changed meds 12/05/16 Dr. Waite's treatment team met to discuss treatment plan, discharge, and medication. Patient continues to be labile, and confused. 12/12/16 Dr. Morales's treatment team met to discuss treatment plan, discharge, and medication. Patient continues to labile, confused and disorganized. Patient's treatment will remain the same. Nurse(s) Input: no change continues labile 12/05/16 Patient's nurse Zarina POTTER has been labile as usual. She is redirectable. She slept well Psychiatric Counselors Present: Ema Welsh [facility] Psych Therapist Input: still referred to [facility] if more stable facility / correction can consider taking back 12/05/16 Patient presents restless, cooperative but constricted, intrusive, hyperverbal, childlike, dependent affect labile. Patient presents with delusional content along with being internally stimulated. Patient is eating, sleeping and is medication compliant. Patient's speech is clear, disorganized with pressure. Patient makes good eye contact. 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 Patient is not able to give, date/time, place or have insight into her situation. Patient is alert to person only. [facility] 12/12/16 Patient presented childlike, cooperative but constricted, intrusive, dependent, affect labile. Patient continues to present with delusional content. Patient is paranoid and feels everyone does not like her. Patient made good eye contact. Patient's speech is clear, disorganized with pressure. Patient is medication compliant, eating and sleeping well. Patient is hypermotor agitated, restless. [facility] Group Spec/RT/OT/SANTIAGO Present: Theron Thomas OT, PAMELA Doll Group Spec/RT/OT/SANTIAGO Input: 12/05/16 Patient attends groups when she is able to tolerate it. Patient often hyperverbal, and aggressive 12/12/16 Patient can not tolerate groups. Occupational Therapist Input: Pt attends groups needs constant redirection labile guarded Other Clinican Input: Ana reported the patient is participating in recreational groups and activities. Documentation Scribe: Carlie Patel [facility] Date Resolved: Oct 16, 2016 Ema Welsh [facility] Dec 13, 2016 15:28
--- NOTE | 2016-12-13 15:52 | HHI.PYPN ---
Subjective Remarks Patient seen for follow-up, chart reviewed. Patient noted to be social with peers and staff. Patient states she had some difficulty with sleep last night as she mentions that her bed was not situated in the usual proximity to the wall. She reports that her toilet is not working but was assured and demonstrated that it was functional. She denies any other complaints, tolerating her medications well. Review of Systems Except as stated in HPI: all other systems reviewed are Neg Objective Alert: Yes [place]: Person, Place Mood: Calm Affect: Other (congruent with mood) Memory Intact: Comment (not formally assessed) Hallucinations: Other (remains internally stimulated) Delusions: Yes Delusion Type: Paranoid (bizarre) Suicidal: Ideation (no SI) Homicidal: Ideation (no HI) Insight/Judgment poor insight, impulse control and limited judgment Vitals/IOs Vital Signs Date Time Temp Pulse Resp B/P (MAP) Pulse Ox O2 Delivery O2 Flow Rate FiO2 12/13/16 07:05 97.5 101 18 135/72 (93) 95 Intake and Output 12/13/16 12/13/16 12/14/16 08:00 16:00 00:00 Intake Total 240 ml 1200 ml Balance 240 ml 1200 ml Assessment & Plan Problem List: (1) Schizoaffective disorder, bipolar type ICD Codes: F25.0 - Schizoaffective disorder, bipolar type Assessment & Plan Patient with no behavioral dyscontrol recently, is easily re-directable, continues to be intrusive at times with others. Continue current treatment. Patient awaiting transfer to [facility]. Discharge planning in progress. Will order CBC and VPA level. Justification for Cont. Inpt. At risk for further decompensation if at lower level of care. Agustín Serna MD Dec 13, 2016 15:52
[2016-12-13 18:35] VITALS: BP 139/80; PULSE 101; RESP 18; TEMP 98.4; O2SAT 95
[2016-12-13] MEDS: AMITRIPTYLINE HCL 100 MG TAB PO SCH (20:51)
[2016-12-13] MEDS: QUEtiapine FUMARATE 200 MG TAB PO SCH (20:51)
[2016-12-14] MEDS: LEVOTHYROXINE SODIUM 100 MCG TAB PO SCH (06:14)
[2016-12-14 06:39] VITALS: BP 150/83; PULSE 88; RESP 17; TEMP 97.4; O2SAT 94
[2016-12-14] MEDS: BENZTROPINE MESYLATE 1 MG TAB PO SCH ×2 (08:57→20:27)
[2016-12-14] MEDS: CALCIUM/VITAMIN D 250 MG/125 U TAB PO SCH ×2 (08:57→20:27)
[2016-12-14] MEDS: VALPROIC ACID SYRUP 250 MG/5 ML UDC PO SCH ×2 (08:57→20:27)
[2016-12-14] MEDS: cloZAPine 25 MG TAB PO SCH (08:57)
[2016-12-14] MEDS: cloZAPine 100 MG TAB PO SCH ×2 (08:57→20:27)
[2016-12-14] MEDS: PANTOPRAZOLE SOD 40 MG DELAYED RELEASE TAB PO SCH (08:57)
[2016-12-14] MEDS: POLYETHYLENE GLYCOL 17 GM PKG PO SCH (08:58)
[2016-12-14] MEDS: PHENYTOIN SODIUM 100 MG CAP PO SCH ×3 (08:58→17:38)
[2016-12-14] MEDS: HALOPERIDOL 10 MG TAB PO SCH ×3 (09:06→19:29)
[2016-12-14] MEDS: SODIUM CHLORIDE 0.65% NASAL SPRAY 45 ML BTL EACH NARE PRN (14:32)
--- NOTE | 2016-12-14 16:15 | HHI.PYPN ---
Subjective Remarks Patient seen for follow-up, chart reviewed. Patient found sleeping and was able to wake up briefly for interview. Patient states that she is feeling "tired " and did not want to continue interview. Discussion with nursing staff reported patient staying in her room mostly this morning, noted to be tired, denied any AH; medication compliant. Review of Systems Except as stated in HPI: all other systems reviewed are Neg Objective Alert: Yes [place]: Person, Place Mood: Other ("i'm tired") Affect: Other (congruent with mood) Memory Intact: Comment (not formally assessed) Hallucinations: Other (remains internally stimulated) Delusions: Yes Delusion Type: Paranoid (bizarre) Suicidal: Ideation (no SI) Homicidal: Ideation (no HI) Insight/Judgment Poor insight, limited impusle control and judgment. Vitals/IOs Vital Signs Date Time Temp Pulse Resp B/P (MAP) Pulse Ox O2 Delivery O2 Flow Rate FiO2 12/14/16 06:39 97.4 88 17 150/83 (105) 94 Intake and Output 12/14/16 12/14/16 12/15/16 08:00 16:00 00:00 Intake Total 240 ml Balance 240 ml Assessment & Plan Problem List: (1) Schizoaffective disorder, bipolar type ICD Codes: F25.0 - Schizoaffective disorder, bipolar type Assessment & Plan Patient continues to be disorganized at times with no change but tolerating medications well and responds well to re-direction. Patient to continue current treatment and [facility]. Justification for Cont. Inpt. At risk for further decompensation if at lower level of care. Agustín Serna MD Dec 14, 2016 16:15
[2016-12-14 18:09] VITALS: BP 157/79; PULSE 98; RESP 18; TEMP 98.9; O2SAT 98
[2016-12-14] MEDS: AMITRIPTYLINE HCL 100 MG TAB PO SCH (20:27)
[2016-12-14] MEDS: QUEtiapine FUMARATE 200 MG TAB PO SCH (20:27)
[2016-12-14 21:42] LABS: BASOPHIL % 0.3 % (0.0-2.0); EOSINOPHIL % 0.1 % (0.0-4.0); HEMATOCRIT 37.3 % (35.0-46.0); HEMO FLAGS DIFF FINAL; LYMPH % 34.5 % (9.0-44.0); LYMPHOCYTE # 3.1 TH/MM3 (1.0-4.8); MEAN CORPUSCULAR HEMOGLOBIN 30.4 PG (27.0-34.0); MEAN CORPUSCULAR HGB CONC 33.1 % (32.0-36.0); NEUT % 55.1 % (16.0-70.0); PLATELET COUNT 209 TH/MM3 (150-450); RED BLOOD COUNT 4.05 MIL/MM3 (4.00-5.30); RED CELL DISTRIBUTION WIDTH 13.5 % (11.6-17.2); WHITE BLOOD COUNT 9.1 TH/MM3 (4.0-11.0)
[2016-12-15] MEDS: LEVOTHYROXINE SODIUM 100 MCG TAB PO SCH (05:57)
[2016-12-15 06:00] VITALS: BP 140/74; PULSE 95; RESP 16; TEMP 97; O2SAT 98
[2016-12-15] MEDS: POLYETHYLENE GLYCOL 17 GM PKG PO SCH (09:00)
[2016-12-15] MEDS: PANTOPRAZOLE SOD 40 MG DELAYED RELEASE TAB PO SCH (09:04)
[2016-12-15] MEDS: BENZTROPINE MESYLATE 1 MG TAB PO SCH ×2 (09:05→20:53)
[2016-12-15] MEDS: cloZAPine 25 MG TAB PO SCH (09:05)
[2016-12-15] MEDS: cloZAPine 100 MG TAB PO SCH ×2 (09:05→20:53)
[2016-12-15] MEDS: PHENYTOIN SODIUM 100 MG CAP PO SCH ×3 (09:05→17:49)
[2016-12-15] MEDS: HALOPERIDOL 10 MG TAB PO SCH ×3 (09:05→20:53)
[2016-12-15] MEDS: CALCIUM/VITAMIN D 250 MG/125 U TAB PO SCH ×2 (09:05→20:53)
[2016-12-15] MEDS: VALPROIC ACID SYRUP 250 MG/5 ML UDC PO SCH ×2 (09:06→20:54)
[2016-12-15] MEDS: SODIUM CHLORIDE 0.65% NASAL SPRAY 45 ML BTL EACH NARE PRN (13:11)
[2016-12-15] MEDS: LORazepam 1 MG TAB PO PRN (14:15)
[2016-12-15 15:43] VITALS: BP 140/65; PULSE 96; RESP 17; TEMP 98.1
--- NOTE | 2016-12-15 16:19 | RADRPT ---
EXAM DATE/TIME: 12/15/2016 16:01 [facility] COMPARISON: CT BRAIN W/O CONTRAST, October 02, 2016, 12:55. CTA RUNOFF W 3D RECON, November 02, 2016, 12:38. INDICATIONS : Trauma, patient fell hit head on floor. RADIATION DOSE: 69.15 CTDIvol (mGy) ; Patient motion MEDICAL HISTORY : Seizures. SURGICAL HISTORY : None. ENCOUNTER: Initial ACUITY: 1 day PAIN SCALE: 4/10 LOCATION: cranial TECHNIQUE: Multiple contiguous axial images were obtained of the head. Using automated exposure control and adj ustment of the mA and/or kV according to patient size, radiation dose was kept as low as reasonably a chievable to obtain optimal diagnostic quality images. DICOM format image data is available electro nically for review and comparison. 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 There is mild colpocephalic dilation of the enteral port of the right lateral ventricle. There is n o acute intracranial hemorrhage. No mass is identified. The sulci and gyri are otherwise intact. POSTERIOR FOSSA: The cerebellum and brainstem are intact. The 4th ventricle is midline. The cerebellopontine angle i s unremarkable. EXTRACRANIAL: The visualized portion of the orbits is intact. SKULL: The calvaria is intact. No evidence of skull fracture. CONCLUSION: 1. No acute intracranial abnormality. Stable compared to prior dated 10/02/16. Adam Hay MD on December 15, 2016 at 16:16 Board Certified Radiologist. This report was verified electronically.
--- NOTE | 2016-12-15 16:26 | RADRPT ---
EXAM DATE/TIME: 12/15/2016 16:05 [facility] COMPARISON: CT BRAIN W/O CONTRAST, December 15, 2016, 16:01. INDICATIONS : Trauma, patient fell , painful left hip. RADIATION DOSE: 36.31 CTDIvol (mGy) MEDICAL HISTORY : Seizures. SURGICAL HISTORY : None. ENCOUNTER: Initial ACUITY: 1 day PAIN SCALE: 4/10 LOCATION: Left hip TECHNIQUE: Volumetric scanning of the hip was performed. Using automated exposure control and adjustment of the mA and/or kV according to patient size, radiation dose was kept as low as reasonably achievable to o btain optimal diagnostic quality images. DICOM format image data is available electronically for rev iew and comparison. FINDINGS: BONES: No evidence of fracture. Alignment is within normal limits. JOINTS: No evidence of joint narrowing or effusion. SOFT TISSUES: Muscles, tendons and neurovascular structures are grossly unremarkable. No evidence of mass, organize d fluid collection, or foreign body. CONCLUSION: 1. No acute fracture of the left hip is identified. Adam Hay MD on December 15, 2016 at 16:22 Board Certified Radiologist. This report was verified electronically.
[2016-12-15 16:51] VITALS: BP 146/73; PULSE 98; RESP 16; TEMP 97.3; O2SAT 97
[2016-12-15 18:08] VITALS: BP 142/80; PULSE 96; RESP 16; TEMP 98.3; O2SAT 97
[2016-12-15 18:36] VITALS: BP 132/65; PULSE 104; RESP 15; TEMP 97.9; O2SAT 97
[2016-12-15] MEDS: QUEtiapine FUMARATE 200 MG TAB PO SCH (20:53)
[2016-12-15] MEDS: diphenhydrAMINE HCL 50 MG CAP PO PRN (20:53)
[2016-12-15] MEDS: AMITRIPTYLINE HCL 100 MG TAB PO SCH (20:53)
--- NOTE | 2016-12-15 21:50 | HHI.PYPN ---
Subjective Remarks Patient seen for follow up; chart reviewed. Patient found lying on hospital bed , calm and cooperative with interview. Patient did not want to get up as she states did not have any adult diapers on which she was provided one. Patient at times would make non-sensical statements, "I don't want to be a black or a criminal". She denies any perceptual disturbances. Review of Systems Except as stated in HPI: all other systems reviewed are Neg Objective Alert: Yes [place]: Person, Place Mood: Other ("I'm ok") Affect: Other (congruent with mood) Memory Intact: Comment (not formally assessed) Hallucinations: Other (remains internally stimulated) Delusions: Yes Delusion Type: Paranoid (bizarre) Suicidal: Ideation (no SI) Homicidal: Ideation (no HI) Insight/Judgment poor insight, limited impulse control and judgment Vitals/IOs Vital Signs Date Time Temp Pulse Resp B/P (MAP) Pulse Ox O2 Delivery O2 Flow Rate FiO2 12/15/16 18:36 97.9 104 15 132/65 (87) 97 Intake and Output 12/15/16 12/15/16 12/16/16 08:00 16:00 00:00 Intake Total 1080 ml Balance 1080 ml Assessment & Plan Problem List: (1) Schizoaffective disorder, bipolar type ICD Codes: F25.0 - Schizoaffective disorder, bipolar type Assessment & Plan Patient with no behavioral outbursts lately. Continue current treatment. Discharge planning in progress. Justification for Cont. Inpt. At risk for further decompensation if at lower level of care. Agustín Serna MD Dec 15, 2016 21:50
[2016-12-16] MEDS: LEVOTHYROXINE SODIUM 100 MCG TAB PO SCH (05:34)
[2016-12-16 06:05] VITALS: BP 123/58; PULSE 103; RESP 18; TEMP 97.3; O2SAT 94
[2016-12-16] MEDS: VALPROIC ACID SYRUP 250 MG/5 ML UDC PO SCH ×2 (08:36→19:58)
[2016-12-16] MEDS: PHENYTOIN SODIUM 100 MG CAP PO SCH ×3 (08:36→17:14)
[2016-12-16] MEDS: cloZAPine 25 MG TAB PO SCH (08:36)
[2016-12-16] MEDS: CALCIUM/VITAMIN D 250 MG/125 U TAB PO SCH ×2 (08:36→19:59)
[2016-12-16] MEDS: PANTOPRAZOLE SOD 40 MG DELAYED RELEASE TAB PO SCH (08:37)
[2016-12-16] MEDS: cloZAPine 100 MG TAB PO SCH ×2 (08:37→20:02)
[2016-12-16] MEDS: HALOPERIDOL 10 MG TAB PO SCH ×3 (08:38→20:00)
[2016-12-16] MEDS: BENZTROPINE MESYLATE 1 MG TAB PO SCH ×2 (08:43→19:59)
[2016-12-16] MEDS: POLYETHYLENE GLYCOL 17 GM PKG PO SCH (08:44)
--- NOTE | 2016-12-16 13:27 | HHI.PYPN ---
Subjective Remarks Patient was seen and case discussed with nursing. Patient remains nonsensical and hyperverbal. Grossly disorganized. Describes her mood today is "lonely and positive." Per nursing, she is putting soaps on her face throughout the day. Compliant with her medications and tolerating it well Objective Alert: Yes [place]: Person, Place Mood: Calm Affect: Other (congruent with mood) Memory Intact: Comment (not formally assessed) Hallucinations: Other (remains internally stimulated) Delusions: Yes Delusion Type: Paranoid (bizarre) Suicidal: Ideation (no SI) Homicidal: Ideation (no HI) Insight/Judgment Poor Vitals/IOs Vital Signs Date Time Temp Pulse Resp B/P (MAP) Pulse Ox O2 Delivery O2 Flow Rate FiO2 12/16/16 06:05 97.3 103 18 123/58 (79) 94 Assessment & Plan Problem List: (1) Schizoaffective disorder, bipolar type ICD Codes: F25.0 - Schizoaffective disorder, bipolar type Assessment & Plan Continue current treatment plan Justification for Cont. Inpt. Patient will decompensate in a less restrictive setting Cuate Flynn DO Dec 16, 2016 13:27
[2016-12-16] MEDS: AMITRIPTYLINE HCL 100 MG TAB PO SCH (19:59)
[2016-12-16] MEDS: QUEtiapine FUMARATE 200 MG TAB PO SCH (19:59)
[2016-12-16] MEDS: diphenhydrAMINE HCL 50 MG CAP PO PRN (20:00)
[2016-12-16] MEDS: LORazepam 2 MG/ML VIAL IM PRN (21:06)
[2016-12-17] MEDS: LEVOTHYROXINE SODIUM 100 MCG TAB PO SCH (05:46)
[2016-12-17] MEDS: CALCIUM/VITAMIN D 250 MG/125 U TAB PO SCH ×2 (08:55→20:38)
[2016-12-17] MEDS: PANTOPRAZOLE SOD 40 MG DELAYED RELEASE TAB PO SCH (08:55)
[2016-12-17] MEDS: POLYETHYLENE GLYCOL 17 GM PKG PO SCH (08:55)
[2016-12-17] MEDS: PHENYTOIN SODIUM 100 MG CAP PO SCH ×3 (08:55→18:20)
[2016-12-17] MEDS: HALOPERIDOL 10 MG TAB PO SCH ×3 (08:56→20:39)
[2016-12-17] MEDS: VALPROIC ACID SYRUP 250 MG/5 ML UDC PO SCH ×3 (08:56→20:36)
[2016-12-17] MEDS: BENZTROPINE MESYLATE 1 MG TAB PO SCH ×2 (08:57→20:38)
[2016-12-17] MEDS: cloZAPine 25 MG TAB PO SCH (08:57)
[2016-12-17] MEDS: cloZAPine 100 MG TAB PO SCH ×2 (08:58→20:39)
[2016-12-17] MEDS: LORazepam 1 MG TAB PO PRN (09:02)
--- NOTE | 2016-12-17 13:59 | HHI.PYPN ---
Subjective Remarks Patient was seen and case discussed with nursing. Patient was labile and loud earlier in the day and received 1 mg of Ativan per nursing. Patient is sedated during the interview nursing believes the 1 mg dose could be lowered patient remains disheveled and disorganized and labile and paranoid Objective Alert: Yes [place]: Person, Place Mood: Calm Affect: Labile Memory Intact: Comment (not formally assessed) Hallucinations: Other (remains internally stimulated) Delusions: Yes Delusion Type: Paranoid (bizarre) Suicidal: Ideation (no SI) Homicidal: Ideation (no HI) Insight/Judgment Poor Vitals/IOs Vital Signs Date Time Temp Pulse Resp B/P (MAP) Pulse Ox O2 Delivery O2 Flow Rate FiO2 12/16/16 06:05 97.3 103 18 123/58 (79) 94 Intake and Output 12/17/16 12/17/16 12/18/16 08:00 16:00 00:00 Intake Total 240 ml Balance 240 ml Assessment & Plan Problem List: (1) Schizoaffective disorder, bipolar type ICD Codes: F25.0 - Schizoaffective disorder, bipolar type Assessment & Plan Lower Ativan to 0.5 mg Justification for Cont. Inpt. Patient would decompensate in a less restrictive setting Cuate Flynn DO Dec 17, 2016 13:59
[2016-12-17] MEDS ORDERED: LORazepam 2 MG/ML VIAL IM PRN (15:00)
[2016-12-17] MEDS: SODIUM CHLORIDE 0.65% NASAL SPRAY 45 ML BTL EACH NARE PRN (15:01)
[2016-12-17 17:16] VITALS: BP 125/82; PULSE 92; RESP 18; TEMP 97; O2SAT 99
[2016-12-17] MEDS: QUEtiapine FUMARATE 200 MG TAB PO SCH (20:38)
[2016-12-17] MEDS: diphenhydrAMINE HCL 50 MG CAP PO PRN (20:38)
[2016-12-17] MEDS: AMITRIPTYLINE HCL 100 MG TAB PO SCH (20:41)
[2016-12-18] MEDS: LEVOTHYROXINE SODIUM 100 MCG TAB PO SCH (06:02)
[2016-12-18] MEDS: POLYETHYLENE GLYCOL 17 GM PKG PO SCH (09:00)
[2016-12-18] MEDS: VALPROIC ACID SYRUP 250 MG/5 ML UDC PO SCH ×2 (09:00→21:44)
[2016-12-18] MEDS: PANTOPRAZOLE SOD 40 MG DELAYED RELEASE TAB PO SCH (09:01)
[2016-12-18] MEDS: cloZAPine 100 MG TAB PO SCH ×2 (09:01→21:45)
[2016-12-18] MEDS: CALCIUM/VITAMIN D 250 MG/125 U TAB PO SCH ×2 (09:02→21:45)
[2016-12-18] MEDS: BENZTROPINE MESYLATE 1 MG TAB PO SCH ×2 (09:02→21:45)
[2016-12-18] MEDS: cloZAPine 25 MG TAB PO SCH (09:03)
[2016-12-18] MEDS: PHENYTOIN SODIUM 100 MG CAP PO SCH ×3 (09:03→17:27)
[2016-12-18] MEDS: SODIUM CHLORIDE 0.65% NASAL SPRAY 45 ML BTL EACH NARE PRN ×3 (09:04→17:26)
[2016-12-18] MEDS: HALOPERIDOL 10 MG TAB PO SCH ×3 (09:37→20:14)
--- NOTE | 2016-12-18 15:20 | HHI.PYPN ---
Subjective Remarks Patient seen for follow-up, chart reviewed. Patient found lying in hospital bed , cooperative with interview. As discussion with staff patient refused her Depakote yesterday but had taken it today. Patient also was given Ativan last evening and was noted to have slept through last evening. Patient states that he has a physical complaints but has been feeling tired lately but was noted to be up earlier in the morning eating breakfast interactive with staff appropriately. Patient denies any perceptual disturbances at this time. Currently reports feeling okay. Review of Systems Except as stated in HPI: all other systems reviewed are Neg Objective Alert: Yes [place]: Person, Place Mood: Calm Affect: Appropriate Memory Intact: Comment (not formally assessed) Hallucinations: Other (internally preoccupied at times) Delusions: Yes Delusion Type: Paranoid (bizarre) Suicidal: Ideation (no SI) Homicidal: Ideation (no HI) Insight/Judgment Poor insight, fair impulse control and limited judgment Vitals/IOs Vital Signs Date Time Temp Pulse Resp B/P (MAP) Pulse Ox O2 Delivery O2 Flow Rate FiO2 12/17/16 17:16 97.0 92 18 125/82 (96) 99 Intake and Output 12/18/16 12/18/16 12/19/16 08:00 16:00 00:00 Intake Total 120 ml 120 ml Balance 120 ml 120 ml Assessment & Plan Problem List: (1) Schizoaffective disorder, bipolar type ICD Codes: F25.0 - Schizoaffective disorder, bipolar type Assessment & Plan Patient has had good behavioral control, tolerate medications well at times required redirection but noted to be cooperative with staff. Patient continues to be on a wait list for [facility]. Continue current treatment, discharge planning in progress we'll order labs today. Justification for Cont. Inpt. At risk for further decompensation if at lower level of care Agustín Serna MD Dec 18, 2016 15:20
[2016-12-18 18:00] VITALS: BP 133/82; PULSE 97; RESP 18; TEMP 97.7; O2SAT 98
[2016-12-18] MEDS: QUEtiapine FUMARATE 200 MG TAB PO SCH (21:44)
[2016-12-18] MEDS: AMITRIPTYLINE HCL 100 MG TAB PO SCH (21:45)
[2016-12-18 22:04] LABS: ANION GAP 6 MEQ/L (5-15); AST (GOT) 29 U/L (15-37); BICARBONATE 29.7 MEQ/L (21.0-32.0); BLOOD UREA NITROGEN 17 MG/DL (7-18); CHLORIDE 103 MEQ/L (98-107); GLOMERULAR FILTRATION RATE 73 ML/MIN (>89); POTASSIUM 4.3 MEQ/L (3.5-5.1); SODIUM (NA) 139 MEQ/L (136-145)
[2016-12-18 22:10] LABS: ALKALINE PHOSPHATASE 118 U/L (45-117); ALT (GPT) 29 U/L (10-53); TOTAL BILIRUBIN ADULT 0.1 MG/DL (0.2-1.0)
[2016-12-19 06:00] VITALS: BP 142/69; PULSE 89; RESP 16; TEMP 97.1; O2SAT 94
[2016-12-19] MEDS: LEVOTHYROXINE SODIUM 100 MCG TAB PO SCH (06:22)
[2016-12-19] MEDS: SODIUM CHLORIDE 0.65% NASAL SPRAY 45 ML BTL EACH NARE PRN ×2 (06:47→14:41)
[2016-12-19] MEDS: PANTOPRAZOLE SOD 40 MG DELAYED RELEASE TAB PO SCH (09:00)
[2016-12-19] MEDS: POLYETHYLENE GLYCOL 17 GM PKG PO SCH (09:00)
[2016-12-19] MEDS: VALPROIC ACID SYRUP 250 MG/5 ML UDC PO SCH ×2 (09:17→21:00)
[2016-12-19] MEDS: cloZAPine 100 MG TAB PO SCH ×2 (09:18→21:00)
[2016-12-19] MEDS: PHENYTOIN SODIUM 100 MG CAP PO SCH ×3 (09:18→17:54)
[2016-12-19] MEDS: cloZAPine 25 MG TAB PO SCH (09:18)
[2016-12-19] MEDS: HALOPERIDOL 10 MG TAB PO SCH ×3 (09:19→19:58)
[2016-12-19] MEDS: BENZTROPINE MESYLATE 1 MG TAB PO SCH ×2 (09:19→21:00)
[2016-12-19] MEDS: CALCIUM/VITAMIN D 250 MG/125 U TAB PO SCH ×2 (09:19→21:00)
--- NOTE | 2016-12-19 16:17 | HHI.PYPN ---
Subjective Remarks Patient seen for follow-up, chart reviewed. Patient found lying on hospital bed , calm and cooperative with interview. Patient states that she was up and about in the morning but was feeling tired today. She mentions that she does not want to kill anyone and that she does not "go out there because there are alot of perverts out there". She denies any perceptual disturbances. Review of Systems Except as stated in HPI: all other systems reviewed are Neg Objective Alert: Yes [place]: Person, Place Mood: Calm Affect: Other (noted to be sleepy) Memory Intact: Comment (not formally assessed) Hallucinations: Other (internally preoccupied at times) Delusions: Yes Delusion Type: Paranoid (bizarre) Suicidal: Ideation (no SI) Homicidal: Ideation (no HI) Insight/Judgment poor insight, fair impulse control and judgment Vitals/IOs Vital Signs Date Time Temp Pulse Resp B/P (MAP) Pulse Ox O2 Delivery O2 Flow Rate FiO2 12/19/16 06:00 97.1 89 16 142/69 (93) 94 Intake and Output 12/19/16 12/19/16 12/20/16 08:00 16:00 00:00 Intake Total 0 ml Balance 0 ml Assessment & Plan Problem List: (1) Schizoaffective disorder, bipolar type ICD Codes: F25.0 - Schizoaffective disorder, bipolar type Assessment & Plan Patient continue to be cooperative with staff with no behavioral issues lately. Continue current medications. Patient scheduled for transfer to [facility] on 12/27/16. Discharge planning in progress. Justification for Cont. Inpt. At risk for further decompensation if at lower level of care. Agustín Serna MD Dec 19, 2016 16:17
[2016-12-19 18:00] VITALS: BP 156/90; PULSE 100; RESP 20; TEMP 98.8; O2SAT 96
[2016-12-19] MEDS: QUEtiapine FUMARATE 200 MG TAB PO SCH (20:59)
[2016-12-19] MEDS: AMITRIPTYLINE HCL 100 MG TAB PO SCH (21:00)
[2016-12-20] MEDS: LEVOTHYROXINE SODIUM 100 MCG TAB PO SCH (05:58)
[2016-12-20 06:00] VITALS: BP 140/66; PULSE 91; RESP 16; TEMP 97.8; O2SAT 95
[2016-12-20] MEDS: POLYETHYLENE GLYCOL 17 GM PKG PO SCH (09:00)
[2016-12-20] MEDS: PANTOPRAZOLE SOD 40 MG DELAYED RELEASE TAB PO SCH (09:42)
[2016-12-20] MEDS: cloZAPine 100 MG TAB PO SCH ×2 (09:42→20:20)
[2016-12-20] MEDS: BENZTROPINE MESYLATE 1 MG TAB PO SCH ×2 (09:43→20:18)
[2016-12-20] MEDS: PHENYTOIN SODIUM 100 MG CAP PO SCH ×3 (09:43→18:00)
[2016-12-20] MEDS: cloZAPine 25 MG TAB PO SCH (09:43)
[2016-12-20] MEDS: CALCIUM/VITAMIN D 250 MG/125 U TAB PO SCH ×2 (09:43→20:21)
[2016-12-20] MEDS: VALPROIC ACID SYRUP 250 MG/5 ML UDC PO SCH ×2 (09:44→20:20)
[2016-12-20] MEDS: LORazepam 1 MG TAB PO PRN (09:51)
[2016-12-20] MEDS: SODIUM CHLORIDE 0.65% NASAL SPRAY 45 ML BTL EACH NARE PRN ×2 (09:51→20:21)
[2016-12-20] MEDS: HALOPERIDOL 10 MG TAB PO SCH ×3 (09:51→20:00)
--- NOTE | 2016-12-20 16:25 | HHI.PYPN ---
Subjective Remarks Patient seen for follow-up, chart reviewed. Patient found in room noted to be disorganized at times mentioning that she has spoken to someone about the person [place] per son. Patient denies any physical complaints denies any difficult sleeping, eating or drinking or problems with bowel movements. Patient continues to adhere to medications and be visible on the unit with no behavioral dyscontrol. Patient agreed to participate and moving group today. Review of Systems Except as stated in HPI: all other systems reviewed are Neg Mental Status Examination Consciousness: Alert Appearance: Appropriate Speech: Other (disorganized at times) Orientation: Person, Place Memory: Impaired (describe) Thought Content: Disorganized (at times) Thought Associations: Loose associations Language: Other (fluent and spontaneous) Fund of Knowledge: Average Hallucination Type: None Attention and Concentration: Easily Distracted, Other (poor) Suicidal Ideation: No (evasive) Previous Suicide Attempts: No Homicidal Ideation: No (evasive) Previous Homicide Attempts: No Insight: Poor Judgment: Poor Affect: Euthymic Mood: Euthymic, Other (depressed) Motor Activity: Normal gait Results Vitals/IOs Vital Signs Date Time Temp Pulse Resp B/P (MAP) Pulse Ox O2 Delivery O2 Flow Rate FiO2 12/20/16 06:00 97.8 91 16 140/66 (90) 95 Intake and Output 12/20/16 12/20/16 12/21/16 08:00 16:00 00:00 Intake Total 360 ml 840 ml Balance 360 ml 840 ml Assessment & Plan Problem List: (1) Schizoaffective disorder, bipolar type ICD Codes: F25.0 - Schizoaffective disorder, bipolar type Assessment & Plan Patient with no behavioral dyscontrol, continues to have paranoia and delusions along with disorganization at times but redirectable. Patient is on the unit and participating in groups and activities at times. Continue current treatment. Patient scheduled for transfer to [facility] on 12/27/16. Discharge planning in progress Justification for Cont. Inpt. At risk for further decompensation if at lower level of care Agustín Serna MD Dec 20, 2016 16:25
--- NOTE | 2016-12-20 17:03 | PD.TTN ---
Patient Problems 1. Discharge planning 2. Medication compliance 3. Knowledge deficit 4. Lack of coping skills Progress Toward Goals Provider Present: Dr. Erickson Waite, Dr. Margot Serna Provider Input: changed meds 12/05/16 Dr. Waite's treatment team met to discuss treatment plan, discharge, and medication. Patient continues to be labile, and confused. 12/12/16 Dr. Morales's treatment team met to discuss treatment plan, discharge, and medication. Patient continues to labile, confused and disorganized. Patient's treatment will remain the same. 12/20/2016 Dr. Morales's treatment team met to discuss treatment plan, discharge, and medication. [facility] Continue with treatment. Nurse(s) Input: no change continues labile 12/05/16 Patient's nurse Zarina POTTER has been labile as usual. She is redirectable. She slept well Psychiatric Counselors Present: Ema Welsh [facility] Psych Therapist Input: still referred to [facility] if more stable facility / fdc can consider taking back 12/05/16 Patient presents restless, cooperative but constricted, intrusive, hyperverbal, childlike, dependent affect labile. Patient presents with delusional content along with being internally stimulated. Patient is eating, sleeping and is medication compliant. Patient's speech is clear, disorganized with pressure. Patient makes good eye contact. 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 Patient is not able to give, date/time, place or have insight into her situation. Patient is alert to person only. [facility] 12/12/16 Patient presented childlike, cooperative but constricted, intrusive, dependent, affect labile. Patient continues to present with delusional content. Patient is paranoid and feels everyone does not like her. Patient made good eye contact. Patient's speech is clear, disorganized with pressure. Patient is medication compliant, eating and sleeping well. Patient is hypermotor agitated, restless. [facility] 12/20/2016 Patient is alert to person, but has poor insight into her situation, time/day or place. Patient continues to present with delusional content along with being internally stimulated. Patient made good eye contact. patient's speech is clear, disorganized with pressure. Patient's long and short term memory appear to be affect. Patient has received a [facility] date of 12/27/2016. Until then patient will remain on unit. Group Spec/RT/OT/SANTIAGO Present: Theron Thomas, OT, PAMELA Doll Group Spec/RT/OT/SANTIAGO Input: 12/05/16 Patient attends groups when she is able to tolerate it. Patient often hyperverbal, and aggressive 12/12/16 Patient can not tolerate groups. 12/20/2016 Lola SANTIAGO reports patient refuses and is unable to tolerate groups Occupational Therapist Input: Pt attends groups needs constant redirection labile guarded Other Clinican Input: Ana reported the patient is participating in recreational groups and activities. Documentation Scribe: Carlie Patel [facility] Date Resolved: Oct 16, 2016 [facility] Dec 20, 2016 17:03
[2016-12-20 18:00] VITALS: BP 137/81; PULSE 99; RESP 20; TEMP 97.5; O2SAT 99
[2016-12-20] MEDS: QUEtiapine FUMARATE 200 MG TAB PO SCH (20:19)
[2016-12-20] MEDS: AMITRIPTYLINE HCL 100 MG TAB PO SCH (20:20)
[2016-12-21] MEDS: LEVOTHYROXINE SODIUM 100 MCG TAB PO SCH (04:38)
[2016-12-21 06:07] VITALS: BP 131/82; PULSE 95; RESP 16; TEMP 97.7; O2SAT 97
[2016-12-21] MEDS: cloZAPine 25 MG TAB PO SCH (08:50)
[2016-12-21] MEDS: HALOPERIDOL 10 MG TAB PO SCH ×3 (08:50→20:30)
[2016-12-21] MEDS: LORazepam 1 MG TAB PO PRN (08:50)
[2016-12-21] MEDS: PANTOPRAZOLE SOD 40 MG DELAYED RELEASE TAB PO SCH (08:50)
[2016-12-21] MEDS: cloZAPine 100 MG TAB PO SCH ×2 (08:51→20:30)
[2016-12-21] MEDS: BENZTROPINE MESYLATE 1 MG TAB PO SCH ×2 (08:51→20:30)
[2016-12-21] MEDS: VALPROIC ACID SYRUP 250 MG/5 ML UDC PO SCH ×2 (08:51→20:31)
[2016-12-21] MEDS: POLYETHYLENE GLYCOL 17 GM PKG PO SCH (08:52)
[2016-12-21] MEDS: CALCIUM/VITAMIN D 250 MG/125 U TAB PO SCH ×2 (08:52→20:31)
[2016-12-21] MEDS: PHENYTOIN SODIUM 100 MG CAP PO SCH ×3 (08:55→18:00)
[2016-12-21] MEDS: SODIUM CHLORIDE 0.65% NASAL SPRAY 45 ML BTL EACH NARE PRN (09:01)
--- NOTE | 2016-12-21 17:12 | HHI.PYPN ---
Subjective Remarks Patient seen for follow-up, chart reviewed. Mental Status Examination Motor Activity: Normal gait Hallucination Type: None Insight: Poor Judgment: Poor Results Vitals/IOs Vital Signs Date Time Temp Pulse Resp B/P (MAP) Pulse Ox O2 Delivery O2 Flow Rate FiO2 12/21/16 06:07 97.7 95 16 131/82 (98) 97 Intake and Output 12/21/16 12/21/16 12/22/16 08:00 16:00 00:00 Intake Total 240 ml 480 ml Balance 240 ml 480 ml Assessment & Plan Problem List: (1) Schizoaffective disorder, bipolar type ICD Codes: F25.0 - Schizoaffective disorder, bipolar type Assessment & Plan DUPLICATE ENTRY - DISREGARD Justification for Cont. Inpt. At risk for further decompensation if at lower level of care. Agustín Serna MD Dec 21, 2016 17:12
[2016-12-21 18:03] VITALS: BP 135/69; PULSE 100; RESP 16; TEMP 97.9; O2SAT 95
[2016-12-21] MEDS: QUEtiapine FUMARATE 200 MG TAB PO SCH (20:30)
[2016-12-21] MEDS: AMITRIPTYLINE HCL 100 MG TAB PO SCH (20:30)
--- NOTE | 2016-12-21 21:26 | HHI.PYPN ---
Subjective Remarks Patient seen for follow up; chart reviewed. Patient with no changes in behavior as per nursing staff. Patient found walking on the unit stating that she is content today as she is wearing her favorite clothes. Patient also states that she wants some shoes . Patient spoke about having gone to group activity where they watched a movie yesterday but did not enjoy the selection. Denies any perceptual disturbances at this time. Review of Systems Except as stated in HPI: all other systems reviewed are Neg Mental Status Examination Appearance: Appropriate Consciousness: Alert Orientation: Person, Place Motor Activity: Normal gait Speech: Unremarkable Language: Adequate Fund of Knowledge: Adequate Attention and Concentration: Adequate Memory: Unremarkable Mood: Good Affect: Other (restricted) Thought Process & Associations: Disorganized (at times) Thought Content: Other (perseverative on having shoes) Hallucination Type: None Delusion Type: Paranoid Suicidal Ideation: No Suicidal Plan: No Suicidal Intention: No Homicidal Ideation: No Homicidal Plan: No Homicidal Intention: No Insight: Poor Judgment: Poor Results Vitals/IOs Vital Signs Date Time Temp Pulse Resp B/P (MAP) Pulse Ox O2 Delivery O2 Flow Rate FiO2 12/21/16 18:03 97.9 100 16 135/69 (91) 95 Intake and Output 12/21/16 12/21/16 12/21/16 07:59 15:59 23:59 Intake Total 240 ml 480 ml 240 ml Balance 240 ml 480 ml 240 ml Assessment & Plan Problem List: (1) Schizoaffective disorder, bipolar type ICD Codes: F25.0 - Schizoaffective disorder, bipolar type Assessment & Plan Patient to continue current treatment. Patient will be transferred to [facility] next week. Discharge planning in progress. Justification for Cont. Inpt. At risk for further decompensation if at lower level of care. Agustín Serna MD Dec 21, 2016 21:26
[2016-12-21] MEDS: diphenhydrAMINE HCL 50 MG CAP PO PRN (22:45)
[2016-12-22] MEDS: LEVOTHYROXINE SODIUM 100 MCG TAB PO SCH (04:33)
[2016-12-22 05:55] VITALS: BP 147/94; PULSE 96; RESP 17; TEMP 97.3
[2016-12-22] MEDS: BENZTROPINE MESYLATE 1 MG TAB PO SCH ×2 (09:51→20:00)
[2016-12-22] MEDS: HALOPERIDOL 10 MG TAB PO SCH ×3 (09:51→19:59)
[2016-12-22] MEDS: CALCIUM/VITAMIN D 250 MG/125 U TAB PO SCH ×2 (09:51→20:00)
[2016-12-22] MEDS: cloZAPine 100 MG TAB PO SCH ×2 (09:51→20:00)
[2016-12-22] MEDS: PHENYTOIN SODIUM 100 MG CAP PO SCH ×3 (09:51→18:35)
[2016-12-22] MEDS: PANTOPRAZOLE SOD 40 MG DELAYED RELEASE TAB PO SCH (09:52)
[2016-12-22] MEDS: cloZAPine 25 MG TAB PO SCH (09:52)
[2016-12-22] MEDS: VALPROIC ACID SYRUP 250 MG/5 ML UDC PO SCH ×2 (09:54→19:59)
[2016-12-22] MEDS: POLYETHYLENE GLYCOL 17 GM PKG PO SCH (09:54)
--- NOTE | 2016-12-22 11:16 | HHI.PYPN ---
Subjective Remarks Patient seen for follow up; chart reviewed. Patient earlier this morning was upset stating that "they are murdering me!" which she was re-directed. Patient upon interview was noted to be perseverative on a stain on her bedsheets which may have been a drop of blood likely from her nose as she is noted to be picking at it with her finger which she was discouraged doing. She also reports that there are people trying to kill her but redirectable. Review of Systems Except as stated in HPI: all other systems reviewed are Neg Mental Status Examination Appearance: Appropriate Consciousness: Alert Orientation: Person, Place Motor Activity: Normal gait Speech: Pressured (as she was upset) Language: Adequate Fund of Knowledge: Adequate Attention and Concentration: Adequate Memory: Unremarkable Mood: Anxious Affect: Anxious Thought Process & Associations: Disorganized (at times) Thought Content: Other (perseverative on people trying to kill her) Hallucination Type: None Delusion Type: Paranoid Suicidal Ideation: No Suicidal Plan: No Suicidal Intention: No Homicidal Ideation: No Homicidal Plan: No Homicidal Intention: No Insight: Poor Judgment: Poor Results Vitals/IOs Vital Signs Date Time Temp Pulse Resp B/P (MAP) Pulse Ox O2 Delivery O2 Flow Rate FiO2 12/22/16 05:55 97.3 96 17 147/94 (111) 12/21/16 18:03 95 Intake and Output 12/22/16 12/22/16 12/23/16 08:00 16:00 00:00 Intake Total 480 ml Balance 480 ml Assessment & Plan Problem List: (1) Schizoaffective disorder, bipolar type ICD Codes: F25.0 - Schizoaffective disorder, bipolar type Assessment & Plan Patient continues to require redirection at times but not aggressive. She endorses paranoid ideations along with internal preoccupations. Patient to continue current treatment. Discharge planning in progress. Justification for Cont. Inpt. At risk for further decompensation if at lower level of care. Discharge Planning Patient scheduled to be transferred to [facility] on 12/27/16. Agustín Serna MD Dec 22, 2016 11:16
[2016-12-22] MEDS: LORazepam 1 MG TAB PO PRN (11:56)
[2016-12-22] MEDS: AMITRIPTYLINE HCL 100 MG TAB PO SCH (19:59)
[2016-12-22] MEDS: QUEtiapine FUMARATE 200 MG TAB PO SCH (19:59)
[2016-12-23] MEDS: LEVOTHYROXINE SODIUM 100 MCG TAB PO SCH (05:55)
[2016-12-23 06:00] VITALS: BP 102/56; PULSE 82; RESP 15; TEMP 97.8; O2SAT 96
[2016-12-23] MEDS: POLYETHYLENE GLYCOL 17 GM PKG PO SCH ×2 (09:00→09:50)
[2016-12-23] MEDS: cloZAPine 25 MG TAB PO SCH (09:47)
[2016-12-23] MEDS: cloZAPine 100 MG TAB PO SCH ×2 (09:48→19:45)
[2016-12-23] MEDS: BENZTROPINE MESYLATE 1 MG TAB PO SCH ×2 (09:48→19:45)
[2016-12-23] MEDS: PANTOPRAZOLE SOD 40 MG DELAYED RELEASE TAB PO SCH (09:48)
[2016-12-23] MEDS: CALCIUM/VITAMIN D 250 MG/125 U TAB PO SCH ×2 (09:49→19:45)
[2016-12-23] MEDS: PHENYTOIN SODIUM 100 MG CAP PO SCH ×3 (09:49→18:12)
[2016-12-23] MEDS: VALPROIC ACID SYRUP 250 MG/5 ML UDC PO SCH ×2 (09:50→19:44)
[2016-12-23] MEDS: LORazepam 1 MG TAB PO PRN (10:16)
[2016-12-23] MEDS: HALOPERIDOL 10 MG TAB PO SCH ×3 (10:18→19:55)
--- NOTE | 2016-12-23 12:44 | HHI.PYPN ---
Subjective Remarks Pt seen and discussed with staff. She was agitated this morning with staff and peers and was given ativan 0.5mg pO X1 to maintain safety. She initially refused medications this morning but complied later when offered by different staff. She insists that there is a roommate who is destroying her room (pt is in a private room that is intact) Mental Status Examination Appearance: Appropriate Consciousness: Alert Orientation: Person, Place Motor Activity: Normal gait Speech: Rapid Language: Adequate Fund of Knowledge: Adequate Attention and Concentration: Easily Distracted Memory: Unremarkable Mood: Anxious Affect: Anxious Thought Process & Associations: Loose associations Thought Content: Bizarre thinking, Other (perseverative on people trying to kill her) Hallucination Type: None Delusion Type: Paranoid Suicidal Ideation: No Suicidal Plan: No Suicidal Intention: No Homicidal Ideation: No Homicidal Plan: No Homicidal Intention: No Insight: Poor Judgment: Poor Results Vitals/IOs Vital Signs Date Time Temp Pulse Resp B/P (MAP) Pulse Ox O2 Delivery O2 Flow Rate FiO2 12/23/16 06:00 97.8 82 15 102/56 (71) 96 Intake and Output 12/23/16 12/23/16 12/24/16 08:00 16:00 00:00 Intake Total 240 ml Balance 240 ml Assessment & Plan Problem List: (1) Schizoaffective disorder, bipolar type ICD Codes: F25.0 - Schizoaffective disorder, bipolar type Assessment & Plan Continue current tx plan. Estimated LOS: days Justification for Cont. Inpt. impairments in reality testing and safety Marina Kessler MD Dec 23, 2016 12:44
[2016-12-23 18:43] VITALS: BP 128/65; PULSE 102; RESP 18; TEMP 98.2; O2SAT 98
[2016-12-23] MEDS: diphenhydrAMINE HCL 50 MG CAP PO PRN (19:44)
[2016-12-23] MEDS: AMITRIPTYLINE HCL 100 MG TAB PO SCH (19:45)
[2016-12-23] MEDS: QUEtiapine FUMARATE 200 MG TAB PO SCH (19:45)
[2016-12-24 06:18] VITALS: BP 140/78; PULSE 100; RESP 17; TEMP 98.1; O2SAT 98
[2016-12-24] MEDS: LEVOTHYROXINE SODIUM 100 MCG TAB PO SCH (06:22)
[2016-12-24] MEDS: cloZAPine 25 MG TAB PO SCH (08:36)
[2016-12-24] MEDS: BENZTROPINE MESYLATE 1 MG TAB PO SCH ×2 (08:36→20:01)
[2016-12-24] MEDS: PANTOPRAZOLE SOD 40 MG DELAYED RELEASE TAB PO SCH (08:36)
[2016-12-24] MEDS: CALCIUM/VITAMIN D 250 MG/125 U TAB PO SCH ×2 (08:37→20:01)
[2016-12-24] MEDS: HALOPERIDOL 10 MG TAB PO SCH ×3 (08:37→20:01)
[2016-12-24] MEDS: PHENYTOIN SODIUM 100 MG CAP PO SCH ×3 (08:37→18:00)
[2016-12-24] MEDS: cloZAPine 100 MG TAB PO SCH ×2 (08:37→20:01)
[2016-12-24] MEDS: VALPROIC ACID SYRUP 250 MG/5 ML UDC PO SCH ×2 (08:38→20:00)
[2016-12-24] MEDS: POLYETHYLENE GLYCOL 17 GM PKG PO SCH (08:38)
--- NOTE | 2016-12-24 12:08 | HHI.PYPN ---
Subjective Remarks Pt seen and discussed with staff. Pt was agitated and accusing RN of attempting to poison her, but has calmed down. No aggression on unit today. She is compliant with medications. Mental Status Examination Appearance: Appropriate Consciousness: Alert Orientation: Person, Place Motor Activity: Normal gait Speech: Rapid Language: Adequate Fund of Knowledge: Adequate Attention and Concentration: Easily Distracted Memory: Unremarkable Mood: Anxious Affect: Anxious Thought Process & Associations: Loose associations Thought Content: Bizarre thinking, Other (perseverative on people trying to kill her) Hallucination Type: None Delusion Type: Paranoid Suicidal Ideation: No Suicidal Plan: No Suicidal Intention: No Homicidal Ideation: No Homicidal Plan: No Homicidal Intention: No Insight: Poor Judgment: Poor Results Vitals/IOs Vital Signs Date Time Temp Pulse Resp B/P (MAP) Pulse Ox O2 Delivery O2 Flow Rate FiO2 12/24/16 06:18 98.1 100 17 140/78 (98) 98 Intake and Output 12/24/16 12/24/16 12/25/16 08:00 16:00 00:00 Intake Total 240 ml Balance 240 ml Assessment & Plan Problem List: (1) Schizoaffective disorder, bipolar type ICD Codes: F25.0 - Schizoaffective disorder, bipolar type Assessment & Plan Continue current tx plan. State referral. Estimated LOS: days Justification for Cont. Inpt. impairments in reality testing Marina Kessler MD Dec 24, 2016 12:08
[2016-12-24 18:00] VITALS: BP 145/85; PULSE 18; RESP 18; TEMP 98; O2SAT 96
[2016-12-24 18:07] VITALS: BP 147/85; PULSE 98; RESP 18; TEMP 98; O2SAT 96
[2016-12-24] MEDS: QUEtiapine FUMARATE 200 MG TAB PO SCH (20:00)
[2016-12-24] MEDS: diphenhydrAMINE HCL 50 MG CAP PO PRN (20:01)
[2016-12-24] MEDS: AMITRIPTYLINE HCL 100 MG TAB PO SCH (20:01)
[2016-12-25] MEDS: LEVOTHYROXINE SODIUM 100 MCG TAB PO SCH (05:59)
[2016-12-25 06:22] VITALS: BP 120/63; PULSE 82; RESP 17; TEMP 97.6; O2SAT 97
[2016-12-25] MEDS: VALPROIC ACID SYRUP 250 MG/5 ML UDC PO SCH ×2 (08:40→20:24)
[2016-12-25] MEDS: cloZAPine 25 MG TAB PO SCH (08:41)
[2016-12-25] MEDS: PANTOPRAZOLE SOD 40 MG DELAYED RELEASE TAB PO SCH (08:42)
[2016-12-25] MEDS: cloZAPine 100 MG TAB PO SCH ×2 (08:42→20:23)
[2016-12-25] MEDS: BENZTROPINE MESYLATE 1 MG TAB PO SCH ×2 (08:43→20:22)
[2016-12-25] MEDS: PHENYTOIN SODIUM 100 MG CAP PO SCH ×3 (08:43→17:39)
[2016-12-25] MEDS: CALCIUM/VITAMIN D 250 MG/125 U TAB PO SCH ×2 (08:43→20:23)
[2016-12-25] MEDS: HALOPERIDOL 10 MG TAB PO SCH ×3 (08:51→20:23)
[2016-12-25] MEDS: POLYETHYLENE GLYCOL 17 GM PKG PO SCH (08:52)
[2016-12-25] MEDS: LORazepam 1 MG TAB PO PRN (09:31)
[2016-12-25] MEDS: SODIUM CHLORIDE 0.65% NASAL SPRAY 45 ML BTL EACH NARE PRN (15:58)
--- NOTE | 2016-12-25 17:01 | HHI.PYPN ---
Subjective Remarks Patient seen for follow-up, chart reviewed. Patient found walking the hallway "noted to be slightly irritable stating that this he weekend was horrible" patient stating that she was upset that she has not received a parish use recently. Patient continue be noted to be paranoid stating that "they're trying to kill me". She has not had any behavioral dyscontrol and redirectable. Review of Systems Except as stated in HPI: all other systems reviewed are Neg Mental Status Examination Appearance: Appropriate Consciousness: Alert Orientation: Person, Place Motor Activity: Normal gait Speech: Pressured (slightly) Language: Adequate Fund of Knowledge: Adequate Attention and Concentration: Easily Distracted Memory: Unremarkable Mood: Irritable Affect: Irritable Thought Process & Associations: Loose associations Thought Content: Bizarre thinking, Other (perseverative on people trying to kill her and wanting parachutes) Hallucination Type: None Delusion Type: Paranoid Suicidal Ideation: No Suicidal Plan: No Suicidal Intention: No Homicidal Ideation: No Homicidal Plan: No Homicidal Intention: No Insight: Poor Judgment: Poor Results Vitals/IOs Vital Signs Date Time Temp Pulse Resp B/P (MAP) Pulse Ox O2 Delivery O2 Flow Rate FiO2 12/25/16 06:22 97.6 82 17 120/63 (82) 97 Intake and Output 12/25/16 12/25/16 12/26/16 08:00 16:00 00:00 Intake Total 120 ml 240 ml 360 ml Balance 120 ml 240 ml 360 ml Assessment & Plan Problem List: (1) Schizoaffective disorder, bipolar type ICD Codes: F25.0 - Schizoaffective disorder, bipolar type Assessment & Plan Patient continues to be paranoid as well as perseverative on receiving her. She was noted to be irritable today but redirectable. Continue current treatment. Patient to wait for state hospitalization transfer on 12/27/16. Discharge planning in progress Justification for Cont. Inpt. At risk for further decompensation if at lower level of care Discharge Planning Patient to be transferred to [facility] on 12/27/16 Agustín Serna MD Dec 25, 2016 17:01
[2016-12-25 18:00] VITALS: BP 118/86; PULSE 95; RESP 18; TEMP 97.8; O2SAT 98
[2016-12-25] MEDS: QUEtiapine FUMARATE 200 MG TAB PO SCH (20:22)
[2016-12-25] MEDS: AMITRIPTYLINE HCL 100 MG TAB PO SCH (20:23)
[2016-12-26] MEDS: LEVOTHYROXINE SODIUM 100 MCG TAB PO SCH (05:22)
[2016-12-26] MEDS: SODIUM CHLORIDE 0.65% NASAL SPRAY 45 ML BTL EACH NARE PRN ×3 (05:26→20:27)
[2016-12-26 05:53] VITALS: BP 153/92; PULSE 65; RESP 17; TEMP 97.5; O2SAT 97
--- NOTE | 2016-12-26 08:14 | HHI.PYPN ---
Subjective Remarks Patient seen for follow-up, chart reviewed. Patient was noted walking around the unit. Patient stated that she is sleeping well, eating and drinking okay. But noted to be paranoid and she was pointing at staff stating that they've ordered her son. Patient noted to be disorganized this morning but redirectable. Review of Systems Except as stated in HPI: all other systems reviewed are Neg Mental Status Examination Appearance: Appropriate Consciousness: Alert Orientation: Person, Place Motor Activity: Normal gait Speech: Unremarkable Language: Adequate Fund of Knowledge: Adequate Attention and Concentration: Easily Distracted Memory: Unremarkable Mood: Irritable Affect: Irritable Thought Process & Associations: Loose associations, Disorganized Thought Content: Bizarre thinking, Other (perseverative on people trying to kill her and wanting parachutes) Hallucination Type: None Delusion Type: Paranoid Suicidal Ideation: No Suicidal Plan: No Suicidal Intention: No Homicidal Ideation: No Homicidal Plan: No Homicidal Intention: No Insight: Poor Judgment: Poor Results Vitals/IOs Vital Signs Date Time Temp Pulse Resp B/P (MAP) Pulse Ox O2 Delivery O2 Flow Rate FiO2 12/26/16 05:53 97.5 65 17 153/92 (112) 97 Intake and Output 12/26/16 12/26/16 12/27/16 08:00 16:00 00:00 Intake Total 240 ml Balance 240 ml Assessment & Plan Problem List: (1) Schizoaffective disorder, bipolar type ICD Codes: F25.0 - Schizoaffective disorder, bipolar type Assessment & Plan Patient continues to be paranoid and having bizarre delusions of people having her son. Patient noted to be slightly disorganized this morning but redirectable Continue current treatment. Patient to be transferred to [facility] on 12/27/16. Justification for Cont. Inpt. At risk for further decompensation event lower level of care Discharge Planning Patient to be transferred to [facility] on 12/27/16. Agustín Serna MD Dec 26, 2016 08:14
[2016-12-26] MEDS: PHENYTOIN SODIUM 100 MG CAP PO SCH ×3 (09:15→18:29)
[2016-12-26] MEDS: cloZAPine 25 MG TAB PO SCH (09:16)
[2016-12-26] MEDS: cloZAPine 100 MG TAB PO SCH ×2 (09:16→21:00)
[2016-12-26] MEDS: PANTOPRAZOLE SOD 40 MG DELAYED RELEASE TAB PO SCH (09:16)
[2016-12-26] MEDS: BENZTROPINE MESYLATE 1 MG TAB PO SCH ×2 (09:16→20:26)
[2016-12-26] MEDS: CALCIUM/VITAMIN D 250 MG/125 U TAB PO SCH ×2 (09:16→20:27)
[2016-12-26] MEDS: HALOPERIDOL 10 MG TAB PO SCH ×3 (09:16→20:36)
[2016-12-26] MEDS: VALPROIC ACID SYRUP 250 MG/5 ML UDC PO SCH ×2 (09:18→20:25)
[2016-12-26] MEDS: POLYETHYLENE GLYCOL 17 GM PKG PO SCH (09:23)
[2016-12-26] MEDS: LORazepam 1 MG TAB PO PRN (14:09)
[2016-12-26] MEDS: ALUMINUM/MAGNESIUM/SIMETH 30 ML CUP PO PRN (15:40)
[2016-12-26] MEDS ORDERED: LORazepam 1 MG TAB PO PRN (17:45)
[2016-12-26] MEDS ORDERED: LORazepam 2 MG/ML VIAL IM PRN (17:45)
[2016-12-26 18:00] VITALS: BP 142/91; PULSE 101; RESP 18; TEMP 97.3; O2SAT 97
[2016-12-26] MEDS: AMITRIPTYLINE HCL 100 MG TAB PO SCH (20:27)
[2016-12-26] MEDS: QUEtiapine FUMARATE 200 MG TAB PO SCH (20:27)
[2016-12-27] MEDS: LEVOTHYROXINE SODIUM 100 MCG TAB PO SCH (05:52)
--- NOTE | 2016-12-27 07:42 | HHI.DS ---
Psychiatry Discharge Summary Inpatient Psychiatric care?: Yes Advance Directive: No Reason Not Provided: too confused to answer Mental Health AdvanceDirective: No Health Care Proxy: No Admission Admission Date Oct 03, 2016 at 15:09 Admission Diagnosis: (1) Schizoaffective disorder, bipolar type ICD Code: F25.0 - Schizoaffective disorder, bipolar type Brief History From Dr. Grayson's H&P: Patient is a 61-year-old white female well-known to me from prior psychiatric hospitalization comes here under [employer] act after patient was seen by me in the emergency department on 10/03/16 when I initiated a certificate of involuntary examination. It appears patient was brought from her skilled nursing because of increased psychosis delusions [id number] behaviors and ability to control in that facility. Patient was seen by our psychiatric screeners and medically cleared in the ED with a Depakote level of 50 and a Dilantin level of 14.6. Patient seen by me today for full psychiatric assessment. Of interest patient seen by me hospitalized here 03/04/16 through 05/16/16 visit [id number] that time was discharged to the [facility]. It appears there was no contact with her back here until this admission. This question about her compliance with her medications. At the present time patient sitting quietly in her room on 2500 with staff present through session. Patient is labile tearful, she did recognize me from prior contact. It appears she is responding to internal stimuli sitting she is hearing the voices were son in her ear is concerned about his well-being. There also somewhat paranoid delusions related to other family members and people whom she feels of disrespecting and insulting her. She denies suicidality at this time. Denies any alcohol or drug use. She is somewhat vague and ambiguous about the past psychiatric history. In any event at this time patient does meet criteria for involuntary psychiatric hospitalization under the [employer] act I'll do first opinion request second opinion peripheral she does have capacity sign for medications we'll continue medication as per the EMR repeat Depakote and Dilantin blood levels in 3 days. Hospitalist consult will us considering her multiple medical issues. Hopefully 3 fairly short stay we do need to verify her residential facilities speak with them related to for the details about her behaviors On my examination today: Patient seen and examined. Chart reviewed. I note the patient was admitted for an extended stay from February of last year through April of this year under Dr. Grayson. Case discussed with nursing staff. On my examination today , the patient is somewhat disorganized with loose associations. She tells me "hot seat when I answered the phone today. The man that cries out he's my baby boy." Mood described as depressed. Affect labile. She is fretful and somewhat paranoid regarding a missing business card. Denies audiovisual hallucinations but appears internally stimulated. When I inquire about suicidal or homicidal ideation, the patient changes the subject and talks about a shower. Remainder of the psychiatric ROS is negative. Past psychiatric history: Patient is likely an unreliable historian. Patient reports a history of bipolar disorder. She reportedly follows with a provider by the name of Madelyn. She was admitted earlier this year under Dr. Grayson as I said. Family history: Patient denies any family history of mental illness. Chemical dependency history: Patient endorses a history of cannabis use. 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 She is reportedly . Social history somewhat limited because of patient's degree of thought disorder. Tobacco Use In Past 30 Days: No Tobacco Past 30 Days Alcohol Use: Never Hospital Course Patient is a 61-year-old woman, , domiciled in skilled nursing, unemployed on SSI, past psychiatric history of schizoaffective disorder, previous psychiatric hospitalizations, previous hospitalizations at [place] who comes here under [facility] act after patient in the emergency department on 10/03/16 a certificate of involuntary examination was initiated. It appears patient was brought from her skilled nursing because of increased psychosis delusions [id number] behaviors and ability to control in that facility. Patient maintained on Clozapine 225mg AM/200mg HS, Haloperidol 10mg TID, Quetiapine 400mg HS, Benztropine 1mg BID, Valproic acid 1000mg BID, Dilantin 100mg TID, Amitriptyline 100mg HS. Patient noted to have been responding well to this regimen with minimal aggressive behavior, although at times required redirection but able to keep from becoming aggressive. Patient continued to endorse some disorganization as well as paranoid delusion. Patient was unable to return back to her residence and therefor was referred to the [facility] for watermelon inspector care and management. Patient upon discharge was noted to be calm and cooperative with discharge to [facility]. Results Blood Pressure 142 / 91 Vital Signs Date Time Temp Pulse Resp B/P (MAP) Pulse Ox O2 Delivery O2 Flow Rate FiO2 12/26/16 18:00 97.3 101 18 142/91 (108) 97 Laboratory Results Test 12/14/16 20:53 Valproic Acid (Depakene) Level 82 MCG/ML (50-100) Summary of Procedures none Imaging Last Impressions Lower Extremity CT 12/15/16 0000 Signed Impressions: Service Date/Time: Thursday, December 15, 2016 16:05 - CONCLUSION: 1. No acute fracture of the left hip is identified. Adam Hay MD Head CT 12/15/16 0000 Signed Impressions: Service Date/Time: Thursday, December 15, 2016 16:01 - CONCLUSION: 1. No acute intracranial abnormality. Stable compared to prior dated 10/02/16. Adam Hay MD Aorta w/Runoff CTA 11/02/16 0000 Signed Impressions: Service Date/Time: October 12:38 - CONCLUSION: 1. Adequate inflow and runoff to both lower extremities. Adam Hay MD Lower Extremity Ultrasound 10/31/16 0000 Signed Impressions: Service Date/Time: Monday, October 31, 2016 15:08 - CONCLUSION: No DVT. Ezequiel Frost MD Foot X-Ray 10/31/16 0000 Signed Impressions: Service Date/Time: Monday, October 31, 2016 16:11 - CONCLUSION: No acute disease. Ezequiel Frost MD Pelvis CT 10/29/16 0000 Signed Impressions: Service Date/Time: Saturday, October 29, 2016 12:46 - CONCLUSION: No acute disease. Advanced degenerative disc disease at L5-S1. Florian Hernandez MD Hip and Pelvis X-Ray 10/28/16 0000 Signed Impressions: Service Date/Time: Friday, October 28, 2016 09:44 - CONCLUSION: Unremarkable exam. Yash Ricci MD Pending results at discharge: No Medications # of Antipsychotic meds at D/C: 3 Appropriate >1 Antipsych meds?: 3 Approp Antipsych med options 1 - Minimum of three failed multiple trials of monotherapy. 2 - Documented plan to taper to monotherapy due to previous use of multiple meds OR cross-taper in progress at D/C. 3 - Documentation of augmentation of Clozapine. 4 - Justification other than those listed in allowable values 1-3, document here : Discharge Discharge Date: Dec 27, 2016 Discharge Diagnosis: (1) Schizoaffective disorder, bipolar type ICD Code: F25.0 - Schizoaffective disorder, bipolar type Pt Condition on Discharge: Stable Discharge Disposition: Disch to Another Hospital Discharge Instructions Diet Instructions: Heart Healthy Diet Activities you can perform: Regular-No Restrictions Discharge Time > 30 minutes Mental Status Examination Appearance: Appropriate Consciousness: Alert Orientation: Person, Place Motor Activity: Normal gait Speech: Unremarkable Language: Adequate Fund of Knowledge: Adequate Attention and Concentration: Easily Distracted Memory: Unremarkable Mood: Irritable Affect: Irritable Thought Process & Associations: Loose associations, Disorganized (less today) Thought Content: Bizarre thinking Hallucination Type: None Delusion Type: Paranoid Suicidal Ideation: No Suicidal Plan: No Suicidal Intention: No Homicidal Ideation: No Homicidal Plan: No Homicidal Intention: No Insight: Poor Judgment: Poor Discharge/Advance Care Plan Health Problems: (1) Schizoaffective disorder, bipolar type Goals to promote your health * To prevent worsening of your condition and complications * To maintain your health at the optimal level Directions to meet your goals Take your medications as prescribed Follow your dietary instruction Follow activity as directed Keep your appointments as scheduled Take your immunizations and boosters as scheduled If your symptoms worsen call your PCP, if no PCP go to Urgent Care Center or Emergency Room For 09/10 questions related to your inpatient stay or results of tests pending at discharge, please contact Dr. Agustín Serna at Smoking is Dangerous to Your Health. Avoid second hand smoking Agustín Serna MD Dec 27, 2016 07:42
== END 2016-12-27 07:40 | DRG 885 ==
LOC: NEPE 11:51 → NEDA 10-03 15:09 → H260 10-03 17:35 → H250 10-03 19:40
PROVIDERS: ADMIT Student in an Organized Health Care Education/Training Program; ATTEND Student in an Organized Health Care Education/Training Program
DX: F25.0 Schizoaffective disorder, bipolar type (principal); G40.909 Epilepsy, unspecified, not intractable, without status epilepticus; E03.9 Hypothyroidism, unspecified; R29.6 Repeated falls; R04.0 Epistaxis; R60.0 Localized edema; R42 Dizziness and giddiness; E78.00 Pure hypercholesterolemia, unspecified; K21.9 Gastro-esophageal reflux disease without esophagitis; W19.XXXA Unspecified fall, initial encounter
CPT/HCPCS: 70450; 72192; 73502; 73630; 73700; 75635; 76937; 80048; 80053; 80164; 80185; 80335; 81001; 84443; 85025; 93005; 93922; 93970; G0480; J1200; J1630; J2060; J3230; J3486; P9612; Q0163; Q9967